=== PATIENT | male | born 1960 | race Caucasian/White ===

== ENCOUNTER → 2016-12-18 | Outpatient (CLI) | payer MEDICAID ==
[~2016-12-18] MED LIST: CYCL-83 PO; HYDR-1343 PO; HYDR-2164 PO; IOHEXOL 300 MG/ML 75ml INJECTION ONE; NORMAL SALINE 100 ML ONE; PREG75CA PO; SALINE FLUSH 10ml SYRINGE ONE
--- NOTE | 2016-12-18 14:45 | DI ---
Indication: ITS.REASON: R93.8 Abnormal findings on diagnostic imaging of other specified PROCEDURE: CT CHEST W/CONTRAST: Encounter: Initial Comparison: Chest x-ray dated December 17, 2016 Technique: Axial CT images were performed through the chest after the administration of intravenous contrast. Coronal and sagittal two-dimensional reformats. Automated Exposure Control and Iterative Reconstruction dose reducing techniques were utilized. Contrast: Omnipaque 300 74 mL Findings: Irregular spiculated left upper lobe mass adjacent to the aortic arch as seen on recent chest x-ray measuring 3.9 x 3.7 x 3.6 cm in size. There is adjacent groundglass opacity. Mild emphysematous changes in the lung apices. Mild dependent atelectasis present. No consolidative pneumonia. No pleural effusion or pneumothorax. The central airways are patent. There is an enlarged AP window node on the left measuring 1.2 cm in short axis on axial image #26. Mildly prominent prevascular node present on image #28. No right hilar or subcarinal adenopathy appreciated. No axillary adenopathy. Heart size is normal. No pericardial effusion. Left anterior descending coronary artery calcifications. The upper abdomen shows no acute findings. Bone windows show no lytic or blastic osseous lesions. Impression: 3.9 cm left upper lobe pulmonary mass strongly suspicious for a primary lung malignancy with left mediastinal adenopathy. This is associated with the pleura and immediately adjacent to the aortic arch. Biopsy is recommended. .
== END ==
LOC: IMA 13:57
DX: R93.8 Abnormal findings on diagnostic imaging of other specified body structures (principal); R91.8 Other nonspecific abnormal finding of lung field; R59.0 Localized enlarged lymph nodes
CPT/HCPCS: 71260; J7050; Q9967

== ENCOUNTER 2017-03-08 14:28 | Inpatient (IN) ==
[2017-03-08] MEDS: LEVOFLOXACIN PB 500 MG/100 ML BAG IV SCH (16:55)
[2017-03-08] MEDS: D5-1/2NS with KCL 20mEq 1,000 ML IV SCH ×3 (17:26→22:50)
--- NOTE | 2017-03-08 18:09 | Pharmacy Consult-Antibiotics ---
Pharmacy Consult-Vancomycin - Laboratory Information WBC 10.7 T/MM3 (4.5-11.0) 03/08/17 16:10 BUN 14.0 MG/DL (9-20) 03/08/17 16:10 Creatinine 0.8 MG/DL (0.8-1.5) 03/08/17 16:10 - Consult Information VANCOMYCIN CONSULT: Dx: Possible sepsis Current Renal Fx: SCr = 0.8mg/dl. Will give Vancomycin 2,000mg loading dose then 1,500mg IV q12hrs. Will continue to monitor and adjust regimen to maintain therapeutic levels. Thank you.
--- NOTE | 2017-03-08 18:11 | History and Physical ---
CHIEF COMPLAINT Chills and sweating. HISTORY OF PRESENT ILLNESS Patient is a 56-year-old male who came to the office, walk in, with chief complaint of 2-day history of progressively worsening episodes of chills, rigors and sweating. This has been going on two days and is progressively worsening. He also complains of pain in the left upper quadrant as well as left lower chest. The patient recently received a diagnosis of lung cancer. He was admitted to the hospital in [place] recently and had a left lobotomy. He was dismissed after being in the hospital for nine days, however the following day he had to go back because he developed some sweating, some cold sweats, some chills, and shortness of breath. He was worked up for sepsis and was subsequently diagnosed with UTI and sent home on antibiotics. He was there for three days. He continued to be treated on current antibiotics, Keflex, right now. PAST MEDICAL HISTORY 1. Recently diagnosed with lung cancer - left lung adenocarcinoma. He has not started chemo or radiation yet - just had surgery. 2. Low back pain. 3. Pre-diabetic. 4. Hypertension. 5. Smoking addiction. SOCIAL HISTORY Patient has smoked cigarettes for several years. REVIEW OF SYSTEMS Denies any shortness of breath. He just has chills and sweating as well as left upper quadrant pain. He is currently taking an antibiotic for UTI. Denies any hemoptysis. No chest pain per say. PAST SURGICAL HISTORY 1. Lung biopsy. 2. Chest tube insertion. FAMILY HISTORY Dad has diabetes and hypertension. Paternal grandfather had hypertension and diabetes. PHYSICAL EXAMINATION GENERAL: Patient looks uncomfortable, chilling, rigor, fatigued and weak looking in the examination room. HEENT: Unremarkable. NECK: Supple. LUNGS: Essentially clear though decreased breath sounds from the site of lobectomy. CARDIOVASCULAR: Regular rhythm. ABDOMEN: Soft. Patient is tender in the left upper quadrant. Bowel sounds normoactive. EXTREMITIES: No cyanosis, no clubbing. There is no significant edema. NEURO: Grossly intact. SKIN: No redness. ASSESSMENT 1. 56-year-old male with recent lung cancer now with two-day history of rigor, chills, sweating, fatigue and just not feeling well. Rule out sepsis. 2. Lung CA. Patient has adenocarcinoma stage 2. Patient is status post lobectomy of lung. 3. Chronic low back pain. 4. Boil on the buttock. 5. Chronic narcotic use. 6. Current UTI. PLAN 1. Admit patient for further evaluation. Obtain CBC, CMP, sed rate, UA, and chest x-ray. 2. Will start him on broad spectrum antibiotics including Meropenem IV, vancomycin IV, as well as Levaquin IV. 3. Patient will also be started on IV fluids and go from there. MTDD
[2017-03-08] MEDS: MEROPENEM 1 GM in NS 100 ML IV SCH (18:15)
[2017-03-08] MEDS: ACETAMINOPHEN 500 MG TABLET PO PRN (18:20)
[2017-03-08] MEDS: MORPHINE SULFATE 10 MG SYRINGE IV PRN (19:37)
[2017-03-08] MEDS: ONDANSETRON 4 MG/2 ML INJECTION IVP PRN (19:37)
[2017-03-08] MEDS: METOCLOPRAMIDE 10mg/2ml INJECTION IVP PRN (22:56)
[2017-03-09] MEDS: D5-1/2NS with KCL 20mEq 1,000 ML IV SCH ×4 (00:16→13:22)
[2017-03-09] MEDS: MEROPENEM 1 GM in NS 100 ML IV SCH ×3 (01:42→17:49)
[2017-03-09] MEDS: ONDANSETRON 4 MG/2 ML INJECTION IVP PRN ×2 (01:47→13:22)
[2017-03-09] MEDS: ACETAMINOPHEN 500 MG TABLET PO PRN ×2 (04:21→10:14)
[2017-03-09] MEDS: METOCLOPRAMIDE 10mg/2ml INJECTION IVP PRN (07:30)
[2017-03-09] MEDS: MORPHINE SULFATE 10 MG SYRINGE IV PRN ×2 (07:31→13:23)
--- NOTE | 2017-03-09 08:11 | XRay Report ---
Indication: LUQ PAIN XR chest 1V: Comparison: 01/04/2017 Technique: AP portable chest Findings: Patient shows normal heart size. Patient shows volume loss on the left side due to a partial pneumonectomy. Some blunting of the left costophrenic angle and elevation of the left hemidiaphragm is present. Right lung is slightly hyperaerated. No acute bony findings seen. Impression: 1. Since previous radiographs the patient shows partial pneumonectomy on the left side with removal of the mass density in the volume loss. 2. No additional acute findings. .
--- NOTE | 2017-03-09 10:00 | Consult Note ---
Oncology HPI - Data of Consult Patient: new to practice <Sherine Woods - 03/09/17 10:00> Consult date: 03/09/17 <Sherine Woods - 03/09/17 10:00> Requesting Physician: Cristofer Mendoza MD <Walt Cabrera - 03/09/17 17:57> Cristofer Mendoza MD <Sherine Woods - 03/09/17 10:00> Primary Care Provider: CHARLES Mendoza MD <Walt Cabrera - 03/09/17 17:57> CHARLES Mendoza MD <Sherine Woods - 03/09/17 10:00> Family Provider: Cristofer Mendoza MD <Walt Cabrera - 03/09/17 17:57> Cristofer Mendoza MD <Sherine Woods - 03/09/17 10:00> - Consult Narrative Reason for consult: lung cancer <Sherine Woods - 03/09/17 10:00> History of present illness: 56 yr. old male patient of Dr. Cabrera recently diagnosed w/ adenocarcinoma of lung, s/p left upper lobe lobectomy and lymph node excision by Dr. Ramírez in [place] on 02/16/17. Pathology showed margins all negatvie for malignancy and 24 lymph nodes examined; no lymphatic tumor invasion. Following lobectomy, had UTI and was readmitted to [facility] for a few days. Planning port placement and chemotherapy with pemetrexed/Cisplatin, was to start later in March. Seen by PCP in the office yesterday w/ fever, chills, sweating, and decreased appetite. Ad[place] to [facility] with possible [place]. At time of intake, reclining in hospital bed, daughter at bedside. Alert/ oriented. States "not any better-weak, not hungry or wanting to eat." Continues w/ chills, diaphoresis. No overt temperature spike. Intermittent nausea, no emesis. No abdominal pain. Normal BM yesterday. Voiding ok. History of Present Illness --Significant back problems resulting in disability. Unable to work 4 years. --12/17/16: Chest x-ray showed 3.8 cm mass in the left suprahilar region. --12/29/16: Biopsy left lung showed invasive carcinoma, grade 2, Adenocarcinoma --02/05/17: left parotid needle biopsy, low grade epithelial neoplasm. --02/16/17: KIM lobectomy and lymph node excision (24 LN examined) <Sherine Woods 03/09/17 14:35> Review of Systems - Constitutional Constitutional: Present: anorexia, chills, fatigue, fever(s), weakness, weight loss (10 lbs. in past 3 mos.) <Sherine Woods 03/09/17 14:28> - EENT Eyes: Absent: change in vision <Sherine Woods 03/09/17 14:28> Mouth/Throat: Absent: sore throat <Sherine Woods 03/09/17 14:28> - Cardiovascular Cardiovascular: Absent: chest pain, palpitations <Sherine Woods 03/09/17 14 :28> - Respiratory Respiratory: Present: dyspnea on exertion (previous to surgery, was having cough. "Not now.") <Sherine Woods 03/09/17 14:28> Additional comments: hoarseness after surgery <Walt Cabrera 03/09/17 17:57> - Gastrointestinal Gastrointestinal: Present: early satiety, nausea. Absent: abdominal pain < Sherine Woods 03/09/17 14:28> - Genitourinary Genitourinary: Absent: difficulty urinating, urinary frequency <Sherine Woods 03/09/17 14:28> - Musculoskeletal Musculoskeletal: Absent: arthralgias, joint swelling <Walt Cabrera 03/09/17 17:57> Present: back pain (chronic. Denies pain today) <Sherine Woods 03/09/17 14:28> - Integumentary/Breasts Integumentary: Absent: pruritus, rash <Walt Cabrera 03/09/17 17:57> Present: wounds (open, draining approx. 1.5 cm. incision anterior lower chest wall) <Sherine Woods 03/09/17 14:42> - Neurological Neurological: Absent: headache(s) <aWlt Cabrera 03/09/17 17:57> Present: weakness <Sherine Woods - 03/09/17 14:28> - Psychiatric Psychiatric: Absent: anxiety <Walt Cabrera 03/09/17 17:57> Present: depression (chronic) <Sherine Woods - 03/09/17 14:28 > - Hematologic/Lymphatic Hematologic/Lymphatic: Absent: anemia, lymphadenopathy <Walt Cabrera 17:57> [facility] Patient Stated Medical History Peripheral Neuropathy Yes: takes Lyrica Dental Problems Yes Hypertension Yes Chronic Obstructive Pulmonary Yes Disease (COPD) Pneumonia Yes Other Endocrine Yes: BORDERLINE Hx Renal Disease No Hx Urinary Tract Infection Yes: within past month Sepsis Yes: questionable Clinic Medical History (Last Reviewed 01/05/17 @ 13:02 by LICO Thomas) Chronic low back pain (Acute Medical) Borderline diabetes (Chronic Medical) Hypertension (Chronic Medical) <Walt Cabrera 03/09/17 17:57> Patient Stated Medical History Peripheral Neuropathy Yes: takes Lyrica Dental Problems Yes Hypertension Yes Chronic Obstructive Pulmonary Yes Disease (COPD) Pneumonia Yes Other Endocrine Yes: BORDERLINE Hx Renal Disease No Hx Urinary Tract Infection Yes: within past month Sepsis Yes: questionable Clinic Medical History (Last Reviewed 01/05/17 @ 13:02 by LICO Thomas) Chronic low back pain (Acute Medical) Borderline diabetes (Chronic Medical) Hypertension (Chronic Medical) <Sherine Woods - 03/09/17 14:28> Surgical History: Lung Biopsy, Chest Tube Insertion <Sherine Woods 10:00> Family History: Family History (Last Reviewed 01/05/17 @ 13:02 by LICO Thomas) Father Diabetes Hypertension Paternal Grandfather Hypertension Diabetes <Walt Cabrera 03/09/17 17:57> Family History (Last Reviewed 01/05/17 @ 13:02 by LICO Thomas) Father Diabetes Hypertension Paternal Grandfather Hypertension Diabetes Brother. History cutaneous melanoma at age 52. Living <Sherine Woods 03/09/17 14:42> - Social History Smoking status: Former smoker (Quit February 15, 2017) <Sherine Woods 03/09/17 14:28> Medications Home Medications Medication Instructions Recorded Confirmed Type Cyclobenzaprine Hcl (Flexeril) 10 mg PO DAILY #0 tab 10/19/13 03/08/17 History Albuterol Inhaler [Ventolin Hfa 90 2 puff IN PRN MDD 2 01/04/17 03/08/17 History mcg/actuation] Meloxicam 15 mg PO DAILY 01/04/17 03/08/17 History Trazodone [Desyrel] 100 mg PO HS 01/04/17 03/08/17 History tamsulosin 0.4 mg capsule 0.4 mg PO HS 30 Days #30 03/02/17 03/08/17 History Bisacodyl EC Tab [Dulcolax] 5 mg PO BIDWM 03/08/17 03/08/17 History Clindamycin [Cleocin] 300 mg PO TIDWM 03/08/17 03/08/17 History Pregabalin Cap [Lyrica] 75 mg PO TIDWM 03/08/17 03/08/17 History Pregabalin Cap [Lyrica] 150 mg PO HS 03/08/17 03/08/17 History buPROPion HCl [Bupropion Xl] 150 mg PO HS 03/08/17 03/08/17 History <Walt Cabrera D - 03/09/17 17:57> Allergies Allergy/AdvReac Type Severity Reaction Status Date / Time Sulfa (Sulfonamide Allergy Unknown Verified 01/05/17 11:04 Antibiotics) <Walt Cabrera - 03/09/17 17:57> Exam Vital signs: Temperature 96.3 F L 03/09/17 15:51 Pulse Rate 64 03/09/17 15:51 Respiratory Rate 18 03/09/17 15:51 Blood Pressure 170/79 H 03/09/17 15:51 Pulse Oximetry 99 03/09/17 15:51 Oxygen Delivery Method Room Air <Watl Cabrera - 03/09/17 17:57> Temperature 98.3 F 03/09/17 07:25 Pulse Rate 61 03/09/17 09:30 Respiratory Rate 18 03/09/17 07:25 Blood Pressure 156/83 H 03/09/17 09:30 Pulse Oximetry 98 03/09/17 07:25 Oxygen Delivery Method Room Air <Sherine Woods L - 03/09/17 10:00> - Constitutional mild distress, thin, cooperative <Sherine Woods - 03/09/17 14:28> - Routine HEENT Exam Head: Present: normocephalic <Sherine Woods - 03/09/17 14:28> Eye: Present: normal accommodation. Absent: conjunctival icterus <Sherine Woods - 03/09/17 14:28> Nose: dry mucous membranes <Sherine Woods - 03/09/17 14:28> - Routine Neck Exam Present: supple. Absent: lymphadenopathy, tenderness <Sherine Woods - 14:28> - Routine Respiratory Exam Present: decreased breath sounds (bilateral posterior, left > right). Absent: wheezes, crackles <Sherine Woods - 03/09/17 14:28> - Routine Cardiovascular Exam Present: RRR. Absent: no murmur <Sherine Woods - 03/09/17 14:28> - Routine Abdominal Exam Present: soft, normoactive bowel sounds. Absent: tenderness <Sherine Woods - 03/09/17 14:28> - Routine Extremities Exam Absent: edema, no edema, joint swelling <Sherine Woods - 03/09/17 14:28> - Routine Skin Exam Present: pallor, wounds (approx. 1.5 linear incision left anterior chest wall, covered w/ bandaid, small amount serosnauinous drainage. No surrounding erythema ) <Sherine Woods - 03/09/17 14:42> Comments: mild diaphoresis <Sherine Woods - 03/09/17 14:28> Oncology Results - Labs CBC & Chem 7: 03/09/17 04:03 03/09/17 04:03 <Walt Cabrera D - 03/09/17 17:57> Labs: Short CBC 03/09/17 Range/Units 04:03 WBC 13.4 H (4.5-11.0) T/MM3 Hgb 14.6 D (13.5-17.5) GM/DL Hct 43.1 D (41-53) % Plt Count 395 (130-400) T/MM3 BMP 03/09/17 04:03 Sodium 144 Potassium 4.0 Chloride 110 H Carbon Dioxide 22 BUN 11.0 Creatinine 0.7 L Glucose 167 H Calcium 9.5 D Urine 03/08/17 Range/Units 20:55 Urine Color Yellow (YELLOW) Urine Clarity Clear Urine pH 7.5 (5.0-8.0) Ur Specific [place] 1.015 (1.015-1.025) Urine Protein Negative (NEGATIVE) Urine Glucose (UA) 2+ A (NEGATIVE) <DeborahWalt D - 03/09/17 17:57> Short CBC 03/08/17 03/09/17 Range/Units 16:10 04:03 WBC 10.7 13.4 H (4.5-11.0) T/MM3 Hgb 16.6 14.6 D (13.5-17.5) GM/DL Hct 50.5 43.1 D (41-53) % Plt Count 434 H 395 (130-400) T/MM3 BMP 03/08/17 03/09/17 16:10 04:03 Sodium 148 H 144 Potassium 4.3 4.0 Chloride 112 H 110 H Carbon Dioxide 21 L 22 BUN 14.0 11.0 Creatinine 0.8 0.7 L Glucose 79 167 H Calcium 10.4 H 9.5 D Liver Function 03/08/17 Range/Units 16:10 Total Bilirubin 0.80 (0.20-1.30) MG/DL AST 23 (17-59) U/L ALT 29 (21-72) U/L Alkaline Phosphatase 89 (38-126) U/L Albumin 4.2 (3.5-5.0) G/DL Urine 03/08/17 Range/Units 20:55 Urine Color Yellow (YELLOW) Urine Clarity Clear Urine pH 7.5 (5.0-8.0) Ur Specific [place] 1.015 (1.015-1.025) Urine Protein Negative (NEGATIVE) Urine Glucose (UA) 2+ A (NEGATIVE) <Sherine Woods L - 03/09/17 10:00> Assessment and Plan Assessment and Plan: Patient examined, chart reviewed, documentation by Ivana Woods reviewed. I participated in the development of the plan of care of this patient. Stage IB adenocarcinoma of the left upper lobe status post resection now with postop fevers 2. Initially postop he was felt to have urinary tract infection. He had recurrence of the fevers on 03/08/17. It was associated with elevated plasma lactate and leukocytosis. He is currently feeling better on Levophed on Floxin, vancomycin and meropenem. Will check CRP. Will repeat CEA. We'll use SCDs for prevention of pulmonary embolism. Consider low molecular weight heparin. Thank you very much for allowing us the opportunity pursuing care of this patient. <Walt Cabrera - 03/09/17 17:57> 1. Stage IB left upper lobe adenocarcinoma. S/P lobectomy with multiple lymph nodes negative. Tumor extended past fissure requiring wedge resection of the lower lobe. Tumor was 3.4 cm nearest margin was 1 cm. Lymphovascular invasion was not identified. 24 regional lymph nodes were examined and no lymph node involvement was seen. PET suggests there may be hilar node. This lesion is central and adjacent to aortic arch and pleura. 01/22/17: MRI of the brain did not show metastatic disease. Ultrasound and CT scan show a intraparotid lymph node. This could be inflammatory from dental disease or metastatic. 02/08/17: Biopsy was obtained and shows a low-grade neoplasm. This can be addressed after his lung cancer is addressed. He will be scheduled for surgery. 03/02/17: He has completed surgery and is doing well postop. His tumor was 1B but poorly differentiated and extension across the fissure increases his risk of recurrence. Feel he would be a candidate for adjuvant chemotherapy with pemetrexed aid and cis-[place]. Will provide education and look at starting late March. 2. Possible sepsis. Ad[place] [facility] [place]; on broad spectrum IV antibiotics. Cultures pending. 3. Chronic back pain with disability. 4. COPD. 5. Situational Depression with of spouse. Currently on trazodone. 6. History tobacco use. Quit smoking 02/15/17. Plans to stay Quit. 7. Low-grade neoplasm of the parotid. Will look at further surgical evaluation after adjuvant chemotherapy. Plan Continue supportive care. Will follow. Dr. Cabrera to see later today. <Sherine Woods - 03/09/17 14:42> Sepsis Assessment - Evaluation Sepsis screening result: No Definite Risk <Sherine Woods - 03/09/17 10:00>
[2017-03-09] MEDS: LEVOFLOXACIN PB 500 MG/100 ML BAG IV SCH (15:56)
[2017-03-09] MEDS ORDERED: NS FLUSH BAG 500ml IV PRN (19:58)
[2017-03-09] MEDS: NS FLUSH BAG 500ml IV PRN (20:16)
--- NOTE | 2017-03-09 21:49 | Progress Note ---
DATE 03/09/2017 SUBJECTIVE Patient is lying in bed. His is at bedside. He thinks his chills are better but not totally gone. His chest x-ray showed no evidence of pneumonia at this time. The source for his chills is not well identifiable at this time. UA is unremarkable. PHYSICAL EXAM VITAL SIGNS: Blood pressure 170/79. Temperature 96.3 orally. Pulse rate 64. Respirations 18. Oxygen saturation 99% on room air. GENERAL: He looks comfortable. He is not as anxious today as he was yesterday. HEENT: Unremarkable. NECK: Supple. LUNGS: Decreased breath sounds in the left lower lobe at the area of lobectomy. ABDOMEN: Soft, nontender. EXTREMITIES: No edema. NEUROLOGIC: Grossly intact. SKIN: At the site of his lobectomy on the right middle back region I did take a culture. At the anterior left lower rib cage at the site of the incision for his thoracotomy I also obtained a bacterial culture from there as well. LABORATORY (this morning) Electrolytes normal. Sugar 167. HgA1c 5.5. Hemoglobin 14.6. WBC is up from 10, 000 to 13,400. ASSESSMENT 1. Sepsis of unknown etiology, unclear. 2. Chills, diaphoresis. 3. Acute adenocarcinoma of lung, stage II. Patient is status post left lower lobe lobectomy. 4. Chronic back pain. PLAN Followup lab in the morning. Continue triple IV antibiotics for now. Hopefully we can get a culture back and also wound culture from the site of recent surgery. [facility]ITALRachell
[2017-03-10] MEDS: ONDANSETRON 4 MG/2 ML INJECTION IVP PRN ×3 (00:54→21:58)
[2017-03-10] MEDS: MEROPENEM 1 GM in NS 100 ML IV SCH ×3 (00:58→17:07)
[2017-03-10] MEDS: D5-1/2NS with KCL 20mEq 1,000 ML IV SCH ×5 (01:37→20:30)
[2017-03-10] MEDS: MORPHINE SULFATE 10 MG SYRINGE IV PRN (04:42)
[2017-03-10] MEDS: METOCLOPRAMIDE 10mg/2ml INJECTION IVP PRN ×2 (04:42→17:07)
[2017-03-10] MEDS ORDERED: SALINE FLUSH 10ml SYRINGE IV PRN (06:24)
[2017-03-10] MEDS: SALINE FLUSH 10ml SYRINGE IV PRN ×2 (06:30→21:59)
--- NOTE | 2017-03-10 09:57 | XRay Report ---
Indication: Lung resection Fever PROCEDURE: XR chest 2V: Encounter: Subsequent Comparison: One view chest, 03/08/2017 Findings: Single frontal chest radiograph demonstrates no appreciable change. Left-sided volume loss associated with partial left pneumonectomy. No confluent infiltrate. Heart unenlarged. Slight retraction of the left hilum upward and ipsilateral mediastinal shift, indicative of volume loss. Impression: Negative for acute chest disease. See above. .
--- NOTE | 2017-03-10 10:57 | Pharmacy Consult-Antibiotics ---
Pharmacy Consult-Vancomycin - Laboratory Information WBC 13.4 T/MM3 (4.5-11.0) H 03/10/17 04:35 BUN 10.0 MG/DL (9-20) 03/10/17 04:35 Creatinine 0.6 MG/DL (0.8-1.5) L 03/10/17 04:35 Vancomycin Trough 8.04 UG/ML (15-20) L 03/10/17 07:28 - Consult Information Vancomycin trough low today. Will give vancomycin 2 grams right now then change therapy to vancomycin 1500mg IV q8h. Will draw a trough to validate dose on . Thank you.
--- NOTE | 2017-03-10 13:42 | Progress Note ---
Oncology Subjective Nauseated Vomiting. Chills. Feels bad. Dry cough. Do diarrhea Constipation. Exam Vital signs: Temperature 98.3 F 03/10/17 07:16 Pulse Rate 63 03/10/17 07:16 Respiratory Rate 18 03/10/17 07:16 Blood Pressure 160/97 H 03/10/17 07:16 Pulse Oximetry 98 03/10/17 07:16 Oxygen Delivery Method Room Air - Constitutional no acute distress, cachectic - Routine HEENT Exam Eye: Present: EOMI, PERRL. Absent: scleral injection ENT: Present: mucous membranes moist, oropharynx clear - Routine Neck Exam Present: supple. Absent: lymphadenopathy - Routine Chest/Breast/Axilla Exam Chest wall: Present: mass (Area of mass opened posterior chest) - Routine Respiratory Exam Present: CTA bilaterally. Absent: wheezes - Routine Cardiovascular Exam Present: RRR, no murmur - Routine Abdominal Exam Present: soft, non distended, non tender, distended - Routine Skin Exam Present: dry, warm - Routine Neurological Exam Present: alert, oriented X3, CN II-XII intact Oncology Results - Labs CBC & Chem 7: 03/10/17 04:35 03/10/17 04:35 Labs: Short CBC 03/10/17 Range/Units 04:35 WBC 13.4 H (4.5-11.0) T/MM3 Hgb 14.7 (13.5-17.5) GM/DL Hct 43.7 (41-53) % Plt Count 351 (130-400) T/MM3 BMP 03/10/17 04:35 Sodium 141 Potassium 3.4 L Chloride 104 Carbon Dioxide 27 BUN 10.0 Creatinine 0.6 L Glucose 134 H Calcium 9.9 Liver Function 03/10/17 Range/Units 04:35 Total Bilirubin 0.70 (0.20-1.30) MG/DL AST 16 L (17-59) U/L ALT 24 (21-72) U/L Alkaline Phosphatase 72 (38-126) U/L Albumin 4.0 (3.5-5.0) G/DL Laboratory Tests 03/09/17 03/10/17 04:03 04:35 C-Reactive Protein < 5.0 Carcinoembryonic Ag 3.46 H D CEA better at 3.46 Down from 19.9 - Imaging and Cardiology Chest x-ray Additional comments: Date of Exam: 03/10/17 Ordering Provider: Walt Cabrera MD Type of Exam(s): XR chest 2V Reason for Exam(s): Lung resection Fever Indication: Lung resection Fever PROCEDURE: XR chest 2V: Encounter: Subsequent Comparison: One view chest, 03/08/2017 Findings: Single frontal chest radiograph demonstrates no appreciable change. Left-sided volume loss associated with partial left pneumonectomy. No confluent infiltrate. Heart unenlarged. Slight retraction of the left hilum upward and ipsilateral mediastinal shift, indicative of volume loss. Impression: Negative for acute chest disease. See above. . Assessment and Plan Assessment and Plan: 1. Stage IB left upper lobe adenocarcinoma. S/P lobectomy with multiple lymph nodes negative. Tumor extended past fissure requiring wedge resection of the lower lobe. Tumor was 3.4 cm nearest margin was 1 cm. Lymphovascular invasion was not identified. 24 regional lymph nodes were examined and no lymph node involvement was seen. PET suggests there may be hilar node. This lesion is central and adjacent to aortic arch and pleura. 01/22/17: MRI of the brain did not show metastatic disease. Ultrasound and CT scan show a intraparotid lymph node. This could be inflammatory from dental disease or metastatic. 02/08/17: Biopsy was obtained and shows a low-grade neoplasm. This can be addressed after his lung cancer is addressed. He will be scheduled for surgery. 03/02/17: He has completed surgery and is doing well postop. His tumor was 1B but poorly differentiated and extension across the fissure increases his risk of recurrence. Feel he would be a candidate for adjuvant chemotherapy with pemetrexed aid and cis-[place]. 03/10/17: CXR negative. CEA decreased from 19.9 to 3.46. CRP low. Continues with fever and feels bad. Worry about opportunistic infection or drug fever. No new drugs. Chest tube wounds growing Gm + Will get CT. Nausea could be levoquin. 2. Possible sepsis. Admitted to [facility] 03/08/17; on broad spectrum IV antibiotics. Cultures blood negative. Wounds growing ID pending. Still feeling bad.WBC elevated and stable CRP not elevated. 3. Chronic back pain with disability. 4. COPD. 5. Situational Depression with of spouse. Currently on trazodone. 6. History tobacco use. Quit smoking 02/15/17. 7. Low-grade neoplasm of the parotid. Will look at further surgical evaluation after adjuvant chemotherapy. Plan Continue supportive care. CT chest. Continue antibiotics. - Time Spent With Patient Total time spent is greater than 50% in coordination of care (as documented) at patient's floor/unit and/or counseling patient: less than 15 minutes Sepsis Assessment - Evaluation Sepsis screening result: No Definite Risk
--- NOTE | 2017-03-10 15:26 | CT Scan Report ---
Indication: Fever Lung cancer Post op PROCEDURE: CT chest wo con: Encounter: Initial Comparison: Chest radiograph of earlier today Technique: Axial, coronal, and sagittal noncontrasted images utilizing radiation dose reduction technique. Findings: Partial pneumonectomy on the left and pleural fluid is identified. There is a subtle groundglass infiltrate with a reticular component as well of about 2 cm in the left apex. This is consistent with pneumonia in this setting. No nodule or mass. Small mediastinal lymph nodes, not enlarged by CT criteria. Images of the upper abdomen demonstrates no adrenal mass effect. Extensive coronary artery calcification. Bone review demonstrates degenerative changes of the spine. Impression: 1. Partial pneumonectomy on the left. 2. Minimal infiltrate in the left upper lobe. 3. Small left pleural effusion. .
[2017-03-10] MEDS: LEVOFLOXACIN PB 500 MG/100 ML BAG IV SCH (15:56)
--- NOTE | 2017-03-10 18:39 | General Surgery Consult Note ---
Consult date: 03/10/17 Attending Physician: Cristofer Mendoza MD Reason for consult: wound care (at old chest tube site) [facility] Patient Stated Medical History Peripheral Neuropathy Yes: takes Lyrica Dental Problems Yes Hypertension Yes Chronic Obstructive Pulmonary Yes Disease (COPD) Pneumonia Yes Other Endocrine Yes: BORDERLINE Hx Renal Disease No Hx Urinary Tract Infection Yes: within past month Sepsis left lung cancer 2017 Clinic Medical History (Last Reviewed 01/05/17 @ 13:02 by LICO Thomas) Chronic low back pain (Acute Medical) Borderline diabetes (Chronic Medical) Hypertension (Chronic Medical) Surgical History: Lung Biopsy, Chest Tube Insertion,. Left upper lobectomy 2016 Family History: Family History (Last Reviewed 01/05/17 @ 13:02 by LICO Thomas) Father Diabetes Hypertension lung cancer Paternal Grandfather Hypertension Diabetes MOTHER when patient was 2 year old from "sleeping sickness." - Social History Smoking status: Former smoker (Quit February 15, 2017) Medications Home Medications Medication Instructions Recorded Confirmed Type Cyclobenzaprine Hcl (Flexeril) 10 mg PO DAILY #0 tab 10/19/13 03/08/17 History Albuterol Inhaler [Ventolin Hfa 90 2 puff IN PRN MDD 2 01/04/17 03/08/17 History mcg/actuation] Meloxicam 15 mg PO DAILY 01/04/17 03/08/17 History Trazodone [Desyrel] 100 mg PO HS 01/04/17 03/08/17 History tamsulosin 0.4 mg capsule 0.4 mg PO HS 30 Days #30 03/02/17 03/08/17 History Bisacodyl EC Tab [Dulcolax] 5 mg PO BIDWM 03/08/17 03/08/17 History Clindamycin [Cleocin] 300 mg PO TIDWM 03/08/17 03/08/17 History Pregabalin Cap [Lyrica] 75 mg PO TIDWM 03/08/17 03/08/17 History Pregabalin Cap [Lyrica] 150 mg PO HS 03/08/17 03/08/17 History buPROPion HCl [Bupropion Xl] 150 mg PO HS 03/08/17 03/08/17 History Allergies Allergy/AdvReac Type Severity Reaction Status Date / Time Sulfa (Sulfonamide Allergy Unknown Verified 03/09/17 18:37 Antibiotics) Review of Systems 10-point ROS: negative except for HPI and the following: - General General: Present: chills (and rigors), night sweats, unexplained weight loss ( 10 lb in last 3 months) - Eyes/Ears/Nose/Throat Ear Nose Throat: Present: loose/chipped/cracked teeth - Respiratory Respiratory: Present: difficulty breathing, cough (recent KIM lobectomy) - Gastrointestinal Gastrointestinal: Present: nausea, other (poor appetite) - Musculoskeletal Musculoskeletal: Present: back pain - Neurological Neurological: Present: muscle weakness - Psychiatric Psychiatric: Present: depression - Vital Signs Last Vital Signs Temp 97.9 F 03/10/17 16:00 Pulse 55 L 03/10/17 16:00 Resp 18 03/10/17 16:00 BP 163/84 H 03/10/17 16:00 Pulse Ox 99 03/10/17 16:00 - Laboratory Result Diagrams: 03/10/17 04:35 03/10/17 04:35 - Microbiogy Microbiology 03/08/17 16:22 Peripheral/Iv Start Blood Culture - Preliminary No Growth After 2 Days 03/08/17 16:10 Peripheral/Iv Start Blood Culture - Preliminary No Growth After 2 Days 03/09/17 19:49 Back, Left Upper Gram Stain - Final 03/09/17 19:49 Back, Left Upper Superficial Wound Culture - Preliminary Early growth 03/09/17 19:49 Abdomen, Left Lower Gram Stain - Final 03/09/17 19:49 Abdomen, Left Lower Deep Wound Culture - Preliminary Early growth Wound/Stoma/Drain Assessment - Wound Management Left Upper Lateral Abdomen Wound Type: Surgical Incision Wound Present on Admission?: Yes Wound Bed Appearance: [place] Wound Drainage Description: Serosanguineous Wound Drainage Amount: Scant Wound Drainage Odor: No Odor Wound Dressing Status: Dry & Intact Primary Dressing: Silver Dressing Secondary Dressing: Mepilex Dressing Change Date: 03/09/17 Dressing Change Time: 18:30 Dressing Change Patient Tolerance: Tolerated Well Left Upper Posterior Back Wound Type: Lap Site Wound Present on Admission?: Yes Wound Drainage Amount: None Wound Drainage Odor: No Odor Wound Dressing Status: Dry & Intact Primary Dressing: Bandaid Dressing Change Date: 03/09/17 Dressing Change Time: 19:45 Dressing Change Patient Tolerance: Tolerated Well General Surgery Results - Results Labs: 03/10/17 04:35 03/10/17 04:35 Microbiology: Microbiology 03/08/17 16:22 Peripheral/Iv Start Blood Culture - Preliminary No Growth After 2 Days 03/08/17 16:10 Peripheral/Iv Start Blood Culture - Preliminary No Growth After 2 Days 03/09/17 19:49 Back, Left Upper Gram Stain - Final 03/09/17 19:49 Back, Left Upper Superficial Wound Culture - Preliminary Early growth 03/09/17 19:49 Abdomen, Left Lower Gram Stain - Final 03/09/17 19:49 Abdomen, Left Lower Deep Wound Culture - Preliminary Early growth Hospital Course Summary Disclaimer: The visit summary below is not to be considered part of the above Progress Note. Sepsis Assessment - Evaluation Sepsis screening result: No Definite Risk
[2017-03-11] MEDS: MEROPENEM 1 GM in NS 100 ML IV SCH ×3 (01:18→17:33)
[2017-03-11] MEDS: SALINE FLUSH 10ml SYRINGE IV PRN (01:32)
[2017-03-11] MEDS: METOCLOPRAMIDE 10mg/2ml INJECTION IVP PRN (01:33)
[2017-03-11] MEDS: NS FLUSH BAG 500ml IV PRN (01:33)
[2017-03-11] MEDS: ACETAMINOPHEN 500 MG TABLET PO PRN (04:28)
[2017-03-11] MEDS: D5-1/2NS with KCL 20mEq 1,000 ML IV SCH ×2 (05:35→17:32)
--- NOTE | 2017-03-11 07:59 | Progress Note ---
DATE 03/10/2017 SUBJECTIVE Patient is lying in bed. He still complained of chills. His CT chest was reviewed later on after I talked to him. He was seen by wound care earlier. PHYSICAL EXAM General: Patient looks comfortable overall. VITAL SIGNS: Pulse is between 55 to 62. Blood pressure 163/84 with respiration 18. O2 sat 99% on room air. NECK: Supple. CHEST: Lungs are clearing. CARDIOVASCULAR: Regular rate and rhythm. ABDOMEN: Soft, nontender. No masses palpable. EXTREMITIES: No edema. NEURO EXAM: Grossly intact. SKIN: As previously recorded. LABORATORY This morning white blood count was 13,400. Potassium was 3.4 earlier today. CEA is 3.46. IMAGING CT chest done that shows minimal infiltrate in left upper lobe probably consistent with pneumonia in this clinical setting. Chest x-ray done today negative for acute disease. ASSESSMENT 1. Sepsis of unknown etiology. 2. Adenocarcinoma of the lung, stage II. Patient is status post left lobectomy. 3. Left upper lobe pneumonia. PLAN Continue current antibiotics. Wound culture from yesterday shows early growth with a gram positive chain. Follow up electrolytes in the morning and tonight. [facility]
--- NOTE | 2017-03-11 08:52 | Consultation ---
DATE OF CONSULTATION 03/10/2017 FINDINGS Mr. Dunlap is a 56-year-old gentleman whom I was asked to see today for evaluation of a wound involving his left lateral chest. The patient states that in mid-January he underwent a left upper lobectomy secondary to lung cancer. He had several chest tubes placed during the time of his surgery. Patient states these chest tubes were present for several days following his surgery. The patient has noted some redness along one of his chest tube sites involving the left lateral chest wall. Recently he has been having a component of a night sweats and fever. The patient was admitted to hospital for further care. Consult was put forth to myself in regards to this chest tube site. PAST MEDICAL HISTORY Performed by my nurse practitioner, Monroe Hayes. PAST SURGICAL HISTORY Performed by my nurse practitioner, Monroe Hayes. MEDICATIONS Performed by my nurse practitioner, Monroe Hayes. ALLERGIES Performed by my nurse practitioner, Monroe Hayes. SOCIAL HISTORY Performed by my nurse practitioner, Monroe Hayes. FAMILY HISTORY Performed by my nurse practitioner, Monroe Hayes. REVIEW OF SYSTEMS Performed by my nurse practitioner, Monroe Hayes. PHYSICAL EXAMINATION Mr. Pena is a 56-year-old gentleman who does not appear to be in acute distress. VITALS: Temperature 97.9, pulse 55, respirations 18, blood pressure 163/84, SaO2 99% on room air. HEENT: Normocephalic. Pupils are equal, round and reactive to light and accommodation. HEART: Regular rate and rhythm. Normal S1 and S2 without gallops, murmurs or clicks. CHEST: Attention was focused to the left lateral chest wall. He does have a thoracotomy incision that has healed without difficulty. Just beneath his thoracotomy incision he did have a Mepilex foam dressing present. The foam dressing was lifted up so that one could see the underlying wound. He does have a chest tube site that does not appear to be grossly infected at this time. There is no surrounding periwound erythema. The chest tube site remains to be open. There is some minimal bioburden-like material within the subcutaneous tissues. I did not see any evidence for sheron necrosis of the skin edges. ABDOMEN: Palpation of the abdomen reveals it to be soft and nontender. I do not appreciate any evidence for hepatosplenomegaly or abnormal masses. EXTREMITIES: Without clubbing, cyanosis, or edema. NEURO: Cranial nerves II-XII grossly intact. Patient is without focal motor or sensory deficits. LABORATORY/RADIOGRAPH EVALUATION The patient had a CBC and his white count was 13.4. Hemoglobin is normal at 14.7. CMP obtained and found to be without marked abnormalities. The patient had a CEA level that was elevated at 3.46. Chest CT scan was obtained earlier today. Findings were that of a partial pneumonectomy on the left. Minimal infiltrate was noted within the left upper lobe. Small left pleural effusion was noted. ASSESSMENT 56-year-old gentleman status post lobectomy of left lung. Patient with a presentation of fever and chills. Patient with surgical wound/chest tube site involving left lateral chest wall which does not appear to be grossly infected at this time. PLAN In regard to his chest tube site I would recommend that we just initiate local wound care consisting of placing silver Aquacel within the wound followed by a foam dressing. At this time there is no need for any type of excisional surgical debridement/surgical intervention. I do not feel that this small chest tube/surgical wound involving left lateral chest wall is the underlying etiology for his fever and chills. Will continue to follow along in the patient 's care. [facility]
[2017-03-11 10:20] VITALS: BMI 20.9
--- NOTE | 2017-03-11 11:42 | Progress Note ---
Oncology Subjective Sitting in chair. States feeling better, no chills or sweats today. No pain. Occasional non-prod. cough. Denies SOA. Denies N/V, no diarrhea or constipation. Normal voiding. General: No fever, no night sweats Eyes: No redness, no pain, no diplopia ENT: No mouth sores, no trouble swallowing Cardiac: No chest pain no palpitations Pulmonary: + cough, no shortness of breath, no wheezing Abdomen: No pain, no nausea vomiting, no diarrhea or constipation : No urgency, frequency, dysuria, or hematuria Musculoskeletal: No arthritis, no myalgias Neurological: No headaches, no focal weakness Skin: No rash, no sores Psychiatric: No anxiety, no depression <Sherine Woods - 03/11/17 16:39> Exam Vital signs: Temperature 97.9 F 03/11/17 15:00 Pulse Rate 60 03/11/17 15:00 Respiratory Rate 14 03/11/17 15:00 Blood Pressure 172/95 H 03/11/17 15:00 Pulse Oximetry 99 03/11/17 15:00 Oxygen Delivery Method Room Air <Walt Cabrera D - 03/11/17 19:24> Temperature 97 F 03/11/17 07:00 Pulse Rate 59 L 03/11/17 07:00 Respiratory Rate 14 03/11/17 07:00 Blood Pressure 157/93 H 03/11/17 07:00 Pulse Oximetry 99 03/11/17 07:00 Oxygen Delivery Method Room Air <Sherine Woods - 03/11/17 16:39> - Constitutional no acute distress, well nourished, well developed <Sherine Woods - 03/11/17 16:39> - Routine HEENT Exam Head: Present: normocephalic <Sherine Woods - 03/11/17 16:39> Eye: Present: EOMI <Sherine Woods - 03/11/17 16:39> ENT: Present: mucous membranes moist <Sherine Woods - 03/11/17 16:39> - Routine Neck Exam Present: supple. Absent: lymphadenopathy <Sherine Woods - 03/11/17 16:39> - Routine Respiratory Exam Present: decreased breath sounds. Absent: wheezes, crackles <Sherine Woods - 03/11/17 16:39> - Routine Cardiovascular Exam Present: RRR. Absent: no murmur <Sherine Woods - 03/11/17 16:39> - Routine Abdominal Exam Present: soft, normoactive bowel sounds, non tender <Sherine Woods - 16:39> - Routine Extremities Exam Present: no edema <Sherine Woods - 03/11/17 16:39> - Routine Back/Spine/Pelvis Exam Back/Spine: Absent: vertebral tenderness <Sherine Woods - 03/11/17 16:39> - Routine Skin Exam Present: dry, warm, lesions <Sherine Woods - 03/11/17 16:39> Comments: drss to left ant. chest wall-dry/intact/ did not remove. Incision left posterior lateral thoracic area well healed, medial incision mildy erythematous , but dry/well approximated. <Sherine Woods - 03/11/17 16:39> - Routine Neurological Exam Present: alert, oriented X3, moving all extremities <Sherine Woods - 16:39> - Routine Psychiatric Exam Present: normal affect, normal thought process <Sherine Woods - 03/11/17 16: 39> Oncology Results - Labs CBC & Chem 7: 03/11/17 04:50 03/11/17 04:50 <Walt Cabrera - 03/11/17 19:24> Labs: Short CBC 03/11/17 Range/Units 04:50 WBC 13.5 H (4.5-11.0) T/MM3 Hgb 15.1 (13.5-17.5) GM/DL Hct 44.4 (41-53) % Plt Count 317 (130-400) T/MM3 BMP 03/10/17 03/11/17 19:37 04:50 Sodium 142 139 Potassium 3.3 L 3.3 L Chloride 105 101 Carbon Dioxide 25 28 BUN 11.0 11.0 Creatinine 0.6 L 0.7 L Glucose 92 108 Calcium 9.3 9.4 Liver Function 03/11/17 Range/Units 04:50 Total Bilirubin 0.80 (0.20-1.30) MG/DL AST 15 L (17-59) U/L ALT 30 (21-72) U/L Alkaline Phosphatase 68 (38-126) U/L Albumin 3.9 (3.5-5.0) G/DL <Walt Cabrera - 03/11/17 19:24> Short CBC 03/11/17 Range/Units 04:50 WBC 13.5 H (4.5-11.0) T/MM3 Hgb 15.1 (13.5-17.5) GM/DL Hct 44.4 (41-53) % Plt Count 317 (130-400) T/MM3 BMP 03/10/17 03/11/17 19:37 04:50 Sodium 142 139 Potassium 3.3 L 3.3 L Chloride 105 101 Carbon Dioxide 25 28 BUN 11.0 11.0 Creatinine 0.6 L 0.7 L Glucose 92 108 Calcium 9.3 9.4 Liver Function 03/11/17 Range/Units 04:50 Total Bilirubin 0.80 (0.20-1.30) MG/DL AST 15 L (17-59) U/L ALT 30 (21-72) U/L Alkaline Phosphatase 68 (38-126) U/L Albumin 3.9 (3.5-5.0) G/DL <Sherine Woods L - 03/11/17 11:42> Assessment and Plan Assessment and Plan: Patient examined Chart reviewed. I participated in the development of the plan of care of the patient CT Chest shows infiltrate and small amount of fluid. Now having hiccups possible related to lymph node dissection. WBC stable Laboratory Tests 03/09/17 03/10/17 03/11/17 04:03 04:35 04:50 WBC 13.4 H 13.4 H 13.5 H Hgb 14.7 15.1 Plt Count 351 317 Creatinine 03/11/17 04:50 WBC Hgb Plt Count Creatinine 0.[address] Mendoza. Will follow up in office. Need to have fever clear prior to port a cath. <Walt Cabrera - 03/11/17 19:24> 1. Stage IB left upper lobe adenocarcinoma. S/P lobectomy with multiple lymph nodes negative. Tumor extended past fissure requiring wedge resection of the lower lobe. Tumor was 3.4 cm nearest margin was 1 cm. Lymphovascular invasion was not identified. 24 regional lymph nodes were examined and no lymph node involvement was seen. PET suggests there may be hilar node. This lesion is central and adjacent to aortic arch and pleura. 01/22/17: MRI of the brain did not show metastatic disease. Ultrasound and CT scan show a intraparotid lymph node. This could be inflammatory from dental disease or metastatic. 02/08/17: Biopsy was obtained and shows a low-grade neoplasm. This can be addressed after his lung cancer is addressed. He will be scheduled for surgery. 03/02/17: He has completed surgery and is doing well postop. His tumor was 1B but poorly differentiated and extension across the fissure increases his risk of recurrence. Feel he would be a candidate for adjuvant chemotherapy with pemetrexed aid and cis-[place]. 03/10/17: CXR negative. CEA decreased from 19.9 to 3.46. CRP low. Continues with fever and feels bad. Worry about opportunistic infection or drug fever. No new drugs. Chest tube wounds growing Gm + Will get CT. Nausea could be levoquin. 03/11/17. CT shows likely pneumonia. Clinically and subjectively feeling improved. No nausea today. 2. Possible sepsis. Admitted to [facility] 03/08/17; on broad spectrum IV antibiotics. Cultures blood negative. Wounds growing ID pending. Still feeling bad.WBC elevated and stable CRP not elevated 03/11/17: Subjectively feeling improved. Wound Culture Gm + cocci, light growth. Blood cultures negative for growth after 3 days. 3. Chronic back pain with disability. 4. COPD. 5. Situational Depression with of spouse. Currently on trazodone. 03/11/17 Verbalizes-" I have 11 granchildren and one on the way... I have a lot to get better for." 6. History tobacco use. Quit smoking 02/15/17 03/11/17: states plans to stay Quit. Congratulated. 7. Low-grade neoplasm of the parotid. Will look at further surgical evaluation after adjuvant chemotherapy. Plan Continue supportive care. Patient thinks may go home tomorrow. Will follow as out-patient. <Sherine Woods - 03/11/17 16:39> - Time Spent With Patient Total time spent is greater than 50% in coordination of care (as documented) at patient's floor/unit and/or counseling patient: <Walt Cabrera - 03/11/17 19:24> Total time spent is greater than 50% in coordination of care (as documented) at patient's floor/unit and/or counseling patient: <Sherine Woods 03/11/17 11:42> less than 15 minutes <Sherine Woods 03/11/17 16:39> Sepsis Assessment - Evaluation Sepsis screening result: No Definite Risk <Sherine Woods 03/11/17 11:42>
[2017-03-11] MEDS ORDERED: HYDROCODONE/APAP 10 MG/325 MG TABLET PO PRN (14:17)
[2017-03-11] MEDS ORDERED: ALBUTEROL 2.5mg/3ml (0.083%) NEB AEROSOL PRN (14:30)
[2017-03-11] MEDS: LEVOFLOXACIN PB 500 MG/100 ML BAG IV SCH (16:13)
[2017-03-11] MEDS: Bisacodyl EC TAB 5 MG TABLET PO SCH (17:32)
[2017-03-11] MEDS: PREGABALIN 75 MG CAPSULE PO SCH (17:32)
[2017-03-11] MEDS: DOCUSATE SODIUM 100 MG CAPSULE PO SCH (21:41)
[2017-03-11] MEDS ORDERED: TAMSULOSIN 0.4 MG CAPSULE PO SCH (22:00)
[2017-03-11] MEDS ORDERED: TRAZODONE 100 MG TABLET PO SCH (22:00)
[2017-03-11] MEDS ORDERED: PREGABALIN 150 MG CAPSULE PO SCH (22:00)
[2017-03-11] MEDS ORDERED: BuPROPion XL 150mg (24HR) TABLET PO SCH (22:00)
[2017-03-12] MEDS: MEROPENEM 1 GM in NS 100 ML IV SCH ×2 (01:05→09:43)
[2017-03-12] MEDS ORDERED: CYCLOBENZAPRINE 10 MG TABLET PO SCH (09:00)
[2017-03-12] MEDS ORDERED: MELOXICAM 15 MG TABLET PO SCH (09:00)
[2017-03-12] MEDS: Bisacodyl EC TAB 5 MG TABLET PO SCH (09:42)
[2017-03-12] MEDS: D5-1/2NS with KCL 20mEq 1,000 ML IV SCH ×2 (09:42→10:53)
[2017-03-12] MEDS: DOCUSATE SODIUM 100 MG CAPSULE PO SCH (09:42)
[2017-03-12] MEDS: PREGABALIN 75 MG CAPSULE PO SCH ×2 (09:42→11:48)
[2017-03-12] MEDS: NS FLUSH BAG 500ml IV PRN (09:51)
[2017-03-12 10:22] VITALS: BP 146/76; PULSE 57; RESP 16; O2SAT 100
[2017-03-12 10:24] VITALS: TEMP 97.9
--- NOTE | 2017-03-12 10:46 | Progress Note ---
Oncology Subjective Alert/oriented. Feeling better. No fever/chills, or sweats. Continues w/ non- prod. cough. No chest pain or SOA. Eating better. Chronic back pain-Fentanyl resumed per Dr. Gillette. No BM since admit. Voiding normally. General: No fever, no night sweats Eyes: No redness, no pain, no diplopia ENT: No mouth sores, no trouble swallowing Cardiac: No chest pain no palpitations Pulmonary: + cough, no shortness of breath, no wheezing Abdomen: No pain, no nausea vomiting, no diarrhea or constipation. No BM since admit. : No urgency, frequency, dysuria, or hematuria Musculoskeletal: chronic back pain. Denies pain now. Neurological: No headaches, no focal weakness Skin: No rash, no sores Psychiatric: No anxiety, no depression Exam Vital signs: Temperature 97.9 F 03/12/17 10:23 Pulse Rate 57 L 03/12/17 08:00 Respiratory Rate 16 03/12/17 08:00 Blood Pressure 146/76 H 03/12/17 08:00 Pulse Oximetry 100 03/12/17 08:00 Oxygen Delivery Method Room Air - Constitutional no acute distress, well nourished, well developed - Routine HEENT Exam Head: Present: normocephalic Eye: Present: EOMI Nose: moist mucous membranes - Detailed ENT Exam Oral mucosa: Absent: lesions - Routine Neck Exam Present: supple. Absent: lymphadenopathy - Routine Respiratory Exam Present: decreased breath sounds. Absent: wheezes, crackles - Routine Cardiovascular Exam Present: RRR. Absent: no murmur - Routine Abdominal Exam Present: soft. Absent: tenderness - Routine Extremities Exam Absent: no edema, joint swelling - Routine Skin Exam Present: dry, warm Comments: dressing ant. left chest wall dry/intact. No s/sx inflammation-wound not examined. - Routine Neurological Exam Present: alert, oriented X3 - Routine Psychiatric Exam Present: normal affect, normal thought process Oncology Results - Labs CBC & Chem 7: 03/11/17 04:50 03/12/17 04:33 Labs: BMP 03/12/17 04:33 Creatinine 0.6 L Assessment and Plan Assessment and Plan: Patient examined Chart reviewed. I participated in the development of the plan of care of the patient CT Chest shows infiltrate and small amount of fluid. Now having hiccups possible related to lymph node dissection. WBC stable Laboratory Tests 03/09/17 03/10/17 03/11/17 04:03 04:35 04:50 WBC 13.4 H 13.4 H 13.5 H Hgb 14.7 15.1 Plt Count 351 317 Creatinine 03/11/17 04:50 WBC Hgb Plt Count Creatinine 0.[address] Mendoza. Will follow up in office. Need to have fever clear prior to port a cath. 1. Stage IB left upper lobe adenocarcinoma. S/P lobectomy with multiple lymph nodes negative. Tumor extended past fissure requiring wedge resection of the lower lobe. Tumor was 3.4 cm nearest margin was 1 cm. Lymphovascular invasion was not identified. 24 regional lymph nodes were examined and no lymph node involvement was seen. PET suggests there may be hilar node. This lesion is central and adjacent to aortic arch and pleura. 01/22/17: MRI of the brain did not show metastatic disease. Ultrasound and CT scan show a intraparotid lymph node. This could be inflammatory from dental disease or metastatic. 02/08/17: Biopsy was obtained and shows a low-grade neoplasm. This can be addressed after his lung cancer is addressed. He will be scheduled for surgery. 03/02/17: He has completed surgery and is doing well postop. His tumor was 1B but poorly differentiated and extension across the fissure increases his risk of recurrence. Feel he would be a candidate for adjuvant chemotherapy with pemetrexed aid and cis-pechanga. 03/10/17: CXR negative. CEA decreased from 19.9 to 3.46. CRP low. Continues with fever and feels bad. Worry about opportunistic infection or drug fever. No new drugs. Chest tube wounds growing Gm + Will get CT. Nausea could be levoquin. 03/11/17. CT shows likely pneumonia. Clinically and subjectively feeling improved. No nausea today. 03/12/17 Clinically and subjectively improving. 2. Possible sepsis. Admitted to [facility]; on broad spectrum IV antibiotics. Cultures blood negative. Wounds growing ID pending. Still feeling bad.WBC elevated and stable CRP not elevated. 03/11/17: Subjectively feeling improved. Wound Culture Gm + cocci, light growth. Blood cultures negative for growth after 3 days. 3. Chronic back pain with disability. 4. COPD. 5. Situational Depression with of spouse. Currently on trazodone. 03/11/17 Verbalizes-" I have 11 granchildren and one on the way... I have a lot to get better for." 6. History tobacco use. Quit smoking 02/15/17 03/11/17: states plans to stay Quit. Congratulated. 7. Low-grade neoplasm of the parotid. Will look at further surgical evaluation after adjuvant chemotherapy. Plan. Oncology okay with dismissal. RTC Sherine Woods [employer] 03/18/17 w/ CBC, CMP, LDH, Mg , and education on planned chemotherapy at later date. Patient informed. Has no questions. - Time Spent With Patient Total time spent is greater than 50% in coordination of care (as documented) at patient's floor/unit and/or counseling patient: 25 - 35 minutes Sepsis Assessment - Evaluation Sepsis screening result: No Definite Risk
--- NOTE | 2017-03-12 11:37 | Pharmacy Consult-Antibiotics ---
Pharmacy Consult-Vancomycin - Laboratory Information WBC 13.5 T/MM3 (4.5-11.0) H 03/11/17 04:50 BUN 11.0 MG/DL (9-20) 03/11/17 04:50 Creatinine 0.6 MG/DL (0.8-1.5) L 03/12/17 04:33 Vancomycin Trough 19.18 UG/ML (15-20) 03/12/17 04:33 VANCOMYCIN CONSULT: Vancomycin Trough = 19.13 mcg/ml. Today's Serum Creatinine = 0.6 mg/dl. Estimated creatinine clearance ~ 120 mL/ min I will continue the Vancomycin 1,500 mg IV q8hrs until the Vancomycin is discontinued or the renal function changes. The Pharmacy will continue to monitor and make adjustments accordingly. Thank you for the Vancomycin Consult. Samuel Vazquez, Pharmacist.
[2017-03-12] MEDS ORDERED: POLYETHYL GLYCOL 3350 17gm PACKET PO ONE (11:45)
--- NOTE | 2017-03-13 11:51 | Progress Note ---
DATE 03/12/2017 SUBJECTIVE The patient is lying in bed. He has not had any chills today. PHYSICAL EXAMINATION GENERAL: He looks comfortable and cheerful today. VITAL SIGNS: Vital signs are fairly acceptable. LUNGS: Lungs are clear. CARDIOVASCULAR: Regular rate and rhythm. ABDOMEN: Soft, nontender. No masses palpable. EXTREMITIES: No significant edema. SKIN: No new lesions. LABORATORY DATA Lab including white blood count 13,500. Potassium 3.3. ASSESSMENT 1. Sepsis of unknown etiology. Left upper lobe suggestive of pneumonia. 2. Adenocarcinoma of the lungs, stage II. PLAN Continue IV antibiotics. Follow up electrolytes in the morning. MTDD
--- NOTE | 2017-03-13 12:13 | Discharge Summary ---
FINAL DIAGNOSES 1. Moderate sepsis. 2. Fever. 3. Chills. 4. Adenocarcinoma of the lung, stage II. 5. Left upper lobe infiltrate suggestive of pneumonia. 6. Multiple skin wounds. REASON FOR ADMISSION The patient is a 56-year-old male who was recently diagnosed with lung cancer. Patient had a left lower lobe lobectomy recently. He presented with a two-day history of gradually worsening chills, rigors, and sweating. He has been on antibiotics for UTI. He is actually still taking that at this time. PHYSICAL EXAMINATION GENERAL APPEARANCE: The patient looks ill, chilling, rigors, fatigue, and weak looking. LUNGS: Essentially clear. Decreased breath sounds from the site of the lobectomy. LABORATORY DATA Sodium 148, potassium 4.3, calcium 10.4, plasma lactate 2.3. HOSPITAL COURSE The patient was admitted to the general medical floor under the care of Dr. Cristofer Mendoza. Patient received IV antibiotics including Levaquin, meropenem , and vancomycin. Patient also received IV fluids. Cultures were obtained from the site of thoracotomy. Wound culture was growing Staph epidermidis. It was resistant to a lot of antibiotics. Sensitive to doxycycline and vancomycin. Patient developed hypokalemia. This was treated, and it resolved prior to dismissal. Patient's chills resolved. He was eating well. He was asking to go home. Consultation was made to Dr. Cabrera, who did some testing including CT of the chest that showed some infiltrates in the left upper lobe probably consistent with pneumonia. Patient was dismissed to home on 2016. DISCHARGE MEDICATIONS 1. Doxycycline 100 mg p.o. twice daily for seven days. 2. Tylenol 500 mg one tablet every 4 to 6 hours p.r.n. 3. [place] 10/325 mg one tablet p.o. 3 times daily p.r.n. 4. Proventil nebulizer 2.5 aerosol as needed. 5. Dulcolax 5 mg tablet p.o. twice daily. 6. Wellbutrin 150 mg p.o. at bedtime. 7. Flexeril 10 mg one tablet daily. 8. Docusate sodium (Colace) 100 mg p.o. twice daily. 9. Mobic 15 mg one tablet daily. 10. Fentanyl patch 50 mEq change every three days. 11. MiraLAX 17 grams daily. 12. Lyrica 150 mg p.o. at bedtime. 13. Lyrica 75 mg one tablet p.o. 3 times daily with meals. 14. Trazodone 100 mg one tablet daily at bedtime. 15. Flomax 0.4 mg one tablet at bedtime. FOLLOWUP Follow up with Dr. Cristofer Mendoza in one week. Follow up with Dr. Cabrera as scheduled. MTDD
== END 2017-03-12 15:55 | disposition home or self-care (01) | DRG 871 ==
LOC: MED
PROVIDERS: ADMIT Family Medicine; ATTEND Family Medicine

== ENCOUNTER 2017-03-20 13:47 | Inpatient (IN) ==
--- NOTE | 2017-03-20 14:14 | Emergency Department Report ---
General Adult HPI - General Chief complaint: Medical Emergency Stated complaint: chills Time Seen by Provider: 03/20/17 13:49 - History of Present Illness HPI narrative: 56-year-old gentleman brought in by EMS with shortness of breath and sweats. He has a history of recently diagnosed lung cancer with metastatic disease to neck. He went in for surgery on his back and incidentally they found the lung cancer and a workup. He instead was given a lobectomy. He is currently on pain medication, states he is not out. He has a Duragesic patch and [place] 10 mg tablet and she uses 3 times daily. He woke up this morning feeling miserable, began throwing up as he was arriving at the ED. He has felt quite short of breath all morning. He also fell again a fever. He does have chronic back pain. He quit smoking one month ago. - Related Data Home Medications Medication Instructions Recorded Confirmed Albuterol Inhaler [Ventolin Hfa 90 2 puff IN BID PRN 01/04/17 03/20/17 mcg/actuation] Meloxicam 15 mg PO DAILY 01/04/17 03/20/17 Bisacodyl EC Tab [Dulcolax] 5 mg PO BIDWM 03/08/17 03/20/17 Pregabalin Cap [Lyrica] 75 mg PO TIDWM 03/08/17 03/20/17 Pregabalin Cap [Lyrica] 150 mg PO HS 03/08/17 03/20/17 Cyclobenzaprine [Flexeril] 10 mg PO DAILY 03/13/17 03/20/17 Docusate Sodium [Colace] 100 mg PO HS 03/20/17 03/20/17 FentaNYL PATCH [Duragesic Patch] 50 mcg TD Q72H 03/20/17 03/20/17 Hydrocodone/APAP 10/325 [[place] 1 tab PO TID PRN 03/20/17 03/20/17 10/325] Levofloxacin [Levaquin] 500 mg PO DAILY 03/20/17 03/20/17 Tamsulosin [Flomax] 0.4 mg PO HS 03/20/17 03/20/17 buPROPion HCl [Bupropion Xl] 150 mg PO DAILY 03/20/17 03/20/17 Allergies Allergy/AdvReac Type Severity Reaction Status Date / Time Sulfa (Sulfonamide Allergy Unknown Verified 03/20/17 14:28 Antibiotics) Review of Systems All systems: reviewed and negative except as stated PFSH Patient Stated Medical History Peripheral Neuropathy Yes: takes Lyrica Dental Problems Yes Hypertension Yes Chronic Obstructive Pulmonary Yes Disease (COPD) Pneumonia Yes Other Endocrine Yes: BORDERLINE Hx Renal Disease No Hx Urinary Tract Infection Yes: within past month Sepsis Yes: questionable Clinic Medical History (Last Reviewed 01/05/17 @ 13:02 by LICO Thomas) Chronic low back pain (Acute Medical) Borderline diabetes (Chronic Medical) Hypertension (Chronic Medical) Surgical History: Lung Biopsy, Chest Tube Insertion,. Left upper lobectomy 2016 Family History: Family History (Last Reviewed 01/05/17 @ 13:02 by LICO Thomas) Father Diabetes Hypertension Paternal Grandfather Hypertension Diabetes - Social History Smoking status: Former smoker Substance use type: does not use Alcohol intake frequency: does not drink Physical Exam - Limitations Limitations: no limitations - General General appearance: alert - Normal Exams: Head:: Normocephalic without trauma Cardiovascular:: Regular rate and rhythm, without murmur or gallop, Pulses 2+ all extremities, capillary refill, <2 seconds all extremities Abdomen:: Bowel sounds positive, soft, non-tender, non-distended, no hepatosplenomegaly, masses or bruits noted Neurological:: Patient is alert, and oriented, cranial nerves, motor/sensory/ cerebellar, exams w/o gross deficits, to observation Psychiatric:: Patient exhibits, appropriate attention, emotion and affect - Chest Chest inspection: Present: other (chest to incision is healing well. Left side.) - Respiratory Respiratory exam: Present: other (minor wheezes, no crackles heard. Patient is to Neck.) Course Vital Signs Temperature 98.4 F 03/20/17 13:47 Pulse Rate 94 03/20/17 13:47 Respiratory Rate 22 03/20/17 13:47 Blood Pressure 196/111 H 03/20/17 13:47 Pulse Oximetry 96 03/20/17 13:47 Temperature 98.4 F 03/20/17 13:47 Pulse Rate 94 03/20/17 13:47 Respiratory Rate 22 03/20/17 13:47 Blood Pressure 196/111 H 03/20/17 13:47 Pulse Oximetry 96 03/20/17 13:47 Medical Decision Making - [facility] Narrative Medical decision making narrative: Initial labs show white count of 12.2 with slight left shift, creatinine of 1.4. He has a history of left lower lobectomy within the last month and is still healing from that surgery. Tachypnea 35-40 breaths per minute initially on presentation, on room air. Oxygen saturation mid 90s on room air, ABG obtained and pH 7.71 and PCO2 of 16. Chest x-ray did not show significant infiltrate, however CT PE angios was obtained due to continued tachypnea. On CT angios multifocal infiltrates were noted bilateral in the lower lobes and diffusely in the right upper lobe. Patient was also noted to have mental status changes on preparation for discharge. He could not remember having seen his physician yesterday, did not know that he was on Levaquin, and thought that he come to the emergency department last night during the night. His son was with him and tried to help him with his memory, the patient could not do that even with assistance. I spoke with hospitalist on-call and reviewed the case. Due to increasing creatinine, continued elevated white count and tachypnea with no status changes , decision was made that the patient was very appropriate for hospital admission. He was given Rocephin 1 g IV prior to admission. Blood cultures have been drawn on initial eval with initial labs. Patient will be admitted to The care of the hospitalist. - Lab Data Result diagrams: 03/20/17 14:32 03/20/17 14:32 Lab Results 03/20/17 03/20/17 03/20/17 Range/Units 14:16 14:32 14:32 WBC 12.2 H (4.5-11.0) T/MM3 RBC 5.22 (4.50-5.90) M/MM3 Hgb 15.5 D (13.5-17.5) GM/DL Hct 46.1 D (41-53) % MCV 88.3 (80-100) UM3 MCH 29.7 (26-34) UUG MCHC 33.6 (31-37) GM/DL RDW Std Deviation 43.3 (36.9-50.2) FL Plt Count 356 (130-400) T/MM3 MPV 9.2 L (9.4-12.4) UM3 Immature Gran % (Auto) 0.2 (0.0-0.5) % Neut % (Auto) 76.4 H (33-66) % Lymph % (Auto) 16.0 L (23-45) % [place] % (Auto) 6.9 (0-9.0) % Eos % (Auto) 0.3 (0-4) % Baso % (Auto) 0.2 (0-2) % Neut # 9.3 H (1.8-7.7) T/MM3 Lymph # 2.0 (1-4.8) T/MM3 Lam[place] # 0.9 H (0-0.8) T/MM3 Eos # 0.0 (0-0.5) T/MM3 Baso # 0.0 (0-0.2) T/MM3 Abs Immat Gran (auto) 0.03 (0.00-0.03) T/MM3 ABG pH 7.710 H* (7.350-7.450) ABG pCO2 16 L* (34-45) MMHG ABG pO2 94 (80-100) MMHG ABG HCO3 20 L (22-26) MEQ/L ABG Total CO2 20.7 L (23-27) MEQ/L ABG O2 Saturation 99.0 H (95.0-98.0) % ABG Base Excess 2.7 H (-2.0-2.0) MMOL/L O2 Delivery Method Room air Turbidity < 20 (0-20) Sodium 142 (134-144) MEQ/L Potassium 4.1 D (3.6-5) MEQ/L Chloride 98 (98-107) MEQ/L Carbon Dioxide 23 (22-30) MEQ/L Anion Gap 21 H (5-15) MEQ/L BUN 23.0 H D (9-20) MG/DL Creatinine 1.4 D (0.8-1.5) MG/DL GFR Calculation 53 BUN/Creatinine Ratio 16 (6-26) RATIO Glucose 108 (75-110) MG/DL Calculated Osmolality 278 (261-280) MOSM/KG Calcium 10.8 H (8.4-10.2) MG/DL Total Bilirubin 0.90 (0.20-1.30) MG/DL Icterus Index < 2 (0-7) AST 17 (17-59) U/L ALT 20 L (21-72) U/L Alkaline Phosphatase 119 D (38-126) U/L Troponin I < 0.012 (0-0.12) ng/ml B-Natriuretic Peptide 95.9 (0-175) pg/mL Total Protein 8.0 (6.3-8.2) G/DL Albumin 4.4 (3.5-5.0) G/DL Globulin 3.6 (2.4-3.6) G/DL Albumin/Globulin Ratio 1.2 (1.1-2.2) RATIO Specimen Hemolysis < 15 (0-25) Ur Collection Type Urine Color (YELLOW) Urine Clarity Urine pH (5.0-8.0) Ur Specific [place] (1.015-1.025) Urine Protein (NEGATIVE) Urine Glucose (UA) (NEGATIVE) Urine Ketones (NEGATIVE) Urine Occult Blood (NEGATIVE) Urine Nitrate (NEGATIVE) Urine Bilirubin (NEGATIVE) Urine Urobilinogen (NORMAL) EU/DL Ur Leukocyte Esterase (NEGATIVE) Urinalysis Comment 03/20/17 Range/Units 16:01 WBC (4.5-11.0) T/MM3 RBC (4.50-5.90) M/MM3 Hgb (13.5-17.5) GM/DL Hct (41-53) % MCV (80-100) UM3 MCH (26-34) UUG MCHC (31-37) GM/DL RDW Std Deviation (36.9-50.2) FL Plt Count (130-400) T/MM3 MPV (9.4-12.4) UM3 Immature Gran % (Auto) (0.0-0.5) % Neut % (Auto) (33-66) % Lymph % (Auto) (23-45) % [place] % (Auto) (0-9.0) % Eos % (Auto) (0-4) % Baso % (Auto) (0-2) % Neut # (1.8-7.7) T/MM3 Lymph # (1-4.8) T/MM3 [place] # (0-0.8) T/MM3 Eos # (0-0.5) T/MM3 Baso # (0-0.2) T/MM3 Abs Immat Gran (auto) (0.00-0.03) T/MM3 ABG pH (7.350-7.450) ABG pCO2 (34-45) MMHG ABG pO2 (80-100) MMHG ABG HCO3 (22-26) MEQ/L ABG Total CO2 (23-27) MEQ/L ABG O2 Saturation (95.0-98.0) % ABG Base Excess (-2.0-2.0) MMOL/L O2 Delivery Method Turbidity (0-20) Sodium (134-144) MEQ/L Potassium (3.6-5) MEQ/L Chloride (98-107) MEQ/L Carbon Dioxide (22-30) MEQ/L Anion Gap (5-15) MEQ/L BUN (9-20) MG/DL Creatinine (0.8-1.5) MG/DL GFR Calculation BUN/Creatinine Ratio (6-26) RATIO Glucose (75-110) MG/DL Calculated Osmolality (261-280) MOSM/KG Calcium (8.4-10.2) MG/DL Total Bilirubin (0.20-1.30) MG/DL Icterus Index (0-7) AST (17-59) U/L ALT (21-72) U/L Alkaline Phosphatase (38-126) U/L Troponin I (0-0.12) ng/ml B-Natriuretic Peptide (0-175) pg/mL Total Protein (6.3-8.2) G/DL Albumin (3.5-5.0) G/DL Globulin (2.4-3.6) G/DL Albumin/Globulin Ratio (1.1-2.2) RATIO Specimen Hemolysis (0-25) Ur Collection Type Urine, clean catch Urine Color Yellow (YELLOW) Urine Clarity Clear Urine pH 7.0 (5.0-8.0) Ur Specific [place] 1.015 (1.015-1.025) Urine Protein Trace A (NEGATIVE) Urine Glucose (UA) Negative (NEGATIVE) Urine Ketones 1+ A (NEGATIVE) Urine Occult Blood Trace-intact (NEGATIVE) Urine Nitrate Negative (NEGATIVE) Urine Bilirubin 1+ A (NEGATIVE) Urine Urobilinogen 0.2 (NORMAL) EU/DL Ur Leukocyte Esterase Negative (NEGATIVE) Urinalysis Comment Microscopic not ind. Disposition Clinical Impression: Lung cancer, Pneumonia of both lower lobes, Mental status change, Tachypnea [place] [facility] [place]: Stable Prescriptions: No Action Albuterol Inhaler [Ventolin Hfa 90 mcg/actuation] 2 puff IN BID PRN PRN Reason: Prn Orders Meloxicam 15 mg PO DAILY Pregabalin Cap [Lyrica] 150 mg PO HS Cyclobenzaprine [Flexeril] 10 mg PO DAILY FentaNYL PATCH [Duragesic Patch] 50 mcg TD Q72H Docusate Sodium [Colace] 100 mg PO HS buPROPion HCl [Bupropion Xl] 150 mg PO DAILY Tamsulosin [Flomax] 0.4 mg PO HS Levofloxacin [Levaquin] 500 mg PO DAILY Pregabalin Cap [Lyrica] 75 mg PO TIDWM Bisacodyl EC Tab [Dulcolax] 5 mg PO BIDWM Hydrocodone/APAP 10/325 [[place] 10/325] 1 tab PO TID PRN PRN Reason: Pain Referrals: Cristofer Mendoza MD [Family Provider] - Time of Disposition: 17:36 - Seen By: physician
[2017-03-20] MEDS ORDERED: HYDROMORPHONE 2 MG/ML INJECTION IVP ONE (14:16)
[2017-03-20] MEDS ORDERED: KETOROLAC 30 MG/ML INJECTION IVP ONE (14:16)
[2017-03-20] MEDS: SALINE FLUSH 10ml SYRINGE IVF PRN ×2 (14:57→18:50)
[2017-03-20] MEDS ORDERED: NS 100 ML ONE (15:42)
[2017-03-20] MEDS ORDERED: IOHEXOL 350mg/ml 75ml INJECTION ONE (15:42)
[2017-03-20] MEDS ORDERED: SALINE FLUSH 10ml SYRINGE ONE (15:42)
[2017-03-20] MEDS ORDERED: CEFTRIAXONE (ER USE ONLY) 1 GM in NS 100 ML IV ONE (17:23)
[2017-03-20] MEDS ORDERED: ALBUTEROL/IPRATROPIUM 2.5mg-0.5mg/3ml NEB AEROSOL PRN (17:56)
[2017-03-20] MEDS: NS 1,000 ML IV SCH (18:16)
[2017-03-20] MEDS ORDERED: POLYETHYL GLYCOL 3350 17gm PACKET PO PRN (18:31)
--- NOTE | 2017-03-20 18:40 | History & Physical Report ---
History of Present Illness Date: 03/20/17 Chief complaint: Chills, weakness, difficulty breathing HPI: 56 y/o male presents to [facility] [place] ED via EMS secondary to chills, weakness, and difficulty breathing. Recently found to have lung cancer - Adenocarcinoma of lung. Underwent at left lobectomy in [place] on February 16 of this year. Really has not been feeling well since. Has had persistent chills and weakness. Was hospitalized at [facility] [place] March 08 through the for sepsis syndrome of unknown etiology. Treated with IV antibiotics. Was seen in clinic yesterday and given 1 gram of Rocephin IM and started on oral levofloxacin. Despite these treatments continues to have chills and sweats. Not running temperature that he is aware of. Breathing more short and labored. Denies cough or congestion. Minimal discomfort with breathing. No chest pressure, pain, or palpitations. Appetite decreased; not feeling hungry and when does eat he becomes nauseated. Reports a small amount of emesis today. Urine output decreased. More weak, but no falls or trauma. Seen in ED today. Breathing shallow and rapid. WBC with elevation at 12.2. Creatinine 1.4 (was 0.6 during prior hospitalization). BP elevated (not hypotensive in ED). CT PE protocol showed no evidence of PE; diffuse ground glass opacities noted. Dr Méndez (covering physician for Dr Mendoza) contacted. Patient placed in inpatient admission status for treatment of his sepsis syndrome (Leukocytosis, tachycardia, tachypnea) secondary to pneumonia. Greater than 2 midnights of care anticipated. Review of Systems Comprehensive ROS: completed and no additional positive findings except those as stated - Constitutional Constitutional: Present: anorexia, chills, fatigue. Absent: headache(s) - EENMT Eyes: Absent: change in vision, loss of vision Ears: Absent: ear pain, tinnitus Mouth/Throat: Absent: pain, sores, changes in swallowing - Cardiovascular Cardiovascular: Absent: chest pain, palpitations, syncope, edema Vascular: Absent: pedal edema - Respiratory Respiratory: Present: dyspnea. Absent: cough, hemoptysis, excessive phlegm production - Gastrointestinal Gastrointestinal: Present: nausea, vomiting. Absent: abdominal pain, change in bowel habits, diarrhea, dyspepsia, dysphagia, odynophagia - Genitourinary Genitourinary: Present: other (Decrease urinary output ). Absent: urinary frequency, urinary hesitancy, urinary urgency - Musculoskeletal Musculoskeletal: Present: back pain (Chronic ) - Integumentary/Breasts Integumentary: Present: wounds (Left chest wound from chest tube ) - Neurological Neurological: Present: weakness (Generalized). Absent: focal weakness, headache (s), loss of vision - Psychiatric Psychiatric: Present: depression (Due to his recent Dx Cancer and frequent hospitalizations. ) - Allergic/Immunologic Allergic/Immunologic: Absent: tongue swelling, itchy eyes, seasonal rhinorrhea [facility] Patient Stated Medical History Peripheral Neuropathy Yes: takes Lyrica Dental Problems Yes Hypertension Yes Chronic Obstructive Pulmonary Yes Disease (COPD) Pneumonia Yes Hx Urinary Tract Infection Yes: recent Sepsis Yes: questionable Clinic Medical History (Last Reviewed 01/05/17 @ 13:02 by LICO Thomas) Chronic low back pain (Acute Medical) Borderline diabetes (Chronic Medical) Hypertension (Chronic Medical) Surgical History: Lung Biopsy, Chest Tube Insertion,. Left upper lobectomy 2016 Family History: Family History (Last Reviewed 01/05/17 @ 13:02 by LICO Thomas) Father Diabetes Hypertension Paternal Grandfather Hypertension Diabetes - Social History Smoking status: Former smoker (Quit January 2017) Alcohol intake frequency: does not drink Household members: none Current residence: Apartment/Private Home ([facility] in [place]) Social history: - diet June 2016 Medications Home Medications Medication Instructions Recorded Confirmed Type Albuterol Inhaler [Ventolin Hfa 90 2 puff IN BID PRN 01/04/17 03/20/17 History mcg/actuation] Meloxicam 15 mg PO DAILY 01/04/17 03/20/17 History Bisacodyl EC Tab [Dulcolax] 5 mg PO BIDWM 03/08/17 03/20/17 History Pregabalin Cap [Lyrica] 75 mg PO TIDWM 03/08/17 03/20/17 History Pregabalin Cap [Lyrica] 150 mg PO HS 03/08/17 03/20/17 History Cyclobenzaprine [Flexeril] 10 mg PO DAILY 03/13/17 03/20/17 History Docusate Sodium [Colace] 100 mg PO HS 03/20/17 03/20/17 History FentaNYL PATCH [Duragesic Patch] 50 mcg TD Q72H 03/20/17 03/20/17 History Hydrocodone/APAP 10/325 [Ivins 1 tab PO TID PRN 03/20/17 03/20/17 History 10/325] Levofloxacin [Levaquin] 500 mg PO DAILY 03/20/17 03/20/17 History Tamsulosin [Flomax] 0.4 mg PO HS 03/20/17 03/20/17 History buPROPion HCl [Bupropion Xl] 150 mg PO DAILY 03/20/17 03/20/17 History Allergies Allergy/AdvReac Type Severity Reaction Status Date / Time Sulfa (Sulfonamide Allergy Unknown Verified 03/20/17 14:28 Antibiotics) Exam Vital Signs: Temperature 96.1 F L 03/20/17 17:53 Pulse Rate 74 03/20/17 18:29 Respiratory Rate 18 03/20/17 17:53 Blood Pressure 186/98 H 03/20/17 18:29 Pulse Oximetry 100 03/20/17 18:29 Oxygen Delivery Method Room Air Height/Weight/BMI: Height 1.8 m Weight 66.1 kg Body Mass Index 20.3 - Constitutional Present: mild distress, well nourished, well developed, thin, cooperative - Routine HEENT Exam Head: Present: normocephalic, atraumatic Eye: Present: EOMI, PERRL. Absent: conjunctival icterus ENT: Present: mucous membranes moist (No thrush ) - Routine Neck Exam Present: supple, trachea midline - Routine Respiratory Exam Present: decreased breath sounds, respiratory distress (Mild, respiratroy rate increased; shallow breathing. ), distant breath sounds, diminished air movement. Absent: wheezes, crackles - Routine Cardiovascular Exam Present: RRR, no murmur - Routine Abdominal Exam Present: soft, normoactive bowel sounds, non distended, non tender. Absent: rebound, guarding (Wound on left chest wall from prior chest tube covered; no drainage seen. ) - Routine Extremities Exam Present: no edema, pulses intact. Absent: cyanosis, clubbing - Routine Skin Exam Present: intact, warm. Absent: pallor, mottling, petechiae - Routine Neurological Exam Present: alert, oriented X3, CN II-XII intact, vision grossly intact, hearing grossly intact. Absent: motor deficit - Routine Psychiatric Exam Present: normal affect, normal thought process, cooperative, good insight, good judgment. Absent: agitated Results - Labs CBC & Chem 7: 03/20/17 14:32 03/20/17 14:32 Assessment and Plan (1) Sepsis Current visit: Yes Status: Acute DVT Prophylaxis: SCD's, Lovenox Resuscitation Status: Full Code Assessment and Plan: Assessment Sepsis secondary to pneumonia - manifestations: leukocytosis, tachycardia, tachypnea, acute kidney injury Pneumonia Acute kidney injury Leukocytosis Nausea Anorexia Adenocarcinoma of lung with recent lung resection COPD HTN Tobacco dependency - pt quit smoking 02/16 Chronic back pain Chronic narcotic use Reactive depression secondary to health problems Plan Inpatient admission to [facility] [place] under the care of Dr Méndez (covering physician for Dr Mendoza) Initiate Rocephin 1 gram IV daily and azithromycin 500mg IV daily for empiric antimicrobial coverage of pulmonary pathogens. Start IV of NS for hydration - creatinine increase to 1.4 (baseline creatinine 0.6) Neb treatments of DuoNeb QID with budesonide 0.5mg BID due to COPD. No current wheezing, will hold systemic steroids. Mucinex DM BID for mucolytic effect. Zofran as needed for nausea. Start citalopram 20mg daily to help patients reactive depression. Check lactate due to sepsis. Will check prealbumin to assess nutritional status. SCD and Lovenox for DVT prevention. Continue home medications. Monitor lab. Discussed code status with patient; he request full resuscitation. Order is written. Will transition care to Dr Mendoza upon his return. Case discussed at length with ED physician. Sepsis Assessment - Evaluation Sepsis screening result: No Definite Risk Hospital Course Summary Disclaimer: The visit summary below is not to be considered part of the above Progress Note. Hospital Course: Assessment Sepsis secondary to pneumonia - manifestations: leukocytosis, tachycardia, tachypnea, acute kidney injury Pneumonia Acute kidney injury Leukocytosis Nausea Anorexia Adenocarcinoma of lung with recent lung resection COPD HTN Tobacco dependency - pt quit smoking 02/16 Chronic back pain Chronic narcotic use Reactive depression secondary to health problems Plan Inpatient admission to [facility] [place] under the care of Dr Méndez (covering physician for Dr Mendoza) Initiate Rocephin 1 gram IV daily and azithromycin 500mg IV daily for empiric antimicrobial coverage of pulmonary pathogens. Start IV of NS for hydration - creatinine increase to 1.4 (baseline creatinine 0.6) Neb treatments of DuoNeb QID with budesonide 0.5mg BID due to COPD. No current wheezing, will hold systemic steroids. Mucinex DM BID for mucolytic effect. Zofran as needed for nausea. Start citalopram 20mg daily to help patients reactive depression. Check lactate due to sepsis. Will check prealbumin to assess nutritional status. SCD and Lovenox for DVT prevention. Continue home medications. Monitor lab. Discussed code status with patient; he request full resuscitation. Order is written. Will transition care to Dr Mendoza upon his return.
[2017-03-20] MEDS: AZITHROMYCIN IV 500 MG in NS 250ml 250 ML IV SCH (18:41)
[2017-03-20] MEDS: ENOXAPARIN 40 MG/0.4 ML INJECTION SQ SCH (18:41)
[2017-03-20] MEDS: GUAIFENESIN/D-METHORPHAN 600mg/30mg TABLET PO SCH ×2 (18:41→20:54)
[2017-03-20] MEDS: ONDANSETRON 4 MG/2 ML INJECTION IVP PRN (18:50)
[2017-03-20] MEDS: BUDESONIDE INH.SOLN 0.5mg/2ml NEB AEROSOL SCH (19:54)
[2017-03-20] MEDS: ALBUTEROL/IPRATROPIUM 2.5mg-0.5mg/3ml NEB AEROSOL SCH (19:54)
[2017-03-20] MEDS: DOCUSATE SODIUM 100 MG CAPSULE PO SCH (22:07)
[2017-03-20] MEDS: PREGABALIN 75 MG CAPSULE PO SCH (22:08)
[2017-03-20] MEDS: TAMSULOSIN 0.4 MG CAPSULE PO SCH (22:08)
[2017-03-21] MEDS: NS 1,000 ML IV SCH ×2 (06:13→17:02)
[2017-03-21] MEDS: BUDESONIDE INH.SOLN 0.5mg/2ml NEB AEROSOL SCH ×2 (08:20→19:48)
[2017-03-21] MEDS: ALBUTEROL/IPRATROPIUM 2.5mg-0.5mg/3ml NEB AEROSOL SCH ×4 (08:26→19:48)
[2017-03-21] MEDS: PREGABALIN 75 MG CAPSULE PO SCH ×4 (09:02→21:30)
[2017-03-21] MEDS: CITALOPRAM 20 MG TABLET PO SCH (09:02)
[2017-03-21] MEDS: MELOXICAM 15 MG TABLET PO SCH (09:02)
[2017-03-21] MEDS: CYCLOBENZAPRINE 10 MG TABLET PO SCH (09:02)
[2017-03-21] MEDS: Bisacodyl EC TAB 5 MG TABLET PO SCH ×2 (09:02→16:44)
[2017-03-21] MEDS: BuPROPion XL 150mg (24HR) TABLET PO SCH (09:02)
[2017-03-21] MEDS: GUAIFENESIN/D-METHORPHAN 600mg/30mg TABLET PO SCH ×2 (09:02→21:31)
[2017-03-21] MEDS: CEFTRIAXONE 1 G in NS 100 ML IV SCH (09:03)
[2017-03-21] MEDS: ENOXAPARIN 40 MG/0.4 ML INJECTION SQ SCH (09:03)
--- NOTE | 2017-03-21 09:18 | CT Scan Report ---
Indication: acute dyspnea PROCEDURE: CT angio pulm emboli: Encounter: Initial Comparison: CT chest dated March 10, 2017 Technique: Axial CT pulmonary angiographic phase images were performed through the chest after the administration of intravenous contrast. Coronal and Sagittal MIP reconstructed images were created and reviewed. Automated Exposure Control and Iterative Reconstruction dose reducing techniques were utilized. Contrast: Omnipaque 350 74 mL Findings: Pulmonary arteries: Exam is diagnostic to the subsegmental pulmonary arterial level. No filling defects identified to suggest a pulmonary embolus. Other findings: Emphysema. Postoperative changes in the left lung. Small left effusion. Mild groundglass opacity seen in the lower lung walters bilaterally which are new from the prior exam. No pneumothorax. The remaining central airways are patent. Tiny lingular nodule is stable. No axillary or mediastinal adenopathy. Heart size is stable. No pericardial effusion. The upper abdomen shows no acute findings. Impression: No pulmonary embolus. Infectious or inflammatory process in the lower lung walters. There is a preliminary report by virtual radi[employer]. .
--- NOTE | 2017-03-21 09:22 | XRay Report ---
INDICATION: dyspnea PROCEDURE: CHEST 2-VIEWS UPRIGHT (PA & LAT) Encounter: Initial COMPARISON: Chest CT from the same date FINDINGS: Postoperative changes in the left lung with small left effusion. Bibasilar groundglass type opacities better seen on the chest CT. No pneumothorax. Heart size and mediastinal contours are stable. Surgical clips in the left hilar area. Impression: Small left effusion with fine basilar infiltrates could be due to atypical or viral pneumonia. .
[2017-03-21] MEDS: AZITHROMYCIN IV 500 MG in NS 250ml 250 ML IV SCH (09:45)
--- NOTE | 2017-03-21 10:49 | Progress Note ---
Subjective: F/U: Sepsis syndrome, pneumonia Covering physician for Dr Mendoza Feeling better today-not having chills and sweats as at home. No temp elevation. Breathing stable-some SOA, but not having cough or congestion. No pain with breathing. Denies chest pressure or palpitations. No nausea or ab pain. Stools moving. Urinating well, but urine output not increased. Feels less tired and weak. Objective Vital signs: Temperature 96.5 F L 03/21/17 07:29 Pulse Rate 72 03/21/17 08:00 Respiratory Rate 14 03/21/17 08:20 Blood Pressure 154/85 H 03/21/17 07:29 Pulse Oximetry 95 03/21/17 08:20 Oxygen Delivery Method Room Air Height/Weight/BMI: Height 1.8 m Weight 67.5 kg Body Mass Index 20.3 - Constitutional Present: well nourished, well developed, thin, cooperative - Routine HEENT Exam Head: Present: normocephalic, atraumatic Eye: Present: EOMI, PERRL ENT: Present: mucous membranes moist (No thrush ) - Routine Respiratory Exam Present: decreased breath sounds, distant breath sounds, diminished air movement. Absent: rhonchi, wheezes (No wheezes with force expiration), crackles - Routine Cardiovascular Exam Present: RRR, no murmur - Routine Abdominal Exam Present: soft, non distended, non tender - Routine Extremities Exam Present: no edema, pulses intact. Absent: cyanosis, clubbing - Routine Musculoskeletal Exam Musculoskeletal: Present: no clubbing or cyanosis, no joint swelling - Routine Skin Exam Present: intact, warm, normal turgor - Routine Neurological Exam Present: alert, oriented X3, CN II-XII intact, vision grossly intact, hearing grossly intact. Absent: motor deficit - Routine Psychiatric Exam Present: normal affect, normal thought process, cooperative, good insight, good judgment Results - Labs CBC & Chem 7: 03/21/17 04:58 03/21/17 04:58 Labs: Laboratory Tests 03/20/17 18:44 Prealbumin 13.8 L Assessment and Plan (1) Sepsis Current visit: Yes Status: Acute DVT Prophylaxis: SCD's, Lovenox Resuscitation Status: Full Code Assessment and Plan: Assessment Sepsis secondary to pneumonia - manifestations: leukocytosis, tachycardia, tachypnea, acute kidney injury Pneumonia Acute kidney injury Leukocytosis Nausea Anorexia Adenocarcinoma of lung with recent lung resection COPD HTN Tobacco dependency - pt quit smoking 02/16 Chronic back pain Chronic narcotic use Mild protein calorie malnutrition - prealbumin 13.8 Reactive depression secondary to health problems Plan Continue with Rocephin and azithromycin for pulmonary coverage. Continue breathing treatments. Will continue with IVF - creatinine still 1.4 (0.6 earlier this month). Encourage ambulation - walk in halls TID. Nutritional supplement TID due to malnutrition and decrease oral drive. Continue citalopram to help mood. Recheck lab in am. Time spent with patient care 25 minutes. - Time spent with patient 25 - 35 minutes Sepsis Assessment - Evaluation Sepsis screening result: Sepsis Risk Hospital Course Summary Disclaimer: The visit summary below is not to be considered part of the above Progress Note. Hospital Course: 03/20/17 Admission Assessment Sepsis secondary to pneumonia - manifestations: leukocytosis, tachycardia, tachypnea, acute kidney injury Pneumonia Acute kidney injury Leukocytosis Nausea Anorexia Adenocarcinoma of lung with recent lung resection COPD HTN Tobacco dependency - pt quit smoking 02/16 Chronic back pain Chronic narcotic use Reactive depression secondary to health problems Plan [place]patient admission [place] [facility] the care of Dr Méndez (covering physician for Dr Mendoza) Initiate Rocephin 1 gram IV daily and azithromycin 500mg IV daily for empiric antimicrobial coverage of pulmonary pathogens. Start IV of NS for hydration - creatinine increase to 1.4 (baseline creatinine 0.6) Neb treatments of DuoNeb QID with budesonide 0.5mg BID due to COPD. No current wheezing, will hold systemic steroids. Mucinex DM BID for mucolytic effect. Zofran as needed for nausea. Start citalopram 20mg daily to help patients reactive depression. Check lactate due to sepsis. Will check prealbumin to assess nutritional status. SCD and Lovenox for DVT prevention. Continue home medications. Monitor lab. Discussed code status with patient; he request full resuscitation. Order is written. Will transition care to Dr Mendoza upon his return. 03/21/17 Continue with Rocephin and azithromycin for pulmonary coverage. Continue breathing treatments. Will continue with IVF - creatinine still 1.4 (0.6 earlier this month). Encourage ambulation - walk in halls TID. Nutritional supplement TID due to malnutrition and decrease oral drive. Continue citalopram to help mood. Recheck lab in am.
[2017-03-21] MEDS: TAMSULOSIN 0.4 MG CAPSULE PO SCH (21:31)
[2017-03-21] MEDS: DOCUSATE SODIUM 100 MG CAPSULE PO SCH (21:31)
[2017-03-22] MEDS: NS 1,000 ML IV SCH ×2 (03:07→14:13)
[2017-03-22] MEDS: BUDESONIDE INH.SOLN 0.5mg/2ml NEB AEROSOL SCH ×2 (07:56→19:33)
[2017-03-22] MEDS: ALBUTEROL/IPRATROPIUM 2.5mg-0.5mg/3ml NEB AEROSOL SCH ×4 (07:56→19:33)
[2017-03-22] MEDS: GUAIFENESIN/D-METHORPHAN 600mg/30mg TABLET PO SCH ×2 (08:50→21:55)
[2017-03-22] MEDS: BuPROPion XL 150mg (24HR) TABLET PO SCH (08:50)
[2017-03-22] MEDS: MELOXICAM 15 MG TABLET PO SCH (08:50)
[2017-03-22] MEDS: PREGABALIN 75 MG CAPSULE PO SCH ×4 (08:50→21:54)
[2017-03-22] MEDS: CITALOPRAM 20 MG TABLET PO SCH (08:50)
[2017-03-22] MEDS: ENOXAPARIN 40 MG/0.4 ML INJECTION SQ SCH (08:51)
[2017-03-22] MEDS: CYCLOBENZAPRINE 10 MG TABLET PO SCH (08:51)
[2017-03-22] MEDS: Bisacodyl EC TAB 5 MG TABLET PO SCH ×2 (08:51→17:34)
[2017-03-22] MEDS: CEFTRIAXONE 1 G in NS 100 ML IV SCH (08:51)
--- NOTE | 2017-03-22 09:57 | Progress Note ---
Subjective: F/U: Sepsis syndrome, pneumonia Covering physician for Dr Mendoza Doing better today. Nausea improved, eating more. Less feelings of chills; no fever or sweats. Breathing stable-no cough, congestion, or pain with breathing. Denies chest pressure or palpitations. Ambulating more, strength improving. Objective Vital signs: Temperature 96.1 F L 03/22/17 07:22 Pulse Rate 78 03/22/17 07:22 Respiratory Rate 16 03/22/17 07:57 Blood Pressure 160/92 H 03/22/17 07:22 Pulse Oximetry 99 03/22/17 07:57 Oxygen Delivery Method Room Air Rhythm: Normal Sinus Rhythm Height/Weight/BMI: Height 1.8 m Weight 69.3 kg Body Mass Index 20.3 - Constitutional Present: well nourished, well developed, thin, cooperative - Routine HEENT Exam Head: Present: normocephalic, atraumatic Eye: Present: EOMI, PERRL. Absent: conjunctival icterus ENT: Present: mucous membranes moist (No thrush ) - Routine Respiratory Exam Present: decreased breath sounds. Absent: respiratory distress, rhonchi, wheezes, crackles, diminished air movement - Routine Cardiovascular Exam Present: RRR, no murmur - Routine Abdominal Exam Present: soft, normoactive bowel sounds, non distended, non tender. Absent: rebound, guarding - Routine Extremities Exam Present: no edema, pulses intact. Absent: cyanosis - Routine Musculoskeletal Exam Musculoskeletal: Present: normal strength, no joint swelling - Routine Skin Exam Present: warm, normal turgor, wounds (Wound to left chest wall healing, no erythema ). Absent: cyanosis, mottling - Routine Neurological Exam Present: alert, oriented X3, CN II-XII intact, vision grossly intact, hearing grossly intact. Absent: motor deficit - Routine Psychiatric Exam Present: normal affect, normal thought process, cooperative, good insight, good judgment. Absent: anxious, agitated Results - Labs CBC & Chem 7: 03/22/17 04:40 03/22/17 04:40 Assessment and Plan (1) Sepsis Current visit: Yes Status: Acute DVT Prophylaxis: SCD's, Lovenox Resuscitation Status: Full Code Assessment and Plan: Assessment Sepsis secondary to pneumonia - manifestations: leukocytosis, tachycardia, tachypnea, acute kidney injury; improving Pneumonia Acute kidney injury Leukocytosis Nausea Anorexia Adenocarcinoma of lung with recent lung resection COPD HTN Tobacco dependency - pt quit smoking 02/16 Chronic back pain Chronic narcotic use Mild protein calorie malnutrition - prealbumin 13.8 Reactive depression secondary to health problems Plan Covering for Dr Mendoza Clinically improving. Chills resolved. WBC decreased to 9.5. No temp elevation. Creatine decreased to 1.1. Continue with Rocephin and azithromycin for pulmonary coverage (Day #3) . Continue breathing treatments. Will continue with IVF - creatinine decreasing to 1.1 (0.6 earlier this month) . Encourage ambulation - walk in halls TID. Continue citalopram to help mood. Recheck lab in am. Will recheck CXR. Case discussed with CM. Time spent with patient care 25 minutes. Sepsis Assessment - Evaluation Sepsis screening result: No Definite Risk Hospital Course Summary Disclaimer: The visit summary below is not to be considered part of the above Progress Note. Hospital Course: 03/20/17 Admission Assessment Sepsis secondary to pneumonia - manifestations: leukocytosis, tachycardia, tachypnea, acute kidney injury Pneumonia Acute kidney injury Leukocytosis Nausea Anorexia Adenocarcinoma of lung with recent lung resection COPD HTN Tobacco dependency - pt quit smoking 02/16 Chronic back pain Chronic narcotic use Reactive depression secondary to health problems Plan Inpatient admission to [facility] [place] under the care of Dr Méndez (covering physician for Dr Mendoza) Initiate Rocephin 1 gram IV daily and azithromycin 500mg IV daily for empiric antimicrobial coverage of pulmonary pathogens. Start IV of NS for hydration - creatinine increase to 1.4 (baseline creatinine 0.6) Neb treatments of DuoNeb QID with budesonide 0.5mg BID due to COPD. No current wheezing, will hold systemic steroids. Mucinex DM BID for mucolytic effect. Zofran as needed for nausea. Start citalopram 20mg daily to help patients reactive depression. Check lactate due to sepsis. Will check prealbumin to assess nutritional status. SCD and Lovenox for DVT prevention. Continue home medications. Monitor lab. Discussed code status with patient; he request full resuscitation. Order is written. Will transition care to Dr Mendoza upon his return. 03/21/17 Continue with Rocephin and azithromycin for pulmonary coverage. Continue breathing treatments. Will continue with IVF - creatinine still 1.4 (0.6 earlier this month). Encourage ambulation - walk in halls TID. Nutritional supplement TID due to malnutrition and decrease oral drive. Continue citalopram to help mood. Recheck lab in am. 03/22/17 Clinically improving. Chills resolved. WBC decreased to 9.5. No temp elevation. Creatine decreased to 1.1. Continue with Rocephin and azithromycin for pulmonary coverage (Day #3) . Continue breathing treatments. Will continue with IVF - creatinine decreasing to 1.1 (0.6 earlier this month) . Encourage ambulation - walk in halls TID. Continue citalopram to help mood. Recheck lab in am. Will recheck CXR.
[2017-03-22] MEDS: AZITHROMYCIN IV 500 MG in NS 250ml 250 ML IV SCH (10:01)
[2017-03-22] MEDS: HYDROCODONE/APAP 10 MG/325 MG TABLET PO PRN ×2 (10:05→19:19)
[2017-03-22 17:40] VITALS: BMI 21.3
[2017-03-22] MEDS: DOCUSATE SODIUM 100 MG CAPSULE PO SCH (21:53)
[2017-03-22] MEDS: TAMSULOSIN 0.4 MG CAPSULE PO SCH (21:55)
[2017-03-23] MEDS: NS 1,000 ML IV SCH ×3 (00:55→23:23)
[2017-03-23] MEDS: HYDROCODONE/APAP 10 MG/325 MG TABLET PO PRN (05:10)
[2017-03-23] MEDS: ALBUTEROL/IPRATROPIUM 2.5mg-0.5mg/3ml NEB AEROSOL SCH ×4 (08:51→19:05)
[2017-03-23] MEDS: BUDESONIDE INH.SOLN 0.5mg/2ml NEB AEROSOL SCH (08:51)
[2017-03-23] MEDS: ONDANSETRON 4 MG/2 ML INJECTION IVP PRN ×3 (08:52→21:19)
--- NOTE | 2017-03-23 08:57 | XRay Report ---
INDICATION: F/U PROCEDURE: CHEST 2-VIEWS UPRIGHT (PA & LAT) Encounter: Initial COMPARISON: March 20, 2017 FINDINGS: Postoperative changes in the left lung with elevated left hemidiaphragm. Groundglass type opacities in the lower lung walters are better seen on prior CT study. Small left effusion is stable. No pneumothorax. Heart size and mediastinal contours are stable. Impression: No visible change in appearance of the lungs. .
[2017-03-23] MEDS: CITALOPRAM 20 MG TABLET PO SCH (09:05)
[2017-03-23] MEDS: Bisacodyl EC TAB 5 MG TABLET PO SCH ×2 (09:05→18:03)
[2017-03-23] MEDS: GUAIFENESIN/D-METHORPHAN 600mg/30mg TABLET PO SCH ×2 (09:05→23:22)
[2017-03-23] MEDS: MELOXICAM 15 MG TABLET PO SCH (09:05)
[2017-03-23] MEDS: CYCLOBENZAPRINE 10 MG TABLET PO SCH (09:05)
[2017-03-23] MEDS: ENOXAPARIN 40 MG/0.4 ML INJECTION SQ SCH (09:06)
[2017-03-23] MEDS: BuPROPion XL 150mg (24HR) TABLET PO SCH (09:06)
[2017-03-23] MEDS: AZITHROMYCIN IV 500 MG in NS 250ml 250 ML IV SCH (09:06)
[2017-03-23] MEDS: PREGABALIN 75 MG CAPSULE PO SCH ×4 (09:17→23:22)
[2017-03-23] MEDS: CEFTRIAXONE 1 G in NS 100 ML IV SCH (11:00)
--- NOTE | 2017-03-23 12:53 | Progress Note ---
<Blank Matute - Last Filed: 03/23/17 14:10> Subjective: Patient seen today while resting in his bed. He reports this morning after breakfast he started feeling "sick" again. States he had nausea and vomiting after eating breakfast and he has developed chills but no body aches. Yesterday , he reports he was feeling better and was ambulating in the halls. No new or worsening respiratory complaints. Objective Vital signs: Temperature 95.6 F L 03/23/17 07:47 Pulse Rate 64 03/23/17 07:47 Respiratory Rate 16 03/23/17 07:47 Blood Pressure 174/94 H 03/23/17 07:47 Pulse Oximetry 97 03/23/17 07:47 Height/Weight/BMI: Height 1.8 m Weight 71.5 kg Body Mass Index 21.3 - Constitutional Present: no acute distress, diaphoretic - Routine HEENT Exam Head: Present: normocephalic, atraumatic ENT: Absent: dentition normal (poor dentition) - Routine Respiratory Exam Present: CTA bilaterally. Absent: accessory muscle use, respiratory distress, wheezes - Routine Cardiovascular Exam Present: RRR, S1, S2. Absent: murmur - Routine Abdominal Exam Present: soft. Absent: tenderness - Routine Skin Exam Present: warm. Absent: rash Comments: diaphoretic - Routine Neurological Exam Present: alert, oriented X3 - Routine Psychiatric Exam Present: normal affect Comments: appears tired Results - Labs CBC & Chem 7: 03/23/17 04:34 03/23/17 04:34 Assessment and Plan (1) Sepsis Current visit: Yes Status: Acute Assessment and Plan: Assessment nausea/vomiting Sepsis secondary to pneumonia - manifestations: leukocytosis, tachycardia, tachypnea, acute kidney injury; improving Pneumonia Acute kidney injury Leukocytosis Nausea Anorexia Adenocarcinoma of lung with recent lung resection COPD HTN Tobacco dependency - pt quit smoking 02/16 Chronic back pain Chronic narcotic use Mild protein calorie malnutrition - prealbumin 13.8 Reactive depression secondary to health problems Plan Covering for Dr Mendoza Patient with recurrence of chills and n/v, clinically worsening. Check blood cultures, lactate, procalcitonin and liver panel. UA performed 03/20 was negative. Continue with Rocephin and azithromycin for pulmonary coverage (Day #4) . Continue breathing treatments. [place] respiratory panel. Will discuss further treatment plan with attending. Sepsis Assessment - Evaluation Sepsis screening result: No Definite Risk Hospital Course Summary Disclaimer: The visit summary below is not to be considered part of the above Progress Note. Hospital Course: 03/20/17 Admission Assessment Sepsis secondary to pneumonia - manifestations: leukocytosis, tachycardia, tachypnea, acute kidney injury Pneumonia Acute kidney injury Leukocytosis Nausea Anorexia Adenocarcinoma of lung with recent lung resection COPD HTN Tobacco dependency - pt quit smoking 02/16 Chronic back pain Chronic narcotic use Reactive depression secondary to health problems Plan Inpatient admission to [facility] [place] under the care of Dr Méndez (covering physician for Dr Mendoza) Initiate Rocephin 1 gram IV daily and azithromycin 500mg IV daily for empiric antimicrobial coverage of pulmonary pathogens. Start IV of NS for hydration - creatinine increase to 1.4 (baseline creatinine 0.6) Neb treatments of DuoNeb QID with budesonide 0.5mg BID due to COPD. No current wheezing, will hold systemic steroids. Mucinex DM BID for mucolytic effect. Zofran as needed for nausea. Start citalopram 20mg daily to help patients reactive depression. Check lactate due to sepsis. Will check prealbumin to assess nutritional status. SCD and Lovenox for DVT prevention. Continue home medications. Monitor lab. Discussed code status with patient; he request full resuscitation. Order is written. Will transition care to Dr Mendoza upon his return. 03/21/17 Continue with Rocephin and azithromycin for pulmonary coverage. Continue breathing treatments. Will continue with IVF - creatinine still 1.4 (0.6 earlier this month). Encourage ambulation - walk in halls TID. Nutritional supplement TID due to malnutrition and decrease oral drive. Continue citalopram to help mood. Recheck lab in am. 03/22/17 Clinically improving. Chills resolved. WBC decreased to 9.5. No temp elevation. Creatine decreased to 1.1. Continue with Rocephin and azithromycin for pulmonary coverage (Day #3) . Continue breathing treatments. Will continue with IVF - creatinine decreasing to 1.1 (0.6 earlier this month) . Encourage ambulation - walk in halls TID. Continue citalopram to help mood. Recheck lab in am. Will recheck CXR. <Jesenia Durbin - Last Filed: 03/23/17 20:33> Objective Vital signs: Temperature 97.0 F 03/23/17 16:38 Pulse Rate 75 03/23/17 16:38 Respiratory Rate 18 03/23/17 16:38 Blood Pressure 193/96 H 03/23/17 16:38 Pulse Oximetry 98 03/23/17 16:38 Oxygen Delivery Method Room Air Height/Weight/BMI: Height 1.8 m Weight 71.5 kg Body Mass Index 21.3 Results - Labs CBC & Chem 7: 03/23/17 04:34 03/23/17 04:34 Microbiology Results: Microbiology 03/23/17 15:38 Peripheral/Iv Start Blood Culture - Preliminary Culture Initiated - Results Pending 03/23/17 15:47 Peripheral/Iv Start Blood Culture - Preliminary Culture Initiated - Results Pending Assessment and Plan (1) Sepsis Current visit: Yes Status: Acute Assessment and Plan: I have independently evaluated and examined this patient. I reviewed the chart, the patient's history, and the SURGICAL LEAD/PA's documented findings as above. We discussed and formulated the assessment and plan as above with additions as below: Patient chilling and diaphoretic. Poor oral intake with nausea. No recorded fevers although temperature slightly low this morning. He denied dysuria, sore throat, diarrhea, cough/sputum production. Patient is slightly flushed with diaphoresis, skin is warm to palpation. Blood pressure late this afternoon 193/96. Respirations are nonlabored and lungs are clear with good airflow. No splinter hemorrhages in the conjunctiva or nailbeds. Abdomen benign; moving extremities well. Thoracotomy site well healed, no erythema or soft tissue swelling around chest tube site-small dressing immediately over site. Rhinovirus positive on respiratory viral panel although symptoms seem exaggerated for a cold. Lactic acid and procalcitonin unremarkable, liver enzymes normal. Chest x-ray reviewed by myself demonstrates volume loss/postoperative changes in the left lower lobe but I don't appreciate a focal infiltrate. Patient provides history of UTI requiring hospitalization shortly after thoracotomy followed by BARRYE chest tube site infection. Both previously treated. Blood cultures obtained, continue current antibiotics. Monitor for bacteremia. Episodic marked elevation in blood pressures noted-amlodipine initiated, does not appear to have been on antihypertensive prior to hospitalization. Drop in hemoglobin with development of mild anemia following hydration noted. Old records reviewed, chest x-ray reviewed by myself, laboratory data reviewed, discussed with nursing/case management. Hospital Course Summary Disclaimer: The visit summary below is not to be considered part of the above Progress Note.
[2017-03-23] MEDS: SALINE FLUSH 10ml SYRINGE IVF PRN (21:19)
[2017-03-23] MEDS: AMLODIPINE 5 MG TABLET PO SCH (21:55)
[2017-03-23] MEDS: TAMSULOSIN 0.4 MG CAPSULE PO SCH (23:22)
[2017-03-24] MEDS: HYDROCODONE/APAP 10 MG/325 MG TABLET PO PRN ×3 (03:00→21:35)
[2017-03-24] MEDS: BUDESONIDE INH.SOLN 0.5mg/2ml NEB AEROSOL SCH ×3 (07:44→19:15)
[2017-03-24] MEDS: ALBUTEROL/IPRATROPIUM 2.5mg-0.5mg/3ml NEB AEROSOL SCH ×4 (07:47→19:15)
[2017-03-24] MEDS: CEFTRIAXONE 1 G in NS 100 ML IV SCH (08:26)
[2017-03-24] MEDS: GUAIFENESIN/D-METHORPHAN 600mg/30mg TABLET PO SCH ×2 (08:27→21:35)
[2017-03-24] MEDS: PREGABALIN 75 MG CAPSULE PO SCH ×4 (08:27→21:35)
[2017-03-24] MEDS: ENOXAPARIN 40 MG/0.4 ML INJECTION SQ SCH (08:27)
[2017-03-24] MEDS: CYCLOBENZAPRINE 10 MG TABLET PO SCH (08:28)
[2017-03-24] MEDS: Bisacodyl EC TAB 5 MG TABLET PO SCH ×2 (08:28→17:50)
[2017-03-24] MEDS: CITALOPRAM 20 MG TABLET PO SCH (08:28)
[2017-03-24] MEDS: MELOXICAM 15 MG TABLET PO SCH (08:28)
[2017-03-24] MEDS: BuPROPion XL 150mg (24HR) TABLET PO SCH (08:28)
[2017-03-24] MEDS: AMLODIPINE 5 MG TABLET PO SCH (08:28)
[2017-03-24] MEDS: NS 1,000 ML IV SCH ×3 (08:28→23:10)
[2017-03-24] MEDS: SENNA + DOCUSATE TABLET PO SCH (08:29)
[2017-03-24] MEDS: AZITHROMYCIN IV 500 MG in NS 250ml 250 ML IV SCH (09:24)
--- NOTE | 2017-03-24 11:39 | Progress Note ---
<Blank Matute - Last Filed: 03/24/17 11:36> Subjective: Patient seen sitting in bed this morning. He reports he feels "100% better." States he sweated profusely overnight - needing to change the sheets 3 times. This morning, however, he is no longer diaphoretic and feels he has more energy and an appetite. He has no complaints of shortness of breath. Occasional cough which he attributes to his "vocal cords getting scraped from my previous surgery." No pain, nausea or vomiting. Objective Vital signs: Temperature 97.7 F 03/24/17 07:40 Pulse Rate 78 03/24/17 07:40 Respiratory Rate 16 03/24/17 07:40 Blood Pressure 139/78 03/24/17 07:40 Pulse Oximetry 95 03/24/17 07:47 Height/Weight/BMI: Height 1.8 m Weight 69.1 kg Body Mass Index 21.3 - Constitutional Present: no acute distress, thin - Routine HEENT Exam Head: Present: normocephalic, atraumatic ENT: Present: mucous membranes moist - Routine Respiratory Exam Present: CTA bilaterally. Absent: dyspnea, respiratory distress - Routine Cardiovascular Exam Present: RRR, S1, S2. Absent: murmur - Routine Abdominal Exam Present: soft, non distended - Routine Extremities Exam Present: no edema, normal capillary refill - Routine Skin Exam Present: dry, warm - Routine Neurological Exam Present: alert, oriented X3 - Routine Psychiatric Exam Present: normal affect, normal thought process Results - Labs CBC & Chem 7: 03/24/17 05:40 03/24/17 05:40 Microbiology Results: Microbiology 03/23/17 15:38 Peripheral/Iv Start Blood Culture - Preliminary Culture Initiated - Results Pending 03/23/17 15:47 Peripheral/Iv Start Blood Culture - Preliminary Culture Initiated - Results Pending Assessment and Plan (1) Sepsis Current visit: Yes Status: Acute Assessment and Plan: Impression Positive rhinovirus Sepsis secondary to pneumonia - manifestations: leukocytosis, tachycardia, tachypnea, acute kidney injury Pneumonia Acute kidney injury Leukocytosis Adenocarcinoma of lung with recent lung resection COPD HTN-amlodipine initiated 03/23/17 Tobacco dependency - pt quit smoking 02/16 Chronic back pain Chronic narcotic use Reactive depression secondary to health problem Plan Discussed test results with patient. Will continue antibiotics as initiated on admission for sepsis/pneumonia. Discussed the rhinovirus treatment is supportive , will continue breathing treatments. Given his profuse diaphoresis overnight, will continue IV fluids for now. Amlodipine initiated last night, will continue to monitor blood pressures. Sepsis Assessment - Evaluation Sepsis screening result: No Definite Risk Hospital Course Summary Disclaimer: The visit summary below is not to be considered part of the above Progress Note. Hospital Course: 03/20/17 Admission Assessment Sepsis secondary to pneumonia - manifestations: leukocytosis, tachycardia, tachypnea, acute kidney injury Pneumonia Acute kidney injury Leukocytosis Nausea Anorexia Adenocarcinoma of lung with recent lung resection COPD HTN Tobacco dependency - pt quit smoking 02/16 Chronic back pain Chronic narcotic use Reactive depression secondary to health problems Plan [place] [facility] [place] the care of Dr Méndez (covering physician for Dr Mendoza) Initiate Rocephin 1 gram IV daily and azithromycin 500mg IV daily for empiric antimicrobial coverage of pulmonary pathogens. Start IV of NS for hydration - creatinine increase to 1.4 (baseline creatinine 0.6) Neb treatments of DuoNeb QID with budesonide 0.5mg BID due to COPD. No current wheezing, will hold systemic steroids. Mucinex DM BID for mucolytic effect. Zofran as needed for nausea. Start citalopram 20mg daily to help patients reactive depression. Check lactate due to sepsis. Will check prealbumin to assess nutritional status. SCD and Lovenox for DVT prevention. Continue home medications. Monitor lab. Discussed code status with patient; he request full resuscitation. Order is written. Will transition care to Dr Mendoza upon his return. 03/21/17 Continue with Rocephin and azithromycin for pulmonary coverage. Continue breathing treatments. Will continue with IVF - creatinine still 1.4 (0.6 earlier this month). Encourage ambulation - walk in halls TID. Nutritional supplement TID due to malnutrition and decrease oral drive. Continue citalopram to help mood. Recheck lab in am. 03/22/17 Clinically improving. Chills resolved. WBC decreased to 9.5. No temp elevation. Creatine decreased to 1.1. Continue with Rocephin and azithromycin for pulmonary coverage (Day #3) . Continue breathing treatments. Will continue with IVF - creatinine decreasing to 1.1 (0.6 earlier this month) . Encourage ambulation - walk in halls TID. Continue citalopram to help mood. Recheck lab in am. Will recheck CXR. 03/23/17 Patient with recurrence of chills and n/v, clinically worsening. Check blood cultures, lactate, procalcitonin and liver panel. UA performed 03/20 was negative. Continue with Rocephin and azithromycin for pulmonary coverage (Day #4) . Continue breathing treatments. Rhinovirus positive on respiratory viral panel although symptoms seem exaggerated for a cold. Lactic acid and procalcitonin unremarkable, liver enzymes normal. Chest x-ray reviewed by myself demonstrates volume loss/postoperative changes in the left lower lobe but I don't appreciate a focal infiltrate. Patient provides history of UTI requiring hospitalization shortly after thoracotomy followed by BARRYE chest tube site infection. Both previously treated. Episodic marked elevation in blood pressures noted-amlodipine initiated, does not appear to have been on antihypertensive prior to hospitalization. Drop in hemoglobin with development of mild anemia following hydration noted. 03/24/17 Discussed test results with patient. Will continue antibiotics as initiated on admission for sepsis/pneumonia. Discussed the rhinovirus treatment is supportive , will continue breathing treatments. Given his profuse diaphoresis overnight, will continue IV fluids for now. <Jesenia Durbin - Last Filed: 03/24/17 21:02> Objective Vital signs: Temperature 96.4 F L 03/24/17 15:44 Pulse Rate 78 03/24/17 15:44 Respiratory Rate 18 03/24/17 19:15 Blood Pressure 145/71 H 03/24/17 15:44 Pulse Oximetry 96 03/24/17 15:44 Oxygen Delivery Method Room Air Height/Weight/BMI: Height 1.8 m Weight 69.1 kg Body Mass Index 21.3 Results - Labs CBC & Chem 7: 03/24/17 05:40 03/24/17 05:40 Microbiology Results: Microbiology 03/23/17 15:38 Peripheral/Iv Start Blood Culture - Preliminary No Growth After 1 Day 03/23/17 15:47 Peripheral/Iv Start Blood Culture - Preliminary No Growth After 1 Day Assessment and Plan (1) Sepsis Current visit: Yes Status: Acute Assessment and Plan: I have independently evaluated and examined this patient. I reviewed the chart, the patient's history, and the [employer]ER/PA's documented findings as above. We discussed and formulated the assessment and plan as above with additions as below: Mr. Dunlap was seen and relating in the halls today and later in his room. He reports feeling completely different/improved today. His appetite is improved and is eating and taking liquids well. He denies lightheadedness or dyspnea. NAD, alert, ambulating independently Respirations nonlabored, good airflow, breath sounds clear Chest tube site clean and dry although wound is slightly open-single suture present Laboratory data reviewed-unremarkable, blood cultures negative after [address] Lomeli to see to assess chest tube site prior to removing suture. Day 4 antibiotics-has had 4 doses of azithromycin 500 mg-we'll discontinue, give one additional day ceftriaxone after which it will be discontinued as well. Chemotherapy anticipated in the future. Has taken oral liquids well today-discontinue IV fluids later tonight after current liter infused. Hospital Course Summary Disclaimer: The visit summary below is not to be considered part of the above Progress Note.
[2017-03-24] MEDS: ACETAMINOPHEN 325 MG TABLET PO PRN (13:13)
[2017-03-24] MEDS: TAMSULOSIN 0.4 MG CAPSULE PO SCH (21:35)
[2017-03-25] MEDS: ACETAMINOPHEN 325 MG TABLET PO PRN (04:02)
--- NOTE | 2017-03-25 06:56 | Progress Note ---
DATE 03/24/2017 FINDINGS Mr. Pena is a 56-year-old gentleman who is known to my surgical practice. I recently saw the patient in the [facility] Center and performed a "delayed primary closure" of a prior chest tube wound that was nonhealing in nature. The patient was recently admitted to the hospital and I was asked to see the patient for further evaluation. Official consult is not needed. Upon evaluation of the site along the left lateral chest wall, the incision at this time has essentially healed. Previously placed suture was removed. Following removal of the suture the edges of the incision did separate slightly. No residual necrotic tissue present. Recommend that we continue to intermittently place a Mepilex dressing overlying this area on an every 4-5 day basis, depending upon drainage. The patient should return to the Wound Center in the future if this small remaining wound fails to heal on its own behalf over the next couple of weeks. PEÑA
[2017-03-25] MEDS: BUDESONIDE INH.SOLN 0.5mg/2ml NEB AEROSOL SCH (06:59)
[2017-03-25] MEDS: ALBUTEROL/IPRATROPIUM 2.5mg-0.5mg/3ml NEB AEROSOL SCH ×3 (06:59→14:36)
[2017-03-25 08:16] VITALS: BP 175/95; PULSE 79; TEMP 97.1; O2SAT 98
[2017-03-25] MEDS: SENNA + DOCUSATE TABLET PO SCH (08:17)
[2017-03-25] MEDS: PREGABALIN 75 MG CAPSULE PO SCH ×2 (08:17→11:44)
[2017-03-25] MEDS: BuPROPion XL 150mg (24HR) TABLET PO SCH (08:17)
[2017-03-25] MEDS: Bisacodyl EC TAB 5 MG TABLET PO SCH (08:17)
[2017-03-25] MEDS: CYCLOBENZAPRINE 10 MG TABLET PO SCH (08:17)
[2017-03-25] MEDS: AMLODIPINE 5 MG TABLET PO SCH (08:18)
[2017-03-25] MEDS: MELOXICAM 15 MG TABLET PO SCH (08:18)
[2017-03-25] MEDS: GUAIFENESIN/D-METHORPHAN 600mg/30mg TABLET PO SCH (08:18)
[2017-03-25] MEDS: CITALOPRAM 20 MG TABLET PO SCH (08:19)
[2017-03-25] MEDS: CEFTRIAXONE 1 G in NS 100 ML IV SCH (08:19)
[2017-03-25] MEDS: ENOXAPARIN 40 MG/0.4 ML INJECTION SQ SCH (08:19)
[2017-03-25] MEDS: HYDROCODONE/APAP 10 MG/325 MG TABLET PO PRN (09:13)
[2017-03-25 14:42] VITALS: RESP 14
--- NOTE | 2017-03-25 14:53 | Discharge Instructions ---
Discharge Plan - Med Rec/Dispo Referrals/Follow Up: Cristofer Mendoza MD [Family Provider] - 1 Week Fabrizio Instructions: Sepsis (GEN), Pneumonia (GEN) Prescriptions: New Amlodipine [Norvasc] 5 mg PO DAILY #30 tablet Citalopram [Celexa] 20 mg PO DAILY #30 tablet Lisinopril [Prinivil] 10 mg PO DAILY #30 tab Guaifenesin/Dm [Mucinex Dm] 1 tab PO BID PRN tab.er.12h PRN Reason: Cough /Congestion Continue Albuterol Inhaler [Ventolin Hfa 90 mcg/actuation] 2 puff IN BID PRN PRN Reason: Prn Orders Meloxicam 15 mg PO DAILY Pregabalin Cap [Lyrica] 150 mg PO HS Cyclobenzaprine [Flexeril] 10 mg PO DAILY FentaNYL PATCH [Duragesic Patch] 50 mcg TD Q72H Docusate Sodium [Colace] 100 mg PO HS buPROPion HCl [Bupropion Xl] 150 mg PO DAILY Tamsulosin [Flomax] 0.4 mg PO HS Pregabalin Cap [Lyrica] 75 mg PO TIDWM Bisacodyl EC Tab [Dulcolax] 5 mg PO BIDWM Hydrocodone/APAP 10/325 [[place] 10/325] 1 tab PO TID PRN PRN Reason: Pain Discontinued Levofloxacin [Levaquin] 500 mg PO DAILY Discharge Instructions/Outpatient Orders: Final Provider Discharge Instructions Location: Determined By Patient - Disposition 01 Discharged Home, Self-Care
[2017-03-25] MEDS ORDERED: LISINOPRIL 10 MG TABLET PO SCH (15:00)
--- NOTE | 2017-03-25 20:41 | Discharge Summary ---
Discharge Information Date of admission: 03/20/17 17:17 Anticipated date of discharge: 03/25/17 Attending Physician: Cristofer Mendoza MD Primary care physician: CHARLES Mendoza MD Consults: Dhaval Lomeli - Discharge Diagnosis Discharge Diagnosis: Sepsis due to to pneumonia Rhinovirus infection - Laboratory Labs: On admission (03/20/17) white count was 12.2 with 76% neutrophils, 16% lymphocytes, hemoglobin 15.5, and platelet count 356,000. Blood gas on admission 7.71/16/94/20 on room air. Admission BUN 23, creatinine 1.4, calcium 10.8, liver enzymes unremarkable. Prealbumin 13.8, lactic acid 1.5 03/25/17 04:21 03/25/17 04:21 - Microbiology Microbiology 03/23/17 15:38 Peripheral/Iv Start Blood Culture - Preliminary No Growth After 2 Days 03/23/17 15:47 Peripheral/Iv Start Blood Culture - Preliminary No Growth After 2 Days Respiratory viral panel on 03/23/17 positive for rhinovirus History of Present Illness HPI: 56 y/o male presents to [facility] via EMS secondary to chills, weakness, and difficulty breathing. Recently found to have lung cancer - Adenocarcinoma of lung. Underwent at left lobectomy in [place] on February 16 of this year. Really has not been feeling well since. Has had persistent chills and weakness. Was hospitalized at [facility] March 08 through the for sepsis syndrome of unknown etiology. Treated with IV antibiotics. Was seen in clinic yesterday and given 1 gram of Rocephin IM and started on oral levofloxacin. Despite these treatments continues to have chills and sweats. Not running temperature that he is aware of. Breathing more short and labored. Denies cough or congestion. Minimal discomfort with breathing. No chest pressure, pain, or palpitations. Appetite decreased; not feeling hungry and when does eat he becomes nauseated. Reports a small amount of emesis today. Urine output decreased. More weak, but no falls or trauma. Seen in ED today. Breathing shallow and rapid. WBC with elevation at 12.2. Creatinine 1.4 (was 0.6 during prior hospitalization). BP elevated (not hypotensive in ED). CT PE protocol showed no evidence of PE; diffuse ground glass opacities noted. Dr Méndez (covering physician for Dr Mendoza) contacted. Patient placed in inpatient admission status for treatment of his sepsis syndrome (Leukocytosis, tachycardia, tachypnea) secondary to pneumonia. Greater than 2 midnights of care anticipated. Hospital Course This is a general summary of the patient's hospital course. For more details refer to the complete medical record. Hospital course: Assessment Sepsis secondary to pneumonia - manifestations: leukocytosis, tachycardia, tachypnea, acute kidney injury Pneumonia Rhinovirus URI Acute kidney injury, probable dehydration Hypokalemia Leukocytosis Anorexia Adenocarcinoma of lung with recent lung resection COPD HTN Tobacco dependency - pt quit smoking 02/16 Chronic back pain Chronic narcotic use Reactive depression secondary to health problems Hospital course Mr. Dunlap was admitted to [facility] under the care of Dr Méndez (covering physician for Dr Mendoza). Sepsis was initially suspected and he was treated with Rocephin 1 gram IV daily and azithromycin 500mg IV daily for empiric antimicrobial coverage of pulmonary pathogens. Azithromycin was discontinued after 4-5 days and Rocephin after 7 days. The patient initially improved but on 03/23 had recurrent symptoms of chilling and generalized myalgias with nausea, probable to admission. Blood cultures were obtained and sepsis workup repeated without identification of anything radiographically. Rhinovirus however was identified on respiratory viral panel. The following day the patient was improved and ambulating independently. Rocephin course was subsequently concluded on 03/25 as previously planned and patient was felt stable for discharge at that time. Breathing treatments with DuoNeb and budesonide for used during the acute hospital course but the patient did not feel these were needed at discharge and felt he could adequately manage respiratory symptoms with his standard MDI inhaler at home. Mucinex DM was continued as needed for cough and congestion. On admission creatinine was up from baseline and the patient was felt to be clinically dehydrated. He was treated with fluids which resulted in improved renal function and was associated with drop in hemoglobin suggesting hemoconcentration on presentation. Citalopram 20mg daily was initiated on admission help patients reactive depression. This was continued at discharge. Blood pressures were moderately elevated throughout the hospitalization prompting initiation of amlodipine 5 mg daily midcourse with later addition of lisinopril 10 mg daily on the date of discharge. Patient reported past history of hypertension but indicated he's been off medications for several years. Prior to discharge blood pressure was approximately 150/80. Dr. Lomeli reevaluated the patient's chest tube site on 03/24 and removed a single suture that was present. He recommended continued observation at the site and use of Mepilex dressings changed every 4-5 days until fully healed. The patient was felt stable for discharge on 03/25. At this time he reports no persistent chilling or nausea. He did not feel that breathing treatments were offering any benefit at this time. Examination demonstrated patient to be alert and in no distress. Respirations were nonlabored and airflow good with clear breath sounds. Potassium was slightly depressed on the date of the discharge and he was given 40 mEq of potassium chloride orally prior to discharge. Discharge medications were reviewed with Mr. Dunlap in detail and prescriptions for amlodipine, lisinopril, and citalopram provided. He is to follow-up with his primary care physician early next week to reassess his blood pressure, electrolytes, and respiratory status. He is tentatively scheduled for Port-A-Cath placement per Dr. Ramírez late next week prior to initiation of chemotherapy. Time spent with patient: discharge greater than 30 minutes Discharge Plan - Med Rec/Dispo Referrals/Follow Up: Cristofer Mendoza MD [Family Provider] - 1 Week Fabrizio Instructions: Sepsis (GEN), Pneumonia (GEN) Prescriptions: New Amlodipine [Norvasc] 5 mg PO DAILY #30 tablet Citalopram [Celexa] 20 mg PO DAILY #30 tablet Lisinopril [Prinivil] 10 mg PO DAILY #30 tab Guaifenesin/Dm [Mucinex Dm] 1 tab PO BID PRN tab.er.12h PRN Reason: Cough /Congestion Continue Albuterol Inhaler [Ventolin Hfa 90 mcg/actuation] 2 puff IN BID PRN PRN Reason: Prn Orders Meloxicam 15 mg PO DAILY Pregabalin Cap [Lyrica] 150 mg PO HS Cyclobenzaprine [Flexeril] 10 mg PO DAILY FentaNYL PATCH [Duragesic Patch] 50 mcg TD Q72H Docusate Sodium [Colace] 100 mg PO HS buPROPion HCl [Bupropion Xl] 150 mg PO DAILY Tamsulosin [Flomax] 0.4 mg PO HS Pregabalin Cap [Lyrica] 75 mg PO TIDWM Bisacodyl EC Tab [Dulcolax] 5 mg PO BIDWM Hydrocodone/APAP 10/325 [[place] 10/325] 1 tab PO TID PRN PRN Reason: Pain Discontinued Levofloxacin [Levaquin] 500 mg PO DAILY Discharge Instructions/Outpatient Orders: Final Provider Discharge Instructions Location: Determined By Patient - Disposition 01 Discharged Home, Self-Care
--- NOTE | 2017-03-26 17:12 | Right on Track Program ---
Right on Track Program Date of Discharge: 03/25/17 Home Medications: Home Medications Medication Instructions Recorded Confirmed Albuterol Inhaler [Ventolin Hfa 90 2 puff IN BID PRN 01/04/17 03/26/17 mcg/actuation] Meloxicam 15 mg PO DAILY 01/04/17 03/26/17 Bisacodyl EC Tab [Dulcolax] 5 mg PO BIDWM 03/08/17 03/26/17 Pregabalin Cap [Lyrica] 75 mg PO TIDWM 03/08/17 03/26/17 Pregabalin Cap [Lyrica] 150 mg PO HS 03/08/17 03/26/17 Cyclobenzaprine [Flexeril] 10 mg PO DAILY 03/13/17 03/26/17 Docusate Sodium [Colace] 100 mg PO HS 03/20/17 03/26/17 FentaNYL PATCH [Duragesic Patch] 50 mcg TD Q72H 03/20/17 03/26/17 Hydrocodone/APAP 10/325 [[place] 1 tab PO TID PRN 03/20/17 03/26/17 10/325] Tamsulosin [Flomax] 0.4 mg PO HS 03/20/17 03/26/17 Previous Rx's Medication Instructions Recorded Amlodipine [Norvasc] 5 mg PO DAILY #30 tablet 03/25/17 Citalopram [Celexa] 20 mg PO DAILY #30 tablet 03/25/17 Guaifenesin/Dm [Mucinex Dm] 1 tab PO BID PRN tab.er.12h 03/25/17 Lisinopril [Prinivil] 10 mg PO DAILY #30 tab 03/25/17 - Right on Track Program Phone Call 03/26/17 Date: 03/26/17 Right on Track Program: 24 Hour Follow-Up Discharge Summary Received: Yes Care Plan Received: Yes Follow Up: Follow Up Appointment Scheduled (Not yet) Education: Diagnosis Education Reviewed Referral: Primary Care Physician Comments: I called Jose Miguel the day after discharge. He stated that he felt well yesterday when he was dismissed, but as soon as he got home he started feeling hot and cold. Today, he's been having nausea and vomiting and has only been able to keep down a few sips of water. He hasn't actually taken his temperature but continues to have sweats alternated with chills. He did indeed fill his new Rx but he hasn't been able to take them because of his nausea. He has Zofran ODT, but only 2 are left. He's tried one today without any relief of symptoms. I told him to try a second one, and slowly try to sip some water. I called out Rx for Zofran ODT to [facility], and then called his PCP's office (Dr. Mendoza) to see if they could urgently see him either this afternoon or tomorrow morning. However, I told Jose Miguel that if he continues to have nausea and vomiting or develops a fever he will need to be re-evaluated in the ED, especially given his recent SARA (mild), pneumonia, and immunocompromised status. Recommendations For Follow-up: 1. Rx Franciejose maria called to his pharmacy in [place] 2. I called his PCP's clinic to see if they can arrange an urgent visit. Dr. Mendoza returned my call that evening, and stated that Jose Miguel had gone to the ED. 3. If his symptoms are uncontrollable, he will need to go back to the ED to be re-evaluated 4. I will call him tomorrow to check on him. 03/27/17 - Pt presented to [facility] and was re-admitted.
--- NOTE | 2017-03-31 17:02 | Right on Track Program ---
Right on Track Program Date of Discharge: 03/25/17 Home Medications: Home Medications Medication Instructions Recorded Confirmed Albuterol Inhaler [Ventolin Hfa 90 2 puff IN BID PRN 01/04/17 03/26/17 mcg/actuation] Meloxicam 15 mg PO DAILY 01/04/17 03/26/17 Bisacodyl EC Tab [Dulcolax] 5 mg PO BIDWM 03/08/17 03/26/17 Pregabalin Cap [Lyrica] 75 mg PO TIDWM 03/08/17 03/26/17 Pregabalin Cap [Lyrica] 150 mg PO HS 03/08/17 03/26/17 Cyclobenzaprine [Flexeril] 10 mg PO DAILY 03/13/17 03/26/17 Docusate Sodium [Colace] 100 mg PO HS 03/20/17 03/26/17 FentaNYL PATCH [Duragesic Patch] 50 mcg TD Q72H 03/20/17 03/26/17 Hydrocodone/APAP 10/325 [[place] 1 tab PO TID PRN 03/20/17 03/26/17 10/325] Tamsulosin [Flomax] 0.4 mg PO HS 03/20/17 03/26/17 Previous Rx's Medication Instructions Recorded Amlodipine [Norvasc] 5 mg PO DAILY #30 tablet 03/25/17 Citalopram [Celexa] 20 mg PO DAILY #30 tablet 03/25/17 Guaifenesin/Dm [Mucinex Dm] 1 tab PO BID PRN tab.er.12h 03/25/17 Lisinopril [Prinivil] 10 mg PO DAILY #30 tab 03/25/17 Doxazosin [Cardura] 2 mg PO HS #30 tab 03/28/17 LORazepam [Ativan] 1 mg PO TID PRN #30 tab 03/28/17 Labetalol [Normodyne] 100 mg PO BID #60 tab 03/28/17 [place] 10 mg-acetaminophen 325 mg 1 tab PO TID #90 tab 03/30/17 tablet metoprolol tartrate 50 mg tablet 50 mg PO BID #60 tab 03/30/17 - Right on Track Program [id number] 03/31/17 Date: 03/31/17 Right on Track Program: 7-14 Day [id number] Discharge Summary Received: Yes Care Plan Received: Yes Follow Up: Pending Tests Reviewed, Follow Up Appointment Scheduled (Port placement scheduled for 04/02/17; Dr. Mendoza on 04/13/17) Education: Diagnosis Education Reviewed Referral: Primary Care Physician Comments: I visited Lexx in his apartment in [place] on 03/31/17. He feels much better than he did a few days ago, after being readmitted for n/v and anxiety. He has not had any further night sweats or nausea, and his appetite is improving. His anxiety seems to be under better control. He denies any shortness of breath/ problems breathing. He has not had the urge to smoke. Resources: Despite having financial difficulty, he is able to afford a good place to live. 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 He attends [employer] and has had good support from them. His daughter has also been a big help. He lives [place] to very nice outdoor trail and enjoys going outside. He is independent in all ADLs and IADLs. Barriers: Lexx uses food stamps, but feels like he's able to get the food he needs. He can't stand for too long in the kitchen to make a meal, but knows his limitations and adjusts accordingly. He did not graduate high school (but later got his GED), which affects his health literacy. He lives alone. Sometimes when his anxiety comes on strong it's difficult to re-focus. Medications: He keeps his medications inside a tupperware and then organizes them into a pill box himself. We reviewed his medications and indications, and he knew the frequency and indications on most of his medications. He has not been taking Mobic, ibuprofen, or ASA because of upcoming sx. He uses the [facility]. The Rx for Zofran I called out on 03/26 was inadvertently filled for tabs, not ODT, so after our visit I called in a new Rx for Zofran ODT. Advanced directives: He understands the importance of a living will and DPOA ( he lost his in June, and she had these documents). He wants to ask his daughter to be his DPOA. He wants to have a living will but isn't sure where to start and how to include his children and step-children in his decisions. Depression screen: He's on citalopram and bupropion (more for smoking cessation) . He hasn't felt more depressed/hopeless lately, but continues to have issues with anxiety. Typically he goes for a walk and prays when his anxiety becomes too overwhelming. He's tried deep breathing techniques, but he's found that if he sits in one place he cannot think about anything else besides his anxiety. He has a pamphlet for [facility] but hasn't contacted them. He rates his quality of life as excellent. He's noticed some minor memory issues since being sick - ie can't think of a word or forgets the name of a person. We discussed lifestyle management ie sleep, nutrition, sun exposure, mind activation - he plans on starting to read more. Nutrition screen: He's lost 5 lbs over the last month. He met with a dietitian while in the hospital. He feels like his appetite is improving. Exam: General: A&O x3, very pleasant, calm, cooperative, and conversational. Neuro: Ambulates with steady gait; no obvious CN deficits. CV: RRR Lungs: CTAB. Incisions are healing well; no drainage, erythema, or swelling. Abd: soft, nttp. Ext: No edema. Recommendations For Follow-up: 1. May need more education on management strategies for anxiety - consider f/u with PV. 2. I will mail information on advanced directives to him; I also offered to facilitate a discussion with his family about his wishes, if he desires. 3. He inquired about using triple antibiotic ointment to his chest tube incision. I told him it doesn't seem necessary, but if he chooses to use it to limit use to 3 days. 4. F/U with Dr. Mendoza as planned on 04/13/17. Port placement planned on .
== END 2017-03-25 16:00 | disposition home or self-care (01) | DRG 871 ==
LOC: ED 13:47 → MED 17:17
PROVIDERS: ADMIT Hospitalist; ATTEND Family Medicine

== ENCOUNTER 2017-03-26 20:46 | Observation (INO) ==
--- OUTSIDE RECORDS SUMMARY | 2017-03-26 21:16 | External Medical Summary | Continuity of Care Document ---
:1960 Author Organization [facility] Allergies Active Description Code Type Severity Reaction Onset Reported/ Identified Relationship Clinical to Patient Status Yes Sulfa Sulfa Drug Mild RASH/ 12/25/2016 (Sulfonamide (Sulf Aller ITCHING Antibiotics) onami gy /HIVES de Antib iotic s) Yes Sulfa Sulfa Drug Mild RASH/ITCH 02/10/2017 (Sulfonamide (Sulf Aller ING/HIVES Antibiotics) onami gy de Antib iotic s) Medications Problems Date Dx Attending Type Code Diagnosis Diagnosed By Coded 03/11/2015 Royce REDMAN, Julienne 272.2 MIXED HYPERLIPIDEMIA Jordin K 08/05/2015 Royce REDMAN, Julienne I10 ESSENTIAL (PRIMARY) Jordin K HYPERTENSION 12/29/2016 Syd REDMAN, A R91.8 OTHER NONSPECIFIC Jaclyn H ABNORMAL FINDING OF DAVID 12/29/2016 Syd REDMAN, A R91.8 OTHER NONSPECIFIC Jaclyn H ABNORMAL FINDING OF DAVID 12/29/2016 Syd REDMAN, A R91.8 OTHER NONSPECIFIC Jaclyn H ABNORMAL FINDING OF DAVID 02/16/2017 Darrell REDMAN, F B96.20 UNSP ESCHERICHIA Timothy E COLI THE CAUSE OF DISEASES CLA 02/16/2017 Darrell REDMAN, F C34.12 MALIGNANT NEOPLASM Timothy E OF UPPER LOBE, LEFT BRONCHUS OR 02/16/2017 Darrell REDMAN, A C34.90 MALIGNANT NEOPLASM Timothy E OF UNSP PART OF UNSP BRONCHUS OR LUNG 02/16/2017 Darrell REDMAN, F F17.200 NICOTINE DEPENDENCE, Timothy E UNSPECIFIED, UNCOMPLICATED 02/16/2017 Darrell REDMAN, F I10 ESSENTIAL (PRIMARY) Timothy E HYPERTENSION 02/16/2017 Darrell REDMAN, F J95.811 POSTPROCEDURAL Timothy E PNEUMOTHORAX 02/16/2017 Darrell REDMAN, F M06.9 RHEUMATOID Timothy E ARTHRITIS, UNSPECIFIED 02/16/2017 Darrell REDMAN, F N39.0 URINARY TRACT Timothy E INFECTION, SITE NOT SPECIFIED 02/16/2017 Darrell REDMAN, F Y83.6 REMOV ORG (TOTAL) Timothy E CAUSE ABN REACT/COMPL, W/O MISAD 02/25/2017 Darrell REDMAN, F B96.20 UNSP ESCHERICHIA Timothy E COLI THE CAUSE OF DISEASES CLA 02/25/2017 Darrell REDMAN, F F32.9 MAJOR DEPRESSIVE Timothy E DISORDER, SINGLE EPISODE, UNSPECI 02/25/2017 Darrell REDMAN, F F41.9 ANXIETY DISORDER, Timothy E UNSPECIFIED 02/25/2017 Darrell REDMAN, F G89.29 OTHER CHRONIC PAIN Timothy E 02/25/2017 Darrell REDMAN, F J44.9 CHRONIC OBSTRUCTIVE Timothy E PULMONARY DISEASE, UNSPECIFIED 02/25/2017 Darrell REDMAN, F J95.811 POSTPROCEDURAL Timothy E PNEUMOTHORAX 02/25/2017 Darrell REDMAN, F L02.31 CUTANEOUS ABSCESS OF Timothy E BUTTOCK 02/25/2017 Darrell REDMAN, A R06.00 DYSPNEA, UNSPECIFIED Timothy E 02/25/2017 Darrell REDMAN, F R33.9 RETENTION OF URINE, Timothy E UNSPECIFIED 02/25/2017 Darrell REDMAN, A R53.1 WEAKNESS Timothy E 02/25/2017 Darrell REDMAN, F R65.10 SIRS OF Timothy E NON-INFECTIOUS ORIGIN W/O ACUTE ORGAN DYSF 02/25/2017 Darrell REDMAN, F Z85.118 PERSONAL HISTORY OF Timothy E MALIGNANT NEOPLASM OF BRONCHUS 02/25/2017 Darrell REDMAN, F Z87.891 PERSONAL HISTORY OF Timothy E NICOTINE DEPENDENCE 02/25/2017 Darrell REDMAN, F Z88.2 ALLERGY STATUS TO Timothy E SULFONAMIDES STATUS Procedures Code Description Performed By Performed On EXCISION Timothy Ramírez MD 02/16/2017 [id number] OF RIGHT UPPER LUNG LOBE, OPEN APPROACH EXCISION Timothy Ramírez MD 02/16/2017 [id number] OF LEFT LOWER LUNG LOBE, OPEN APPROACH Timothy Ramírez MD E 02/16/2017 [id number] INSPECTION OF TRACHEOBRONCHIAL TREE, ENDO Timothy Ramírez MD 02/16/2017 [id number] RESECTION OF LEFT UPPER LUNG LOBE, OPEN APPROACH Encounters ACCT Visit Discharge Status Pt. Type Provider Facility Loc./Unit Complaint No. Date/Time [id number] 08/05/2015 08/05/2015 DIS Outpatient Dereje Crane MDLAB [id number] 08:07:00 08:07:00 [facility] [id number] 05/07/2015 05/07/2015 CLS Outpatient Dereje Crane MDLAB [id number] 09:51:00 23:59:59 [facility] [id number] 03/11/2015 03/11/2015 DIS Outpatient Dereje Crane MDLAB [id number] 06:54:00 06:54:00 [facility] [id number] 02/16/2017 02/24/2017 DIS Inpatient Darrell Sprague3TN [id number] 04:55:00 15:07:00 MD [facility] [id number] 02/10/2017 02/10/2017 DIS Outpatient Darrell SpraguePOA [id number] 10:50:00 10:50:00 , [facility] [id number] 12/29/2016 12/30/2016 DIS Outpatient Syd Sprague10TS [id number] 06:31:00 18:13:00 , [facility] [id number] 02/25/2017 ACT Inpatient Darrell Sprague3TS [id number] 14:21:00 MD [facility]
--- NOTE | 2017-03-26 22:29 | Emergency Department Report ---
Fever HPI - General Chief Complaint: Medical Emergency <Rd Saldana [facility] 03/27/17 01:11> Stated Complaint: Chills <Rd Saldana [facility] 03/27/17 01:11> Time Seen by Provider: 03/26/17 21:12 <Rd Saldana [facility] 03/27/17 01:11> Source: patient, family <[facility] 03/27/17 00:21> Mode of arrival: ambulatory <[facility] 03/27/17 00:21> Limitations: no limitations <November,[facility] 03/27/17 00:21> - History of Present Illness HPI Narrative: 56[facility]. Pt is ~1mo s /p lobar resection with lymph node dissection for incidentally found lung CA. Pt has had a long and difficult course following resection including several hospitalizations, CT site infx, and persistent tachycardia, tachypnea, and chills/rigors. Pt was just released from this facility 24hrs prior after being afebrile x24 hours. Was treated with atbx for presumptive PNA; is not taking atbx now. Has not been able to eat/drink all day; has not taken any of his prescribed meds all day. <November,Isael 03/27/17 00:21> MD complaint: weakness <[facility] 03/27/17 00:21> Onset (ago): hour(s) <[facility] 03/27/17 00:21> Context: recent procedure <[facility] 03/27/17 00:21> Associated symptoms: chills, rigors, headache, rhinorrhea, nasal congestion, cough, shortness of breath, nausea <November,[facility] 03/27/17 00:21> Relieving factors: nothing <eb 03/27/17 00:21> Exacerbating factors: exertion <[facility] 03/27/17 00:21> Treatments prior to arrival fever: acetaminophen, ibuprofen <November,[facility] 00:21> - Related Data Home Medications Medication Instructions Recorded Confirmed Albuterol Inhaler [Ventolin Hfa 90 2 puff IN BID PRN 01/04/17 03/26/17 mcg/actuation] Meloxicam 15 mg PO DAILY 01/04/17 03/26/17 Bisacodyl EC Tab [Dulcolax] 5 mg PO BIDWM 03/08/17 03/26/17 Pregabalin Cap [Lyrica] 75 mg PO TIDWM 03/08/17 03/26/17 Pregabalin Cap [Lyrica] 150 mg PO HS 03/08/17 03/26/17 Cyclobenzaprine [Flexeril] 10 mg PO DAILY 03/13/17 03/26/17 Docusate Sodium [Colace] 100 mg PO HS 03/20/17 03/26/17 FentaNYL PATCH [Duragesic Patch] 50 mcg TD Q72H 03/20/17 03/26/17 Hydrocodone/APAP 10/325 [Hundred 1 tab PO TID PRN 03/20/17 03/26/17 10/325] Tamsulosin [Flomax] 0.4 mg PO HS 03/20/17 03/26/17 Previous Rx's Medication Instructions Recorded Amlodipine [Norvasc] 5 mg PO DAILY #30 tablet 03/25/17 Citalopram [Celexa] 20 mg PO DAILY #30 tablet 03/25/17 Guaifenesin/Dm [Mucinex Dm] 1 tab PO BID PRN tab.er.12h 03/25/17 Lisinopril [Prinivil] 10 mg PO DAILY #30 tab 03/25/17 <Rd Saldana H - 03/27/17 01:11> Allergies Allergy/AdvReac Type Severity Reaction Status Date / Time Sulfa (Sulfonamide Allergy Unknown Verified 03/26/17 21:35 Antibiotics) <Rd Saldana - 03/27/17 01:11> Review of Systems All systems: reviewed and negative except as stated <NovemberIsael - 03/27/17 00 :21> Constitutional: Reports: as per HPI, chills, weakness <NovemberIsael - 03/27/17 00:21> ENT: Reports: as per HPI <NovemberIsael - 03/27/17 00:21> Cardiovascular: Reports: as per HPI <NovemberIsael - 03/27/17 00:21> Respiratory: Reports: as per HPI <May,Isael 03/27/17 00:21> [facility] Patient Stated Medical History Peripheral Neuropathy Yes: takes Lyrica Dental Problems Yes Hypertension Yes Chronic Obstructive Pulmonary Yes Disease (COPD) Pneumonia Yes Sleep Apnea "I might" Diabetes Mellitus Type 2 Yes: borderline Other Endocrine Yes: BORDERLINE Hx Renal Disease No Hx Urinary Tract Infection Yes: recent Osteoarthritis Yes: back Sepsis Yes: questionable Depression Yes Clinic Medical History (Last Reviewed 01/05/17 @ 13:02 by LICO Thomas) Chronic low back pain (Acute Medical) Borderline diabetes (Chronic Medical) Hypertension (Chronic Medical) <Rd Saldana 03/27/17 01:11> Surgical History: Lung Biopsy, Chest Tube Insertion,. Left upper lobectomy 2017 <November,Isael 03/26/17 22:29> Family History: Family History (Last Reviewed 01/05/17 @ 13:02 by LICO Thomas) Father Diabetes Hypertension Paternal Grandfather Hypertension Diabetes <Rd Saldana 03/27/17 01:11> - Social History Smoking status: Former smoker <eb 03/26/17 22:29> Physical Exam - Limitations Limitations: no limitations <eb 03/27/17 00:21> - General General appearance: alert, in distress (resp) <eb 03/27/17 00:21> - Normal Exams: Head:: Normocephalic without trauma <eb 03/27/17 00:21> Eyes:: Pupils are PERRLA w/ EOMI, No scleral icterus, irritation, or foreign bodies noted <November,Isael 03/27/17 00:21> ENMT:: No facial trauma, nasal exudates, pharyngeal erythema, or exudates are noted <November,Isael 03/27/17 00:21> Neck:: Full range of motion, without adenopathy <eb 03/27/17 00:21> Abdomen:: Bowel sounds positive, soft, non-tender, non-distended, no hepatosplenomegaly, masses or bruits noted <November,Isael 03/27/17 00:21> Lymphatic:: No lymphadenopathy <eb 03/27/17 00:21> Musculoskeletal:: No tenderness, or deformity noted <November,Isael 03/27/17 00 :21> Integumentary:: No rashes, hives, or bruising noted <November,Isael 03/27/17 00 :21> Neurological:: Patient is alert, and oriented <November,Isael 03/27/17 00:21> Psychiatric:: Patient exhibits, appropriate attention <eb 03/27/17 00:21> - Chest Chest inspection: Present: normal inspection, symmetric chest wall rise. Absent : tenderness, rash <November,Isael 03/27/17 00:21> - Respiratory Respiratory exam: Present: respiratory distress, accessory muscle use, prolonged expiratory phase. Absent: normal lung sounds bilaterally, wheezes, stridor, crackles <November,Isael 03/27/17 00:21> - Cardiovascular Cardiovascular exam: Present: normal rhythm, tachycardia, normal heart sounds, + S1, +S2. Absent: systolic murmur, diastolic murmur, +S3, +S4 <November,Isael 03/27/17 00:21> Course Course Narrative: Care of pt tx'ed to Dr. Saldana at 0045. <eb 03/27/17 00:47> - Consultations Consultation #1: Himanshu Telemed: Will accept pt for admission. Will await results of Ct-PA to determine whether pt is inpt or obs. <November,Isael 03/27/17 00:47> Time: 00:30 <November,Isael 03/27/17 00:47> Vital Signs Temperature 97.7 F 03/26/17 20:54 Pulse Rate 102 H 03/26/17 20:54 Respiratory Rate 40 H 03/26/17 20:54 Blood Pressure 167/99 H 03/26/17 20:54 Pulse Oximetry 99 03/26/17 20:54 Temperature 98.3 F 03/27/17 00:11 Pulse Rate 90 03/27/17 00:45 Respiratory Rate 23 03/27/17 00:45 Blood Pressure 185/85 H 03/27/17 00:45 Pulse Oximetry 99 03/27/17 00:45 <Rd Saldana - 03/27/17 01:11> Fever - MDM Narrative Medical decision making narrative: Case discussed with Dr. Rodriguez CT results IMPRESSION: 1. No acute findings in the arterial system of the abdomen and pelvis. 2. Atherosclerotic disease. 3. Ovoid mass right adrenal gland. 4. Moderately severe spinal stenosis at L4-L5 We'll admit observation for now <LesRd - 03/27/17 01:11> - Differential Diagnosis Likely: cellulitis, fever of unknown origin, community acquired pneumonia, pyelonephritis, viral infection, sepsis, influenza [facility]> - Medical Records Attestation: I reviewed the patient's medical records. <November,[facility] 00:21> - Lab Data Attestation: I reviewed the patient's lab results. <November,[facility] 03/27/17 00: 21> Result diagrams: 03/26/17 22:17 03/26/17 22:17 <SaldanaRd - 03/27/17 01:11> Lab Results 03/26/17 03/26/17 03/26/17 Range/Units 22:17 22:17 22:17 WBC 13.3 H (4.5-11.0) T/MM3 RBC 5.23 (4.50-5.90) M/MM3 Hgb 15.5 D (13.5-17.5) GM/DL Hct 45.6 D (41-53) % MCV 87.2 (80-100) UM3 MCH 29.6 (26-34) UUG MCHC 34.0 (31-37) GM/DL RDW Std Deviation 42.7 (36.9-50.2) FL Plt Count 519 H D (130-400) T/MM3 MPV 8.7 L (9.4-12.4) UM3 Immature Gran % (Auto) 0.2 (0.0-0.5) % Neut % (Auto) 77.1 H (33-66) % Lymph % (Auto) 16.3 L (23-45) % Gates % (Auto) 5.9 (0-9.0) % Eos % (Auto) 0.4 (0-4) % Baso % (Auto) 0.1 (0-2) % Neut # 10.3 H (1.8-7.7) T/MM3 Lymph # 2.2 (1-4.8) T/MM3 Gates # 0.8 (0-0.8) T/MM3 Eos # 0.1 (0-0.5) T/MM3 Baso # 0.0 (0-0.2) T/MM3 Abs Immat Gran (auto) 0.02 (0.00-0.03) T/MM3 ABG pH (7.350-7.450) ABG pCO2 (34-45) MMHG ABG pO2 (80-100) MMHG ABG HCO3 (22-26) MEQ/L ABG Total CO2 (23-27) MEQ/L ABG O2 Saturation (95.0-98.0) % ABG Base Excess (-2.0-2.0) MMOL/L O2 Delivery Method Turbidity (0-20) Sodium (134-144) MEQ/L Potassium (3.6-5) MEQ/L Chloride (98-107) MEQ/L Carbon Dioxide (22-30) MEQ/L Anion Gap (5-15) MEQ/L BUN (9-20) MG/DL Creatinine (0.8-1.5) MG/DL GFR Calculation BUN/Creatinine Ratio (6-26) RATIO Glucose (75-110) MG/DL Calculated Osmolality (261-280) MOSM/KG Calcium (8.4-10.2) MG/DL Total Bilirubin (0.20-1.30) MG/DL Icterus Index (0-7) AST (17-59) U/L ALT (21-72) U/L Alkaline Phosphatase (38-126) U/L Total Protein (6.3-8.2) G/DL Albumin (3.5-5.0) G/DL Globulin (2.4-3.6) G/DL Albumin/Globulin Ratio (1.1-2.2) RATIO Plasma Lactate 1.5 (0.6-2.2) MMOL/L Procalcitonin < 0.05 NG/ML Specimen Hemolysis (0-25) Ur Collection Type Urine Color (YELLOW) Urine Clarity Urine pH (5.0-8.0) Ur Specific [place] (1.015-1.025) Urine Protein (NEGATIVE) Urine Glucose (UA) (NEGATIVE) Urine Ketones (NEGATIVE) Urine Occult Blood (NEGATIVE) Urine Nitrate (NEGATIVE) Urine Bilirubin (NEGATIVE) Urine Urobilinogen (NORMAL) EU/DL Ur Leukocyte Esterase (NEGATIVE) Urinalysis Comment 03/26/17 03/27/17 03/27/17 Range/Units 22:17 00:20 00:32 WBC (4.5-11.0) T/MM3 RBC (4.50-5.90) M/MM3 Hgb (13.5-17.5) GM/DL Hct (41-53) % MCV (80-100) UM3 MCH (26-34) UUG MCHC (31-37) GM/DL RDW Std Deviation (36.9-50.2) FL Plt Count (130-400) T/MM3 MPV (9.4-12.4) UM3 Immature Gran % (Auto) (0.0-0.5) % Neut % (Auto) (33-66) % Lymph % (Auto) (23-45) % Gates % (Auto) (0-9.0) % Eos % (Auto) (0-4) % Baso % (Auto) (0-2) % Neut # (1.8-7.7) T/MM3 Lymph # (1-4.8) T/MM3 Gates # (0-0.8) T/MM3 Eos # (0-0.5) T/MM3 Baso # (0-0.2) T/MM3 Abs Immat Gran (auto) (0.00-0.03) T/MM3 ABG pH 7.570 H (7.350-7.450) ABG pCO2 24 L (34-45) MMHG ABG pO2 93 (80-100) MMHG ABG HCO3 22 (22-26) MEQ/L ABG Total CO2 22.7 L (23-27) MEQ/L ABG O2 Saturation 98.0 (95.0-98.0) % ABG Base Excess 1.3 (-2.0-2.0) MMOL/L O2 Delivery Method Room air Turbidity < 20 (0-20) Sodium 139 (134-144) MEQ/L Potassium 3.8 (3.6-5) MEQ/L Chloride 99 D (98-107) MEQ/L Carbon Dioxide 22 (22-30) MEQ/L Anion Gap 18 H (5-15) MEQ/L BUN 17.0 (9-20) MG/DL Creatinine 0.9 (0.8-1.5) MG/DL GFR Calculation 88 BUN/Creatinine Ratio 19 (6-26) RATIO Glucose 103 (75-110) MG/DL Calculated Osmolality 270 (261-280) MOSM/KG Calcium 10.7 H D (8.4-10.2) MG/DL Total Bilirubin 0.70 (0.20-1.30) MG/DL Icterus Index < 2 (0-7) AST 19 (17-59) U/L ALT 27 (21-72) U/L Alkaline Phosphatase 102 (38-126) U/L Total Protein 7.7 (6.3-8.2) G/DL Albumin 4.5 (3.5-5.0) G/DL Globulin 3.2 (2.4-3.6) G/DL Albumin/Globulin Ratio 1.4 (1.1-2.2) RATIO Plasma Lactate (0.6-2.2) MMOL/L Procalcitonin NG/ML Specimen Hemolysis < 15 (0-25) Ur Collection Type Urine, clean catch Urine Color Yellow (YELLOW) Urine Clarity Clear Urine pH 7.0 (5.0-8.0) Ur Specific [place] 1.010 L (1.015-1.025) Urine Protein Negative (NEGATIVE) Urine Glucose (UA) Negative (NEGATIVE) Urine Ketones 3+ A (NEGATIVE) Urine Occult Blood Trace-intact (NEGATIVE) Urine Nitrate Negative (NEGATIVE) Urine Bilirubin Negative (NEGATIVE) Urine Urobilinogen 0.2 (NORMAL) EU/DL Ur Leukocyte Esterase Negative (NEGATIVE) Urinalysis Comment Microscopic not ind. <Rd Saldana H - 03/27/17 01:11> Lab Results 03/26/17 03/26/17 03/26/17 Range/Units 22:17 22:17 22:17 WBC 13.3 H (4.5-11.0) T/MM3 RBC 5.23 (4.50-5.90) M/MM3 Hgb 15.5 D (13.5-17.5) GM/DL Hct 45.6 D (41-53) % MCV 87.2 (80-100) UM3 MCH 29.6 (26-34) UUG MCHC 34.0 (31-37) GM/DL RDW Std Deviation 42.7 (36.9-50.2) FL Plt Count 519 H D (130-400) T/MM3 MPV 8.7 L (9.4-12.4) UM3 Immature Gran % (Auto) 0.2 (0.0-0.5) % Neut % (Auto) 77.1 H (33-66) % Lymph % (Auto) 16.3 L (23-45) % Gates % (Auto) 5.9 (0-9.0) % Eos % (Auto) 0.4 (0-4) % Baso % (Auto) 0.1 (0-2) % Neut # 10.3 H (1.8-7.7) T/MM3 Lymph # 2.2 (1-4.8) T/MM3 Gates # 0.8 (0-0.8) T/MM3 Eos # 0.1 (0-0.5) T/MM3 Baso # 0.0 (0-0.2) T/MM3 Abs Immat Gran (auto) 0.02 (0.00-0.03) T/MM3 ABG pH (7.350-7.450) ABG pCO2 (34-45) MMHG ABG pO2 (80-100) MMHG ABG HCO3 (22-26) MEQ/L ABG Total CO2 (23-27) MEQ/L ABG O2 Saturation (95.0-98.0) % ABG Base Excess (-2.0-2.0) MMOL/L O2 Delivery Method Turbidity (0-20) Sodium (134-144) MEQ/L Potassium (3.6-5) MEQ/L Chloride (98-107) MEQ/L Carbon Dioxide (22-30) MEQ/L Anion Gap (5-15) MEQ/L BUN (9-20) MG/DL Creatinine (0.8-1.5) MG/DL GFR Calculation BUN/Creatinine Ratio (6-26) RATIO Glucose (75-110) MG/DL Calculated Osmolality (261-280) MOSM/KG Calcium (8.4-10.2) MG/DL Total Bilirubin (0.20-1.30) MG/DL Icterus Index (0-7) AST (17-59) U/L ALT (21-72) U/L Alkaline Phosphatase (38-126) U/L Total Protein (6.3-8.2) G/DL Albumin (3.5-5.0) G/DL Globulin (2.4-3.6) G/DL Albumin/Globulin Ratio (1.1-2.2) RATIO Plasma Lactate 1.5 (0.6-2.2) MMOL/L Procalcitonin < 0.05 NG/ML Specimen Hemolysis (0-25) Ur Collection Type Urine Color (YELLOW) Urine Clarity Urine pH (5.0-8.0) Ur Specific [place] (1.015-1.025) Urine Protein (NEGATIVE) Urine Glucose (UA) (NEGATIVE) Urine Ketones (NEGATIVE) Urine Occult Blood (NEGATIVE) Urine Nitrate (NEGATIVE) Urine Bilirubin (NEGATIVE) Urine Urobilinogen (NORMAL) EU/DL Ur Leukocyte Esterase (NEGATIVE) Urinalysis Comment 03/26/17 03/27/17 03/27/17 Range/Units 22:17 00:20 00:32 WBC (4.5-11.0) T/MM3 RBC (4.50-5.90) M/MM3 Hgb (13.5-17.5) GM/DL Hct (41-53) % MCV (80-100) UM3 MCH (26-34) UUG MCHC (31-37) GM/DL RDW Std Deviation (36.9-50.2) FL Plt Count (130-400) T/MM3 MPV (9.4-12.4) UM3 Immature Gran % (Auto) (0.0-0.5) % Neut % (Auto) (33-66) % Lymph % (Auto) (23-45) % Gates % (Auto) (0-9.0) % Eos % (Auto) (0-4) % Baso % (Auto) (0-2) % Neut # (1.8-7.7) T/MM3 Lymph # (1-4.8) T/MM3 Gates # (0-0.8) T/MM3 Eos # (0-0.5) T/MM3 Baso # (0-0.2) T/MM3 Abs Immat Gran (auto) (0.00-0.03) T/MM3 ABG pH 7.570 H (7.350-7.450) ABG pCO2 24 L (34-45) MMHG ABG pO2 93 (80-100) MMHG ABG HCO3 22 (22-26) MEQ/L ABG Total CO2 22.7 L (23-27) MEQ/L ABG O2 Saturation 98.0 (95.0-98.0) % ABG Base Excess 1.3 (-2.0-2.0) MMOL/L O2 Delivery Method Room air Turbidity < 20 (0-20) Sodium 139 (134-144) MEQ/L Potassium 3.8 (3.6-5) MEQ/L Chloride 99 D (98-107) MEQ/L Carbon Dioxide 22 (22-30) MEQ/L Anion Gap 18 H (5-15) MEQ/L BUN 17.0 (9-20) MG/DL Creatinine 0.9 (0.8-1.5) MG/DL GFR Calculation 88 BUN/Creatinine Ratio 19 (6-26) RATIO Glucose 103 (75-110) MG/DL Calculated Osmolality 270 (261-280) MOSM/KG Calcium 10.7 H D (8.4-10.2) MG/DL Total Bilirubin 0.70 (0.20-1.30) MG/DL Icterus Index < 2 (0-7) AST 19 (17-59) U/L ALT 27 (21-72) U/L Alkaline Phosphatase 102 (38-126) U/L Total Protein 7.7 (6.3-8.2) G/DL Albumin 4.5 (3.5-5.0) G/DL Globulin 3.2 (2.4-3.6) G/DL Albumin/Globulin Ratio 1.4 (1.1-2.2) RATIO Plasma Lactate (0.6-2.2) MMOL/L Procalcitonin NG/ML Specimen Hemolysis < 15 (0-25) Ur Collection Type Urine, clean catch Urine Color Yellow (YELLOW) Urine Clarity Clear Urine pH 7.0 (5.0-8.0) Ur Specific [place] 1.010 L (1.015-1.025) Urine Protein Negative (NEGATIVE) Urine Glucose (UA) Negative (NEGATIVE) Urine Ketones 3+ A (NEGATIVE) Urine Occult Blood Trace-intact (NEGATIVE) Urine Nitrate Negative (NEGATIVE) Urine Bilirubin Negative (NEGATIVE) Urine Urobilinogen 0.2 (NORMAL) EU/DL Ur Leukocyte Esterase Negative (NEGATIVE) Urinalysis Comment Microscopic not ind. <May,Isael 03/27/17 00:21> - Radiology Data Attestation: I reviewed the patient's radiology results. <November,Isael 22:29> CXR: Stable chest; no acute pathology. <eb 03/26/17 22:29> Disposition Clinical Impression: Acute respiratory alkalosis <Saldana,Rd 03/27/17 01:11> Disposition: [address] [facility] <LesRd 03/27/17 01:11> Condition: Improved <Saldana,[facility] 03/27/17 01:11> Instructions: <LesRd 03/27/17 01:11> Prescriptions: No Action Albuterol Inhaler [Ventolin Hfa 90 mcg/actuation] 2 puff IN BID PRN PRN Reason: Prn Orders Meloxicam 15 mg PO DAILY Pregabalin Cap [Lyrica] 150 mg PO HS Cyclobenzaprine [Flexeril] 10 mg PO DAILY FentaNYL PATCH [Duragesic Patch] 50 mcg TD Q72H Docusate Sodium [Colace] 100 mg PO HS Tamsulosin [Flomax] 0.4 mg PO HS Amlodipine [Norvasc] 5 mg PO DAILY #30 tablet Citalopram [Celexa] 20 mg PO DAILY #30 tablet Lisinopril [Prinivil] 10 mg PO DAILY #30 tab Pregabalin Cap [Lyrica] 75 mg PO TIDWM Bisacodyl EC Tab [Dulcolax] 5 mg PO BIDWM Hydrocodone/APAP 10/325 [Hundred 10/325] 1 tab PO TID PRN PRN Reason: Pain Guaifenesin/Dm [Mucinex Dm] 1 tab PO BID PRN tab.er.12h PRN Reason: Cough /Congestion <LesRd 03/27/17 01:11> Referrals: CHARLES AWN [Primary Care Provider] - Cristofer Mendoza MD [Family Provider] - <LesRd 03/27/17 01:11> Forms: <LesRd 03/27/17 01:11> Time of Disposition: 00:47 <NovemberIsael 03/27/17 00:47> - Seen By: physician <Isael Masterson - 03/27/17 00:47>
[2017-03-26] MEDS: SALINE FLUSH 10ml SYRINGE IVF PRN (22:34)
[2017-03-26] MEDS: LR 1,000 ML IV SCH (22:34)
[2017-03-26] MEDS ORDERED: ONDANSETRON 4 MG/2 ML INJECTION IV ONE (22:48)
[2017-03-26] MEDS ORDERED: LISINOPRIL 10 MG TABLET PO ONE (23:14)
[2017-03-26] MEDS ORDERED: AMLODIPINE 5 MG TABLET PO ONE (23:14)
[2017-03-26] MEDS ORDERED: IOHEXOL 350mg/ml 50ml INJECTION ONE (23:34)
[2017-03-26] MEDS ORDERED: NS 100 ML ONE (23:34)
[2017-03-26] MEDS ORDERED: IOHEXOL 350mg/ml 75ml INJECTION ONE (23:34)
[2017-03-26] MEDS ORDERED: SALINE FLUSH 10ml SYRINGE ONE (23:35)
[2017-03-27] MEDS: LR 1,000 ML IV SCH ×3 (00:02→15:42)
[2017-03-27] MEDS ORDERED: HYDROCODONE/APAP 10 MG/325 MG TABLET PO PRN (01:44)
[2017-03-27] MEDS ORDERED: ONDANSETRON 4 MG/2 ML INJECTION IVP PRN (01:44)
[2017-03-27] MEDS ORDERED: ALBUTEROL 2.5mg/3ml (0.083%) NEB AEROSOL PRN (01:44)
[2017-03-27] MEDS ORDERED: LORazepam 1 MG TABLET PO PRN (02:13)
[2017-03-27] MEDS ORDERED: HYDRALAZINE 20 MG/ML INJECTION IVP PRN (02:14)
--- NOTE | 2017-03-27 02:21 | History & Physical Report ---
<Jorge Rodriguez - Last Filed: 03/27/17 02:15> History of Present Illness Date: 03/27/17 Chief complaint: short of breath HPI: This is a 56 y/o male who was recently diagnosed with adenocarcinoma of his left lung. He underwent a left lower lobe lobectomy and since his surgery has had persistent episodes of dyspnea, chills, rigors. The patient has been seen back @ [facility] in [place] and was felt to be not related to surgical complications The patient was admitted to [facility] x 2 since surgery. Most recently discharged yesterday after an admission for what was felt to be pneumonia. The patient since being home continues to be short of breath and just doesn't feel right. There have been no fever but the patient reports rigors and sweats. He continue to have no energy. IN the ED the patient has uncompensated respiratory alkalosis. The patient had a repeat CT PE study which was normal. Ativan did in fact improve his respiratory rate. The patient is hypertensive and continues to be at this time. Because of ongoing weakness and persistent resp symptoms the patient will be observed admitted onto a tele unit for further assessment Review of Systems Review of systems: as noted in the HPI. otherwise negative except for described above. [address] [facility] Medical History (Last Reviewed 01/05/17 @ 13:02 by LICO Thomas) Chronic low back pain (Acute Medical) Borderline diabetes (Chronic Medical) Hypertension (Chronic Medical) Surgical History: Lung Biopsy, Chest Tube Insertion,. Left upper lobectomy 2016 Family History: Family History (Last Reviewed 01/05/17 @ 13:02 by LICO Thomas) Father Diabetes Hypertension Paternal Grandfather Hypertension Diabetes - Social History Smoking status: Former smoker Medications Home Medications Medication Instructions Recorded Confirmed Type Albuterol Inhaler [Ventolin Hfa 90 2 puff IN BID PRN 01/04/17 03/26/17 History mcg/actuation] Meloxicam 15 mg PO DAILY 01/04/17 03/26/17 History Bisacodyl EC Tab [Dulcolax] 5 mg PO BIDWM 03/08/17 03/26/17 History Pregabalin Cap [Lyrica] 75 mg PO TIDWM 03/08/17 03/26/17 History Pregabalin Cap [Lyrica] 150 mg PO HS 03/08/17 03/26/17 History Cyclobenzaprine [Flexeril] 10 mg PO DAILY 03/13/17 03/26/17 History Docusate Sodium [Colace] 100 mg PO HS 03/20/17 03/26/17 History FentaNYL PATCH [Duragesic Patch] 50 mcg TD Q72H 03/20/17 03/26/17 History Hydrocodone/APAP 10/325 [[place] 1 tab PO TID PRN 03/20/17 03/26/17 History 10/325] Tamsulosin [Flomax] 0.4 mg PO HS 03/20/17 03/26/17 History Allergies Allergy/AdvReac Type Severity Reaction Status Date / Time Sulfa (Sulfonamide Allergy Unknown Verified 03/26/17 21:35 Antibiotics) Exam Vital Signs: Temperature 98.3 F 03/27/17 00:11 Pulse Rate 82 03/27/17 01:30 Respiratory Rate 18 03/27/17 01:30 Blood Pressure 175/62 H 03/27/17 01:30 Pulse Oximetry 94 03/27/17 01:30 Oxygen Delivery Method Room Air Telemetry Rhythm: Sinus Rhythm Comments: well developed appropriate nourished male in mild distress, flat affect - Constitutional Present: mild distress, thin, cooperative - Routine HEENT Exam Head: Present: normocephalic, atraumatic Eye: Present: EOMI, conjunctivae pink. Absent: conjunctival icterus, scleral injection ENT: Present: mucous membranes dry - Routine Neck Exam Present: supple, full ROM. Absent: JVD - Routine Respiratory Exam Present: CTA bilaterally, distant breath sounds. Absent: rales, rhonchi, wheezes - Routine Cardiovascular Exam Present: RRR, S3 Comments: diminished breath sounds but no rhonchi and only occasional wheeze - Routine Abdominal Exam Present: soft, normoactive bowel sounds, non distended, non tender - Routine Extremities Exam Present: no edema, non tender, full ROM - Routine Back/Spine/Pelvis Exam Back/Spine: Present: full ROM - Routine Skin Exam Present: intact - Routine Neurological Exam Present: oriented X3, CN II-XII intact. Absent: motor deficit - Routine Psychiatric Exam Present: normal thought process, cooperative, depressed, anxious. Absent: normal affect, good insight, agitated Results - Labs CBC & Chem 7: 03/26/17 22:17 03/26/17 22:17 Labs: reviewed and essentially non changed and unconcerning appreicated ABG with resp alkalosis - ECG Data Tracing #1 rbbb incomplete. non ischemiac - Imaging and Cardiology CT scan - chest Additional comments: no acute process. see report Assessment and Plan (1) Acute respiratory alkalosis Current visit: Yes Status: Acute 03/27/17 02:25 this patient presents with dyspnea, hyperventilation. ABG supports primarily resp alkalosis. tachypnea improved with ativan. At this time it is the opinion of this author that this patentis significantly anxious. will continue with antidepressant initiated and add ativan prn. see discussion below. no PE , no obvious pulm ds other than known copd. The only other consideration would be an echo to assess diastolic function. (2) Adenocarcinoma, lung Current visit: Yes Status: Acute 03/27/17 02:27 recent diagnosis. next step is to continue to recover from surgery and get port placed. followed by oncology. ? nanny REDMAN. no chemo started yet. (3) Anxiety and depression Current visit: Yes Status: Acute 03/27/17 02:28 This is a very nice patient. This patient has stressors. recent cancer diagnosis. ex recently in July. At this time it is the opinion of this author that the large part of this patient's symptoms are depression/ anxiety. I have added ativan prn. continue recent antidepressant. It would greatly benefit this patient to start psychiatric counseling if he will allow. Additionally PT and OT need to work with patient to help him engage in his environment (4) Hypertension Current visit: Yes Status: Acute 03/27/17 02:31 recent started VINICIUS and ca elle. still too high, for tonight hydralaizne with parameters IV. Need tight control to improve symptoms. Note would not strongly favor b elle in this setting. 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 (6) COPD (chronic obstructive pulmonary disease) Current visit: Yes Status: Acute 03/27/17 02:33 duoneb, albuterol prn. no indications for steroids currently DVT Prophylaxis: SCD's GI Prophylaxis: Protonix Resuscitation Status: Full Code Sepsis Assessment - Evaluation Sepsis screening result: No Definite Risk Hospital Course Summary Disclaimer: The visit summary below is not to be considered part of the above Progress Note. <DevJoao de anda Rachell - Last Filed: 03/27/17 14:08> History of Present Illness Date: 03/27/17 [facility] Patient Stated Medical History Peripheral Neuropathy Yes: takes Lyrica Dental Problems Yes Hypertension Yes Chronic Obstructive Pulmonary Yes Disease (COPD) Pneumonia Yes Sleep Apnea "I might" Other Respiratory Yes: Emphysema Diabetes Mellitus Type 2 Yes: borderline Hx Urinary Tract Infection Yes: recent Osteoarthritis Yes: back Sepsis Yes: questionable Depression Yes Clinic Medical History (Last Reviewed 01/05/17 @ 13:02 by LICO Thomas) Chronic low back pain (Acute Medical) Borderline diabetes (Chronic Medical) Hypertension (Chronic Medical) Family History: Family History (Last Reviewed 01/05/17 @ 13:02 by LICO Thomas) Father Diabetes Hypertension Paternal Grandfather Hypertension Diabetes Exam Vital Signs: Temperature 98.9 F 03/27/17 08:00 Pulse Rate 100 03/27/17 08:00 Respiratory Rate 18 03/27/17 08:00 Blood Pressure 146/83 H 03/27/17 08:00 Pulse Oximetry 99 03/27/17 11:44 Oxygen Delivery Method Room Air Height/Weight/BMI: Height 1.8 m Weight 65.4 kg Body Mass Index 20.1 Results - Labs CBC & Chem 7: 03/27/17 04:54 03/27/17 04:54 Assessment and Plan (1) Acute respiratory alkalosis Current visit: Yes Status: Acute (2) Adenocarcinoma, lung Current visit: Yes Status: Acute (3) Anxiety and depression Current visit: Yes Status: Acute (4) Hypertension Current visit: Yes Status: Acute (5) Tobacco abuse Current visit: Yes Status: Acute (6) COPD (chronic obstructive pulmonary disease) Current visit: Yes Status: Acute DVT Prophylaxis: SQ Heparin Assessment and Plan: Have independently interviewed and examined pt. Chart reviewed. Reviewed above note and concur. CC: Chills/sweats HPI: 56 y/o WM with recent Dx adenoca of lung (resection in January 2017) presents to ED with chills/sweats. Has been hospitalized 2 time in March secondary to sepsis syndrome secondary to suspected pneumonia. Was discharged home on 03/25 after being treated for sepsis/pneumonia. The day after discharge, started having severe chills and sweats. Reports not running temp elevation. Was unable to keep his BP medications down as had nausea and vomiting after taking them. Breathing stable-not having increased SOA, cough or congestion. No pain with breathing. No sinus pressure or pain. Urinating well-no decreased urine or pain with urination. Denies loose stools-bowel moving normally. Appetite varies. See in ED. WBC with elevation, HR elevated. Lactate and procalcitonin normal. Creatinine at baseline. Placed on OBS for further evaluation. PMHx: Adenocarcinoma of lung, COPD, HTN, Peripheral neuropathy, Chronic back pain SHx: Left lobectomy 02/15 Allergies: Sulfa Meds: see mar Shx: Quits smoking 02/15 with dx of lung CA-not smoked since. Lives independent. -lost 06/2016 FHx: Father had DM and HTN ROS: as above. Remainder of 10 point ROS negative. EXAM GEN: WD thin WM Awake and alert HEENT: NC/AT PERRLA EOMI MMdry - slight white coating to tongue Neck: supple, midline Lungs: decreased breath sounds bilaterally. No wheezes/distress. CV: regular AB: soft nt/nd +BS EXT: thin and without edema MS: normal ROM of u/l ext. No joint swelling/ Skin: warm and dry. Wound to left chest from chest tube healing-no surrounding erythema or drainage Neuro: CN II-XII intact. No focal deficits PSY: awake alert appropriate Assessment Chills/Sweats - not seeing evidence of infection/sepsis. Possible constitutional symptoms due to CA. ? Pheo Leukocytosis Acute respiratory alkalosis Adenocarcinoma, lung Anxiety and depression Hypertension Tobacco abuse - patient reports not smoking since January 2017 COPD (chronic obstructive pulmonary disease) Reactive depression secondary to medical illness Plan OBS admission. IVF for hydration. Will check 24 hour urine due to concern for pheo. Labetalol 100mg BID and Cardura 2mg at night for BP treatment-continue Norvasc and Lisinopril. SCD and SQ Heparin for DVT prevention. Encourage patient to remain nonsmoker. Continue medications recently started for his depression. Monitor blood counts. Monitor for temp elevation. Hospital Course Summary Disclaimer: The visit summary below is not to be considered part of the above Progress Note. Hospital Course: 03/27/17 Initiation of OBS Assessment Chills/Sweats - not seeing evidence of infection/sepsis. Possible constitutional symptoms due to CA. ? Pheo Leukocytosis Acute respiratory alkalosis Adenocarcinoma, lung Anxiety and depression Hypertension Tobacco abuse - patient reports not smoking since January 2017 COPD (chronic obstructive pulmonary disease) Reactive depression secondary to medical illness Plan OBS admission. IVF for hydration. Will check 24 hour urine due to concern for pheo. Labetalol 100mg BID and Cardura 2mg at night for BP treatment-continue Norvasc and Lisinopril. SCD and SQ Heparin for DVT prevention. Encourage patient to remain nonsmoker. Continue medications recently started for his depression. Lorazepam as needed to help with anxiety. Monitor blood counts. Monitor for temp elevation.
[2017-03-27] MEDS: SALINE FLUSH 10ml SYRINGE IVF PRN (02:31)
[2017-03-27 02:34] VITALS: BMI 20.1
[2017-03-27] MEDS: NS 1,000 ML IV SCH ×3 (02:40→22:50)
[2017-03-27] MEDS: ALBUTEROL/IPRATROPIUM 2.5mg-0.5mg/3ml NEB ORAL INH SCH ×5 (03:11→20:01)
[2017-03-27] MEDS: CITALOPRAM 20 MG TABLET PO SCH (08:28)
[2017-03-27] MEDS: PREGABALIN 75 MG CAPSULE PO SCH ×3 (08:28→18:19)
[2017-03-27] MEDS: CYCLOBENZAPRINE 10 MG TABLET PO SCH (08:28)
[2017-03-27] MEDS: LISINOPRIL 10 MG TABLET PO SCH (08:28)
[2017-03-27] MEDS: AMLODIPINE 5 MG TABLET PO SCH (08:29)
[2017-03-27] MEDS: HYDROCODONE/APAP 5mg/325mg TABLET PO PRN ×3 (08:30→20:38)
[2017-03-27] MEDS ORDERED: MELOXICAM 15 MG TABLET PO SCH (09:00)
[2017-03-27] MEDS ORDERED: HEPARIN 5,000unit/ml 1ml INJECTION IV SCH (09:00)
[2017-03-27] MEDS ORDERED: LABETALOL 100 MG TABLET PO ONE (11:26)
[2017-03-27] MEDS ORDERED: DOXAZOSIN 1 MG TABLET PO SCH ×2 (11:30→21:00)
[2017-03-27] MEDS: HEPARIN 5,000unit/ml 1ml INJECTION SUB-Q SCH ×3 (11:59→20:43)
[2017-03-27] MEDS: NYSTATIN 500,000 units/5 ml ORAL LIQUID PO SCH ×3 (14:54→20:39)
--- NOTE | 2017-03-27 16:35 | CT Scan Report ---
Indication: Tachypnea, tachycardia, HTN PROCEDURE: CT angio pulm emb/aorta chest: Encounter: Initial Comparison: CT angiogram of the chest dated March 20, 2017 Technique: Axial CT angiography was performed through the chest in both the pulmonary angiographic and systemic arterial phases. The systemic phase exam also incorporates noncontrast imaging through the chest, abdomen and pelvis. Axial CT angiography through the abdomen and pelvis was also performed in the systemic arterial phase. Coronal and sagittal MIP reconstructed images were created and reviewed. Three-dimensional surface shaded volume rendered imaging of the aorta and arterial vasculature also created by the technologist on a dedicated workstation under the direction of the interpreting radiologist and reviewed. Automated Exposure Control and Iterative Reconstruction dose reducing techniques were utilized. Contrast: Omnipaque 300 120mL Findings: CTA chest for PE: Pulmonary arteries: Exam is diagnostic to the segmental pulmonary arterial level only. No filling defects identified to confirm a pulmonary embolus. Subsegmental pulmonary arteries cannot be well evaluated. Other findings: Postoperative changes in the left lung. Emphysema. Small left pleural effusion. Scattered groundglass opacities in the posterior aspect of the left lung field. Right lung shows groundglass opacity in the lower lobe which is similar to the prior study. Right upper lobe groundglass opacities are new. No right-sided effusion. No pneumothorax. The central airways are patent. No axillary or mediastinal adenopathy. Heart size is normal. Small pericardial effusion. CT angiogram of the chest with and without for aorta: Noncontrast images show no evidence of an intramural hematoma. There is ectasia of the ascending aorta at 3.9 cm transverse diameter. Postcontrast images confirm that there is no aortic dissection. Aortic arch and great vessel origins are grossly normal. Please see the above report for additional findings in the chest. CT angiogram of the abdomen and pelvis with and without contrast: There is no evidence of abdominal aortic aneurysm or dissection. No arterial occlusion seen. Scattered atherosclerotic arterial plaque. The liver, spleen, pancreas, adrenal glands and kidneys show no acute findings. Stable right adrenal nodule. Small and large bowel loops are grossly unremarkable. 3-D imaging 3-D images show no evidence of aortic contour abnormality or aneurysm. Impression: CT angiogram of the chest for PE: No pulmonary embolus. New right upper lobe airspace opacity could be infectious or inflammatory. CT angiogram of the chest for aorta: No evidence of acute aortic syndrome. CT angiogram of the abdomen and pelvis for aorta: No evidence of acute aortic syndrome or acute disease process seen. There is a preliminary report by [employer] radiologic. .
[2017-03-27] MEDS: LABETALOL 100 MG TABLET PO SCH (20:36)
[2017-03-27] MEDS ORDERED: TAMSULOSIN 0.4 MG CAPSULE PO SCH (21:00)
[2017-03-27] MEDS ORDERED: DOCUSATE SODIUM 100 MG CAPSULE PO SCH (21:00)
[2017-03-27] MEDS ORDERED: PREGABALIN 150 MG CAPSULE PO SCH (21:00)
[2017-03-28] MEDS: HYDROCODONE/APAP 5mg/325mg TABLET PO PRN ×3 (02:59→16:28)
[2017-03-28] MEDS: HYDROMORPHONE 2 MG/ML INJECTION IVP PRN ×3 (04:18→14:28)
[2017-03-28] MEDS: ALBUTEROL/IPRATROPIUM 2.5mg-0.5mg/3ml NEB ORAL INH SCH ×3 (07:31→15:13)
[2017-03-28] MEDS: PREGABALIN 75 MG CAPSULE PO SCH ×3 (08:08→16:30)
--- NOTE | 2017-03-28 08:39 | XRay Report ---
INDICATION: H/o Lung CA and PNA PROCEDURE: CHEST 2-VIEWS UPRIGHT (PA & LAT) Encounter: Initial COMPARISON: CT angiogram of the chest from the same time and chest x-ray dated March 23, 2017 FINDINGS: Chronic scarring and postoperative changes in the left lung with pleural thickening. No radiographically apparent new infiltrates. No pneumothorax or definite pleural effusion. Heart size and mediastinal contours are stable Impression: Stable appearance of the chest. .
[2017-03-28] MEDS: NS 1,000 ML IV SCH ×2 (09:06→18:55)
[2017-03-28] MEDS: CITALOPRAM 20 MG TABLET PO SCH (09:07)
[2017-03-28] MEDS: NYSTATIN 500,000 units/5 ml ORAL LIQUID PO SCH ×3 (09:07→16:28)
[2017-03-28] MEDS: CYCLOBENZAPRINE 10 MG TABLET PO SCH (09:07)
[2017-03-28] MEDS: LISINOPRIL 10 MG TABLET PO SCH (09:07)
[2017-03-28] MEDS: AMLODIPINE 5 MG TABLET PO SCH (09:08)
[2017-03-28] MEDS: LABETALOL 100 MG TABLET PO SCH (09:08)
[2017-03-28] MEDS: HEPARIN 5,000unit/ml 1ml INJECTION SUB-Q SCH (09:09)
[2017-03-28 11:23] VITALS: RESP 16
[2017-03-28] MEDS ORDERED: HEPARIN SUB-Q 5,000 UNITS/0.5 ML INJECTION SQ SCH (15:00)
[2017-03-28 16:12] VITALS: BP 120/67; PULSE 84; TEMP 96.4; O2SAT 97
--- NOTE | 2017-03-28 16:54 | Progress Note ---
Subjective: F/U: Chills/Sweats, respiratory alkalosis Doing much better today. No further episodes of chills/sweats. Not running temp. Nausea resolved-eating and drinking well. Breathing stable. Ambulating well-not feeling dizzy or unsteady when up. Urinating well. Objective Vital signs: Temperature 96.4 F L 03/28/17 16:11 Pulse Rate 84 03/28/17 16:11 Respiratory Rate 16 03/28/17 16:11 Blood Pressure 120/67 03/28/17 16:11 Pulse Oximetry 97 03/28/17 16:11 Oxygen Delivery Method Room Air Height/Weight/BMI: Height 1.8 m Weight 68 kg Body Mass Index 20.1 - Constitutional Present: no acute distress, well nourished, well developed, thin, cooperative - Routine HEENT Exam Head: Present: normocephalic, atraumatic Eye: Present: EOMI, PERRL ENT: Present: mucous membranes moist - Routine Respiratory Exam Present: decreased breath sounds, distant breath sounds. Absent: respiratory distress, rhonchi, crackles - Routine Cardiovascular Exam Present: RRR, no murmur - Routine Abdominal Exam Present: soft, normoactive bowel sounds, non distended - Routine Extremities Exam Present: no edema, pulses intact. Absent: cyanosis, clubbing - Routine Musculoskeletal Exam Musculoskeletal: Present: no clubbing or cyanosis, normal strength - Routine Skin Exam Present: intact, dry, warm - Routine Neurological Exam Present: alert, oriented X3, CN II-XII intact, vision grossly intact, hearing grossly intact. Absent: motor deficit - Routine Psychiatric Exam Present: normal affect, normal thought process, cooperative. Absent: anxious, agitated Results - Labs CBC & Chem 7: 03/27/17 04:54 03/27/17 04:54 Assessment and Plan (1) Acute respiratory alkalosis Current visit: Yes Status: Acute (2) Adenocarcinoma, lung Current visit: Yes Status: Acute (3) Anxiety and depression Current visit: Yes Status: Acute (4) Hypertension Current visit: Yes Status: Acute (5) Tobacco abuse Current visit: Yes Status: Acute (6) COPD (chronic obstructive pulmonary disease) Current visit: Yes Status: Acute DVT Prophylaxis: SCD's, SQ Heparin Resuscitation Status: Full Code Assessment and Plan: Assessment Chills/Sweats - not seeing evidence of infection/sepsis. Possible constitutional symptoms due to CA. ? Pheo Leukocytosis Acute respiratory alkalosis Adenocarcinoma, lung Anxiety and depression Hypertension Tobacco abuse - patient reports not smoking since January 2017 COPD (chronic obstructive pulmonary disease) Reactive depression secondary to medical illness Plan No further episode of chills/sweats - not seeing infection as etiology of these symptoms. Potentially constitutional symptoms of his lung cancer. Pheochromocytoma a possibility as BP with elevation. 24 hour urine collected for Pheo evaluation. Serum lab sent out. Pt started on Labetalol 100mg BID and Cardura 2mg at night to help BP (and cover for effects of Pheo) Blood pressure showing improvement. Pt tolerating these medications without orthostasis or respiratory problems. With improvement of symptoms and urine collection completed, we can discharge to home. Will have patient follow up with Dr Mendoza for evaluation later this week - will need to check on pending lab regarding Pheo. Patient working on getting a ride set up to take him home. See orders for details. OBS admission. IVF for hydration. Will check 24 hour urine due to concern for pheo. Labetalol 100mg BID and Cardura 2mg at night for BP treatment-continue Norvasc and Lisinopril. SCD and SQ Heparin for DVT prevention. Encourage patient to remain nonsmoker. Continue medications recently started for his depression. Monitor blood counts. Monitor for temp elevation. - Time spent with patient discharge greater than 30 minutes Sepsis Assessment - Evaluation Sepsis screening result: No Definite Risk Hospital Course Summary Disclaimer: The visit summary below is not to be considered part of the above Progress Note. Hospital Course: 03/27/17 Initiation of OBS Assessment Chills/Sweats - not seeing evidence of infection/sepsis. Possible constitutional symptoms due to CA. ? Pheo Leukocytosis Acute respiratory alkalosis Adenocarcinoma, lung Anxiety and depression Hypertension Tobacco abuse - patient reports not smoking since January 2017 COPD (chronic obstructive pulmonary disease) Reactive depression secondary to medical illness Plan OBS admission. IVF for hydration. Will check 24 hour urine due to concern for pheo. Labetalol 100mg BID and Cardura 2mg at night for BP treatment-continue Norvasc and Lisinopril. SCD and SQ Heparin for DVT prevention. Encourage patient to remain nonsmoker. Continue medications recently started for his depression. Lorazepam as needed to help with anxiety. Monitor blood counts. Monitor for temp elevation. 03/28/17 No further episode of chills/sweats - not seeing infection as etiology of these symptoms. Potentially constitutional symptoms of his lung cancer. Pheochromocytoma a possibility as BP with elevation. 24 hour urine collected for Pheo evaluation. Serum lab sent out. Pt started on Labetalol 100mg BID and Cardura 2mg at night to help BP (and cover for effects of Pheo) Blood pressure showing improvement. Pt tolerating these medications without orthostasis or respiratory problems. With improvement of symptoms and urine collection completed, we can discharge to home. Will have patient follow up with Dr Mendoza for evaluation later this week - will need to check on pending lab regarding Pheo. Patient working on getting a ride set up to take him home. See orders for details.
--- NOTE | 2017-03-28 17:09 | Discharge Summary ---
Discharge Information Date of admission: 03/27/17 01:21 Anticipated date of discharge: 03/28/17 Attending Physician: Dr Méndez Primary care physician: Dr Cristofer Mendoza MD - Discharge Diagnosis Discharge Diagnosis: Chills/Sweats - not seeing evidence of infection/sepsis. Possible constitutional symptoms due to CA. ? Pheo Associated conditions and complications Leukocytosis Acute respiratory alkalosis Adenocarcinoma, lung Anxiety and depression Hypertension Tobacco abuse - patient reports not smoking since January 2017 COPD (chronic obstructive pulmonary disease) Reactive depression secondary to medical illness - Laboratory Labs: Admit Lab 03/26/17 22:17 WBC 13.3 H Hgb 15.5 D Hct 45.6 D Plt Count 519 H D Admit Lab 03/26/17 22:17 Sodium 139 Potassium 3.8 Chloride 99 D Carbon Dioxide 22 Anion Gap 18 H BUN 17.0 Creatinine 0.9 GFR Calculation 88 Glucose 103 03/27/17 04:54 03/27/17 04:54 Pending Laboratory Tests 03/27/17 04:54 Plasma Free Metaneph Pending Plasma Free Normeta Pending Pending Laboratory Tests 03/27/17 16:11 U Collection Duration Pending Urine Total Volume Pending Urine Epinephrine Pending Urine Norepinephrine Pending Urine Metanephrine Pending U Normetanephrine Pending U Total Metanephrines Pending Urine Dopamine Pending - Radiology Radiology: Date of Exam: 03/26/17 PROCEDURE: CHEST 2-VIEWS UPRIGHT (PA & LAT) FINDINGS: Chronic scarring and postoperative changes in the left lung with pleural thickening. No radiographically apparent new infiltrates. No pneumothorax or definite pleural effusion. Heart size and mediastinal contours are stable Impression: Stable appearance of the chest. History of Present Illness HPI: This is a 56 y/o male who was recently diagnosed with adenocarcinoma of his left lung. He underwent a left lower lobe lobectomy and since his surgery has had persistent episodes of dyspnea, chills, rigors. The patient has been seen back @ [facility] in [place] and was felt to be not related to surgical complications The patient was admitted to [facility] x 2 since surgery. Most recently discharged yesterday after an admission for what was felt to be pneumonia. The patient since being home continues to be short of breath and just doesn't feel right. There have been no fever but the patient reports rigors and sweats. He continue to have no energy. IN the ED the patient has uncompensated respiratory alkalosis. The patient had a repeat CT PE study which was normal. Ativan did in fact improve his respiratory rate. The patient is hypertensive and continues to be at this time. Because of ongoing weakness and persistent resp symptoms the patient will be observed admitted onto a tele unit for further assessment For complete details of the H&P refer to that document. Objective Vital signs: Temperature 96.4 F L 03/28/17 16:11 Pulse Rate 84 03/28/17 16:11 Respiratory Rate 16 03/28/17 16:11 Blood Pressure 120/67 03/28/17 16:11 Pulse Oximetry 97 03/28/17 16:11 Oxygen Delivery Method Room Air Height/Weight/BMI: Height 1.8 m Weight 68 kg Body Mass Index 20.1 Hospital Course This is a general summary of the patient's hospital course. For more details refer to the complete medical record. Hospital course: 03/27/17 Initiation of OBS Assessment Chills/Sweats - not seeing evidence of infection/sepsis. Possible constitutional symptoms due to CA. ? Pheo Leukocytosis Acute respiratory alkalosis Adenocarcinoma, lung Anxiety and depression Hypertension Tobacco abuse - patient reports not smoking since January 2017 COPD (chronic obstructive pulmonary disease) Reactive depression secondary to medical illness Plan OBS admission. IVF for hydration. Will check 24 hour urine due to concern for pheo. Labetalol 100mg BID and Cardura 2mg at night for BP treatment-continue Norvasc and Lisinopril. SCD and SQ Heparin for DVT prevention. Encourage patient to remain nonsmoker. Continue medications recently started for his depression. Lorazepam as needed to help with anxiety. Monitor blood counts. Monitor for temp elevation. 03/28/17 No further episode of chills/sweats - not seeing infection as etiology of these symptoms. Potentially constitutional symptoms of his lung cancer. Pheochromocytoma a possibility as BP with elevation. 24 hour urine collected for Pheo evaluation. Serum lab sent out. Pt started on Labetalol 100mg BID and Cardura 2mg at night to help BP (and cover for effects of Pheo) Blood pressure showing improvement. Pt tolerating these medications without orthostasis or respiratory problems. With improvement of symptoms and urine collection completed, we can discharge to home. Will have patient follow up with Dr Mendoza for evaluation later this week - will need to check on pending lab regarding Pheo. Patient working on getting a ride set up to take him home. See orders for details. Time spent with patient: discharge greater than 30 minutes DVT Prophylaxis: SCD's, SQ Heparin Discharge Plan - Med Rec/Dispo Referrals/Follow Up: Cristofer Mendoza MD [Family Provider] - (Hospital follow up Wednesday ) Prescriptions: New Labetalol [Normodyne] 100 mg PO BID #60 tab LORazepam [Ativan] 1 mg PO TID PRN #30 tab PRN Reason: Anxiety Doxazosin [Cardura] 2 mg PO HS #30 tab Continue Albuterol Inhaler [Ventolin Hfa 90 mcg/actuation] 2 puff IN BID PRN PRN Reason: Prn Orders Meloxicam 15 mg PO DAILY Pregabalin Cap [Lyrica] 150 mg PO HS Cyclobenzaprine [Flexeril] 10 mg PO DAILY FentaNYL PATCH [Duragesic Patch] 50 mcg TD Q72H Docusate Sodium [Colace] 100 mg PO HS Tamsulosin [Flomax] 0.4 mg PO HS Amlodipine [Norvasc] 5 mg PO DAILY #30 tablet Citalopram [Celexa] 20 mg PO DAILY #30 tablet Lisinopril [Prinivil] 10 mg PO DAILY #30 tab Pregabalin Cap [Lyrica] 75 mg PO TIDWM Bisacodyl EC Tab [Dulcolax] 5 mg PO BIDWM Hydrocodone/APAP 10/325 [[place] 10/325] 1 tab PO TID PRN PRN Reason: Pain Guaifenesin/Dm [Mucinex Dm] 1 tab PO BID PRN tab.er.12h PRN Reason: Cough /Congestion Discharge Instructions/Outpatient Orders: Final Provider Discharge Instructions Location: Determined By Patient - Disposition 01 Discharged Home, Self-Care - Attestation Attestation Narrative: 03/28/17 17:22 I have independently interviewed and examined patient prior to discharge. See my progress note for details. Medically stable for discharge to home.
== END 2017-03-28 18:08 | disposition home or self-care (01) ==
LOC: ED 20:46 → MED 20:46
PROVIDERS: ADMIT Emergency Medicine; ATTEND Internal Medicine

== ENCOUNTER 2017-04-19 15:02 | Inpatient (IN) ==
[2017-04-19 15:16] VITALS: BMI 19.6
[2017-04-19] MEDS ORDERED: POTASSIUM CHLORIDE PREMIX 10 MEQ/100 ML BAG IV SCH (15:39)
[2017-04-19] MEDS ORDERED: NS FLUSH BAG 500ml IV PRN (16:51)
[2017-04-19] MEDS ORDERED: SALINE FLUSH 10ml SYRINGE IV PRN (18:31)
[2017-04-19] MEDS: D5-1/2NS with KCL 20mEq 1,000 ML IV SCH (20:09)
[2017-04-19] MEDS: LIDOCAINE 1% 2ml INJ 10 MG, POTASSIUM CHLORIDE INJ 10 MEQ in NS 100 ML IV SCH ×2 (21:46→23:18)
[2017-04-19] MEDS: SALINE FLUSH 10ml SYRINGE IV PRN (21:50)
[2017-04-20] MEDS: D5-1/2NS with KCL 20mEq 1,000 ML IV SCH ×4 (05:21→22:59)
--- NOTE | 2017-04-20 07:34 | History and Physical ---
CHIEF COMPLAINT Acute onset of nausea and vomiting. HPI The patient is a 56-year-old male who presented to [facility] today because of acute onset of nausea and vomiting pretty much all night long. He said he had two small buckets of vomitus last night. He also was coughing with some blood-tinged sputum production. The patient actually went to see his oncologist this afternoon when I received a phone call from the office about patient's acute onset of nausea and vomiting as well as hypokalemia--potassium 2.8 at the oncologist's office. This is a gentleman with a known history of lung adenocarcinoma with recent lobectomy and recurrent pneumonia and sepsis requiring multiple hospitalizations. His last admission here was on 03/26/2017, dismissed on 04/01/2017, by the hospitalist team. He also complained of being very weak. Denies any abdominal pain. No hematemesis. No melena. No hematochezia. No abdominal pain. He just feels weak. He also developed chills. His chills have resolved for about two weeks right now other than nocturnal sweating that is persistent. PAST MEDICAL HISTORY 1. Leukocytosis. 2. Adenocarcinoma of the lung, status post left lobectomy. 3. Anxiety disorder. 4. Chronic pain from multiple sources--back as well as neck. 5. Depression. 6. COPD. 7. Tobacco abuse. Patient has not smoked since January 2017 at the time of diagnosis of lung cancer. ALLERGIES Sulfa. CURRENT MEDICATIONS 1. Zyprexa 2.5 mg one tablet daily. 2. Decadron 8 mg one tablet p.r.n. (by oncology group) 3. Flexeril 10 mg one tablet daily. 4. Citalopram 20 mg one tablet daily. 5. Cardura 2 mg one tablet p.o. q.h.s. 6. Colace 20 mg one tablet daily. 7. [place] 10/325 mg one tablet t.i.d. p.r.n. 8. Folic acid 1 mg p.o. daily. 9. Fentanyl patch 50 mcg - change every 72 hours. 10. Metoprolol 50 mg p.o. b.i.d. 11. Meloxicam 15 mg one tablet daily. 12. Lorazepam 1 mg p.o. t.i.d. 13. Zofran 4 mg p.o. q. 6 hours p.r.n. 14. Lyrica 75 mg p.o. 5 times daily. REVIEW OF SYSTEMS As already mentioned in the HPI. PHYSICAL EXAMINATION GENERAL: Patient looked ill to me and also appeared mildly dyspneic. HEENT: Unremarkable. NECK: Supple. LUNGS: Right lung upper and lower lobe are clear. Left lung: Decreased breath in left lower lung probably due to his lobectomy. In the left upper chest has some crackles and decreased breath sounds as well. CARDIOVASCULAR EXAM: Regular rate and rhythm. No murmur. ABDOMEN: Soft. No tenderness. Bowel sounds normoactive. No masses palpable. EXTREMITIES: No cyanosis, clubbing or edema. NEURO EXAM: Grossly intact. He is alert, awake, oriented x 3. No focal neurologic deficit. LAB DONE TODAY The only information I have from the outside lab was potassium of 2.8. ASSESSMENT 1. Intractable nausea and vomiting. 2. Acute dehydration due to #1 above. 3. Hypokalemia due to #1 above. 4. Mild hemoptysis. 5. Active adenocarcinoma of the lung. Patient status post lobectomy. Patient has already started on chemotherapy with Dr. Cabrera. 6. Chronic back pain. 7. Depression and anxiety. PLAN Patient is admitted to general medical floor on outpatient observation basis under the care of Dr. Cristofer Mendoza. Patient will receive IV fluids, potassium replacement--three bags of 10 mEq potassium in 100cc normal saline pr bag. Potassium was just redrawn about 20 minutes ago. Will await result. Follow potassium level around midnight as well--11 o'clock tonight or midnight and then in the morning. Patient made NPO for the remainder of the night. Chest x-ray is indicated because of the possibility of aspiration pneumonia as patient was mildly dyspneic. He also thought maybe he swallowed some food into this lung yesterday with the excessive nausea and vomiting. In addition, the mild hemoptysis is also a concern at this time. D-Dimer is pending. Will hold off on home medication tonight and basically use IV fluid, IV antiemetic and possibly antibiotics if indicated based on chest x-ray. MTDD
[2017-04-20] MEDS: LIDOCAINE 1% 2ml INJ 10 MG, POTASSIUM CHLORIDE INJ 10 MEQ in NS 100 ML IV SCH ×5 (08:27→18:13)
[2017-04-20] MEDS ORDERED: ONDANSETRON 4 MG/2 ML INJECTION IVP PRN (08:47)
--- NOTE | 2017-04-20 09:06 | XRay Report ---
INDICATION: nausea, hemoptysis PROCEDURE: CHEST 2-VIEWS UPRIGHT (PA & LAT) Encounter: Initial COMPARISON: April 12, 2017 FINDINGS: Chronic scarring in the left lower lobe. No consolidative pneumonia, pleural effusion or pneumothorax. Heart size and mediastinal contours are stable. Surgical clips in the left hilar area. Impression: Stable chest without acute cardiopulmonary disease. .
--- NOTE | 2017-04-20 10:57 | Progress Note ---
DATE 04/20/2017 CONSTANCE Gillespie was actually lying in bed this morning when I saw him. He didn't have too many episodes, just one or two episodes of nausea last night. He denies any shortness of breath. He would like to try some clear liquid or JELL-O for diet this morning. PHYSICAL EXAMINATION GENERAL: He looks ill still. NECK: Supple. LUNGS: Coarseness throughout, especially in the left lung. CARDIOVASCULAR: Regular rate and rhythm. ABDOMEN: Soft. Nontender. EXTREMITIES: No edema. NEURO EXAM: Grossly intact. LAB Labs this morning: Potassium 3.0. Creatinine 1.1. D-dimer from yesterday 853. ASSESSMENT 1. Intractable nausea and vomiting--much improved. 2. Acute dehydration--improving. 3. Hypokalemia due to #1 above. 4. Mild hemoptysis. 5. Active adenocarcinoma of the lung. Patient is status post lobectomy. 6. Chronic low back pain. 7. Depression and anxiety. PLAN 1. Check UA this morning. 2. Continue IV fluids. 3. Add Protonix. 4. Will start patient on clear liquid diet and advance as tolerated. MTDD
[2017-04-20] MEDS: PANTOPRAZOLE 40 MG INJECTION IVP SCH (12:42)
[2017-04-21] MEDS: D5-1/2NS with KCL 20mEq 1,000 ML IV SCH ×3 (06:03→22:15)
[2017-04-21] MEDS: PANTOPRAZOLE 40 MG INJECTION IVP SCH (08:18)
[2017-04-21] MEDS: SALINE FLUSH 10ml SYRINGE IV PRN (08:18)
[2017-04-21] MEDS ORDERED: OLANZapine 2.5 MG TABLET PO PRN (11:54)
[2017-04-21] MEDS ORDERED: DEXAMETHASONE 4 MG TABLET PO PRN (11:54)
[2017-04-21] MEDS ORDERED: ALBUTEROL 2.5mg/3ml (0.083%) NEB AEROSOL PRN (11:54)
[2017-04-21] MEDS ORDERED: ONDANSETRON ODT 4 MG TABLET PO PRN (11:54)
[2017-04-21] MEDS ORDERED: PREGABALIN 75 MG CAPSULE PO SCH (12:00)
[2017-04-21] MEDS ORDERED: IOHEXOL 350mg/ml 75ml INJECTION ONE (12:27)
[2017-04-21] MEDS ORDERED: SALINE FLUSH 10ml SYRINGE ONE (12:27)
[2017-04-21] MEDS ORDERED: NS 100 ML ONE (12:27)
[2017-04-21] MEDS: POTASSIUM CHLORIDE 20 MEQ/15 ML ORAL LIQUID PO SCH ×2 (12:49→16:09)
--- NOTE | 2017-04-21 13:34 | CT Scan Report ---
Indication: elevated D dimer, hemoptysis, chills PROCEDURE: CT angio pulm emboli: Encounter: Initial Comparison: CT angiogram of the chest dated March 26, 2017 Technique: Axial CT pulmonary angiographic phase images were performed through the chest after the administration of intravenous contrast. Coronal and Sagittal MIP reconstructed images were created and reviewed. Automated Exposure Control and Iterative Reconstruction dose reducing techniques were utilized. Contrast: Omnipaque 350 53 mL Findings: Pulmonary arteries: Exam is diagnostic to the subsegmental pulmonary arterial level. No filling defects identified to suggest a pulmonary embolus. Other findings: Postoperative changes in the left lung with volume loss. Small left pleural effusion, similar to the prior study. Scattered groundglass opacities in the left upper lung field, similar to the prior exam. Prior right upper lobe airspace opacities have mostly cleared. Areas of scarring in the left lower lung field are also stable. Right lung shows emphysema without acute consolidative pneumonia. No right-sided pleural effusion. No pneumothorax. The central airways are patent. No axillary or mediastinal adenopathy. Heart and great vessels are stable. No pericardial effusion. Impression: No pulmonary embolus or acute intrathoracic disease process seen. Residual left lung infiltrates that could represent a resolving infectious or inflammatory process. .
[2017-04-21] MEDS: LORazepam 1 MG TABLET PO SCH ×2 (15:05→21:56)
--- NOTE | 2017-04-21 16:22 | Progress Note ---
DATE 04/21/2017 SUBJECTIVE Patient stated that he had multiples episodes of diarrhea last night, none today. Still has some nausea but no vomiting. He ate his breakfast but patient states that the food was not tasteful. C/O chills without fever. Urine negative for urinary tract infection. Chest x-ray negative for pneumonia. Source of his chills is not really well identifiable at this time. PHYSICAL EXAMINATION GENERAL: He looks ill. VITAL SIGNS: Blood pressure 157/83 with a pulse of 87. Temperature 97.9. Respirations 14-18. O2 sat 99% on room air. NECK: Supple. LUNGS: Rales and crackles in the left lower lung. Right lung is clear. CARDIOVASCULAR: Regular rate and rhythm. No murmur. ABDOMEN: Soft. Nontender. Positive bowel sounds. EXTREMITIES: No edema. NEURO EXAM: Grossly intact. LAB Labs this morning: Potassium 3.0. Sodium 135. Patient had received a bag of 10 mEq potassium IV infusion. ASSESSMENT 1. Nausea and vomiting--much improved. 2. Acute dehydration. Patient is on IV fluids and his oral intake is improving. 3. Hypokalemia. Patient received a total of 60 mEq in IV infusion and also patient on potassium added to the IV fluid. 4. Mild hemoptysis x1 that has not recurred yet. 5. Adenocarcinoma of the lung. Patient is status post left lobectomy. 6. Chronic low back pain. 7. Depression and anxiety. 8. Persistent chills. PLAN 1. Add CBC to add as well as sed rate and CRP and blood culture x2. 2. Consult to Dr. Cabrera with regards to chills and patient being well known to him, with history of adenocarcinoma of the lung. Patient is on chemotherapy treatment. 3. Will order for a CT chest to rule out PE because patient had one episode of hemoptysis and also chills and elevated D-dimer as well. MTDD
[2017-04-21] MEDS: LIDOCAINE 1% INJ 10 MG, POTASSIUM CHLORIDE INJ 10 MEQ in NS 100 ML ID SCH ×2 (16:30→17:36)
[2017-04-21] MEDS: PREGABALIN 75 MG CAPSULE PO SCH (17:15)
[2017-04-21] MEDS: DOXAZOSIN 2 MG TABLET PO SCH (21:56)
[2017-04-21] MEDS: PREGABALIN 150 MG CAPSULE PO SCH (21:57)
[2017-04-22] MEDS: D5-1/2NS with KCL 20mEq 1,000 ML IV SCH ×3 (05:07→23:28)
[2017-04-22] MEDS: HYDROCODONE/APAP 10 MG/325 MG TABLET PO PRN ×2 (05:07→23:27)
[2017-04-22] MEDS: SALINE FLUSH 10ml SYRINGE IV PRN ×2 (05:08→09:08)
--- NOTE | 2017-04-22 07:24 | Consult Note ---
Oncology HPI - Data of Consult Patient: known to practice within the last 3 years Consult date: 04/22/17 Requesting Physician: Cristofer Mendoza MD Primary Care Provider: CHARLES Mendoza MD Family Provider: Cristofer Mendoza MD - Consult Narrative Reason for consult: Lung cancer Electrolyte imbalance History of present illness: History of Present Illness --Significant back problems resulting in disability. Unable to work 4 years. --12/17/16: Chest x-ray showed 3.8 cm mass in the left suprahilar region. --12/29/16: Biopsy left lung showed invasive carcinoma, grade 2, Adenocarcinoma --02/05/17: left parotid needle biopsy, low grade epithelial neoplasm. --02/16/17: Left upper lobe lobectomy with additional excision of left lower lobe margin. Specimen showed a 3.4 cm invasive adenocarcinoma, moderately differentiated there was no pleural or lymphatic invasion identified. Closest bronchial resection was 1 cm away. 9 lymph nodes were benign. Additional resection of left lower lobe showed benign tissue. --Postoperative hospitalization for fever at [facility], 2 hospitalizations at [facility]. --04/02/17: Port placement --04/12/17: Initiation of adjuvant therapy with pemetrexed and cisplatin. --04/19/17: Jair visit with elevated BUN, dehydration, nausea and vomiting resulting in hospitalization Interval history: Patient tolerated his chemotherapy very well. He did very well during the week. On Wednesday/04/16/17, he developed nausea and vomiting. It was excessive and that he filled up to trash cans. With that he was unable to continue to take his narcotics that he had for pain. He continued to have nausea and vomiting through the weekend. He came into the office on Wednesday and was found to have a potassium of 2.8, BUN of 42 and a creatinine of 1.2. GFR was 63. Hemoglobin had increased from 12.8-14.2-15.5 over the last week. He was admitted for hypokalemia and fluids along with control of nausea and vomiting. Since being hospitalized he has had improvement in his nausea. He is developed diarrhea. He had a CTA done yesterday that showed improvement in his pulmonary infiltrates that were present in March. He also had no evidence of pulmonary embolism. Review of Systems All systems: reviewed and no additional remarkable complaints except as stated - Constitutional Constitutional: Present: fatigue, malaise, weakness, weight loss - EENT Eyes: Present: pain (present on Wednesday now resolved). Absent: blurry vision, change in vision Mouth/Throat: Present: sores (present on lower lip.), hoarseness - Cardiovascular Cardiovascular: Absent: chest pain, palpitations, edema - Respiratory Respiratory: Present: cough, hemoptysis (present on Wednesday with a small amount of blood tinged sputum prior to vomiting) - Gastrointestinal Gastrointestinal: Present: as per HPI, diarrhea, nausea, vomiting - Genitourinary Genitourinary: Present: nocturia (2), urinary frequency, urinary hesitancy - Musculoskeletal Musculoskeletal: Present: back pain (chronic in nature), muscle weakness - Integumentary/Breasts Integumentary: Present: other (easy bruising with ecchymotic lesions on the arms ). Absent: rash - Neurological Neurological: Absent: confusion, convulsions, headache(s), numbness - Psychiatric Psychiatric: Absent: anxiety, depression - Hematologic/Lymphatic Hematologic/Lymphatic: Present: easy bleeding, easy bruising - Allergic/Immunologic Allergic/Immunologic: Absent: tongue swelling, throat swelling PFSH Patient Stated Medical History Peripheral Neuropathy Yes: takes Lyrica Dental Problems Yes Hypertension Yes Chronic Obstructive Pulmonary Yes Disease (COPD) Pneumonia Yes Sleep Apnea "I might" Other Respiratory Yes: Emphysema Diabetes Mellitus Type 2 Yes: borderline Other Endocrine Yes: BORDERLINE Hx Renal Disease No Hx Urinary Tract Infection Yes: recent Anemia Yes Osteoarthritis Yes: back Sepsis Yes: questionable Depression Yes Clinic Medical History (Last Reviewed 01/05/17 @ 13:02 by LICO Thomas) Chronic low back pain (Acute Medical) Borderline diabetes (Chronic Medical) Hypertension (Chronic Medical) Medical History Updates: Chronic obstructive pulmonary disease. Arthritis. Herniated disc in back Surgical History: Lung Biopsy, Chest Tube Insertion,. Left upper lobectomy 02/16. 04/02/17 Port-A-Cath insertion Family History: Family History (Last Reviewed 01/05/17 @ 13:02 by LICO Thomas) Father Diabetes Hypertension Paternal Grandfather Hypertension Diabetes Father [Father: (Cause of : Hardening of the lungs, Age at : 65 years); ] Mother [Mother: (Cause of : Heart Murmer, Age at : 22 years) ; ], Number of siblings [Number: 2; Brothers ages 58 and 57; ], Brother # 1 [Brother # 1: Alive with illness(es): (Cancer (Melanoma, Cutaneous, Age at diagnosis: 53 years)); ], Number of children [Number: 1; Son age 32; ]; - Social History Smoking status: Former smoker Quit date: 02/05/17 Alcohol intake frequency: former alcohol drinker Housing: house Current occupation: Disabled Current residence: Apartment/Private Home Social history: Medications Home Medications Medication Instructions Recorded Confirmed Type Albuterol HFA Inhaler [Ventolin 2 puff IN BID PRN 01/04/17 04/19/17 History Hfa 90 mcg/actuation] Meloxicam 15 mg PO DAILY 01/04/17 04/19/17 History Pregabalin Cap [Lyrica] 75 mg PO 5XD 03/08/17 04/19/17 History Cyclobenzaprine [Flexeril] 10 mg PO DAILY 03/13/17 04/19/17 History Docusate Sodium [Colace] 200 mg PO DAILY 03/20/17 04/19/17 History FentaNYL PATCH [Duragesic Patch] 50 mcg TD Q72H 03/20/17 04/19/17 History Hydrocodone/APAP 10/325 [Lockney 1 tab PO TID PRN 03/20/17 04/19/17 History 10/325] Dexamethasone [Decadron] 8 mg PO DAILY PRN 04/16/17 04/19/17 History Folic Acid [Folate] 1 mg PO DAILY 04/16/17 04/19/17 History LORazepam [Lorazepam] 1 mg PO TID 04/16/17 04/19/17 History Metoprolol Tartrate [Lopressor] 50 mg PO BID 04/16/17 04/19/17 History OLANZapine [Zyprexa] 2.5 mg PO DAILY PRN 04/16/17 04/19/17 History Ondansetron Odt [Zofran Po] 4 mg PO Q6H PRN 04/16/17 04/19/17 History Allergies Allergy/AdvReac Type Severity Reaction Status Date / Time Sulfa (Sulfonamide Allergy Unknown Verified 04/16/17 13:22 Antibiotics) Exam Vital signs: Temperature 97.1 F 04/22/17 00:00 Pulse Rate 64 04/22/17 00:00 Respiratory Rate 16 04/22/17 00:00 Blood Pressure 126/72 04/22/17 00:00 Pulse Oximetry 99 04/22/17 00:00 Narrative: Patient alert in no acute distress reclining in room 148 hospital bed - Constitutional no acute distress, thin - Routine HEENT Exam Head: Present: normocephalic. Absent: facial swelling Eye: Present: EOMI, PERRL ENT: Present: mucous membranes moist Nose: moist mucous membranes Throat: other (mild bumps on lower inner nuchal mucosa) - Routine Neck Exam Present: supple, full ROM - Routine Chest/Breast/Axilla Exam Chest wall: Absent: tenderness - Routine Respiratory Exam Present: CTA bilaterally, prolonged expiratory phase. Absent: accessory muscle use, dyspnea - Routine Cardiovascular Exam Present: RRR, no murmur - Routine Abdominal Exam Present: soft, normoactive bowel sounds, non distended, non tender. Absent: rebound - Routine Extremities Exam Present: no edema. Absent: cyanosis - Routine Skin Exam Present: ecchymosis (small lesions on forearm). Absent: cyanosis, erythema - Routine Neurological Exam Present: alert, oriented X3, CN II-XII intact - Routine Psychiatric Exam Present: normal affect, normal thought process Oncology Results - Labs CBC & Chem 7: 04/22/17 05:01 04/22/17 05:01 Labs: Short CBC 04/21/17 04/22/17 Range/Units 08:10 05:01 WBC 6.9 5.3 (4.5-11.0) T/MM3 Hgb 12.3 L D 9.9 L D (13.5-17.5) GM/DL Hct 35.4 L D 30.2 L D (41-53) % Plt Count 170 D 129 L (130-400) T/MM3 BMP 04/21/17 04/21/17 04/22/17 08:10 15:43 05:01 Sodium 135 134 Potassium 3.0 L 3.7 D 4.1 Chloride 101 D 104 Carbon Dioxide 25 24 BUN 18.0 D 16.0 Creatinine 0.9 D 1.0 Glucose 98 83 Calcium 8.8 8.5 Liver Function 04/22/17 Range/Units 05:01 Total Bilirubin 0.30 (0.20-1.30) MG/DL AST 9 L D (17-59) U/L ALT 27 (21-72) U/L Alkaline Phosphatase 52 D (38-126) U/L Albumin 2.6 L (3.5-5.0) G/DL Laboratory Tests 04/22/17 04/22/17 05:01 05:01 WBC 5.3 Hgb 9.9 L D Plt Count 129 L Neut % (Auto) 45.6 Potassium 4.1 Magnesium 1.6 D Albumin 2.6 L - Impressions 02/05/17: Left parotid gland lesion, needle biopsy: Low grade epithelial neoplasm, 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 Morphologic and immunohistochemical profile suggest a low grade epithelial tumor that is primary to the parotid gland with features in the biopsy suggesting a Warthin tumor. Recommend correlation with pathologic findings in the excisional biopsy when performed. 12/29/16: Biopsy left lung, 2 core needle samples of left lung mass Invasive bronchogenic adenocarcinoma, grade 2. PD-L1: 1% with low expression KRAS-Negative ALK- No evidence of ALK gene rearrangement detected by FISH. ROS1: No evidence of a ROS1 gene rearrangement was detected by FISH analysis. - Imaging and Cardiology CT scan - chest Status: image reviewed by me Additional comments: Also reviewed with Dr. Pascual Date of Exam: 04/21/17 Ordering Provider: Cristofer Mendoza MD Type of Exam(s): CT angio pulm emboli Reason for Exam(s): elevated D dimer, hemoptysis, chills ADDENDUM Addendum: There is some mucus or debris in the left distal mainstem bronchus that could represent inspissated secretions or a minor aspiration event. No findings to suggest a bronchial arterial fistula or vascular extravasation from the patient's pulmonary artery ligation site. . Addendum Dictated By: Umair Pascual MD 04/21/17 1540 Addendum Signed By: Umair Pascual MD 04/21/17 1543 Addendum Transcribed By: Kimberly ClassifEye 04/21/17 0607 Indication: elevated D dimer, hemoptysis, chills PROCEDURE: CT angio pulm emboli: Encounter: Initial Comparison: CT angiogram of the chest dated March 26, 2017 Technique: Axial CT pulmonary angiographic phase images were performed through the chest after the administration of intravenous contrast. Coronal and Sagittal MIP reconstructed images were created and reviewed. Automated Exposure Control and Iterative Reconstruction dose reducing techniques were utilized. Contrast: Omnipaque 350 53 mL Findings: Pulmonary arteries: Exam is diagnostic to the subsegmental pulmonary arterial level. No filling defects identified to suggest a pulmonary embolus. Other findings: Postoperative changes in the left lung with volume loss. Small left pleural effusion, similar to the prior study. Scattered groundglass opacities in the left upper lung field, similar to the prior exam. Prior right upper lobe airspace opacities have mostly cleared. Areas of scarring in the left lower lung field are also stable. Right lung shows emphysema without acute consolidative pneumonia. No right-sided pleural effusion. No pneumothorax. The central airways are patent. No axillary or mediastinal adenopathy. Heart and great vessels are stable. No pericardial effusion. Impression: No pulmonary embolus or acute intrathoracic disease process seen. Residual left lung infiltrates that could represent a resolving infectious or inflammatory process. . 03/10/17: CT of the chest w/o contrast Partial pneumonectomy on the left and pleural fluid is identified. There is a subtle groundglass infiltrate with a reticular component as well of about 2 cm in the left apex. This is consistent with pneumonia in this setting. No nodule or mass. Small mediastinal lymph nodes, not enlarged by CT criteria. Images of the upper abdomen demonstrates no adrenal mass effect. Extensive coronary artery calcification. Bone review demonstrates degenerative changes of the spine. Impression-- 1. Partial pneumonectomy on the left. 2. Minimal infiltrate in the left upper lobe. 3. Small left pleural effusion. 01/20/17: MRI of the brain The ventricles are of normal size, shape, and contour for the patient's age. There are small nonspecific punctate areas of T2-weighted and T2 FLAIR weighted signal abnormality in the deep frontoparietal white matter that most likely represent small vessel ischemic disease. This is of a degree that is considered to be normal for the patient's age. The brain stem, cerebellum, and cerebral hemispheres otherwise have a normal morphologic appearance as well as MR signal intensity on all pulse sequences. Following intravenous administration of contrast, no areas of abnormal enhancement are evident. There are no areas of restricted diffusion to suggest an acute infarct. There is no evidence of an intracranial mass lesion, intracranial hemorrhage, or hydrocephalus. Large left mastoid effusion. IMPRESSION: No evidence of intracranial metastatic disease. 01/20/17: CT of the soft tissue of the neck Left upper lobe lung mass better evaluated on prior dedicated CT exams of the chest. Scattered moderate centrilobular and paraseptal emphysema in the lung apices. Prominent prevascular and paratracheal nodes. The thyroid gland is grossly normal. No mucosal based mass lesions appreciated. Left mastoid effusion. The great vessels are within normal limits. In the area of concern in the left parotid region there is an oval enhancing mass corresponding to the area of uptake on PET scan and abnormality seen at ultrasound. This measures 1.2 cm in craniocaudal dimension on coronal image #34. The other lymph node inferomedial to the left parotid gland seen by ultrasound does not show any abnormal postcontrast enhancement. There is a small area of enhancement in the right parotid gland seen on coronal image #34 measuring 0.6 cm in diameter consistent with a small intraparotid node. No pathologically enlarged lymph nodes in the neck bone windows show multilevel degenerative change in the cervical spine without lytic or blastic lesion. IMPRESSION: Abnormality enhancing nodule in the inferior aspect of the left parotid probably representing an intraparotid lymph node. This could be reactive or neoplastic/metastatic. 01/20/17: Ultrasound of the neck soft tissue In the area of abnormal metabolic uptake in the inferior left parotid gland there is a round hypoechoic lesion with internal vascularity and suggestion of a possible fatty hilum that could represent an intraparotid lymph node. This measures 1.2 x 0.6 x 0.5 cm in size and shows some cortical thickening. Just inferior to this is an additional somewhat abnormal appearing possible lymph node with cortical thickening measuring 1.8 x 0.6 cm in size. This does show some slightly increased metabolic uptake on the recent PET scan as well. IMPRESSION: Cortical thickening within an intraparotid and left upper neck lymph node. Given the slightly abnormal increased metabolic uptake on recent PET scan these could represent metastatic lymph nodes or reactive lymph nodes from a separate infectious or inflammatory process. 01/18/17: PFTs with DLCO Essentially normal studies 01/13/17: PET full body scan initial Comparison: CT chest dated December 18, 2016 Findings: No areas of abnormal uptake seen within the brain parenchyma. There is a focal metabolically active region in the inferior aspect of the left parotid gland at location -660 with an SUV max of 3.5. No other areas of abnormal uptake seen within the neck. Physiologic regions of uptake. The known left upper lobe mass shows intense FDG uptake with an SUV max of 8.9. There is a small left pleural effusion present. Expected myocardial uptake. No additional active pulmonary nodules or masses. Mild paraseptal emphysema with subpleural scarring. Mildly active left hilar and AP window nodes present with an SUV max of 2.7, slightly above mediastinal background. No focally metabolic liver masses. Expected genitourinary and bowel uptake. No areas of abnormal skeletal lower extremity uptake seen. Impression: 1. Left upper lobe lung mass consistent with a primary lung malignancy with possible associated left hilar adenopathy. No distant metastatic disease identified. 2. Small metabolically active nodule in the inferior aspect of the left parotid lobe. Recommend further evaluation with contrast-enhanced neck CT or targeted ultrasound. This is presumably a separate unrelated process but could represent a benign or malignant primary salivary gland tumor. 12/18/16: CT chest w/ contrast Irregular speculated left upper lobe mass adjacent to the aortic arch as seen on recent chest x-ray measuring 3.9 x 3.7 x 3.6 cm in size. There is adjacent groundglass opacity. Mild emphysematous changes in the lung apices. Mild dependent atelectasis present. No consolidative pneumonia. No pleural effusion or pneumothorax. The central airways are patent. There is an enlarged AP window node on the left measuring 1.2 cm in short axis on axial image #26. Mildly prominent prevascular node present on image #28. No right hilar or subcarinal adenopathy appreciated. No axillary adenopathy. Heart size is normal. No pericardial effusion. Left anterior descending coronary artery calcifications. The upper abdomen shows no acute findings. Bone windows show no lytic or blastic osseous lesions. Impression-- 3.9 cm left upper lobe pulmonary mass strongly suspicious for a primary lung malignancy with left mediastinal adenopathy. This is associated with the pleura and immediately adjacent to the aortic arch. Biopsy is recommended. Assessment and Plan Assessment and Plan: Impression 1. Stage IB left upper lobe adenocarcinoma. S/P lobectomy with multiple lymph nodes negative. Tumor extended past fissure requiring wedge resection of the lower lobe. Tumor was 3.4 cm nearest margin was 1 cm. Lymphovascular invasion was not identified. 24 regional lymph nodes were examined and no lymph node involvement was seen. PET suggests there may be hilar node. This lesion is central and adjacent to aortic arch and pleura. Pathologic exam of the lymph nodes did not show involvement but the tumor was adherent to the left lower lobe. Based on the PET scan suggesting mediastinal involvement, and adherence to the fissure, and pleural effusion I feel that he would benefit from adjuvant chemotherapy and this was started with methotrexate and carboplatinum on . He developed nausea and vomiting on 04/16/17 and was hospitalized with dehydration on 04/19/17. Part of the nausea and vomiting and symptoms could also be related to narcotic dependence and withdrawal as he was not able to orally maintain his narcotic use. He also had hypokalemia that is improved with his potassium today being 4.1. He is currently improved from admission and feels that he has had benefit from the Protonix, IV fluids and potassium replacement. Magnesium was check this morning was at lower limits of normal at 1.6. 2. Low-grade neoplasm of the parotid this has been put on hold until after completion of his adjuvant chemotherapy 3. Hypokalemia presenting with potassium of 2.8 currently 4.1 on 04/22/17 4. Chronic back pain with disability requiring narcotic use for control of pain and proptosis patient activity of daily living. With nausea and vomiting he was not able to maintain his opioid requirement and probably had withdrawal that contributed to the nausea and vomiting 5. Dehydration 6. Anemia hemoglobin 9.9 on 04/22/17 dropped from 12.3 on 04/21/17 and 15.5 on . Part of the drop has been rehydration but I am concerned about GI blood loss and we'll check stools for blood. . Recommendations: 1. Maintain potassium replacement consider magnesium replacement 2. Follow hemoglobin and check stools for blood patient currently on Protonix. 3. Continue supportive care with Zofran and possibly Compazine. We'll use longer dosing of olanzapine with next cycle of chemotherapy 4.
[2017-04-22] MEDS: DOCUSATE SODIUM 100 MG CAPSULE PO SCH (09:06)
[2017-04-22] MEDS: PREGABALIN 75 MG CAPSULE PO SCH ×3 (09:06→17:17)
[2017-04-22] MEDS: LORazepam 1 MG TABLET PO SCH ×3 (09:07→21:11)
[2017-04-22] MEDS: PANTOPRAZOLE 40 MG INJECTION IVP SCH (09:07)
[2017-04-22] MEDS: FOLIC ACID 1 MG TABLET PO SCH (09:07)
[2017-04-22] MEDS: CYCLOBENZAPRINE 10 MG TABLET PO SCH (09:07)
[2017-04-22] MEDS: CITALOPRAM 20 MG TABLET PO SCH (09:07)
[2017-04-22] MEDS: MELOXICAM 15 MG TABLET PO SCH (09:08)
[2017-04-22] MEDS ORDERED: VANCOMYCIN - PHARMACY CONSULT MC ONE (14:34)
[2017-04-22] MEDS: MAGNESIUM OXIDE 400 MG TABLET PO SCH ×2 (15:45→21:11)
--- NOTE | 2017-04-22 16:03 | Pharmacy Consult-Antibiotics ---
Pharmacy Consult-Vancomycin - Laboratory Information WBC 5.3 T/MM3 (4.5-11.0) 04/22/17 05:01 BUN 16.0 MG/DL (9-20) 04/22/17 05:01 Creatinine 1.0 MG/DL (0.8-1.5) 04/22/17 05:01 VANCOMYCIN CONSULT: Dx: Possible Aspiration Pneumonia, History of Sepsis, Fever of unknown origin. Current Renal Function: S Cr = 1.0 mg/dl. Estimated Cr Cl ~ 74 mL min Will give Vancomycin 2,000 mg iv bolus then Vancomycin 1,250 mg IV q12hrs. I have ordered a vancomycin trough before the 04/24 0400 dose. The pharmacy will continue to monitor and adjust regimen to maintain therapeutic levels. Thank you for the Vancomycin Protocol, Samuel Vazquez, Pharmacist.
[2017-04-22] MEDS: DOXAZOSIN 2 MG TABLET PO SCH (21:11)
[2017-04-22] MEDS: PREGABALIN 150 MG CAPSULE PO SCH (21:11)
--- NOTE | 2017-04-23 08:41 | Progress Note ---
DATE 04/22/2017 CONSTANCE Gillespie actually is sitting in the bed in Room 148 on the medical floor. He seems more cheerful and happy looking today and energetic today than any of the days that he has been here. He is no longer having any chills. He feels good. He is eating pretty much any food, holding his food down. PHYSICAL EXAMINATION VITAL SIGNS: Blood pressure 135/78 with a pulse of 64. Respirations 14. Temperature 97.1. O2 sat 99% on room air. GENERAL: He looks comfortable and more cheerful and more energetic this afternoon. HEENT: Unremarkable. NECK: Supple. LUNGS: Decreased breath sounds and crackling at left lower lobe region. Right side lung walters are clear to auscultation. CARDIOVASCULAR: Regular rate and rhythm. No murmur. ABDOMEN: Soft. No masses palpable. EXTREMITIES: No cyanosis, no clubbing, no edema. NEURO EXAM: Grossly intact. LAB Potassium 4.1. Hemoglobin down to 9.9 from 12.3 yesterday. Liver function tests were normal. Creatinine 1.0. Please note a blood culture was obtained yesterday from two different sites; one is growing Staph species, the other one shows no growth after one day. ASSESSMENT 1. Chills without fever. Etiology remains unclear. 2. Nausea and vomiting--much improved and actually resolved at this time. 3. Hypokalemia. Patient received a total of eight bags of 10 mEq potassium in normal saline. In addition, he also received some oral potassium replacement. Potassium has finally normalized at this time. 4. Mild hemoptysis. CT for PE was negative. 5. Adenocarcinoma of the lung, Stage I B of left upper lobe. This patient is status post lobectomy with multiple lymph nodes reportedly negative. 6. Chronic low back pain. Patient is on Disability, and on chronic narcotic pain management as such. 7. Dehydration, treated and resolved. 8. Anemia. Please note patient's hemoglobin dropped from 12.3 yesterday to 9.9 this morning. This could probably be hemodilution effect. Cannot entirely rule out GI bleed. 9. One positive blood culture with Staph species, probably contaminant. PLAN 1. Will start patient on vanco using hospital pharmacy protocol. 2. Dr. Cabrera has been consulted as well as Dr. Fuentes. 3. Will cut down IV fluid to 125 mL/hr for now. 4. I told patient to go ahead and make sure that he walks with nursing services manager multiple times. If all goes well, will dismiss him to home tomorrow. Will just wait for replies from homemaking rehabilitation consultant Dr. Fuentes. PEÑA
[2017-04-23] MEDS: CITALOPRAM 20 MG TABLET PO SCH (09:32)
[2017-04-23] MEDS: PANTOPRAZOLE 40 MG INJECTION IVP SCH (09:32)
[2017-04-23] MEDS: SALINE FLUSH 10ml SYRINGE IV PRN ×2 (09:32→11:31)
[2017-04-23] MEDS: HYDROCODONE/APAP 10 MG/325 MG TABLET PO PRN (09:32)
[2017-04-23] MEDS: LORazepam 1 MG TABLET PO SCH ×2 (09:33→15:42)
[2017-04-23] MEDS: MAGNESIUM OXIDE 400 MG TABLET PO SCH (09:33)
[2017-04-23] MEDS: PREGABALIN 75 MG CAPSULE PO SCH ×3 (09:33→17:58)
[2017-04-23] MEDS: CYCLOBENZAPRINE 10 MG TABLET PO SCH (09:33)
[2017-04-23] MEDS: MELOXICAM 15 MG TABLET PO SCH (09:33)
[2017-04-23] MEDS: DOCUSATE SODIUM 100 MG CAPSULE PO SCH (09:33)
[2017-04-23] MEDS: FOLIC ACID 1 MG TABLET PO SCH (09:34)
[2017-04-23] MEDS: D5-1/2NS with KCL 20mEq 1,000 ML IV SCH (10:11)
--- NOTE | 2017-04-23 12:13 | Progress Note ---
Oncology Subjective General: No fever, no night sweats Eyes: No redness, no pain, no diplopia ENT: No mouth sores, no trouble swallowing Cardiac: No chest pain no palpitations Pulmonary: No cough, no shortness of breath, no wheezing Abdomen: No pain, no nausea vomiting, no diarrhea or constipation : No urgency, frequency, dysuria, or hematuria Musculoskeletal: No arthritis, no myalgias Neurological: No headaches, no focal weakness Skin: No rash, no sores Psychiatric: No anxiety, no depression Daughter at bedside. Alert, states feeling"25% better" denies pain currently. No further nausea. One loose stool this AM <Sherine Woods L - 04/23/17 14:04> Exam Vital signs: Temperature 96.5 F L 04/23/17 07:00 Pulse Rate 65 04/23/17 07:00 Respiratory Rate 20 04/23/17 07:00 Blood Pressure 145/79 H 04/23/17 07:00 Pulse Oximetry 100 04/23/17 07:00 <Walt Cabrera D - 04/23/17 15:00> Temperature 96.5 F L 04/23/17 07:00 Pulse Rate 65 04/23/17 07:00 Respiratory Rate 20 04/23/17 07:00 Blood Pressure 145/79 H 04/23/17 07:00 Pulse Oximetry 100 04/23/17 07:00 <Sherine Woods L - 04/23/17 14:04> - Constitutional no acute distress, well nourished, well developed <Sherine Woods L 04/23/17 14:04> - Routine HEENT Exam Head: Present: normocephalic <Sherine Woods 04/23/17 14:04> Eye: Present: EOMI <Sherine Woods - 04/23/17 14:04> ENT: Present: mucous membranes moist <Sherine Woods 04/23/17 14:04> Nose: moist mucous membranes <Sherine Woods 04/23/17 14:04> - Routine Neck Exam Present: supple. Absent: lymphadenopathy <Sherine Woods 04/23/17 14:04> - Routine Respiratory Exam Present: decreased breath sounds. Absent: respiratory distress <Sherine Woods 04/23/17 14:04> - Routine Cardiovascular Exam Present: RRR. Absent: gallop <Sherine Woods - 04/23/17 14:04> - Routine Abdominal Exam Present: soft, non tender. Absent: organomegaly <Sherine Woods - 04/23/17 14 :04> - Routine Extremities Exam Absent: no edema <Sherine Woods - 04/23/17 14:04> - Routine Back/Spine/Pelvis Exam Back/Spine: Absent: vertebral tenderness <Sherine Woods - 04/23/17 14:04> - Routine Skin Exam Present: intact, warm. Absent: rash <Sherine Woods - 04/23/17 14:04> - Routine Neurological Exam Present: alert, oriented X3 <Sherine Woods - 04/23/17 14:04> - Routine Psychiatric Exam Present: normal affect, normal thought process <Sherine Woods - 04/23/17 14: 04> Oncology Results - Labs CBC & Chem 7: 04/23/17 04:06 04/23/17 04:06 <Walt Cabrera - 04/23/17 15:00> Labs: Short CBC 04/23/17 Range/Units 04:06 WBC 4.6 (4.5-11.0) T/MM3 Hgb 9.8 L (13.5-17.5) GM/DL Hct 29.5 L (41-53) % Plt Count 121 L (130-400) T/MM3 [facility] 04/23/17 04:06 Sodium 137 Potassium 4.0 Chloride 106 Carbon Dioxide 24 BUN 18.0 Creatinine 1.0 Glucose 79 Calcium 8.6 <Walt Cabrera - 04/23/17 15:00> Short CBC 04/23/17 Range/Units 04:06 WBC 4.6 (4.5-11.0) T/MM3 Hgb 9.8 L (13.5-17.5) GM/DL Hct 29.5 L (41-53) % Plt Count 121 L (130-400) T/MM3 [facility] 04/23/17 04:06 Sodium 137 Potassium 4.0 Chloride 106 Carbon Dioxide 24 BUN 18.0 Creatinine 1.0 Glucose 79 Calcium 8.6 <PeggySherine gloria Ananth - 04/23/17 12:13> Assessment and Plan Assessment and Plan: Patient examined Chart reviewed. I participated in the development of the plan of care of this patient with Ivana Woods. Blood culture positive for 1/2 gm pos cocci probable contaminate. Will follow up next week and reassess prior to chemotherapy on 05/03 and may consider carboplatin for cisplatin. <Walt Cabrera Rachell - 04/23/17 15:00> Impression 1. Stage IB left upper lobe adenocarcinoma. S/P lobectomy with multiple lymph nodes negative. Tumor extended past fissure requiring wedge resection of the lower lobe. Tumor was 3.4 cm nearest margin was 1 cm. Lymphovascular invasion was not identified. 24 regional lymph nodes were examined and no lymph node involvement was seen. PET suggests there may be hilar node. This lesion is central and adjacent to aortic arch and pleura. Pathologic exam of the lymph nodes did not show involvement but the tumor was adherent to the left lower lobe. Based on the PET scan suggesting mediastinal involvement, and adherence to the fissure, and pleural effusion I feel that he would benefit from adjuvant chemotherapy and this was started with methotrexate and carboplatinum on . He developed nausea and vomiting on 04/16/17 and was hospitalized with dehydration on 04/19/17. Part of the nausea and vomiting and symptoms could also be related to narcotic dependence and withdrawal as he was not able to orally maintain his narcotic use. He also had hypokalemia that is improved with his potassium today being 4.1. He is currently improved from admission and feels that he has had benefit from the Protonix, IV fluids and potassium replacement. Magnesium was check this morning was at lower limits of normal at 1.6. 2. Low-grade neoplasm of the parotid this has been put on hold until after completion of his adjuvant chemotherapy 3. Hypokalemia presenting with potassium of 2.8 currently 4.0 on 04/23/17, 4. 4. Chronic back pain with disability requiring narcotic use for control of pain and proptosis patient activity of daily living. With nausea and vomiting he was not able to maintain his opioid requirement and probably had withdrawal that contributed to the nausea and vomiting. Pain well controlled today, 04/23/17 and no N/V 5. Dehydration-resolved. 6. Anemia hemoglobin 9.9 on 04/22/17. 9.8 on 04/23/17. Recommendations: 1. Clinically stable. Oncology OK with dismissal to home. Will follow as outpatient next week. <Sherine Woods - 04/23/17 14:11> - Time Spent With Patient Total time spent is greater than 50% in coordination of care (as documented) at patient's floor/unit and/or counseling patient: <Walt Cabrera - 04/23/17 15:00> Total time spent is greater than 50% in coordination of care (as documented) at patient's floor/unit and/or counseling patient: <Sherine Woods - 04/23/17 12:13> less than 15 minutes <Sherine Woods - 04/23/17 14:04>
[2017-04-23 15:50] VITALS: BP 155/79; PULSE 61; RESP 16; TEMP 97; O2SAT 96
--- NOTE | 2017-04-23 18:26 | Discharge Instructions ---
Discharge Plan - Med Rec/Dispo Referrals/Follow Up: Cristofer Mendoza MD [Family Provider] - 1 Week Fabrizio Instructions: Weakness (GEN) Additional Instructions: APPOITMENT WITH AMANDA ON 04/29 [phone] AT 1:30. Prescriptions: New Magnesium Oxide [Magox] 400 mg PO BID #60 tablet Vancomycin/0.9 % Sod Chloride [Vancomycin-0.9% NaCl 2 G/500] 2 gm IV DAILY # 3 plast..bag Continue Albuterol HFA Inhaler [Ventolin Hfa 90 mcg/actuation] 2 puff IN BID PRN PRN Reason: Prn Orders Meloxicam 15 mg PO DAILY Cyclobenzaprine [Flexeril] 10 mg PO DAILY FentaNYL PATCH [Duragesic Patch] 50 mcg TD Q72H Docusate Sodium [Colace] 200 mg PO DAILY Citalopram [Celexa] 20 mg PO DAILY #30 tablet OLANZapine [Zyprexa] 2.5 mg PO DAILY PRN PRN Reason: Prn Orders Metoprolol Tartrate [Lopressor] 50 mg PO BID LORazepam [Lorazepam] 1 mg PO TID Folic Acid [Folate] 1 mg PO DAILY Pregabalin Cap [Lyrica] 75 mg PO 5XD Hydrocodone/APAP 10/325 [Bureau 10/325] 1 tab PO TID PRN PRN Reason: Pain Doxazosin [Cardura] 2 mg PO HS #30 tab Dexamethasone [Decadron] 8 mg PO DAILY PRN PRN Reason: Prn Orders Ondansetron Odt [Zofran Po] 4 mg PO Q6H PRN PRN Reason: Nausea Discharge Instructions/Outpatient Orders: Final Provider Discharge Instructions Location: Determined By Patient - Disposition 01 Discharged Home, Self-Care
--- NOTE | 2017-04-26 11:16 | Discharge Summary ---
FINAL DIAGNOSES 1. Nausea and vomiting - treated and resolved. 2. Hypokalemia - treated and resolved. 3. Mild hemoptysis. CT negative for PE. 4. Chills without fever. Etiology remains unclear. 5. One out of two blood cultures positive for coagulase-negative Staphylococcus most likely a contaminant. 6. Adenocarcinoma of the lung, stage IB, of the left upper lobe. 7. Chronic back pain. 8. Dehydration. 9. Anemia. 10. Thrombocytopenia. 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 Dr. Cabrera 2. Telephone consultation to Dr. Libra Fuentes REASON FOR ADMISSION The patient is a 56-year-old male with known history of lung cancer, status post left lobectomy, who presented to Dr. Cabrera's office on the day of admission, 04/20/2017, with acute onset of nausea and vomiting pretty much all night long. He had two small buckets of vomitus the prior night. He also had some blood-tinged sputum production. His potassium was 2.8. I was asked to see the patient for possible admission for hydration and potassium replacement. The patient was recently diagnosed with lung cancer about two months ago and underwent a lobectomy in [place] and he has been back to [facility] for hospitalization on multiple occasions for chills, dehydration and pneumonia. He presented this time with, also, weakness and some chills. PHYSICAL EXAMINATION Patient looked ill and mildly dyspneic. Decreased breath sounds in left lower lung otherwise. No new findings other than left upper chest with crackles and decreased breath sounds as well. The rest of the physical examination was unremarkable. LAB Potassium 2.8. Creatinine normal. IMAGING Chest x-ray was without acute cardiopulmonary disease. HOSPITAL COURSE The patient was admitted to the general medical floor on outpatient basis initially. He received IV potassium replacement as well as IV fluids. Potassium replacement was a little bit challenging. Patient received a total of 8 bags of 10 mEq potassium IV in normal saline as well as oral supplementation, also potassium in IV fluid throughout the hospitalization. Hypokalemia subsequently resolved with potassium 4.2 to 4.5 over the last 48 hours prior to dismissal. He had some difficulty with eating the first two or three days and that turned around in the last 48 hours. He was eating pretty much all of his meals. He was ambulating well. He was strong enough to dismiss to home. One of the blood cultures obtained was positive for coagulase- negative Staph. We discussed this finding with Dr. Bree Fuentes on the phone. She recommended that we continue vancomycin until we know the species identification. The patient did have a two-point drop in hemoglobin. We believe this was probably due to hemodilution. His hemoglobin on the day of dismissal is 9.8 down from 9.9 yesterday and 12.3 two days ago. The patient is medically stable enough from my perspective to be dismissed to home. He has been dismissed to home on 04/23/2017. The patient will return to [facility] on an outpatient basis for infusion of vancomycin once a day, dose 2 g a day. I have discussed this with the Pharmacy and they are willing to give patient one daily dose until we actually get the culture specificity back. I believe this is probably a contaminant. However, in light of the patient's history of lung cancer and his ongoing chemotherapeutic treatment, I think we're better off to cover him with vancomycin until culture is totally known. FOLLOWUP Patient will follow up in the office in one week. I believe he already has an appointment set up for him with Dr. Cabrera for next Wednesday. DISMISSAL MEDICATIONS 1. Albuterol via nebulization and also albuterol inhaler 2 puffs b.i.d. p.r.n. 2. Meloxicam 15 mg one tablet daily. 3. Flexeril 10 mg one tablet daily. 4. Fentanyl. patch 50 mcg - change every 72 hours. 5. Colace 200 mg one tablet daily. 6. Celexa 20 mg one tablet daily. 7. Zyprexa 2.5 mg tablet daily. 8. Metoprolol 50 mg one tablet p.o. b.i.d. 9. Lorazepam 1 mg p.o. t.i.d. 10. Folic acid 1 mg one tablet daily. 11. Lyrica 75 mg one tablet five times daily. 12. Jordan 10/325 mg one tablet p.o. t.i.d. p.r.n. 13. Cardura 2 mg one tablet at bedtime. 14. Decadron 8 mg p.o. daily p.r.n. 15. Zofran 4 mg p.o. q.6h. p.r.n. 16. Vancomycin 2 g IV daily at the Infusion Center here at the hospital at least for 3 days. Hopefully, we can get the culture species identification and sensitivity back at that time. 17. Patient is also sent home on magnesium 400 mg p.o. b.i.d. 18. Potassium 20 mEq one tablet p.o. daily. MTDD
== END 2017-04-23 19:05 | disposition home or self-care (01) | DRG 392 ==
LOC: MED → OBSVTOIN 15:02
PROVIDERS: ADMIT Family Medicine; ATTEND Family Medicine

== ENCOUNTER 2017-04-26 17:56 | Observation (INO) ==
[2017-04-26] MEDS ORDERED: ONDANSETRON 4 MG/2 ML INJECTION IVP PRN (18:20)
[2017-04-26] MEDS: D5-1/2NS with KCL 20mEq 1,000 ML IV SCH (18:28)
--- NOTE | 2017-04-26 18:43 | Pharmacy Consult-Antibiotics ---
Pharmacy Consult-Vancomycin - Consult Information VANCOMYCIN CONSULT: Dx: Sepsis Current Renal Fx: SCr = n/a Will give Vancomycin 1,500mg loading then 1 gram ivpb q12h. Will continue to monitor and adjust regimen to maintain therapeutic levels. Thank you.
[2017-04-26] MEDS: CEFEPIME 1 GM in NS 100 ML IV SCH (18:59)
[2017-04-27] MEDS: D5-1/2NS with KCL 20mEq 1,000 ML IV SCH ×2 (05:13→11:47)
[2017-04-27] MEDS: CEFEPIME 1 GM in NS 100 ML IV SCH ×2 (06:05→18:48)
--- NOTE | 2017-04-27 08:25 | History and Physical ---
HISTORY OF PRESENT ILLNESS The patient is a 56-year-old male who presented to the office this evening with chief complaint of acute-onset fever, chills, nausea and vomiting and sweating that began this morning. He was recently dismissed from [facility] on 04/23/2017 after being hospitalized for about 4 days or so for multiple reasons including nausea and vomiting, hypokalemia, mild hemoptysis, chills without fever and bacteremia, as well as dehydration. One of his blood cultures was positive for coagulase-negative Staph. Sensitivity came back this morning. The patient had been on vancomycin while at the hospital before he left. He was actually going back there every morning to the Outpatient Infusion Unit for vancomycin infusion. This morning he was ready to go get his vancomycin infusion at [facility] when he developed the above symptoms. He has not eaten all day. He just cannot hold his food down and has decreased appetite. At the office setting, the patient had chills and looked ill. Vital Signs: Temperature 96.6. PAST MEDICAL HISTORY 1. Adenocarcinoma of the lung, status post left lobectomy. 2. Left pleural effusion, persistent, post lobectomy. 3. Fever, chills and pneumonia. 4. Dehydration. 5. Hypokalemia. 6. Clinical depression. 7. Chronic back pain. 8. Anxiety disorder. 9. Chronic pain from multiple sources - back as well as neck. 10. Depression. 11. COPD. 12. Tobacco abuse. ALLERGIES SULFA. CURRENT MEDICATIONS 1. Albuterol via nebulization. 2. Meloxicam 15 mg one tablet daily. 3. Flexeril 10 mg one tablet daily. 4. Fentanyl. patch 50 mcg - change every 72 hours. 5. Colace 200 mg one tablet daily. 6. Celexa 20 mg one tablet daily. 7. Zyprexa 2.5 mg one tablet daily. 8. Metoprolol 50 mg one tablet p.o. b.i.d. 9. Lorazepam 1 mg p.o. t.i.d. 10. Folic acid 1 mg one tablet daily. 11. Lyrica 75 mg one tablet twice daily. 12. Davenport 10/325 mg one tablet p.o. t.i.d. p.r.n. 13. Cardura 2 mg one tablet at bedtime. 14. Decadron 8 mg p.o. daily p.r.n. 15. Zofran 4 mg q.6h. p.r.n. 16. Potassium 10 mEq one tablet daily. IMAGING A chest x-ray was done at the office and actually the left lower lobe pleural effusion is better. I don't see any evidence of acute cardiopulmonary disease today on the chest x-ray. ASSESSMENT 1. Recurrent fever/chills. 2. Bacteremia from coagulase-negative Staph. 3. Adenocarcinoma of the lung, status post left lobectomy. 4. Nausea and vomiting. 5. Chronic back pain. 6. Anxiety disorder. 7. Depression. 8. Overactive bladder. PLAN Admit patient to [facility]. Start patient on IV fluids. Obtain blood culture. Start patient on vancomycin and then also add cefepime. Vancomycin is to be managed by Pharmacy protocol. Follow lab including CBC, CMP, UA, CRP, blood culture. Patient will be started on IV fluids as well as antiemetic. MTDD
--- NOTE | 2017-04-27 12:10 | Consult Note ---
Oncology HPI - Data of Consult Patient: new to practice Consult date: 04/27/17 Requesting Physician: Cristofer Mendoza MD Primary Care Provider: CHARLES Mendoza MD Family Provider: Cristofer Mendoza MD - Consult Narrative Reason for consult: lung cancer History of present illness: Well known patient of Dr. Cabrera'bonny with NSCLC had recent hospitalization at [facility], admitted 04/21/17, dismissed 04/23/17 with dehydration/ nausea vomiting. Had hypokalemia, persistent nausea /vomiting and had been unable to take his narcotics. Narcotic withdrawal possibly contributed to his symptoms. During that hospitalization, had a positive blood culture from port site with coag negative staph. He was dismissed to home clinically improved, was eating and drinking. Continued with IV vancomycin as outpatient. Nausea/ vomiting and chills recurred beginning Wednesday evening and symptoms persisted/ worsened on 04/26/17. He was seen outpatient by Dr. Gillette 04/26/17 and admitted to [facility] for continued supportive care with IV antibiotics, IV fluids, and blood cultures were repeated. See below for history of present illness related to cancer diagnosis. --Significant back problems resulting in disability. Unable to work 4 years. --12/17/16: Chest x-ray showed 3.8 cm mass in the left suprahilar region. --12/29/16: Biopsy left lung showed invasive carcinoma, grade 2, Adenocarcinoma --02/05/17: left parotid needle biopsy, low grade epithelial neoplasm. --02/16/17: Left upper lobe lobectomy with additional excision of left lower lobe margin. Specimen showed a 3.4 cm invasive adenocarcinoma, moderately differentiated there was no pleural or lymphatic invasion identified. Closest bronchial resection was 1 cm away. 9 lymph nodes were benign. Additional resection of left lower lobe showed benign tissue. --Postoperative hospitalization for fever at [facility], 2 hospitalizations at [facility]. --04/02/17: Port placement --04/12/17: Initiation of adjuvant therapy with pemetrexed and cisplatin. --04/19/17: Jair visit with elevated BUN, dehydration, nausea and vomiting resulting in hospitalization Review of Systems - Constitutional Constitutional: Present: chills, fatigue, weakness - EENT Mouth/Throat: Absent: sore throat - Cardiovascular Cardiovascular: Absent: chest pain - Respiratory Respiratory: Present: cough (chronic, nonproductive) - Gastrointestinal Gastrointestinal: Present: nausea, vomiting (emesis Wednesday evening and Wednesday. No nausea/vomiting today). Absent: abdominal pain, diarrhea - Genitourinary Genitourinary: Absent: dysuria, urinary frequency - Musculoskeletal Musculoskeletal: Present: back pain (chronic). Absent: arthralgias - Integumentary/Breasts Integumentary: Absent: rash - Neurological Neurological: Absent: dizziness PFSH Patient Stated Medical History Peripheral Neuropathy Yes: takes Lyrica Dental Problems Yes Hypertension Yes Chronic Obstructive Pulmonary Yes Disease (COPD) Pneumonia Yes Sleep Apnea "I might" Other Respiratory Yes: Emphysema Diabetes Mellitus Type 2 Yes: borderline Other Endocrine Yes: BORDERLINE Hx Renal Disease No Hx Urinary Tract Infection Yes: recent Anemia Yes Osteoarthritis Yes: back Sepsis Yes: questionable Depression Yes Clinic Medical History (Last Reviewed 01/05/17 @ 13:02 by LICO Thomas) Chronic low back pain (Acute Medical) Borderline diabetes (Chronic Medical) Hypertension (Chronic Medical) Medical History Updates: Chronic obstructive pulmonary disease. Arthritis. Herniated disc in back Surgical History: Lung Biopsy, Chest Tube Insertion,. Left upper lobectomy 02/16. 04/02/17 Port-A-Cath insertion Family History: Family History (Last Reviewed 01/05/17 @ 13:02 by LICO hTomas) Father Diabetes Hypertension Paternal Grandfather Hypertension Diabetes - Social History Smoking status: Former smoker Alcohol intake: former Current occupational status: disabled Does patient use chewing tobacco?: No Current residence: Apartment/Private Home Medications Home Medications Medication Instructions Recorded Confirmed Type Albuterol HFA Inhaler [Ventolin 2 puff IN BID PRN 01/04/17 04/26/17 History Hfa 90 mcg/actuation] Meloxicam 15 mg PO DAILY 01/04/17 04/26/17 History Docusate Sodium [Colace] 200 mg PO DAILY 03/20/17 04/26/17 History Dexamethasone [Decadron] 8 mg PO DAILY PRN 04/16/17 04/26/17 History Folic Acid [Folate] 1 mg PO DAILY 04/16/17 04/26/17 History LORazepam [Lorazepam] 1 mg PO TID PRN 04/16/17 04/26/17 History Metoprolol Tartrate [Lopressor] 50 mg PO BID 04/16/17 04/26/17 History OLANZapine [Zyprexa] 2.5 mg PO DAILY PRN 04/16/17 04/26/17 History Ondansetron Odt [Zofran Po] 4 mg PO Q6H PRN 04/16/17 04/26/17 History Allergies Allergy/AdvReac Type Severity Reaction Status Date / Time Sulfa (Sulfonamide Allergy Unknown Verified 04/26/17 18:25 Antibiotics) Exam Vital signs: Temperature 98.4 F 04/27/17 07:20 Pulse Rate 65 04/27/17 07:20 Respiratory Rate 20 04/27/17 07:20 Blood Pressure 128/81 04/27/17 07:20 Pulse Oximetry 99 04/27/17 07:20 - Constitutional no acute distress, well nourished, well developed - Routine HEENT Exam Head: Present: normocephalic Eye: Present: EOMI, conjunctivae pink ENT: Present: mucous membranes moist Nose: moist mucous membranes - Routine Neck Exam Present: supple. Absent: lymphadenopathy, tenderness - Routine Respiratory Exam Present: decreased breath sounds. Absent: wheezes, crackles - Routine Cardiovascular Exam Present: RRR. Absent: no murmur - Routine Abdominal Exam Present: soft, normoactive bowel sounds. Absent: organomegaly - Routine Extremities Exam Present: full ROM. Absent: no edema - Routine Back/Spine/Pelvis Exam Back/Spine: Present: vertebral tenderness (lumbar) - Routine Skin Exam Present: intact, dry. Absent: rash - Routine Neurological Exam Present: alert, oriented X3, moving all extremities - Routine Psychiatric Exam Present: normal affect, good insight Oncology Results - Labs CBC & Chem 7: 04/29/17 04:14 04/29/17 04:14 Labs: Short CBC 04/26/17 Range/Units 18:36 WBC 6.8 (4.5-11.0) T/MM3 Hgb 12.4 L (13.5-17.5) GM/DL Hct 36.1 L (41-53) % Plt Count 279 D (130-400) T/MM3 BMP 04/26/17 18:36 Sodium 137 Potassium 3.9 Chloride 97 L Carbon Dioxide 27 BUN 13.0 Creatinine 0.9 Glucose 104 Calcium 10.2 Liver Function 04/26/17 Range/Units 18:36 Total Bilirubin 0.50 (0.20-1.30) MG/DL AST 18 (17-59) U/L ALT 21 (21-72) U/L Alkaline Phosphatase 88 (38-126) U/L Albumin 3.9 (3.5-5.0) G/DL Assessment and Plan Assessment and Plan: 1. Stage 1B NSCLC, s/p wedge resection, s/p Alimpta/Cisplatin, given 04/12/17. Tolerated well. 2. Recurrent chills, nausea and vomiting- bacteremia at previous in-patient stay of coag-neg. staph. IV antibiotic Vancomycin continued-Cefipime added. 3. Left parotid low grade neoplasm 4. COPD 5. History of tobacco addiction. Continue IV antibiotics and supportive care. Will follow. Dr. Post will see patient this afternoon.
[2017-04-27 16:56] VITALS: BMI 19.8
[2017-04-27] MEDS ORDERED: OLANZapine 2.5 MG TABLET PO PRN (19:14)
[2017-04-27] MEDS ORDERED: ALBUTEROL 2.5mg/3ml (0.083%) NEB IH PRN (19:14)
[2017-04-27] MEDS ORDERED: DEXAMETHASONE 4 MG TABLET PO PRN (19:14)
[2017-04-27] MEDS ORDERED: ONDANSETRON ODT 4 MG TABLET PO PRN (19:14)
[2017-04-27] MEDS ORDERED: LORazepam 1 MG TABLET PO PRN (19:14)
[2017-04-27] MEDS: BuPROPion XL 150mg (24HR) TABLET PO SCH (19:25)
[2017-04-27] MEDS: DOXAZOSIN 2 MG TABLET PO SCH (20:29)
[2017-04-27] MEDS: PREGABALIN 75 MG CAPSULE PO PRN ×2 (20:30→20:33)
[2017-04-27] MEDS: CYCLOBENZAPRINE 10 MG TABLET PO SCH (20:30)
[2017-04-27] MEDS: PREGABALIN 150 MG CAPSULE PO SCH ×2 (20:34→23:20)
[2017-04-27] MEDS: HYDROCODONE/APAP 10 MG/325 MG TABLET PO PRN (20:38)
[2017-04-28] MEDS: HYDROCODONE/APAP 10 MG/325 MG TABLET PO PRN ×3 (02:50→17:17)
[2017-04-28] MEDS: CEFEPIME 1 GM in NS 100 ML IV SCH ×2 (06:44→18:39)
[2017-04-28] MEDS ORDERED: SALINE FLUSH 10ml SYRINGE IV PRN (06:46)
[2017-04-28] MEDS: NS FLUSH BAG 500ml IV PRN (06:54)
--- NOTE | 2017-04-28 07:59 | Progress Note ---
DATE 04/27/2017 SUBJECTIVE Patient is actually lying in bed. He just had supper. He has done well with eating today. He ate 100% of his supper and about 75% of breakfast. He complained of chills over the last several minutes. He has been walking around without any difficulty, but is just having chills again. He was seen today by the Oncology team. Denies any fever. No hemoptysis. PHYSICAL EXAMINATION GENERAL: He looks comfortable today. VITAL SIGNS: Blood pressure 161/77 with a pulse of 59, temperature 97.8, respiration 18, O2 sat 97% on room air. This was based on 1453 hour vital signs. NECK: Supple. LUNGS: Essentially clear. CARDIOVASCULAR: Regular rate and rhythm. ABDOMEN: Soft. EXTREMITIES: No edema. ASSESSMENT 1. Recurrent fever and chills. 2. Bacteremia due to coagulase-negative Staph from just one blood culture site. 3. Adenocarcinoma of the lung, status post left upper lobectomy. Patient on chemotherapy. 4. Nausea and vomiting. 5. Chronic back pain. 6. Anxiety disorder. 7. Depression. 8. Overactive bladder. PLAN 1. Continue current IV antibiotics. 2. Consultation is made to Dr. Bree Fuentes who I think will see patient tomorrow. We'll see what advise she has to give us in terms of managing this patient's recurrent fever and chills. 3. Continue current care. PEÑA
[2017-04-28] MEDS: FOLIC ACID 1 MG TABLET PO SCH (08:43)
[2017-04-28] MEDS: MELOXICAM 15 MG TABLET PO SCH (08:43)
[2017-04-28] MEDS: BuPROPion XL 150mg (24HR) TABLET PO SCH (08:43)
[2017-04-28] MEDS: CITALOPRAM 20 MG TABLET PO SCH (08:43)
[2017-04-28] MEDS: CYCLOBENZAPRINE 10 MG TABLET PO SCH (08:44)
[2017-04-28] MEDS: DOCUSATE SODIUM 100 MG CAPSULE PO SCH (08:44)
--- NOTE | 2017-04-28 08:57 | Infectious Disease Consult ---
Infectious Disease Consult Date of Consultation: 04/28/17 Requesting Physician: Cristofer Mendoza Reason for Consultation: antibiotic recs History of Present Illness: Mr. Pena is a 56 y/o man with a h/o recently diagnosed lung cancer. He underwent L lobectomy by Dr. Ramírez on 02/16/17. He reports that he was readmitted to [facility] about 1-2 days later with fever, chills, sweats. He reports that he was diagnosed with a UTI, but he denied any urinary symptoms. He felt better, but then was readmitted here in [place] around 03/10 with Fever, chills and vomiting. He reports that he was diagnosed with a staph infection in his surgical sites. On review of cultures, he had 2 wound cultures that grew S. epidermidis. I don't think any pleural fluid was sampled. He also had a CT of the chest that showed some pulmonary infiltrates. He was discharge home on Doxycycline. He was readmitted in mid-March with fevers and chills and was found to have Rhinovirus. He reports he was discharged, then readmitted in late March with another UTI. He reports that he gets recurrent nausea and vomiting with these other symptoms, and they seem to resolve with antibiotics. He was hospitalized here last week with similar symptoms, and one blood culture drawn through his Port grew S. epi. He was discharged home on Vancomycin which he was receiving through the Infusion center. He started feeling ill again on Wednesday with low-grade fever and cold sweats, N/V. He was readmitted. He has been started on Cefepime and the Vanco has been continued. He also started his chemo on 04/12 and seemed to tolerate that without problems. He has noted a rash on his arms in the past 2-3 weeks. When I review his prior visits, his temp has been in the normal range and his WBC has been normal. I've been consulted to help with antibiotics and to evaluate for infectious process. Medications Home Medications Medication Instructions Recorded Confirmed Type Albuterol HFA Inhaler [Ventolin 2 puff IN BID PRN 01/04/17 04/26/17 History Hfa 90 mcg/actuation] Meloxicam 15 mg PO DAILY 01/04/17 04/26/17 History Docusate Sodium [Colace] 200 mg PO DAILY 03/20/17 04/26/17 History Dexamethasone [Decadron] 8 mg PO DAILY PRN 04/16/17 04/26/17 History Folic Acid [Folate] 1 mg PO DAILY 04/16/17 04/26/17 History LORazepam [Lorazepam] 1 mg PO TID PRN 04/16/17 04/26/17 History Metoprolol Tartrate [Lopressor] 50 mg PO BID 04/16/17 04/26/17 History OLANZapine [Zyprexa] 2.5 mg PO DAILY PRN 04/16/17 04/26/17 History Ondansetron Odt [Zofran Po] 4 mg PO Q6H PRN 04/16/17 04/26/17 History Pregabalin Cap [Lyrica] 75 mg PO [id number] 04/26/17 04/26/17 History Pregabalin Cap [Lyrica] 150 mg PO HS 04/26/17 04/26/17 History Allergies Allergy/AdvReac Type Severity Reaction Status Date / Time Sulfa (Sulfonamide Allergy Unknown Verified 04/26/17 18:25 Antibiotics) PFSH Patient Stated Medical History Peripheral Neuropathy Yes: takes Lyrica Dental Problems Yes Hypertension Yes Chronic Obstructive Pulmonary Yes Disease (COPD) Pneumonia Yes Sleep Apnea "I might" Other Respiratory Yes: Emphysema Diabetes Mellitus Type 2 Yes: borderline Other Endocrine Yes: BORDERLINE Hx Renal Disease No Hx Urinary Tract Infection Yes: recent Anemia Yes Osteoarthritis Yes: back Sepsis Yes: questionable Depression Yes Clinic Medical History (Last Reviewed 01/05/17 @ 13:02 by LICO Thomas) Chronic low back pain (Acute Medical) Borderline diabetes (Chronic Medical) Hypertension (Chronic Medical) Medical History Updates: Chronic obstructive pulmonary disease. Arthritis. Herniated disc in back. Adenocarcinoma of the lung Surgical History: Lung Biopsy, Chest Tube Insertion,. Left upper lobectomy 02/16. 04/02/17 Port-A-Cath insertion Family History: Family History (Last Reviewed 01/05/17 @ 13:02 by LICO Thomas) Father Diabetes Hypertension Paternal Grandfather Hypertension Diabetes - Social History Smoking status: Former smoker (he states he quit smoking but he smells of smoke) Alcohol intake: former (quit several years ago) Does patient use chewing tobacco?: No Current residence: Apartment/Private Home Review of Systems - Constitutional Constitutional: Present: chills, fever(s) (low-grade), night sweats. Absent: headache(s) - EENMT Mouth/Throat: Present: hoarseness (secondary to lung surgery), other (reports tooth pain). Absent: sore throat, painful swallowing - Cardiovascular Cardiovascular: Absent: chest pain - Respiratory Respiratory: Absent: cough, dyspnea - Gastrointestinal Gastrointestinal: Present: nausea, vomiting. Absent: abdominal pain, diarrhea - Genitourinary Genitourinary: Present: nocturia. Absent: dysuria, flank pain, urinary frequency - Musculoskeletal Musculoskeletal: Absent: arthralgias, joint swelling - Integumentary/Breasts Integumentary: Present: rash (on arms, occasionally pruritic) - Neurological Neurological: Absent: headache(s) - Psychiatric Psychiatric: Present: depression Exam Vital Signs: Temperature 98.5 F 04/28/17 07:47 Pulse Rate 55 L 04/28/17 07:47 Respiratory Rate 16 04/28/17 07:47 Blood Pressure 132/76 04/28/17 07:47 Pulse Oximetry 98 04/28/17 07:47 Height/Weight/BMI: Height 1.8 m Weight 65.1 kg Body Mass Index 19.8 - Constitutional Present: no acute distress, well nourished, well developed - Routine HEENT Exam Head: Present: normocephalic, atraumatic Eye: Present: EOMI, PERRL ENT: Present: mucous membranes moist Comments: dentition poor - Routine Neck Exam Present: supple. Absent: lymphadenopathy - Routine Respiratory Exam Present: decreased breath sounds (L lung field). Absent: accessory muscle use, respiratory distress, wheezes - Routine Cardiovascular Exam Present: RRR. Absent: murmur - Routine Abdominal Exam Present: soft, normoactive bowel sounds, non distended. Absent: tenderness - Routine Extremities Exam Absent: cyanosis, clubbing, edema - Routine Skin Exam Present: intact, wounds (from thoracotomy appear healed), rash (on arms, looks like petechiae) Comments: Port accessed R anterior chest without any surrounding redness or edema - Routine Neurological Exam Present: alert, oriented X3, CN II-XII intact - Routine Psychiatric Exam Present: normal affect Results - Labs CBC & Chem 7: 04/26/17 18:36 04/26/17 18:36 Microbiology Results: Microbiology 04/26/17 18:39 Port/Picc Blood Culture - Preliminary No Growth After 1 Day 04/26/17 18:36 Peripheral/Iv Start Blood Culture - Preliminary No Growth After 1 Day Impression: Recurrent fever, chills, sweats, nausea and vomiting. Adenocarcinoma of the lung stage IB, status post left lobectomy 02/16/17 Left pleural effusion, persistent, post lobectomy. H/o "staph infection" there , per patient. Left parotid low grade epithelial neoplasm. Dehydration. Chronic back pain. Anxiety disorder. COPD. Tobacco abuse. Recommendation: I will check a serum West Nile virus antibody. I will also check a UA with reflex to micro. I'll check fungal serologies, however, he seems to improve with antibiotic therapy, which points towards a bacterial infection. My suspicion is that this is a pulmonary source. Recommend CT chest, A/P. I will also image his teeth to evaluate for dental source. Tumor fever is also in the differential, however, it is difficult to explain his recurrent nausea and vomiting. He had a negative TB interferon in March. I suspect that the positive blood culture from his Port last week was a collection contaminant. Will continue to follow his cultures. Continue Vancomycin and cefepime for now.
[2017-04-28] MEDS: PREGABALIN 75 MG CAPSULE PO PRN (09:39)
[2017-04-28] MEDS ORDERED: SALINE FLUSH 10ml SYRINGE ONE (10:52)
[2017-04-28] MEDS ORDERED: NS 100 ML ONE (10:52)
[2017-04-28] MEDS ORDERED: IOHEXOL 300mg/ml 100ml INJECTION ONE (10:52)
--- NOTE | 2017-04-28 11:03 | Pharmacy Consult-Antibiotics ---
Pharmacy Consult-Vancomycin - Laboratory Information WBC 6.8 T/MM3 (4.5-11.0) 04/26/17 18:36 BUN 13.0 MG/DL (9-20) 04/26/17 18:36 Creatinine 0.9 MG/DL (0.8-1.5) 04/26/17 18:36 Vancomycin Trough 9.76 UG/ML (15-20) L 04/28/17 07:37 - Consult Information Vancomycin trough low so will increase vancomycin dose to 1500mg IV q12h to start at 1600 today. Trough ordered for 04/30/17. Thank you.
--- NOTE | 2017-04-28 12:15 | CT Scan Report ---
Indication: fever PROCEDURE: CT chest abd/pelvis w con: Encounter: Subsequent Comparison: CT angiogram of the chest dated April 21, 2017 Technique: Axial CT images were performed through the chest, abdomen and pelvis after the administration of intravenous contrast. Coronal and sagittal two-dimensional reformats. Automated Exposure Control and Iterative Reconstruction dose reducing techniques were utilized. Contrast: Omnipaque 300 89 mL Findings: Chest: The lungs are stable in appearance. No acute consolidative pneumonia. Stable areas of groundglass opacity in the left lower lobe. Emphysema again noted with areas of pleural thickening and scarring on the left. Stable small left effusion. No pneumothorax. Prior mucus or debris in the left mainstem bronchus is no longer seen. Minimal right lower lobe dependent atelectasis. Postoperative changes in the left hilum. No axillary adenopathy. Stable small superior mediastinal nodes. Great vessels are grossly normal and unchanged. Heart size is stable. No pericardial effusion. Abdomen/pelvis: The liver is normal. Gallbladder is unremarkable. Stomach is distended with fluid and debris. Spleen shows granulomatous disease and is of normal size. The pancreas and adrenal glands are normal. Kidneys are normal. No abdominal or pelvic lymphadenopathy. Scattered arterial atherosclerotic plaque. The bladder slight wall thickening without adjacent inflammation. No free fluid. No evidence of a bowel obstruction. Bone windows are negative for acute findings. Impression: No acute disease process seen in the chest, abdomen or pelvis. Distended stomach could be due to recent meal or possibly delayed gastric motility/gastroparesis. Recommend clinical correlation. .
--- NOTE | 2017-04-28 12:19 | CT Scan Report ---
Indication: fever PROCEDURE: CT maxillofacial w con: Encounter: Initial Comparison: None Technique: Axial postcontrast CT imaging through the midface was performed with coronal and sagittal two-dimensional reformats. Contrast: Omnipaque 300 100mL Automated Exposure Control and Iterative Reconstruction dose reducing techniques were utilized. Findings: No acute maxillofacial fracture identified. Trace mucosal thickening in the right maxillary sinus. The paranasal sinuses are otherwise clear. The mastoid air cells are also clear. Prior dental extractions and restorations. There is no evidence of significant periodontal disease or periapical abscess. No obvious dental caries appreciated. No findings to suggest a subperiosteal abscess. No inflammation in the perimandibular soft tissues. No fluid collections. The globes are intact. Lenses are located. No intraconal hematoma or inflammation. The salivary glands appear normal and symmetric. No adenopathy seen in the neck. Impression: No dental abscess identified. .
[2017-04-28] MEDS: PREGABALIN 150 MG CAPSULE PO SCH (20:22)
[2017-04-28] MEDS: DOXAZOSIN 2 MG TABLET PO SCH (20:22)
[2017-04-28] MEDS: ACETAMINOPHEN 325 MG TABLET PO PRN (22:41)
[2017-04-29 00:10] VITALS: RESP 16
[2017-04-29] MEDS: HYDROCODONE/APAP 10 MG/325 MG TABLET PO PRN ×2 (00:11→10:24)
[2017-04-29] MEDS: D5-1/2NS with KCL 20mEq 1,000 ML IV SCH ×2 (01:33→01:34)
[2017-04-29] MEDS: ACETAMINOPHEN 325 MG TABLET PO PRN (04:47)
[2017-04-29] MEDS: NS FLUSH BAG 500ml IV PRN (04:47)
[2017-04-29 07:32] VITALS: BP 158/83; PULSE 64; TEMP 96; O2SAT 98
[2017-04-29] MEDS: CEFEPIME 1 GM in NS 100 ML IV SCH (07:33)
--- NOTE | 2017-04-29 08:03 | Progress Note ---
DATE 04/28/2017 CONSTANCE Gillespie was lying in bed in Room 140 on the medical floor this evening when I saw him. He felt like he was doing better. He developed chills again this afternoon. He was seen by Dr. Bree Fuentes, the ID physician, earlier today as well. PHYSICAL EXAMINATION VITAL SIGNS: BP 171/81. Pulse 63. Respiration 18. Temperature 97.0. O2 sat 100% on room air. GENERAL: He looks comfortable overall. NECK: Supple. LUNGS: Clear. CARDIOVASCULAR: Regular rate and rhythm. No murmur. ABDOMEN: Soft. Nontender. Positive bowel sounds. EXTREMITIES: No cyanosis, clubbing or edema. NEURO EXAM: Grossly intact. LAB Blood culture x 2 is negative over [address] Fuentes ordered for some labs. ASSESSMENT 1. Recurrent subjective fever and chills. A repeat blood culture has been negative for 24 hours. 2. Bacteremia from just one blood culture site, most likely a contaminant as we stated before. 3. Adenocarcinoma of the lung, status post left upper lobectomy. The patient is status post chemotherapy. His chemotherapy is held because of acute illness at this time. 4. Nausea and vomiting, resolved. 5 Chronic back pain, manageable with medication. 6. Anxiety disorder. 7. Depression. PLAN Dr. Bree Fuentes was consulted. She ordered a CT chest, abdomen and pelvis which were already done today and they were considered negative. CT maxillofacial to look for a dental source of his fever and chills was negative. She did order for a West Nile virus antibody as well as fungal serology. Her recommendation was to continue vancomycin and cefepime. I told the patient that we will go ahead and keep him in the hospital until tomorrow to at least make sure that the repeat blood culture is negative at 48 hours. At that would time we would stop the antibiotics. The patient then will be sent home on current home medication as well as Tylenol on schedule 500 mg b.i.d. for a week or two weeks and see if we can get rid of the chills. His chills have not been infectious in etiology but could be part of his malignancy. His fever and chills have always been subjective. He has not had any fever during most of the hospitalization that has been documented anyway. I discussed case with Dr. Bree Fuentes and we were both in agreement as to plan. MOH[facility] VALLEY HEALTH SYSTEMRachell
[2017-04-29] MEDS: BuPROPion XL 150mg (24HR) TABLET PO SCH (08:11)
[2017-04-29] MEDS: CITALOPRAM 20 MG TABLET PO SCH (08:11)
[2017-04-29] MEDS: FOLIC ACID 1 MG TABLET PO SCH (08:12)
[2017-04-29] MEDS: MELOXICAM 15 MG TABLET PO SCH (08:12)
[2017-04-29] MEDS: DOCUSATE SODIUM 100 MG CAPSULE PO SCH (08:12)
[2017-04-29] MEDS: CYCLOBENZAPRINE 10 MG TABLET PO SCH (08:12)
[2017-04-29] MEDS: PREGABALIN 75 MG CAPSULE PO PRN (08:24)
--- NOTE | 2017-04-29 08:45 | Progress Note ---
Oncology Subjective Ambulating in halls. Denies fever, chills. Feeling improved. Has not had nausea/ vomiting for several days. Normal voiding and stooling. General: No fever, no night sweats Eyes: No redness, no pain, no diplopia ENT: No mouth sores, no trouble swallowing Cardiac: No chest pain no palpitations Pulmonary: No cough, no shortness of breath, no wheezing Abdomen: No pain, no nausea vomiting, no diarrhea or constipation : No urgency, frequency, dysuria, or hematuria Musculoskeletal: Chronic back pain Neurological: No headaches, no focal weakness Skin: No rash, no sores Psychiatric: Chronic anxiety/depression <Sherine Woods L - 04/29/17 13:17> Exam Vital signs: Temperature 96.0 F L 04/29/17 07:31 Pulse Rate 64 04/29/17 07:31 Respiratory Rate 16 04/29/17 07:31 Blood Pressure 158/83 H 04/29/17 07:31 Pulse Oximetry 98 04/29/17 07:31 <Walt Cabrera D - 04/29/17 16:14> Temperature 96.0 F L 04/29/17 07:31 Pulse Rate 64 04/29/17 07:31 Respiratory Rate 16 04/29/17 07:31 Blood Pressure 158/83 H 04/29/17 07:31 Pulse Oximetry 98 04/29/17 07:31 <Sherine Woods L - 04/29/17 13:17> - Constitutional no acute distress, well nourished <Sherine Woods L 04/29/17 13:17> - Routine HEENT Exam Head: Present: normocephalic <Sherine Woods 04/29/17 13:17> Eye: Present: EOMI <Sherine Woods 04/29/17 13:17> Nose: moist mucous membranes <Sherine Woods 04/29/17 13:17> - Routine Neck Exam Present: supple. Absent: tenderness <Shernie Wodos 04/29/17 13:17> - Routine Respiratory Exam Present: decreased breath sounds (bilateral bases). Absent: wheezes, crackles <Sherine Woods 04/29/17 13:17> - Routine Cardiovascular Exam Present: RRR. Absent: no murmur <Sherine Woods L - 04/29/17 13:17> - Routine Abdominal Exam Present: soft, normoactive bowel sounds. Absent: organomegaly <Sherine Woods - 04/29/17 13:17> - Routine Extremities Exam Present: no edema, full ROM <Sherine Woods - 04/29/17 13:17> - Routine Back/Spine/Pelvis Exam Back/Spine: Present: vertebral tenderness <Sherine Woods - 04/29/17 13:17> - Routine Skin Exam Present: intact, warm <Sherine Woods - 04/29/17 13:17> - Routine Neurological Exam Present: alert, oriented X3, moving all extremities <Sherine Woods - 13:17> - Routine Psychiatric Exam Present: normal affect, normal thought process <Sherine Woods - 04/29/17 13: 17> Oncology Results - Labs CBC & Chem 7: 04/29/17 04:14 04/29/17 04:14 <Walt Cabrera D - 04/29/17 16:14> Labs: Short CBC 04/29/17 Range/Units 04:14 WBC 4.9 (4.5-11.0) T/MM3 Hgb 9.7 L D (13.5-17.5) GM/DL Hct 29.8 L D (41-53) % Plt Count 344 (130-400) T/MM3 [facility] 04/29/17 04:14 Sodium 139 Potassium 4.4 Chloride 106 D Carbon Dioxide 28 BUN 15.0 Creatinine 1.0 Glucose 77 Calcium 9.0 D <Walt Cabrera D - 04/29/17 16:14> Short CBC 04/29/17 Range/Units 04:14 WBC 4.9 (4.5-11.0) T/MM3 Hgb 9.7 L D (13.5-17.5) GM/DL Hct 29.8 L D (41-53) % Plt Count 344 (130-400) T/MM3 [facility] 04/29/17 04:14 Sodium 139 Potassium 4.4 Chloride 106 D Carbon Dioxide 28 BUN 15.0 Creatinine 1.0 Glucose 77 Calcium 9.0 D Urine 04/28/17 Range/Units 11:33 Urine Color Yellow (YELLOW) Urine Clarity Clear Urine pH 6.0 (5.0-8.0) Ur Specific [place] <=1.005 L (1.015-1.025) Urine Protein Negative (NEGATIVE) Urine Glucose (UA) Negative (NEGATIVE) <Sherine Woods - 04/29/17 08:44> Assessment and Plan Assessment and Plan: Case discussed with Dr. Mendoza, CT images reviewed from 04/[address], PET scan, March 10 CT WBC not elevated. No source of infection identified. He has been on vancomycin with essentially no results and blood culture appears to be a contaminant. He is developed progressive anemia. CT scan does show retained gastric contents and he is at risk of probably having some aspiration process. He really doesn't relate to episodes of cough or symptoms of aspiration. Agree with plan of Ivana Woods. I participated in the development of the plan of care of this patient. Will see patient on Wednesday but will probably hold cycle 2 of chemotherapy one week. <Walt Cabrera - 04/29/17 16:14> 1. Stage IB non-small cell lung cancer, status post wedge resection, completed cycle 1 adjuvant chemotherapy of Alimta and cisplatin on 04/12/17, and tolerated well. 2. Recurrent chills/nausea/vomiting. Symptoms have resolved. Blood cultures from Port-A-Cath and peripheral site drawn on day of admit, 04/26/17 negative after 24 hours. Seen by infectious disease 04/28/17. West Nile checked, results pending. Urinalysis negative for infection. No dental caries noted on maxillofacial CT. 3. Anemia 4. Left parotid low-grade epithelial neoplasm. 5. COPD 6. History tobacco addiction. Patient insists is not smoking, " been tough though-been stressed being in hospital." Plan 1. Continue supportive care/antibiotics per infectious disease. 2. Continue to follow counts- will do anemia work-up, labs ordered for tomorrow AM. <Sherine Woods - 04/29/17 14:24> - Time Spent With Patient Total time spent is greater than 50% in coordination of care (as documented) at patient's floor/unit and/or counseling patient: <Walt Cabrera - 04/29/17 16:14> Total time spent is greater than 50% in coordination of care (as documented) at patient's floor/unit and/or counseling patient: <Sherine Woods - 04/29/17 08:44> 25 - 35 minutes <Walt Cabrera - 04/29/17 16:14> less than 15 minutes <Sherine Woods - 04/29/17 13:17>
[2017-04-29] MEDS ORDERED: ACETAMINOPHEN 500 MG TABLET PO SCH (09:00)
[2017-04-29] MEDS ORDERED: Bisacodyl EC TAB 5 MG TABLET PO SCH (09:00)
[2017-04-29] MEDS ORDERED: PREGABALIN 75 MG CAPSULE PO SCH (12:00)
--- NOTE | 2017-04-29 16:00 | Discharge Instructions ---
Discharge Plan - Med Rec/Dispo Referrals/Follow Up: Cristofer Nugent MD [Family Provider] - 1 Week Fabrizio Instructions: Fever in Adults (GEN), Acute Nausea and Vomiting (GEN) Additional Instructions: TO GET IV FLUIDS CALL DR NUGENT'S OFFICE. IF IT IS AFTER HOURS OR THE WEEKEND , CALL [facility] AT [phone] AND THEY WILL GET YOU IN TOUCH WITH DR. NUGENT OR THE ON-CALL DOCTOR TO ADVISE YOU IF YOU SHOULD COME TO ER OR INFUSION CENTER. Prescriptions: New Lyrica (pregabalin) 75 mg capsule 75 mg PO .COMPLEX PRN #150 cap PRN Reason: nerve pain Continue Albuterol HFA Inhaler [Ventolin Hfa 90 mcg/actuation] 2 puff IN BID PRN PRN Reason: Prn Orders Meloxicam 15 mg PO DAILY Docusate Sodium [Colace] 200 mg PO DAILY Citalopram [Celexa] 20 mg PO DAILY #30 tablet OLANZapine [Zyprexa] 2.5 mg PO DAILY PRN PRN Reason: Prn Orders Metoprolol Tartrate [Lopressor] 50 mg PO BID LORazepam [Lorazepam] 1 mg PO TID PRN PRN Reason: Anxiety Folic Acid [Folate] 1 mg PO DAILY Doxazosin [Cardura] 2 mg PO HS #30 tab Dexamethasone [Decadron] 8 mg PO DAILY PRN PRN Reason: Prn Orders Ondansetron Odt [Zofran Po] 4 mg PO Q6H PRN PRN Reason: Nausea Potassium Chloride [K-Dur] 1 tab PO DAILY #15 tab cyclobenzaprine 10 mg tablet 10 mg PO DAILY #30 tab Wellbutrin XL (bupropion HCl XL) 150 mg 24 hr tablet 150 mg PO QAM #30 tab fentanyl 50 mcg/hr transdermal patch 50 mcg TD Q72H #10 patch [place] 10 mg-acetaminophen 325 mg tablet 1 tab PO TID PRN #90 tab PRN Reason: Pain Discontinued Vancomycin/0.9 % Sod Chloride [Vancomycin-0.9% NaCl 2 G/500] 2 gm IV DAILY # 3 plast..bag Discharge Instructions/Outpatient Orders: Final Provider Discharge Instructions Location: Determined By Patient - Disposition 01 Discharged Home, Self-Care
--- NOTE | 2017-04-29 16:05 | Discharge Instructions ---
Discharge Plan - Med Rec/Dispo Referrals/Follow Up: Cristofer Nugent MD [Family Provider] - 1 Week [place]rizio Instructions: Fever in Adults (GEN), Acute Nausea and Vomiting (GEN) Additional Instructions: TO GET IV FLUIDS CALL DR NUGENT'S OFFICE. IF IT IS AFTER HOURS OR THE WEEKEND , CALL [facility] AT [phone] AND THEY WILL GET YOU IN TOUCH WITH DR. NUGENT OR THE ON-CALL DOCTOR TO ADVISE YOU IF YOU SHOULD COME TO ER OR INFUSION CENTER. Prescriptions: New Lyrica (pregabalin) 75 mg capsule 75 mg PO .COMPLEX PRN #150 cap PRN Reason: nerve pain Continue Albuterol HFA Inhaler [Ventolin Hfa 90 mcg/actuation] 2 puff IN BID PRN PRN Reason: Prn Orders Meloxicam 15 mg PO DAILY Docusate Sodium [Colace] 200 mg PO DAILY Citalopram [Celexa] 20 mg PO DAILY #30 tablet OLANZapine [Zyprexa] 2.5 mg PO DAILY PRN PRN Reason: Prn Orders Metoprolol Tartrate [Lopressor] 50 mg PO BID LORazepam [Lorazepam] 1 mg PO TID PRN PRN Reason: Anxiety Folic Acid [Folate] 1 mg PO DAILY Doxazosin [Cardura] 2 mg PO HS #30 tab Dexamethasone [Decadron] 8 mg PO DAILY PRN PRN Reason: Prn Orders Ondansetron Odt [Zofran Po] 4 mg PO Q6H PRN PRN Reason: Nausea Potassium Chloride [K-Dur] 1 tab PO DAILY #15 tab cyclobenzaprine 10 mg tablet 10 mg PO DAILY #30 tab Wellbutrin XL (bupropion HCl XL) 150 mg 24 hr tablet 150 mg PO QAM #30 tab fentanyl 50 mcg/hr transdermal patch 50 mcg TD Q72H #10 patch [place] 10 mg-acetaminophen 325 mg tablet 1 tab PO TID PRN #90 tab PRN Reason: Pain Discontinued Vancomycin/0.9 % Sod Chloride [Vancomycin-0.9% NaCl 2 G/500] 2 gm IV DAILY # 3 plast..bag Discharge Instructions/Outpatient Orders: Final Provider Discharge Instructions Location: Determined By Patient - Disposition 01 Discharged Home, Self-Care
== END 2017-04-29 16:30 | disposition home or self-care (01) ==
LOC: MED
PROVIDERS: ADMIT Family Medicine; ATTEND Family Medicine

== ENCOUNTER 2017-05-16 16:09 | Inpatient (IN) ==
[2017-05-16] MEDS ORDERED: ALBUTEROL/IPRATROPIUM 2.5mg-0.5mg/3ml NEB AEROSOL ONE (16:24)
[2017-05-16] MEDS ORDERED: NS 1,000 ML IV ONE (16:24)
[2017-05-16] MEDS ORDERED: ONDANSETRON 4 MG/2 ML INJECTION IVP ONE (16:25)
[2017-05-16] MEDS: SALINE FLUSH 10ml SYRINGE IVF PRN (16:56)
--- NOTE | 2017-05-16 17:02 | Emergency Department Report ---
General Adult HPI - General Chief complaint: Shortness of Breath/Dyspnea Stated complaint: soa Time Seen by Provider: 05/16/17 16:16 Source: patient, EMS Mode of arrival: EMS - History of Present Illness HPI narrative: 56 YO WM who presents to ER for shortness of breath. Patient has a history of COPD and lung cancer. He had left lower lobectomy in January 2017. He also started chemo, but only received one treatment. Patient has not continued with chemo because he "got really sick." Today he complains of difficulty breathing, which is a little worse than usual, this has been going on for about three days. Patient also states that he has been vomiting and having diarrhea for the last three days. He has not taken Zofran because "I can't keep it down." He has chills but no known fever. - Related Data Home Medications Medication Instructions Recorded Confirmed Albuterol HFA Inhaler [Ventolin 2 puff IN BID PRN 01/04/17 05/16/17 Hfa 90 mcg/actuation] Meloxicam 15 mg PO DAILY 01/04/17 05/16/17 Docusate Sodium [Colace] 200 mg PO DAILY 03/20/17 05/16/17 Folic Acid [Folate] 1 mg PO DAILY 04/16/17 05/16/17 Metoprolol Tartrate [Lopressor] 50 mg PO BID 04/16/17 05/16/17 Ondansetron Odt [Zofran Po] 4 mg PO Q6H PRN 04/16/17 05/16/17 Amlodipine [Norvasc] 5 mg PO BID 05/16/17 05/16/17 Lisinopril [Prinivil] 10 mg PO DAILY 05/16/17 05/16/17 Pregabalin Cap [Lyrica] 75 mg PO AM 05/16/17 05/16/17 Pregabalin Cap [Lyrica] 150 mg PO HS 05/16/17 05/16/17 Tamsulosin [Flomax] 0.4 mg PO HS 05/16/17 05/16/17 Previous Rx's Medication Instructions Recorded Doxazosin [Cardura] 2 mg PO HS #30 tab 03/28/17 [place] 10 mg-acetaminophen 325 mg 1 tab PO TID PRN #90 tab 04/26/17 tablet Wellbutrin XL (bupropion HCl XL) 150 mg PO QAM #30 tab 04/26/17 150 mg 24 hr tablet cyclobenzaprine 10 mg tablet 10 mg PO DAILY #30 tab 04/26/17 fentanyl 50 mcg/hr transdermal 50 mcg TD Q72H #10 patch 04/26/17 patch Ativan (lorazepam) 1 mg tablet 1 mg PO TID PRN #30 tab 05/06/17 Celexa (citalopram) 20 mg tablet 20 mg PO DAILY #30 tab 05/06/17 bisacodyl 5 mg tablet 10 mg PO DAILY #60 tab 05/12/17 Allergies Allergy/AdvReac Type Severity Reaction Status Date / Time Sulfa (Sulfonamide Allergy Unknown Verified 05/16/17 16:12 Antibiotics) [facility] Patient Stated Medical History Peripheral Neuropathy Yes: takes Lyrica Dental Problems Yes Hypertension Yes Chronic Obstructive Pulmonary Yes Disease (COPD) Pneumonia Yes Sleep Apnea "I might" Other Respiratory Yes: Emphysema Diabetes Mellitus Type 2 Yes: borderline Other Endocrine Yes: BORDERLINE Hx Renal Disease No Hx Urinary Tract Infection Yes: recent Anemia Yes Osteoarthritis Yes: back Sepsis Yes: questionable Depression Yes Clinic Medical History (Last Reviewed 01/05/17 @ 13:02 by LICO Thomas) Chronic low back pain (Acute Medical) Borderline diabetes (Chronic Medical) Hypertension (Chronic Medical) Medical History Updates: Chronic obstructive pulmonary disease. Arthritis. Herniated disc in back Surgical History: Lung Biopsy, Chest Tube Insertion,. Left upper lobectomy 02/16. 04/02/17 Port-A-Cath insertion Family History: Family History (Last Reviewed 01/05/17 @ 13:02 by LICO Thomas) Father Diabetes Hypertension Paternal Grandfather Hypertension Diabetes - Social History Smoking status: Former smoker Course Vital Signs Temperature 97.5 F 05/16/17 16:13 Pulse Rate 98 05/16/17 16:13 Respiratory Rate 28 H 05/16/17 16:13 Blood Pressure 148/94 H 05/16/17 16:13 Pulse Oximetry 100 05/16/17 16:13 Temperature 98.4 F 05/16/17 18:17 Pulse Rate 87 05/16/17 18:17 Respiratory Rate 18 05/16/17 18:17 Blood Pressure 174/82 H 05/16/17 18:17 Pulse Oximetry 100 05/16/17 18:17 Medical Decision Making - Lab Data Result diagrams: 05/16/17 16:46 05/16/17 16:46 Lab Results 05/16/17 05/16/17 05/16/17 Range/Units 16:46 16:46 16:46 WBC 20.3 H (4.5-11.0) T/MM3 RBC 4.47 L (4.50-5.90) M/MM3 Hgb 13.7 (13.5-17.5) GM/DL Hct 39.9 L (41-53) % MCV 89.3 (80-100) UM3 MCH 30.6 (26-34) UUG MCHC 34.3 (31-37) GM/DL RDW Std Deviation 53.8 H (36.9-50.2) FL Plt Count 365 (130-400) T/MM3 MPV 9.2 L (9.4-12.4) UM3 Immature Gran % (Auto) Not performed Neut % (Auto) Not performed Lymph % (Auto) Not performed Mathews % (Auto) Not performed Eos % (Auto) Not performed Baso % (Auto) Not performed Neut # (Auto) Not performed Lymph # (Auto) Not performed Mathews # (Auto) Not performed Eos # (Auto) Not performed Baso # (Auto) Not performed Abs Immat Gran (auto) Not performed Neutrophils % (Manual) 76.0 H (33-66) % Lymphocytes % (Manual) 15.0 L (23-45) % Reactive Lymphs % 1.0 H (0-0) % Monocytes % (Manual) 7.0 (0-9.0) % Basophils % (Manual) 1.0 (0-2) % Neutrophils # (Manual) 15.4 H (1.8-7.7) T/MM3 Lymphocytes # (Manual) 3.0 (1-4.8) T/MM3 Abs React Lymphs (Man) 0.2 H (0-0) T/MM3 Monocytes # (Manual) 1.4 H (0-0.8) T/MM3 Basophils # (Manual) 0.2 (0-0.2) T/MM3 Poikilocytosis 1+ Anisocytosis 1+ RBC Morph Comment Abnormal Turbidity < 20 (0-20) Sodium 137 (134-144) MEQ/L Potassium 3.3 L (3.6-5) MEQ/L Chloride 97 L (98-107) MEQ/L Carbon Dioxide 24 (22-30) MEQ/L Anion Gap 16 H (5-15) MEQ/L BUN 25.0 H (9-20) MG/DL Creatinine 1.1 (0.8-1.5) MG/DL GFR Calculation 69 BUN/Creatinine Ratio 23 (6-26) RATIO Glucose 99 (75-110) MG/DL Calculated Osmolality 268 (261-280) MOSM/KG Calcium 10.7 H (8.4-10.2) MG/DL Total Bilirubin 0.70 (0.20-1.30) MG/DL Conjugated Bilirubin 0.00 (0.00-0.30) MG/DL Unconjugated Bilirubin 0.40 (0.00-1.1) MG/DL Icterus Index < 2 (0-7) AST 18 (17-59) U/L ALT 27 (21-72) U/L Alkaline Phosphatase 94 (38-126) U/L Total Protein 7.9 (6.3-8.2) G/DL Albumin 4.5 (3.5-5.0) G/DL Globulin 3.4 (2.4-3.6) G/DL Albumin/Globulin Ratio 1.3 (1.1-2.2) RATIO Lipase 93 (23-300) U/L Plasma Lactate 2.0 (0.6-2.2) MMOL/L Procalcitonin 0.10 NG/ML Specimen Hemolysis < 15 (0-25) Ur Collection Type Urine Color (YELLOW) Urine Clarity Urine pH (5.0-8.0) Ur Specific [place] (1.015-1.025) Urine Protein (NEGATIVE) Urine Glucose (UA) (NEGATIVE) Urine Ketones (NEGATIVE) Urine Occult Blood (NEGATIVE) Urine Nitrate (NEGATIVE) Urine Bilirubin (NEGATIVE) Urine Urobilinogen (NORMAL) EU/DL Ur Leukocyte Esterase (NEGATIVE) Urine RBC (0-3) /HPF Urine WBC (0-5) /HPF Ur Squamous Epith Cells Urine Bacteria (NEGATIVE) Hyaline Casts /LPF Granular Casts Ur Culture Indicated? 05/16/17 Range/Units 18:02 WBC (4.5-11.0) T/MM3 RBC (4.50-5.90) M/MM3 Hgb (13.5-17.5) GM/DL Hct (41-53) % MCV (80-100) UM3 MCH (26-34) UUG MCHC (31-37) GM/DL RDW Std Deviation (36.9-50.2) FL Plt Count (130-400) T/MM3 MPV (9.4-12.4) UM3 Immature Gran % (Auto) Neut % (Auto) Lymph % (Auto) Mathews % (Auto) Eos % (Auto) Baso % (Auto) Neut # (Auto) Lymph # (Auto) Mathews # (Auto) Eos # (Auto) Baso # (Auto) Abs Immat Gran (auto) Neutrophils % (Manual) (33-66) % Lymphocytes % (Manual) (23-45) % Reactive Lymphs % (0-0) % Monocytes % (Manual) (0-9.0) % Basophils % (Manual) (0-2) % Neutrophils # (Manual) (1.8-7.7) T/MM3 Lymphocytes # (Manual) (1-4.8) T/MM3 Abs React Lymphs (Man) (0-0) T/MM3 Monocytes # (Manual) (0-0.8) T/MM3 Basophils # (Manual) (0-0.2) T/MM3 Poikilocytosis Anisocytosis RBC Morph Comment Turbidity (0-20) Sodium (134-144) MEQ/L Potassium (3.6-5) MEQ/L Chloride (98-107) MEQ/L Carbon Dioxide (22-30) MEQ/L Anion Gap (5-15) MEQ/L BUN (9-20) MG/DL Creatinine (0.8-1.5) MG/DL GFR Calculation BUN/Creatinine Ratio (6-26) RATIO Glucose (75-110) MG/DL Calculated Osmolality (261-280) MOSM/KG Calcium (8.4-10.2) MG/DL Total Bilirubin (0.20-1.30) MG/DL Conjugated Bilirubin (0.00-0.30) MG/DL Unconjugated Bilirubin (0.00-1.1) MG/DL Icterus Index (0-7) AST (17-59) U/L ALT (21-72) U/L Alkaline Phosphatase (38-126) U/L Total Protein (6.3-8.2) G/DL Albumin (3.5-5.0) G/DL Globulin (2.4-3.6) G/DL Albumin/Globulin Ratio (1.1-2.2) RATIO Lipase (23-300) U/L Plasma Lactate (0.6-2.2) MMOL/L Procalcitonin NG/ML Specimen Hemolysis (0-25) Ur Collection Type Urine, clean catch Urine Color Yellow (YELLOW) Urine Clarity Clear Urine pH 6.5 (5.0-8.0) Ur Specific [place] 1.020 (1.015-1.025) Urine Protein 2+ A (NEGATIVE) Urine Glucose (UA) Negative (NEGATIVE) Urine Ketones 1+ A (NEGATIVE) Urine Occult Blood 1+ A (NEGATIVE) Urine Nitrate Negative (NEGATIVE) Urine Bilirubin Negative (NEGATIVE) Urine Urobilinogen 0.2 (NORMAL) EU/DL Ur Leukocyte Esterase Negative (NEGATIVE) Urine RBC 1-3 (0-3) /HPF Urine WBC 0-1 (0-5) /HPF Ur Squamous Epith Cells 0-5 Urine Bacteria Trace H (NEGATIVE) Hyaline Casts 0-1 /LPF Granular Casts 0-1 Ur Culture Indicated? Cult not indicated Disposition Clinical Impression: Dehydration Lung cancer Qualifiers: Laterality: left Lung location: unspecified part of lung Qualified Code(s): C34.92 - Malignant neoplasm of unspecified part of left bronchus or lung Disposition: To [facility] [place] [facility] [place] Condition: Stable Prescriptions: No Action Albuterol HFA Inhaler [Ventolin Hfa 90 mcg/actuation] 2 puff IN BID PRN PRN Reason: Prn Orders Meloxicam 15 mg PO DAILY Docusate Sodium [Colace] 200 mg PO DAILY Metoprolol Tartrate [Lopressor] 50 mg PO BID Folic Acid [Folate] 1 mg PO DAILY Tamsulosin [Flomax] 0.4 mg PO HS Lisinopril [Prinivil] 10 mg PO DAILY Pregabalin Cap [Lyrica] 150 mg PO HS Pregabalin Cap [Lyrica] 75 mg PO AM Doxazosin [Cardura] 2 mg PO HS #30 tab Ondansetron Odt [Zofran Po] 4 mg PO Q6H PRN PRN Reason: Nausea Amlodipine [Norvasc] 5 mg PO BID cyclobenzaprine 10 mg tablet 10 mg PO DAILY #30 tab Wellbutrin XL (bupropion HCl XL) 150 mg 24 hr tablet 150 mg PO QAM #30 tab fentanyl 50 mcg/hr transdermal patch 50 mcg TD Q72H #10 patch [place] 10 mg-acetaminophen 325 mg tablet 1 tab PO TID PRN #90 tab PRN Reason: Pain bisacodyl 5 mg tablet 10 mg PO DAILY #60 tab Ativan (lorazepam) 1 mg tablet 1 mg PO TID PRN #30 tab PRN Reason: Anxiety Celexa (citalopram) 20 mg tablet 20 mg PO DAILY #30 tab Referrals: Cristofer Mendoza MD [Family Provider] - Time of Disposition: 18:10 - Seen By: physician
[2017-05-16] MEDS ORDERED: CEFTRIAXONE (ER USE ONLY) 1 GM in NS 100 ML IV ONE (17:03)
[2017-05-16 19:11] VITALS: BMI 19.4
[2017-05-16] MEDS: NS with KCL 20 mEq 1,000 ML IV SCH (20:35)
[2017-05-16] MEDS ORDERED: HYDROMORPHONE 2 MG/ML INJECTION IVP PRN (20:41)
[2017-05-16] MEDS ORDERED: METOCLOPRAMIDE 10mg/2ml INJECTION IVP PRN (20:41)
[2017-05-16] MEDS ORDERED: ONDANSETRON 4 MG/2 ML INJECTION IVP PRN (20:41)
[2017-05-16] MEDS ORDERED: VANCOMYCIN - PHARMACY CONSULT MC ONE (21:00)
--- NOTE | 2017-05-16 21:04 | History & Physical Report ---
History of Present Illness Date: 05/16/17 Chief complaint: nausea and vomiting HPI: Mr. Dunlap is 56-year-old male well known to the hospitalist service from prior hospitalizations. He underwent left upper lobectomy in January 2017 for adenocarcinoma. He was later started on adjuvant therapy with cisplatin and permetrexed which was poorly tolerated and subsequently discontinued by the patient. He presents today with reports of 3 days persistent nausea and vomiting and inability to maintain oral intake or take use Zofran to control nausea because he would vomit every time he tried to take oral medication. He had one episode of diarrhea this afternoon. Urine has been dark but there is been no dysuria. He's been lightheaded but has not had falls. He's had no fever and has felt cold continually. He describes generalized weakness with palpitations. Patient has a chronic cough but has had increased sputum production with brown blackish secretions which are unusual for him. He denied sinus symptoms or postnasal drainage but has developed a sore throat with repetitive vomiting. Evaluation in the ER suggested dehydration and white count was elevated raising question of sepsis. It is noted that during prior hospitalization he had a positive culture for staph epi drawn from his Port-A- Cath with subsequent negative PAC culture. He is admitted for symptomatic management at this time. Review of Systems All systems PM: 10-point ROS was reviewed, no additional remarkable complaints except (25 pound weight loss over the past couple of months, poor appetite, red spots noted on his arms earlier today without itching. Remainder of review of systems negative or as per history of present illness.) [facility] Patient Stated Medical History Clinic Medical History (Last Reviewed 01/05/17 @ 13:02 by LICO Thomas) Chronic low back pain (Acute Medical) Borderline diabetes (Chronic Medical) Hypertension (Chronic Medical) Medical History Updates: Chronic obstructive pulmonary disease. Arthritis. Herniated disc in back. Adenocarcinoma of the lung. Depression Surgical History: Lung Biopsy, Chest Tube Insertion,. Left upper lobectomy 02/16. 04/02/17 Port-A-Cath insertion. Right eyelid surgery Family History: Family History (Last Reviewed 01/05/17 @ 13:02 by LICO Thomas) Father Diabetes Hypertension Paternal Grandfather Hypertension Diabetes - Social History Smoking status: Former smoker (discontinue tobacco January 2017) Substance use type: does not use Alcohol intake frequency: does not drink Social history: PCP-Dr. Mendoza DPOA-daughter Esthela CODE STATUS-full Medications Home Medications Medication Instructions Recorded Confirmed Type Albuterol HFA Inhaler [Ventolin 2 puff IN BID PRN 01/04/17 05/16/17 History Hfa 90 mcg/actuation] Meloxicam 15 mg PO DAILY 01/04/17 05/16/17 History Docusate Sodium [Colace] 200 mg PO DAILY 03/20/17 05/16/17 History Folic Acid [Folate] 1 mg PO DAILY 04/16/17 05/16/17 History Metoprolol Tartrate [Lopressor] 50 mg PO BID 04/16/17 05/16/17 History Ondansetron Odt [Zofran Po] 4 mg PO Q6H PRN 04/16/17 05/16/17 History Amlodipine [Norvasc] 5 mg PO BID 05/16/17 05/16/17 History Lisinopril [Prinivil] 10 mg PO DAILY 05/16/17 05/16/17 History Pregabalin Cap [Lyrica] 75 mg PO AM 05/16/17 05/16/17 History Pregabalin Cap [Lyrica] 150 mg PO HS 05/16/17 05/16/17 History Tamsulosin [Flomax] 0.4 mg PO HS 05/16/17 05/16/17 History Allergies Allergy/AdvReac Type Severity Reaction Status Date / Time Sulfa (Sulfonamide Allergy Unknown Verified 05/16/17 16:12 Antibiotics) Exam Vital Signs: Temperature 96.1 F L 05/16/17 19:03 Pulse Rate 88 05/16/17 19:03 Respiratory Rate 18 05/16/17 19:03 Blood Pressure 177/99 H 05/16/17 19:03 Pulse Oximetry 88 L 05/16/17 19:03 EXAM: General-cachectic male, fatigued, alert HEENT-PERRL, EOMI without nystagmus, conjugate gaze, conjunctiva clear, sclera anicteric, facial structures symmetric, tongue with white plaque, neck supple and without adenopathy Lungs-respirations nonlabored, decreased breath sounds throughout, no wheezing, rhonchi at the bases bilaterally Cardiac-regular rhythm, S1-S2 Abd-soft, nontender, without palpable mass, diminished bowel sounds Ext-without edema Skin-multiple 2-4 mm erythematous macules on the forearms and upper arms, nonpalpable, lesions not seen on the legs or back-did not appear to be petechiae Neuro-cranial nerves 3-12 grossly intact, sensation intact 4 extremities to light touch, MAEW, no tremor present Psych-flat Height/Weight/BMI: Height 1.8 m Weight 63.2 kg Body Mass Index 19.4 Results - Labs CBC & Chem 7: 05/16/17 16:46 05/16/17 16:46 Labs: Differential: S76, L15, M7, Baso-1 Calcium 10.7, liver enzymes normal, lipase 93 Initial lactic acid 2.0, procalcitonin 0.1 UA unremarkable - Imaging and Cardiology Chest x-ray Status: image reviewed by me (chronic changes evident at the left base/on the lateral-unchanged from prior films by my review, PAC) Assessment and Plan (1) Nausea & vomiting Current visit: Yes Status: Acute (2) Dehydration Current visit: Yes Status: Acute (3) Adenocarcinoma, lung Current visit: No Status: Chronic DVT Prophylaxis: SCD's Resuscitation Status: Full Code Assessment and Plan: Impression: Nausea/vomiting, refractory Dehydration Hypokalemia SIRS [place] of the lung, resected 02/15 Plan: 1 L normal saline given in the emergency room, continue fluids with supplemental potassium. Anticipate there will be need for additional potassium boluses and second IV access will be placed if possible. Hemoglobin is 13.7 on admission from 11.7 earlier this month consistent with significant hemoconcentration. Patient has multiple criteria for sepsis although unclear that there is an infectious etiology. Chest x-ray is unchanged from the past and urine is negative. He had a positive blood culture for staph epi on 04/21/17 drawn from the Port-A-Cath; simultaneous peripheral culture at that time was negative. Repeat culture from the PAC on 04/26 was negative; these blood cultures followed a wound infection with coag-negative staph although the sensitivity pattern of the wound infection staph differed from that in the blood. Patient was seen by Dr. Fuentes during hospitalization when the negative blood culture was obtained. Imaging done 04/[address] chest, abdomen, pelvis looking for infectious source in addition to maxillofacial CT. No pulmonary or intra-abdominal source of infection nor dental abscess was found with imaging and antibiotics were discontinued. At this time I have no clear indication of new infectious process but will cover for possible staph bacteremia with vancomycin pending culture results. He received 1 g of Rocephin in the emergency room for pneumonia based on chest x-ray however the changes are all chronic by review of multiple films. The patient's had multiple admissions for nausea and vomiting thought to be due to his malignancy. KUB will be obtained but I think it's unlikely we're dealing with an ileus or obstructive pathology. I'll talk Dr. Cabrera tomorrow to determine if there is any need for further oncology input as patient is not currently receiving chemotherapy. Monitor electrolytes/Cr/Hbg. Sepsis Assessment - Evaluation SIRS Criteria: temperature < or equal to 96.8, pulse > or equal to 90 beats/ minute, WBC > or equal to 12,000, RR > or equal to 20 Severe Sepsis: lactate > or equal to 2.0 mg/dl Hospital Course Summary Disclaimer: The visit summary below is not to be considered part of the above Progress Note.
[2017-05-16] MEDS: HYDROCODONE/APAP 10 MG/325 MG TABLET PO PRN (21:56)
[2017-05-16] MEDS: PREGABALIN 75 MG CAPSULE PO SCH (21:56)
[2017-05-16] MEDS: NYSTATIN 500,000 units/5 ml ORAL LIQUID PO SCH (21:56)
[2017-05-16] MEDS: AMLODIPINE 5 MG TABLET PO SCH (21:57)
[2017-05-17] MEDS: NS with KCL 20 mEq 1,000 ML IV SCH ×5 (02:44→22:51)
[2017-05-17] MEDS: AMLODIPINE 5 MG TABLET PO SCH ×2 (09:52→21:12)
[2017-05-17] MEDS: NYSTATIN 500,000 units/5 ml ORAL LIQUID PO SCH ×4 (09:52→21:11)
[2017-05-17] MEDS: BuPROPion XL 150mg (24HR) TABLET PO SCH (09:52)
[2017-05-17] MEDS: PREGABALIN 75 MG CAPSULE PO SCH ×2 (09:53→21:11)
--- NOTE | 2017-05-17 09:59 | XRay Report ---
Indication: dyspnea, vomiting XR chest 2V: Comparison: 05/05/2017 Technique: PA and lateral chest Findings: Patient continues to show stable heart size with unremarkable central vascularity and mediastinum. Chronic appearing changes persist particularly in the left lung base where there still mild elevation of the left diaphragm. Patient still shows right-sided port in place. No new pulmonary findings are identified. Postoperative changes persist in the left medial upper chest. Mild degenerative changes persist in the upper thoracic region with narrowing of the disc spaces. Impression: Stable chest with continued mild elevation of the left diaphragm. No acute new findings are seen. .
--- NOTE | 2017-05-17 10:59 | XRay Report ---
Indication: nausea/vomiting XR KUB w upright: Comparison: None Technique: Supine and erect films of the abdomen Findings: Patient showed some scattered air-fluid levels probably representing generalized stasis possibly due to gastroenteritis. No focal point of obstruction or free air is noted. Impression: Nonspecific gas pattern with a few random air fluid levels suggesting generalized stasis. This could be seen with gastroenteritis. No free air, marked distention or focal point of obstruction noted. .
--- NOTE | 2017-05-17 11:20 | Pharmacy Consult-Antibiotics ---
Pharmacy Consult-Vancomycin - Laboratory Information WBC 16.1 T/MM3 (4.5-11.0) H 05/17/17 03:55 BUN 20.0 MG/DL (9-20) 05/17/17 03:55 Creatinine 1.0 MG/DL (0.8-1.5) 05/17/17 03:55 Procalcitonin 0.10 NG/ML 05/16/17 16:46 - Consult Information Dx: Possible Staph bacteremia. Current Renal Fx: SCr = 1.0mg/dl. Will give Vancomycin 1,500mg IV q12hrs. Will continue to monitor and adjust regimen to maintain therapeutic levels. Thank you.
--- NOTE | 2017-05-17 13:01 | Progress Note ---
<Danii Nickerson - Last Filed: 05/17/17 14:09> Subjective: Jose Miguel is feeling about the same as yesterday. He's still nauseated but hasn't had any emesis. He denies weakness, dizziness, or lightheadedness. He denies SOA ; no unusual pain other than his chronic back pain which he rates at 5/10. He is emotional - he misses his who 06/09/16. He also is quite worried about his brothers, since their S.O.'s are also going through major health issues. His anxiety is under decent control. Objective Vital signs: Temperature 97.5 F 05/17/17 08:14 Pulse Rate 62 05/17/17 08:14 Respiratory Rate 20 05/17/17 08:14 Blood Pressure 166/84 H 05/17/17 08:14 Pulse Oximetry 100 05/17/17 08:14 Height/Weight/BMI: Height 1.8 m Weight 66.3 kg Body Mass Index 19.4 - Constitutional Present: no acute distress, thin - Routine HEENT Exam Eye: Absent: conjunctival icterus ENT: Absent: dentition normal (missing teeth) - Routine Respiratory Exam Present: decreased breath sounds, diminished air movement Comments: well healed scars to left mid-upper back, towards axillary line - Routine Cardiovascular Exam Present: RRR, S1, S2 - Routine Abdominal Exam Present: soft, normoactive bowel sounds, non distended, non tender - Routine Extremities Exam Present: no edema - Routine Musculoskeletal Exam Musculoskeletal: Present: moving extremities well - Routine Skin Exam Present: intact, dry, warm - Routine Neurological Exam Present: alert, oriented X3 - Routine Psychiatric Exam Present: normal thought process, cooperative. Absent: normal affect (tearful) Results - Labs CBC & Chem 7: 05/17/17 03:55 05/17/17 03:55 Assessment and Plan (1) Adenocarcinoma, lung Current visit: No Status: Chronic (2) Dehydration Current visit: Yes Status: Acute (3) Nausea & vomiting Current visit: Yes Status: Acute Resuscitation Status: Full Code Assessment and Plan: Impression: Nausea/vomiting, refractory Dehydration Hypokalemia, POA SIRS Hypercalcemia, POA - resolved after IVF Adeno CA of the lung, resected 02/15 Anxiety & depression Chronic back pain; chronic use of narcotics HTN COPD Plan: Still nauseated but no emesis. KUB reviewed, shows few air-fluid levels but no obstruction/free air. D/W Dr. Durbin - will advance diet as tolerated. Decrease rate of IVF to 100 mL/hr. Continue Vanco to empirically cover bacteremia. WBC down to 16. Hgb decreased following IVF as expected. K stable today, low-normal at 3.7. BUN decreased from 25 to 20. Ca dropped from 10.7 on admission to 9.1 after IVF. Status changed to inpatient. Hospital Course Summary Disclaimer: The visit summary below is not to be considered part of the above Progress Note. Hospital Course: 05/16/17 1 L normal saline given in the emergency room, continue fluids with supplemental potassium. Anticipate there will be need for additional potassium boluses and second IV access will be placed if possible. Hemoglobin is 13.7 on admission from 11.7 earlier this month consistent with significant hemoconcentration. Patient has multiple criteria for sepsis although unclear that there is an infectious etiology. Chest x-ray is unchanged from the past and urine is negative. He had a positive blood culture for staph epi on 04/21/17 drawn from the Port-A-Cath; simultaneous peripheral culture at that time was negative. Repeat culture from the PAC on 04/26 was negative; these blood cultures followed a wound infection with coag-negative staph although the sensitivity pattern of the wound infection staph differed from that in the blood. Patient was seen by Dr. Fuentes during hospitalization when the negative blood culture was obtained. Imaging done 04/[address] chest, abdomen, pelvis looking for infectious source in addition to maxillofacial CT. No pulmonary or intra-abdominal source of infection nor dental abscess was found with imaging and antibiotics were discontinued. At this time I have no clear indication of new infectious process but will cover for possible staph bacteremia with vancomycin pending culture results. He received 1 g of Rocephin in the emergency room for pneumonia based on chest x-ray however the changes are all chronic by review of multiple films. The patient's had multiple admissions for nausea and vomiting thought to be due to his malignancy. KUB will be obtained but I think it's unlikely we're dealing with an ileus or obstructive pathology. I'll talk Dr. Cabrera tomorrow to determine if there is any need for further oncology input 10/16/17 Still nauseated but no emesis. KUB reviewed, shows few air-fluid levels but no obstruction/free air. D/W Dr. Durbin - will advance diet as tolerated. Decrease rate of IVF to 100 mL/hr. Continue Vanco to empirically cover bacteremia. WBC down to 16. Hgb decreased following IVF as expected. K stable today, low-normal at 3.7. BUN decreased from 25 to 20. Ca dropped from 10.7 on admission to 9.1 after IVF. Status changed to inpatient. <Jesenia Durbin - Last Filed: 05/17/17 15:55> Objective Vital signs: Temperature 98.4 F 05/17/17 15:08 Pulse Rate 56 L 05/17/17 15:08 Respiratory Rate 20 05/17/17 15:08 Blood Pressure 121/70 05/17/17 15:08 Pulse Oximetry 97 05/17/17 15:08 Results - Labs CBC & Chem 7: 05/17/17 03:55 05/17/17 03:55 Assessment and Plan (1) Adenocarcinoma, lung Current visit: No Status: Chronic (2) Dehydration Current visit: Yes Status: Acute (3) Nausea & vomiting Current visit: Yes Status: Acute Assessment and Plan: I have independently evaluated and examined this patient. I reviewed the chart, the patient's history, and the [employer]PERATOR/PA's documented findings as above. We discussed and formulated the assessment and plan as above with additions as below: Mr. Dunlap continues to have nausea but is not as bad as it was on presentation is had no further emesis. He reports no additional diarrhea. He's tolerating small-volume clear liquids and some crackers today and hopes to advance his diet to include some bland foods later which he thinks may settle his stomach. He denies lightheadedness or dyspnea today. Spots on his arms have almost completely faded. NAD, alert, cachectic, I/O 4200/600 Respirations nonlabored, breath sounds clear Regular rhythm without tachycardia Abdomen is soft with mild distention but no tenderness Digits clubbed, minimal residual small patchy erythema on forearms. Blood cultures pending GI symptoms stabilizing. KUB reviewed by myself and nonspecific changes. Blood pressure elevated, resume lisinopril and Flomax. Resume Celexa; given poor appetite/weight loss may benefit from switching to mirtazapine. Depressive symptoms poorly controlled on current regimen. Has required high-volume fluid replacement, ongoing GI symptoms-converted to inpatient. Continue vancomycin for possible line/PAC sepsis pending cultures. Discussed with Dr. Cabrera-adjuvant chemotherapy on hold pending clarification of whether there is underlying infection. In addition to above diagnoses please add: #1 thrush #2 recent CN staph bacteremia Hospital Course Summary Disclaimer: The visit summary below is not to be considered part of the above Progress Note.
[2017-05-17] MEDS: HYDROCODONE/APAP 10 MG/325 MG TABLET PO PRN ×2 (13:08→21:18)
[2017-05-17] MEDS ORDERED: ONDANSETRON ODT 4 MG TABLET PO PRN (15:43)
[2017-05-17] MEDS ORDERED: LORazepam 1 MG TABLET PO PRN (15:43)
[2017-05-18] MEDS: SALINE FLUSH 10ml SYRINGE IVF PRN ×2 (04:41→21:23)
[2017-05-18] MEDS: PREGABALIN 75 MG CAPSULE PO SCH ×2 (08:35→21:18)
[2017-05-18] MEDS: NYSTATIN 500,000 units/5 ml ORAL LIQUID PO SCH ×4 (08:35→21:18)
[2017-05-18] MEDS: LISINOPRIL 10 MG TABLET PO SCH (08:35)
[2017-05-18] MEDS: AMLODIPINE 5 MG TABLET PO SCH ×2 (08:36→21:18)
[2017-05-18] MEDS: BuPROPion XL 150mg (24HR) TABLET PO SCH (08:43)
[2017-05-18] MEDS ORDERED: CITALOPRAM 20 MG TABLET PO SCH (09:00)
[2017-05-18] MEDS: HYDROCODONE/APAP 10 MG/325 MG TABLET PO PRN ×2 (13:43→18:38)
--- NOTE | 2017-05-18 14:11 | Pharmacy Consult-Antibiotics ---
Pharmacy Consult-Vancomycin - Laboratory Information WBC 10.2 T/MM3 (4.5-11.0) 05/18/17 04:14 BUN 15.0 MG/DL (9-20) 05/18/17 04:14 Creatinine 0.9 MG/DL (0.8-1.5) 05/18/17 04:14 Procalcitonin 0.10 NG/ML 05/16/17 16:46 Vancomycin Trough 21.40 UG/ML (15-20) H* 05/18/17 10:14 VANCOMYCIN CONSULT: MM is 56 yo male that was admitted 3 days of persistent nausea and vomiting and inability to maintain oral intake or able to take oral ondansetron because he would vomit everytime he took oral medications. The vancomycin was started because of possible Staphylococcus bacteremia. S Cr = 0.9 mg/dL Estimated Cr Cl ~ 95 mL/hr Vancomycin Trough = 21.4 mcg/ml. WBC's = 10.2 T/mm3 (WNL) 24-h T max = 96.6 degrees F I changed the Vancomycin to 1,250 mg IV q12hrs (0100/1300) because the trough was a little high @ 21.40 mcg/mL. The new estimated trough should be around 16.7 mcg within the goal range of 15-20 mcg/mL. The pharmacy will continue to monitor the renal function and the vancomycin troughs and will make the appropriate adjustments accordingly. Thank you for the Vancomycin Protocol, Samuel Vazquez, Pharmacist.
[2017-05-18] MEDS ORDERED: NS FLUSH BAG 500ml IV PRN (14:12)
[2017-05-18] MEDS: NS with KCL 20 mEq 1,000 ML IV SCH (16:32)
--- NOTE | 2017-05-18 19:47 | Progress Note ---
- Date 05/18/17 Subjective: Jose Miguel reports that he tolerated a hamburger last night that his nausea is much better. He had sweats again last night but didn't have any fever. He denied dyspnea or lightheadedness. He's been ambulating without difficulty. He reports Celexa hasn't been working for his anxiety or depression and is open to change to an alternate medication. Objective Vital signs: Temperature 97.2 F 05/18/17 15:00 Pulse Rate 61 05/18/17 15:00 Respiratory Rate 20 05/18/17 15:00 Blood Pressure 122/71 05/18/17 15:00 Pulse Oximetry 94 05/18/17 15:00 Oral intake exceeded 2.8 L yesterday I/O 7482/2250 NAD, alert Respirations nonlabored, good airflow, breath sounds clear Cardiac rhythm regular, S1 and S2 Abdomen soft, nontender, bowel sounds present Without lower extremity edema Mild flushing with vancomycin infusion Height/Weight/BMI: Weight 67.8 kg Results - Labs CBC & Chem 7: 05/18/17 04:14 05/18/17 04:14 Labs: Differential normal Microbiology Results: Blood cultures 2 negative at 48 hours Assessment and Plan (1) Dehydration Current visit: Yes Status: Acute (2) Nausea & vomiting Current visit: Yes Status: Acute (3) Adenocarcinoma, lung Current visit: No Status: Chronic DVT Prophylaxis: SCD's Resuscitation Status: Full Code Assessment and Plan: Impression: Nausea/vomiting, refractory, improved Dehydration Hypokalemia, POA, resolved Thrush SIRS Recent CN staph positive blood culture-probable contaminant Hypercalcemia, POA - resolved after IVF Adeno CA of the lung, resected 02/15 Anxiety & depression Chronic back pain; chronic use of narcotics HTN COPD Plan: Doing well, tolerating regular diet. IV fluids discontinued this morning and patient has continued to maintain good intake of food/fluids through the day. Blood cultures returned late afternoon and both are negative-one drawn through PAC. Vancomycin discontinued. Advised patient I felt he could discharge at this time however he doesn't have a ride available until morning. Reassess electrolytes in the morning in conjunction with CBC. Previously identified leukocytosis is resolved-unclear if stress reaction to repetitive vomiting or represents an occult process not yet identified. Patient reports intermittent nocturnal diaphoresis-recent workup by ID did not identify underlying infectious process. Check testosterone level with a.m. labs. Electrolytes stable. Discussed with nursing. Hospital Course Summary Disclaimer: The visit summary below is not to be considered part of the above Progress Note. Hospital Course: 05/16/17 1 L normal saline given in the emergency room, continue fluids with supplemental potassium. Anticipate there will be need for additional potassium boluses and second IV access will be placed if possible. Hemoglobin is 13.7 on admission from 11.7 earlier this month consistent with significant hemoconcentration. Patient has multiple criteria for sepsis although unclear that there is an infectious etiology. Chest x-ray is unchanged from the past and urine is negative. He had a positive blood culture for staph epi on 04/21/17 drawn from the Port-A-Cath; simultaneous peripheral culture at that time was negative. Repeat culture from the PAC on 04/26 was negative; these blood cultures followed a wound infection with coag-negative staph although the sensitivity pattern of the wound infection staph differed from that in the blood. Patient was seen by Dr. Fuentes during hospitalization when the negative blood culture was obtained. Imaging done 04/[address] chest, abdomen, pelvis looking for infectious source in addition to maxillofacial CT. No pulmonary or intra-abdominal source of infection nor dental abscess was found with imaging and antibiotics were discontinued. At this time I have no clear indication of new infectious process but will cover for possible staph bacteremia with vancomycin pending culture results. He received 1 g of Rocephin in the emergency room for pneumonia based on chest x-ray however the changes are all chronic by review of multiple films. The patient's had multiple admissions for nausea and vomiting thought to be due to his malignancy. KUB will be obtained but I think it's unlikely we're dealing with an ileus or obstructive pathology. I'll talk Dr. Cabrera tomorrow to determine if there is any need for further oncology input 05/17/17 Still nauseated but no emesis. KUB reviewed, shows few air-fluid levels but no obstruction/free air. D/W Dr. Durbin - will advance diet as tolerated. Decrease rate of IVF to 100 mL/hr. Continue Vanco to empirically cover bacteremia. WBC down to 16. Hgb decreased following IVF as expected. K stable today, low-normal at 3.7. BUN decreased from 25 to 20. Ca dropped from 10.7 on admission to 9.1 after IVF. Status changed to inpatient. 05/18/17 19:52 Doing well, tolerating regular diet. IV fluids discontinued this morning and patient has continued to maintain good intake of food/fluids through the day. Blood cultures returned late afternoon and both are negative-one drawn through PAC. Vancomycin discontinued. Advised patient I felt he could discharge at this time however he doesn't have a ride available until morning. Reassess electrolytes in the morning in conjunction with CBC. Previously identified leukocytosis is resolved-unclear if stress reaction to repetitive vomiting or represents an occult process not yet identified. Patient reports intermittent nocturnal diaphoresis-recent workup by ID did not identify underlying infectious process. Check testosterone level with a.m. labs.
[2017-05-18] MEDS ORDERED: MIRTAZAPINE 15 MG TABLET PO SCH (21:00)
[2017-05-18 23:42] VITALS: RESP 18
[2017-05-19 07:39] VITALS: BP 143/77; PULSE 60; TEMP 96.2; O2SAT 100
[2017-05-19] MEDS: BuPROPion XL 150mg (24HR) TABLET PO SCH (08:01)
[2017-05-19] MEDS: HYDROCODONE/APAP 10 MG/325 MG TABLET PO PRN (08:01)
[2017-05-19] MEDS: AMLODIPINE 5 MG TABLET PO SCH (08:01)
[2017-05-19] MEDS: LISINOPRIL 10 MG TABLET PO SCH (08:02)
[2017-05-19] MEDS: PREGABALIN 75 MG CAPSULE PO SCH (08:02)
[2017-05-19] MEDS: NYSTATIN 500,000 units/5 ml ORAL LIQUID PO SCH (08:03)
[2017-05-19] MEDS ORDERED: CITALOPRAM 10 MG TABLET PO SCH (09:00)
--- NOTE | 2017-05-19 10:50 | Discharge Instructions ---
Discharge Plan - Med Rec/Dispo Referrals/Follow Up: Cristofer Mendoza MD [Family Provider] - 1 Week Walt Cabrera MD [Physician] - (Call to reschedule appointment) Fabrizio Instructions: Acute Nausea and Vomiting (GEN) Prescriptions: New Mirtazapine [Remeron] 15 mg PO HS #30 tab Nystatin Oral Liq. [Mycostatin] 5 ml PO QID #200 udc Continue Albuterol HFA Inhaler [Ventolin Hfa 90 mcg/actuation] 2 puff IN BID PRN PRN Reason: Prn Orders Meloxicam 15 mg PO DAILY Docusate Sodium [Colace] 200 mg PO DAILY Metoprolol Tartrate [Lopressor] 50 mg PO BID Folic Acid [Folate] 1 mg PO DAILY Tamsulosin [Flomax] 0.4 mg PO HS Lisinopril [Prinivil] 10 mg PO DAILY Pregabalin Cap [Lyrica] 150 mg PO HS Pregabalin Cap [Lyrica] 75 mg PO AM Ondansetron Odt [Zofran Po] 4 mg PO Q6H PRN PRN Reason: Nausea Amlodipine [Norvasc] 5 mg PO BID cyclobenzaprine 10 mg tablet 10 mg PO DAILY #30 tab Wellbutrin XL (bupropion HCl XL) 150 mg 24 hr tablet 150 mg PO QAM #30 tab fentanyl 50 mcg/hr transdermal patch 50 mcg TD Q72H #10 patch [place] 10 mg-acetaminophen 325 mg tablet 1 tab PO TID PRN #90 tab PRN Reason: Pain bisacodyl 5 mg tablet 10 mg PO DAILY #60 tab Cardura (doxazosin) 2 mg tablet 2 mg PO HS #30 tab Ativan (lorazepam) 1 mg tablet 1 mg PO TID PRN #30 tab PRN Reason: Anxiety Changed Citalopram [Celexa] 10 mg PO DAILY #30 tab Discharge Instructions/Outpatient Orders: Provider Discharge Instructions Location: Determined By Patient - Disposition 01 Discharged Home, Self-Care
--- NOTE | 2017-05-19 23:57 | Discharge Summary ---
Discharge Information Date of admission: 05/17/17 13:28 Anticipated date of discharge: 05/19/17 Attending Physician: Jesenia Durbin MD Primary care physician: Cristofer Mendoza MD - Discharge Diagnosis (1) Dehydration Status: Acute (2) Nausea & vomiting Status: Acute (3) Adenocarcinoma, lung Status: Chronic - Laboratory Labs: 05/19/17 04:30 05/19/17 04:30 - Microbiology Blood cultures 2 negative after 72 hours - Radiology Radiology: Chest x-ray on admission demonstrated mild elevation of the left diaphragm but no acute changes. Right-sided VAC in place and postoperative changes in the left medial upper chest. KUB on 05/17/17 demonstrated some scattered air-fluid levels consistent with gastroenteritis but no evidence of obstruction or free air was present. History of Present Illness HPI: Mr. Dunlap is 56-year-old male well known to the hospitalist service from prior hospitalizations. He underwent left upper lobectomy in January 2017 for adenocarcinoma. He was later started on adjuvant therapy with cisplatin and permetrexed which was poorly tolerated and subsequently discontinued by the patient. He presents today with reports of 3 days persistent nausea and vomiting and inability to maintain oral intake or take use Zofran to control nausea because he would vomit every time he tried to take oral medication. He had one episode of diarrhea this afternoon. Urine has been dark but there is been no dysuria. He's been lightheaded but has not had falls. He's had no fever and has felt cold continually. He describes generalized weakness with palpitations. Patient has a chronic cough but has had increased sputum production with brown blackish secretions which are unusual for him. He denied sinus symptoms or postnasal drainage but has developed a sore throat with repetitive vomiting. Evaluation in the ER suggested dehydration and white count was elevated raising question of sepsis. It is noted that during prior hospitalization he had a positive culture for staph epi drawn from his Port-A- Cath with subsequent negative PAC culture. He is admitted for symptomatic management at this time. Hospital Course This is a general summary of the patient's hospital course. For more details refer to the complete medical record. Hospital course: Impression: Nausea/vomiting, refractory, improved Dehydration Hypokalemia, POA, resolved Thrush, oral SIRS Recent CN staph positive blood culture-probable contaminant Hypercalcemia, POA - resolved after IVF Adeno CA of the lung, resected 7/17 Anxiety & depression Chronic back pain; chronic use of narcotics HTN COPD Hospital course : 05/16/17 1 L normal saline given in the emergency room, continue fluids with supplemental potassium. Anticipate there will be need for additional potassium boluses and second IV access will be placed if possible. Hemoglobin is 13.7 on admission from 11.7 earlier this month consistent with significant hemoconcentration. Patient has multiple criteria for sepsis although unclear that there is an infectious etiology. Chest x-ray is unchanged from the past and urine is negative. He had a positive blood culture for staph epi on 04/21/17 drawn from the Port-A-Cath; simultaneous peripheral culture at that time was negative. Repeat culture from the PAC on 04/26 was negative; these blood cultures followed a wound infection with coag-negative staph although the sensitivity pattern of the wound infection staph differed from that in the blood. Patient was seen by Dr. Fuentes during hospitalization when the negative blood culture was obtained. Imaging done 04/[address] chest, abdomen, pelvis looking for infectious source in addition to maxillofacial CT. No pulmonary or intra-abdominal source of infection nor dental abscess was found with imaging and antibiotics were discontinued. At this time I have no clear indication of new infectious process but will cover for possible staph bacteremia with vancomycin pending culture results. He received 1 g of Rocephin in the emergency room for pneumonia based on chest x-ray however the changes are all chronic by review of multiple films. The patient's had multiple admissions for nausea and vomiting thought to be due to his malignancy. KUB will be obtained but I think it's unlikely we're dealing with an ileus or obstructive pathology. I'll talk Dr. Cabrera tomorrow to determine if there is any need for further oncology input 05/17/17 Still nauseated but no emesis. KUB reviewed, shows few air-fluid levels but no obstruction/free air. D/W Dr. Durbin - will advance diet as tolerated. Decrease rate of IVF to 100 mL/hr. Continue Vanco to empirically cover bacteremia. WBC down to 16. Hgb decreased following IVF as expected. K stable today, low-normal at 3.7. BUN decreased from 25 to 20. Ca dropped from 10.7 on admission to 9.1 after IVF. Status changed to inpatient. 05/18/17 Doing well, tolerating regular diet. IV fluids discontinued this morning and patient has continued to maintain good intake of food/fluids through the day. Blood cultures returned late afternoon and both are negative-one drawn through PAC. Vancomycin discontinued. Advised patient I felt he could discharge at this time however he doesn't have a ride available until morning. Reassess electrolytes in the morning in conjunction with CBC. Previously identified leukocytosis is resolved-unclear if stress reaction to repetitive vomiting or represents an occult process not yet identified. Patient reports intermittent nocturnal diaphoresis-recent workup by ID did not identify underlying infectious process. Check testosterone level with a.m. labs. 05/19/17-discharge No problems described overnight other than sweats requiring change in the bedding. He denies flushing or fever and nursing reported no fevers. Temperature this morning 96.2. Patient reports his appetite is improving he's had no further nausea or vomiting. Examination reveals him to be alert with nonlabored respirations and clear breath sounds. Abdomen is benign. Stable for discharge at this time with plans to follow-up with his primary care physician within one week. Testosterone level is pending. I additionally recommended that he discuss whether 24 hour urine studies need to be repeated regarding previously elevated normetanephrine level. Patient will reschedule follow-up with Dr. Cabrera. Transition from citalopram to mirtazapine reviewed with the patient and prescription for the latter provided. Remains on nystatin for oral candidiasis. Time spent with patient: greater than 35 minutes Discharge Plan - Med Rec/Dispo Referrals/Follow Up: Walt Cabrera MD [Physician] - (Call to reschedule appointment SEE DR CABRERA WednesdayMay AT 10:30 AM) Cristofer Mendoza MD [Family Provider] - 1 Week (SEE DR MENDOZA ON WednesdayMay 11:00 A.M ) [place] Instructions: Acute Nausea and Vomiting (GEN) Prescriptions: New Mirtazapine [Remeron] 15 mg PO HS #30 tab Nystatin Oral Liq. [Mycostatin] 5 ml PO QID #200 udc Continue Albuterol HFA Inhaler [Ventolin Hfa 90 mcg/actuation] 2 puff IN BID PRN PRN Reason: Prn Orders Meloxicam 15 mg PO DAILY Docusate Sodium [Colace] 200 mg PO DAILY Metoprolol Tartrate [Lopressor] 50 mg PO BID Folic Acid [Folate] 1 mg PO DAILY Tamsulosin [Flomax] 0.4 mg PO HS Lisinopril [Prinivil] 10 mg PO DAILY Pregabalin Cap [Lyrica] 150 mg PO HS Pregabalin Cap [Lyrica] 75 mg PO AM Ondansetron Odt [Zofran Po] 4 mg PO Q6H PRN PRN Reason: Nausea Amlodipine [Norvasc] 5 mg PO BID cyclobenzaprine 10 mg tablet 10 mg PO DAILY #30 tab Wellbutrin XL (bupropion HCl XL) 150 mg 24 hr tablet 150 mg PO QAM #30 tab fentanyl 50 mcg/hr transdermal patch 50 mcg TD Q72H #10 patch [place] 10 mg-acetaminophen 325 mg tablet 1 tab PO TID PRN #90 tab PRN Reason: Pain bisacodyl 5 mg tablet 10 mg PO DAILY #60 tab Cardura (doxazosin) 2 mg tablet 2 mg PO HS #30 tab Ativan (lorazepam) 1 mg tablet 1 mg PO TID PRN #30 tab PRN Reason: Anxiety Changed Citalopram [Celexa] 10 mg PO DAILY #30 tab Discharge Instructions/Outpatient Orders: Provider Discharge Instructions Location: Determined By Patient - Disposition 01 Discharged Home, Self-Care
== END 2017-05-19 11:40 | disposition home or self-care (01) | DRG 641 ==
LOC: ED 16:09 → MED 16:09
PROVIDERS: ADMIT Internal Medicine; ATTEND Internal Medicine

== ENCOUNTER 2017-07-07 16:08 | Inpatient (IN) ==
[2017-07-07] MEDS ORDERED: METOCLOPRAMIDE 10mg/2ml INJECTION IVP PRN (17:04)
[2017-07-07] MEDS ORDERED: KETOROLAC 15 MG/ML INJECTION IVP PRN (17:17)
[2017-07-07] MEDS: D5-1/2NS with KCL 20mEq 1,000 ML IV SCH ×3 (17:50→22:30)
[2017-07-07] MEDS: MEROPENEM 1 GM in NS 100 ML IV SCH ×2 (18:41→23:48)
[2017-07-07] MEDS ORDERED: ALBUTEROL 2.5mg/3ml (0.083%) NEB AEROSOL PRN (21:12)
[2017-07-07] MEDS ORDERED: LORazepam 1 MG TABLET PO PRN (21:18)
[2017-07-07] MEDS ORDERED: ONDANSETRON ODT 4 MG TABLET PO PRN (21:18)
[2017-07-07] MEDS: DOXAZOSIN 2 MG TABLET PO SCH (22:16)
[2017-07-07] MEDS: MIRTAZAPINE 15 MG TABLET PO SCH (22:17)
[2017-07-07] MEDS: PREGABALIN 150 MG CAPSULE PO SCH (22:17)
[2017-07-07] MEDS: AMLODIPINE 5 MG TABLET PO SCH (22:17)
[2017-07-07] MEDS: HYDROCODONE/APAP 10 MG/325 MG TABLET PO PRN (22:17)
[2017-07-07] MEDS ORDERED: Bisacodyl EC TAB 5 MG TABLET PO PRN (22:19)
[2017-07-07] MEDS ORDERED: DOCUSATE SODIUM 100 MG CAPSULE PO PRN (22:22)
[2017-07-07] MEDS: LEVOFLOXACIN PB 500 MG/100 ML BAG IV SCH (22:34)
[2017-07-08] MEDS: MEROPENEM 1 GM in NS 100 ML IV SCH ×3 (05:31→18:10)
[2017-07-08] MEDS: HYDROCODONE/APAP 10 MG/325 MG TABLET PO PRN ×3 (06:38→21:25)
[2017-07-08] MEDS: D5-1/2NS with KCL 20mEq 1,000 ML IV SCH ×2 (06:39→22:05)
[2017-07-08] MEDS: CYCLOBENZAPRINE 10 MG TABLET PO SCH (08:54)
[2017-07-08] MEDS: FOLIC ACID 1 MG TABLET PO SCH (08:54)
[2017-07-08] MEDS: PREGABALIN 75 MG CAPSULE PO SCH (08:54)
[2017-07-08] MEDS: DOCUSATE SODIUM 100 MG CAPSULE PO SCH ×2 (08:54→21:25)
[2017-07-08] MEDS: AMLODIPINE 5 MG TABLET PO SCH ×2 (08:55→21:25)
[2017-07-08] MEDS: Bisacodyl EC TAB 5 MG TABLET PO SCH ×2 (08:55→21:25)
[2017-07-08] MEDS: PANTOPRAZOLE 40 MG INJECTION IVP SCH (08:55)
[2017-07-08] MEDS ORDERED: Bisacodyl EC TAB 5 MG TABLET PO SCH (09:00)
[2017-07-08] MEDS: ALBUTEROL/IPRATROPIUM 2.5mg-0.5mg/3ml NEB AEROSOL SCH ×2 (15:41→19:14)
--- NOTE | 2017-07-08 16:41 | History and Physical ---
CHIEF COMPLAINT Fever and chills. HPI Patient is a 56-year-old male who presented to the office to see one of the mid- levels, Lacy Khan APRN on 07/07/2017 with acute onset of fever and chills. The patient's white blood count was over 25,000. I was asked to see the patient for possible admission. The patient presented that he was not feeling well and was having some nausea, vomiting and diarrhea as well over the last one to two days. Chronic medical problems include chronic back pain, insomnia, anxiety, depression. REVIEW OF SYSTEMS Denies chest pain, orthopnea, PND, leg-swelling, hematochezia, melena. Denies TIA or seizure symptoms. PHYSICAL EXAM VITAL SIGNS: Temperature 99.8 at this office. Pulse 80. Blood pressure 130/88. Oxygen saturation 97%. GENERAL: The patient looks ill. He presents with some chills. NECK: Supple. CHEST: Lungs are essentially clear to auscultation bilaterally. CARDIOVASCULAR: Regular rate and rhythm. No murmur. ABDOMEN: Soft, nontender. No mass is palpable. EXTREMITIES: No cyanosis, clubbing or edema. NEUROLOGIC: Grossly intact. GENITOURINARY: No flank tenderness. At [facility] upon admission the patient's pulse was 91, temperature 98.5, blood pressure 129/81, respirations 18, oxygen saturation 92% on room air. LABORATORY White blood count over 25,000. ASSESSMENT 1. Sepsis. 2. Fever and chills. 3. Recent history of lung cancer. PLAN Admit patient to [facility] for IV antibiotics, IV fluids and additional workup including blood culture. This patient meets inpatient criteria in the sense that he will require more than two nights because of history of lung cancer with now sepsis. We need to rule out bacteremia at least before the patient can be dismissed to home - it will take at least a couple of days for that to be retrieved. Consultation to Dr. Cabrera may be in order. The patient also will receive IV fluids. PEÑA
--- NOTE | 2017-07-08 17:22 | Progress Note ---
DATE 07/08/2017 SUBJECTIVE The patient is lying in bed in room #156 on the medical floor. He thinks he is "a little better." He just feels tired and is ill-appearing. He denies any fever today. Denies any shortness of breath. PHYSICAL EXAM VITAL SIGNS: Temperature 97.5. Pulse 82. Respirations 18. Blood pressure 124/ 79. Oxygen saturation 94% on room air. GENERAL: The patient looks ill. NECK: Supple. CHEST: Lungs have diffuse wheezing throughout. CARDIOVASCULAR: Regular rate and rhythm. No murmur. ABDOMEN: Soft, nontender. No mass is palpable. EXTREMITIES: No cyanosis, clubbing or edema. NEUROLOGIC: Grossly intact. LABORATORY (today) White blood count is down to 12,700. Hemoglobin is 11.4. Platelet count 314, 000. Electrolytes were normal. Potassium 3.7. Creatinine 1.0. Glucose 94. Laboratory drawn yesterday includes CRP 127.9. 1+ bacteria. ASSESSMENT 1. Sepsis, etiology remains unclear at this time. 2. Fever and chills. 3. Recent history of lung cancer. The patient is temporarily off chemotherapy treatment at this time. 4. Anxiety disorder. 5. Depression. 6. Mild dehydration. 7. Acute gastroenteritis manifested with nausea, vomiting and diarrhea. This is actually improving. 8. COPD - appears to be quiescent. PLAN Continue current IV antibiotics as well as IV fluids. Await culture result. Consult to Dr. Cabrera - patient is well known to him. Will add DuoNeb one unit dose q.i.d. for now. Continue home medications as well. MTDD
[2017-07-08 18:25] VITALS: BMI 21.7
[2017-07-08] MEDS: DOXAZOSIN 2 MG TABLET PO SCH (21:25)
[2017-07-08] MEDS: PREGABALIN 150 MG CAPSULE PO SCH (21:25)
[2017-07-08] MEDS: MIRTAZAPINE 15 MG TABLET PO SCH (21:25)
[2017-07-08] MEDS: LEVOFLOXACIN PB 500 MG/100 ML BAG IV SCH (21:55)
[2017-07-09] MEDS: D5-1/2NS with KCL 20mEq 1,000 ML IV SCH ×2 (01:46→06:53)
[2017-07-09] MEDS: MEROPENEM 1 GM in NS 100 ML IV SCH ×4 (01:46→17:38)
[2017-07-09] MEDS: HYDROCODONE/APAP 10 MG/325 MG TABLET PO PRN ×2 (04:44→13:26)
[2017-07-09] MEDS: ALBUTEROL/IPRATROPIUM 2.5mg-0.5mg/3ml NEB AEROSOL SCH ×4 (07:20→19:35)
[2017-07-09] MEDS: AMLODIPINE 5 MG TABLET PO SCH (08:44)
[2017-07-09] MEDS: CYCLOBENZAPRINE 10 MG TABLET PO SCH (08:44)
[2017-07-09] MEDS: FOLIC ACID 1 MG TABLET PO SCH (08:45)
[2017-07-09] MEDS: DOCUSATE SODIUM 100 MG CAPSULE PO SCH (08:45)
[2017-07-09] MEDS: PANTOPRAZOLE 40 MG INJECTION IVP SCH (08:45)
[2017-07-09] MEDS: Bisacodyl EC TAB 5 MG TABLET PO SCH (08:46)
[2017-07-09] MEDS: PREGABALIN 75 MG CAPSULE PO SCH (08:46)
--- NOTE | 2017-07-09 11:29 | Consult Note ---
<Sherine Woods - Last Filed: 07/09/17 12:56> Oncology HPI - Data of Consult Patient: known to practice within the last 3 years Consult date: 07/09/17 Requesting Physician: Cristofer Mendoza MD Primary Care Provider: Cristofer Mendoza MD Family Provider: Cristofer Mendoza MD - Consult Narrative Reason for consult: Non small cell lung cancer History of present illness: Well known patient to Dr Cabrera and myself with NSCLC diagnoses November 2016, s/p lobectomy and one cycle of pemetrexed/cisplatin. His chemotherapy had been held secondary to recurrent hospitalizations with fever/ infections. Was recently seen by Dr. Patricio, ENT on 05/31/17 and diagnosed with left vocal cord paralysis; patient had outpatient procedure with Dr. Patricio; states "It's 100% better. I can swallow better. I don't feel like I am choking. I am not as hoarse." Admitted to [facility] yesterday with acute onset fever/chills, possible sepsis. At time of intake, alone in room. States feeling much better. States no fever or chills-"just felt like I was sick..ached all over, nauseated." Denies aching or nausea today. Occasional non-prod. cough, chronic/unchanged. Eating and drinking well today. Normal voiding. Last BM 2 days ago-normal/soft. No new aches/pains. His last cigarette was 5 days ago-plans to stay quit-" I am going to keep trying." History of present illness --Significant back problems resulting in disability. Unable to work 4 years. --12/17/16: Chest x-ray showed 3.8 cm mass in the left suprahilar region. --12/29/16: Biopsy left lung showed invasive carcinoma, grade 2, Adenocarcinoma --02/05/17: left parotid needle biopsy, low grade epithelial neoplasm. --02/16/17: Left upper lobe lobectomy with additional excision of left lower lobe margin. Specimen showed a 3.4 cm invasive adenocarcinoma, moderately differentiated there was no pleural or lymphatic invasion identified. Closest bronchial resection was 1 cm away. 9 lymph nodes were benign. Additional resection of left lower lobe showed benign tissue. --Postoperative hospitalization for fever at [facility], 2 hospitalizations at [facility]. --04/02/17: Port placement --04/12/17: Initiation of adjuvant therapy with pemetrexed and cisplatin. --04/19/17: [facility] visit with elevated BUN, dehydration, nausea and vomiting resulting in hospitalization. Hypokalemia. Renal insufficiency. CTA negative for pulmonary embolism. Dismissed on 04/23/17.Bacteremia from coagulase- negative Staph. --04/26/17: Readmission to [facility] with fever, chills and nausea/ vomiting. --05/16/17: Readmitted with N/V and leukocytosis. --06/01/17: Consultation with Dr. Patricio for vocal cord paralysis Review of Systems - Constitutional Constitutional: Present: as per HPI, fatigue, malaise - EENT Eyes: Absent: change in vision Mouth/Throat: Present: caries, change in voice (unchanged. chronic hoarseness. ) - Cardiovascular Cardiovascular: Absent: chest pain, palpitations - Respiratory Respiratory: Present: as per HPI, cough (occasional, non-productive) - Gastrointestinal Gastrointestinal: Present: as per HPI, nausea. Absent: abdominal pain, constipation, diarrhea - Genitourinary Genitourinary: Absent: dysuria, hematuria - Musculoskeletal Musculoskeletal: Present: back pain (chronic-unchanged. ) - Integumentary/Breasts Integumentary: Present: rash (chastity. forearms. subjectively improving). Absent: swelling - Neurological Neurological: Absent: dizziness, headache(s) - Psychiatric Psychiatric: Present: anxiety PFSH Patient Stated Medical History Peripheral Neuropathy Yes: takes Lyrica Dental Problems Yes Other HEENT Yes: voice dysfunction Hypertension Yes Chronic Obstructive Pulmonary Yes Disease (COPD) Pneumonia Yes Sleep Apnea "I might" Other Respiratory Yes: Emphysema Diabetes Mellitus Type 2 Yes: borderline Other Endocrine Yes: BORDERLINE Hx Renal Disease No Hx Urinary Tract Infection Yes: recent - 3 weeks ago Anemia Yes Osteoarthritis Yes: back MRSA Yes Sepsis Yes Chemotherapy Yes: MAY 2017 Depression Yes Clinic Medical History (Last Reviewed 07/07/17 @ 14:32 by Bethany Dennis Julienne) Pneumonia of both lower lobes (Acute Medical) Mental status change (Acute Medical) Tachypnea (Acute Medical) Sepsis (Acute Medical) Acute respiratory alkalosis (Acute Medical) Adenocarcinoma, lung (Chronic Medical) Anxiety and depression (Acute Medical) Hypertension (Acute Medical) Tobacco abuse (Acute Medical) Dehydration (Acute Medical) Lung cancer (Chronic Medical) Refer to Dr. Baig as soon as possible. Chronic low back pain (Acute Medical) Borderline diabetes (Chronic Medical) Hypertension (Chronic Medical) COPD (chronic obstructive pulmonary disease) (Inactive Medical) Chest wall pain (Inactive Medical) Chronic low back pain (Inactive Medical) Hold on previously scheduled low back surgery until cleared to do so by Dr. Baig. Pt. to f/u with me in 2 weeks. Sooner if needed. Drug-induced nausea and vomiting (Inactive Medical) Nausea & vomiting (Inactive Medical) Visit for wound care (Inactive Medical) Medical History Updates: Chronic obstructive pulmonary disease. Arthritis. Herniated disc in back. Adenocarcinoma of the lung. Depression Surgical History: Lung Biopsy, Chest Tube Insertion,. Left upper lobectomy 02/16. 04/02/17 Port-A-Cath insertion. Right eyelid surgery Family History: Family History (Last Reviewed 07/07/17 @ 14:32 by Bethany Dennis Julienne) Father Diabetes Hypertension Paternal Grandfather Hypertension Diabetes brother with melanoma. No other cancer history - Social History Smoking status: Former smoker Packs-years: 24 second hand exposure: No Time spent discussing smoking cessation with patient: 3 to 10 minutes Current occupational status: disabled Does patient use chewing tobacco?: No Current residence: Apartment/Private Home Medications Home Medications Medication Instructions Recorded Confirmed Type Ondansetron Odt [Zofran Po] 4 mg PO Q6HPRN PRN 04/16/17 07/07/17 History Pregabalin Cap [Lyrica] 75 mg PO TID 05/16/17 07/07/17 History Doxazosin Mesylate [Cardura] 2 mg PO HS 05/25/17 07/07/17 History albuterol sulfate HFA 90 2 - 3 puff INH Q6HPRN PRN 06/23/17 07/07/17 History mcg/actuation aerosol inhaler folic acid 1 mg tablet 1 mg PO DAILY tab 06/23/17 07/07/17 History Amlodipine [Norvasc] 10 mg PO DAILY 07/07/17 07/07/17 History Docusate Sodium [Colace] 200 mg PO BID 07/07/17 07/07/17 History LORazepam [Ativan] 3 mg PO TID PRN 07/07/17 07/07/17 History Allergies Allergy/AdvReac Type Severity Reaction Status Date / Time levofloxacin Allergy Mild Hives Verified 07/08/17 21:56 Sulfa (Sulfonamide Allergy Unknown Verified 07/07/17 14:35 Antibiotics) Exam Vital signs: Temperature 97.9 F 07/09/17 07:43 Pulse Rate 64 07/09/17 07:43 Respiratory Rate 16 07/09/17 10:07 Blood Pressure 135/68 07/09/17 07:43 Pulse Oximetry 96 07/09/17 10:07 - Constitutional no acute distress, well nourished, well developed - Routine HEENT Exam Head: Present: normocephalic, atraumatic Eye: Present: EOMI ENT: Present: mucous membranes moist (light, pale coating on tongue. No lesions) Throat: tonsillar erythema (mild. No exudate or lesions appreciated) - Routine Neck Exam Present: supple - Routine Respiratory Exam Present: rhonchi (right middle/lower lobe posterior. No wheezing appreciated) - Routine Cardiovascular Exam Present: RRR. Absent: no murmur - Routine Abdominal Exam Present: soft, non distended, non tender - Routine Extremities Exam Present: full ROM. Absent: no edema - Routine Skin Exam Present: intact, dry, rash (mild scattered macular rash chastity. forearms) - Routine Neurological Exam Present: alert, oriented X3, moving all extremities - Routine Psychiatric Exam Present: normal affect, normal thought process, cooperative Oncology Results - Labs CBC & Chem 7: 07/09/17 10:43 07/08/17 05:28 Labs: Short CBC 07/09/17 Range/Units 10:43 WBC 8.0 (4.5-11.0) T/MM3 Hgb 11.1 L (13.5-17.5) GM/DL Hct 35.4 L (41-53) % Plt Count 299 (130-400) T/MM3 - Impressions 1. 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 Received 1 cycle pemetrexed/cisplatin 04/12/17. Chemotherapy has been on hold secondary to recurrent hospitalizations with fevers of unknown origin. Recurrent hospitalization with recurrent infections. Symptoms resolve/ then recur. Has seen infectious disease previously. 2. Recurrent sepsis. Unclear source. Mild yeast stomatitis. 3. Recurrent laryngeal nerve injury. Seen by Dr. Patricio and s/p procedure on vocal cord. Patient states no f/u was scheduled. He will contact Dr. Patricio for f/u recommendations. 4. History tobacco addiction. Multiple Quit attempts. Quit smoking 07/04/17 and plans to stay Quit. 5. COPD 6. Chronic back pain with disability. Chronic pain management, well controlled with current meds, fentanyl patch and as needed Lortab or Tylenol. Assessment and Plan Assessment and Plan: Plan. Will add Nystatin. Discussed w/ Dr. Cabrera. We recommend f/u with Infectious Disease. Continue supportive care, antibiotics. Will see next week as scheduled with restaging CT scan. <Walt Cabrera - Last Filed: 07/09/17 13:15> Oncology HPI - Data of Consult Requesting Physician: Cristofer Mendoza MD Primary Care Provider: Cristofer Mendoza MD Family Provider: Cristofer Mendoza MD [facility] Patient Stated Medical History Peripheral Neuropathy Yes: takes Lyrica Dental Problems Yes Other HEENT Yes: voice dysfunction Hypertension Yes Chronic Obstructive Pulmonary Yes Disease (COPD) Pneumonia Yes Sleep Apnea "I might" Other Respiratory Yes: Emphysema Diabetes Mellitus Type 2 Yes: borderline Other Endocrine Yes: BORDERLINE Hx Renal Disease No Hx Urinary Tract Infection Yes: recent - 3 weeks ago Anemia Yes Osteoarthritis Yes: back MRSA Yes Sepsis Yes Chemotherapy Yes: MAY 2017 Depression Yes Clinic Medical History (Last Reviewed 07/07/17 @ 14:32 by Bethany Dennis [facility]) Pneumonia of both lower lobes (Acute Medical) Mental status change (Acute Medical) Tachypnea (Acute Medical) Sepsis (Acute Medical) Acute respiratory alkalosis (Acute Medical) Adenocarcinoma, lung (Chronic Medical) Anxiety and depression (Acute Medical) Hypertension (Acute Medical) Tobacco abuse (Acute Medical) Dehydration (Acute Medical) Lung cancer (Chronic Medical) Refer to Dr. Baig as soon as possible. Chronic low back pain (Acute Medical) Borderline diabetes (Chronic Medical) Hypertension (Chronic Medical) COPD (chronic obstructive pulmonary disease) (Inactive Medical) Chest wall pain (Inactive Medical) Chronic low back pain (Inactive Medical) Hold on previously scheduled low back surgery until cleared to do so by Dr. Baig. Pt. to f/u with me in 2 weeks. Sooner if needed. Drug-induced nausea and vomiting (Inactive Medical) Nausea & vomiting (Inactive Medical) Visit for wound care (Inactive Medical) Family History: Family History (Last Reviewed 07/07/17 @ 14:32 by Bethany Dennis Julienne) Father Diabetes Hypertension Paternal Grandfather Hypertension Diabetes Exam Vital signs: Temperature 97.9 F 07/09/17 07:43 Pulse Rate 64 07/09/17 07:43 Respiratory Rate 16 07/09/17 10:07 Blood Pressure 135/68 07/09/17 07:43 Pulse Oximetry 96 07/09/17 10:07 Oncology Results - Labs CBC & Chem 7: 07/09/17 10:43 07/08/17 05:28 Labs: Short CBC 07/09/17 Range/Units 10:43 WBC 8.0 (4.5-11.0) T/MM3 Hgb 11.1 L (13.5-17.5) GM/DL Hct 35.4 L (41-53) % Plt Count 299 (130-400) T/MM3 Assessment and Plan Assessment and Plan: Patient seen. Chart reviewed. I participated in the development of the plan of care of this patient. 1. 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 Received 1 cycle pemetrexed/cisplatin 04/12/17. Chemotherapy has been stopped secondary to recurrent hospitalizations with fevers of unknown origin. Recurrent hospitalization with recurrent infections. Symptoms resolve/ then recur. Has seen infectious disease previously. 2. Recurrent fever with leukocytosis. No bacterial source seen. WBC high and goes down with antibiotics. Was presumed aspiration but nothing in this event that suggest pulmonary symptoms. Upper GI findings with wbc of 27K and CRP of 127. Unclear source. Port but not accessed for several weeks. Curerntly improved. Will await ID input. Mild yeast stomatitis. 3. Recurrent laryngeal nerve injury. Seen by Dr. Patricio and s/p procedure on vocal cord. Patient states no f/u was scheduled. He will contact Dr. Patricio for f/u recommendations. 4. History tobacco addiction. Multiple Quit attempts. Quit smoking 07/04/17 and plans to stay Quit. 5. COPD 6. Chronic back pain with disability. Chronic pain management, well controlled with current meds, fentanyl patch and as needed Lortab or Tylenol. Laboratory Tests 03/19/17 04/26/1705/28/17 12:21 18:36 09:19 WBC C-Reactive Protein 22.7 H 9.9 H 35.7 H IgG Anti-Nuclear Antibody 06/04/17 06/04/17 07/01/17 08:55 08:56 08:51 WBC C-Reactive Protein 15.7 H 5.7 IgG 694.17 L Anti-Nuclear Antibody Negative 07/07/17 07/07/17 07/07/17 14:58 14:58 18:08 WBC 25.2 H* 27.8 H C-Reactive Protein 127.9 H D IgG Anti-Nuclear Antibody 07/08/17 05:28 WBC 12.7 H C-Reactive Protein IgG Anti-Nuclear Antibody Recommendations. Await ID input. Follow cultures.
[2017-07-09] MEDS: NYSTATIN 500,000 units/5 ml ORAL LIQUID PO SCH ×2 (13:26→17:38)
[2017-07-09] MEDS ORDERED: PNEUMOCOCCAL 13 VACCINE 0.5ml INJECTION IM ONE (13:30)
[2017-07-09 15:19] VITALS: BP 156/82; PULSE 82; RESP 18; TEMP 98.1; O2SAT 95
[2017-07-09] MEDS ORDERED: PNEUMOCOCCAL VAC ADMIN CHARGE INJ ONE (19:44)
--- NOTE | 2017-07-10 09:51 | Discharge Summary ---
FINAL DIAGNOSES 1. Sepsis of unknown etiology. 2. Acute dehydration. 3. Nausea and vomiting. 4. Recently diagnosed lung cancer, status post lobectomy and partial treatment with chemotherapeutic agent as per Dr. Cabrera. 5. Fever and chills. 6. Anxiety, chronic. 7. Depression, chronic. 8. Chronic low back and neck pain. REASON FOR ADMISSION The patient is a 56-year-old male who presented to the office to see my mid- level, Lacy Khan APRN, on 07/07/2017 with acute onset of fever and chills. White blood count was over 27,000. I was asked to see the patient for possible admission. The patient did have nausea and vomiting and maybe one episode of diarrhea as well. On physical examination temperature was 99.8 in the office. Pulse 80. At [facility] blood pressure was 129/81 with a pulse of 91. LABORATORY WBC over 27,000. UA did show evidence of 1+ bilirubin, 1+ bacteria, trace ketone, 1+ protein. HOSPITAL COURSE The patient was admitted to the medical floor under the care of Dr. Cristofer Mendoza on an inpatient basis. The patient was started on IV fluids, broad- spectrum IV antibiotics including Levaquin, vancomycin and meropenem. WBC actually improved to about 12,000 the following day. Blood culture is negative at over 36 hours at this time. The patient is doing well. He is ambulating and eating well. He does not have any complaints. His fever and chills have resolved. I have spoken with Dr. Cabrera, patient's oncologist, as well as Dr. Bree Fuentes, Infectious Disease physician. The patient can be dismissed to home with followup on blood culture. The patient has had recurrent episodes of fever, chills and sepsis over the last seven months post. We have done extensive studies and consultations and really have not been able to find the patient's source of fever or sepsis. The patient is medically stable to be dismissed to home today. VITAL SIGNS: Blood pressure 135/68, pulse 64, oxygen saturation 95%, respirations 18. He was ambulating and eating well. Urinating and normal bowel movements. No discomfort. No fever or chills. He was dismissed to home in stable medical condition. FOLLOWUP The patient will follow with Dr. Cabrera as scheduled. Follow with me in the office in one week. Will follow up on patient's blood culture. If it is positive we will have him come back to the infusion center. The kind of IV antibiotics depends on the culture report. DISCHARGE MEDICATIONS 1. Zofran 4 mg q.4-6h. p.r.n. 2. Protonix 40 mg one tablet daily. 3. Lyrica 75 mg one tablet in the morning, 150 mg one tablet at bedtime. 4. [place] 10/325 mg one tablet t.i.d. p.r.n. 5. Albuterol inhaler two puffs q.i.d. p.r.n. 6. Norvasc 5 mg p.o. b.i.d. 7. Dulcolax 5 mg p.o. scheduled. 8. Flexeril 10 mg one tablet daily. 9. Colace 100 mg b.i.d. 10. Cardura 2 mg p.o. q.h.s. 11. Duragesic patch 50 mcg/hr changed every three days. 12. Folic acid 1 mg one tablet daily. 13. Ativan 2 mg p.o. t.i.d. p.r.n. anxiety. 14. Remeron 15 mg p.o. q.h.s. DIET Regular diet. MTDD
--- NOTE | 2017-07-10 15:19 | Right on Track Program ---
Right on Track Program Date of Discharge: 07/09/17 Home Medications: Home Medications Medication Instructions Recorded Confirmed Ondansetron Odt [Zofran Po] 4 mg PO Q6HPRN PRN 04/16/17 07/12/17 Pregabalin Cap [Lyrica] 75 mg PO QAM 05/16/17 07/12/17 Doxazosin Mesylate [Cardura] 2 mg PO HS 05/25/17 07/12/17 Amlodipine [Norvasc] 10 mg PO DAILY 07/07/17 07/12/17 Docusate Sodium [Colace] 200 mg PO DAILY 07/07/17 07/12/17 LORazepam [Ativan] 1 mg PO TID PRN 07/07/17 07/12/17 Albuterol Sulfate [Proventil Hfa 2 puff INH Q4H PRN 07/11/17 07/12/17 90mcg] Bisacodyl EC TAB [Dulcolax] 10 mg PO DAILY 07/11/17 07/12/17 Cyclobenzaprine [Flexeril] 10 mg PO DAILY PRN 07/11/17 07/12/17 Folic Acid [Folate] 1 mg PO DAILY 07/11/17 07/12/17 Hydrocodone/APAP 10/325 [[place] 1 tab PO TID 07/11/17 07/12/17 10/325] Mirtazapine [Remeron] 15 mg PO HS 07/11/17 07/12/17 Pregabalin Cap [Lyrica] 150 mg PO HS 07/11/17 07/12/17 buPROPion HCl [Bupropion Xl] 150 mg PO DAILY 07/11/17 07/12/17 FentaNYL PATCH [Duragesic Patch] 1 patch TD Q72H 07/12/17 07/12/17 Previous Rx's Medication Instructions Recorded Albuterol Neb (0.083%) [Proventil 2.5 mg AEROSOL Q6HPRN #60 vial 07/11/17 Neb (0.083%)] Metoclopramide HCl [Reglan] 10 mg PO [id number] #120 tab 07/15/17 Sucralfate Oral Liq [Carafate 1 gm PO ACHS 30 Days #120 udc 07/15/17 Slurry] - Right on Track Program 24-hour phone call Date: 07/10/17 Right on Track Program: 24 Hour Follow-Up Discharge Summary Received: Yes Comments: I called Jose Miguel on 07/10/17, the day after discharge from [facility] for sepsis of uncertain etiology. He did not answer his phone, but I left a message asking him to return my call. He is supposed to f/u with Dr. Mendoza in 1 week. BC are negative after 2 days. He returned my call on 07/14/17, and informed me that he was readmitted to the hospital for additional workup. He was discharged again on 07/15/17. Additional ROTP notes may be found through that account. Recommendations For Follow-up: 1. Sepsis of unknown etiology. 2. Acute dehydration. Nausea and vomiting. 3. Mild yeast stomatitis. 4. Lung cancer, chemo per Dr. Cabrera. 6. Anxiety & Depression. 8. Chronic low back and neck pain.
== END 2017-07-09 19:45 | disposition home or self-care (01) | DRG 872 ==
LOC: MED 16:41
PROVIDERS: ADMIT Family Medicine; ATTEND Family Medicine

== ENCOUNTER 2017-07-12 09:00 | Inpatient (IN) ==
--- NOTE | 2017-07-12 09:21 | Emergency Department Report ---
General Adult HPI - General Chief complaint: Nausea/Vomiting/Diarrhea Stated complaint: dyspnea, n/v Time Seen by Provider: 07/12/17 09:21 Source: patient, EMS Mode of arrival: EMS Limitations: no limitations - History of Present Illness HPI narrative: Patient is a 56-year-old male, presents emergency department for evaluation of nausea and vomiting. Patient is lung cancer patient, was seen yesterday in the emergency department for feeling hot and cold, evaluated by ER physician. Laboratories were noncontributory, patient's symptoms improved while in the emergency department. Patient did have Zofran at home so patient was told to take Zofran as needed and follow with primary medical physician. Patient states he started having vomiting at 8 PM last night, Zofran was not helping unable to keep down any food or fluid. Patient finally called EMS this morning to be brought back to the ER for evaluation. Patient given 12.5 Phenergan in route, is still complaining of mild nausea. Onset (ago): hour(s) - Related Data Home Medications Medication Instructions Recorded Confirmed Ondansetron Odt [Zofran Po] 4 mg PO Q6HPRN PRN 04/16/17 07/12/17 Pregabalin Cap [Lyrica] 75 mg PO QAM 05/16/17 07/12/17 Docusate Sodium [Colace] 200 mg PO DAILY 07/07/17 07/12/17 Albuterol Sulfate [Proventil Hfa 2 puff INH Q4H PRN 07/11/17 07/12/17 90mcg] Bisacodyl EC TAB [Dulcolax] 10 mg PO DAILY 07/11/17 07/12/17 Cyclobenzaprine [Flexeril] 10 mg PO DAILY PRN 07/11/17 07/12/17 Folic Acid [Folate] 1 mg PO DAILY 07/11/17 07/12/17 Mirtazapine [Remeron] 15 mg PO HS 07/11/17 07/12/17 Pregabalin Cap [Lyrica] 150 mg PO HS 07/11/17 07/12/17 buPROPion HCl [Bupropion Xl] 150 mg PO DAILY 07/11/17 07/12/17 Previous Rx's Medication Instructions Recorded Albuterol Neb (0.083%) [Proventil 2.5 mg AEROSOL Q6HPRN #60 vial 07/11/17 Neb (0.083%)] Sucralfate Oral Liq [Carafate 1 gm PO ACHS 30 Days #120 udc 07/15/17 Slurry] Protonix (Pantoprazole)40 mg 40 mg PO BID #60 tab 07/16/17 tablet,delayed release metoclopramide 10 mg tablet 10 mg PO .COMPLEX #120 tab 07/21/17 Ativan (lorazepam) 1 mg tablet 1 mg PO TID PRN #90 tab 07/27/17 Cardura (doxazosin) 2 mg tablet 2 mg PO HS #30 tab 07/27/17 [place] 10 mg-acetaminophen 325 mg 1 tab PO TID #90 tab 07/27/17 tablet fentanyl 50 mcg/hr transdermal 1 patch TD Q72H #10 each 08/03/17 patch Norvasc (amlodipine) 5 mg tablet 10 mg PO DAILY #60 tab 08/05/17 Allergies Allergy/AdvReac Type Severity Reaction Status Date / Time levofloxacin Allergy Mild Hives Verified 07/27/17 09:58 Sulfa (Sulfonamide Allergy Unknown Verified 07/27/17 09:58 Antibiotics) [facility] Patient Stated Medical History Peripheral Neuropathy Yes: takes Lyrica Dental Problems Yes Other HEENT Yes: voice dysfunction Hypertension Yes Chronic Obstructive Pulmonary Yes Disease (COPD) Pneumonia Yes Sleep Apnea "I might" Other Respiratory Yes: Emphysema Diabetes Mellitus Type 2 Yes: borderline Other Endocrine Yes: BORDERLINE Other GI Yes: N/V FOR MONTHS Hx Renal Disease No Hx Urinary Tract Infection Yes: recent - 3 weeks ago Anemia Yes Osteoarthritis Yes: back MRSA Yes Sepsis Yes Chemotherapy Yes: MAY 2017 Depression Yes Clinic Medical History (Last Reviewed 07/07/17 @ 14:32 by BEA Latif) Chronic low back pain (Acute Medical) Borderline diabetes (Chronic Medical) Hypertension (Chronic Medical) Medical History Updates: Chronic obstructive pulmonary disease. Arthritis. Herniated disc in back. Adenocarcinoma of the lung. Depression Surgical History: Lung Biopsy, Chest Tube Insertion,. Left upper lobectomy 02/16. 04/02/17 Port-A-Cath insertion. Right eyelid surgery Family History: Family History (Last Reviewed 07/07/17 @ 14:32 by BEA Latif) Father Diabetes Hypertension Paternal Grandfather Hypertension Diabetes - Social History Smoking status: Former smoker Does patient use chewing tobacco?: No Current residence: Apartment/Private Home Course Vital Signs Temperature 98.2 F 07/12/17 09:03 Pulse Rate 86 07/12/17 09:03 Respiratory Rate 24 07/12/17 09:03 Blood Pressure 186/91 H 07/12/17 09:03 Pulse Oximetry 99 07/12/17 09:03 Temperature 97.1 F 07/15/17 15:44 Pulse Rate 78 07/15/17 15:44 Respiratory Rate 16 07/15/17 15:44 Blood Pressure 164/88 H 07/15/17 15:44 Pulse Oximetry 100 07/15/17 15:44 Medical Decision Making - Lab Data Result diagrams: 07/15/17 15:08 07/15/17 15:08 Lab Results 07/12/17 07/12/17 07/12/17 Range/Units 09:51 09:51 09:51 WBC 7.8 (4.5-11.0) T/MM3 RBC 4.15 L (4.50-5.90) M/MM3 Hgb 12.7 L (13.5-17.5) GM/DL Hct 37.8 L D (41-53) % MCV 91.1 (80-100) UM3 MCH 30.6 (26-34) UUG MCHC 33.6 (31-37) GM/DL RDW Std Deviation 44.1 (36.9-50.2) FL Plt Count 348 (130-400) T/MM3 MPV 8.6 L (9.4-12.4) UM3 Immature Gran % (Auto) 0.1 (0.0-0.5) % Neut % (Auto) 76.7 H (33-66) % Lymph % (Auto) 16.6 L (23-45) % [place] % (Auto) 6.1 (0-9.0) % Eos % (Auto) 0.4 (0-4) % Baso % (Auto) 0.1 (0-2) % Neut # (Auto) 6.0 (1.8-7.7) T/MM3 Lymph # (Auto) 1.3 (1-4.8) T/MM3 [place] # (Auto) 0.5 (0-0.8) T/MM3 Eos # (Auto) 0.0 (0-0.5) T/MM3 Baso # (Auto) 0.0 (0-0.2) T/MM3 Abs Immat Gran (auto) 0.01 (0.00-0.03) T/MM3 Turbidity < 20 (0-20) Sodium 137 (134-144) MEQ/L Potassium 3.8 (3.6-5) MEQ/L Chloride 97 L (98-107) MEQ/L Carbon Dioxide 25 (22-30) MEQ/L Anion Gap 15 (5-15) MEQ/L BUN 30.0 H (9-20) MG/DL Creatinine 0.9 (0.8-1.5) MG/DL GFR Calculation 88 BUN/Creatinine Ratio 33 H (6-26) RATIO Glucose 121 H (75-110) MG/DL Calculated Osmolality 271 (261-280) MOSM/KG Calcium 9.5 D (8.4-10.2) MG/DL Magnesium (1.6-2.3) MG/DL Icterus Index < 2 (0-7) Serum Amylase 55 (25-125) U/L Lipase (23-300) U/L Specimen Hemolysis < 15 (0-25) 07/12/17 Range/Units 09:51 WBC (4.5-11.0) T/MM3 RBC (4.50-5.90) M/MM3 Hgb (13.5-17.5) GM/DL Hct (41-53) % MCV (80-100) UM3 MCH (26-34) UUG MCHC (31-37) GM/DL RDW Std Deviation (36.9-50.2) FL Plt Count (130-400) T/MM3 MPV (9.4-12.4) UM3 Immature Gran % (Auto) (0.0-0.5) % Neut % (Auto) (33-66) % Lymph % (Auto) (23-45) % [place] % (Auto) (0-9.0) % Eos % (Auto) (0-4) % Baso % (Auto) (0-2) % Neut # (Auto) (1.8-7.7) T/MM3 Lymph # (Auto) (1-4.8) T/MM3 [place] # (Auto) (0-0.8) T/MM3 Eos # (Auto) (0-0.5) T/MM3 Baso # (Auto) (0-0.2) T/MM3 Abs Immat Gran (auto) (0.00-0.03) T/MM3 Turbidity (0-20) Sodium (134-144) MEQ/L Potassium (3.6-5) MEQ/L Chloride (98-107) MEQ/L Carbon Dioxide (22-30) MEQ/L Anion Gap (5-15) MEQ/L BUN (9-20) MG/DL Creatinine (0.8-1.5) MG/DL GFR Calculation BUN/Creatinine Ratio (6-26) RATIO Glucose (75-110) MG/DL Calculated Osmolality (261-280) MOSM/KG Calcium (8.4-10.2) MG/DL Magnesium 2.1 (1.6-2.3) MG/DL Icterus Index (0-7) Serum Amylase (25-125) U/L Lipase 28 (23-300) U/L Specimen Hemolysis (0-25) Disposition Clinical Impression: Intractable vomiting with nausea Disposition: 02 To OBS [facility] Condition: Stable - Seen By: physician
[2017-07-12] MEDS ORDERED: ALBUTEROL/IPRATROPIUM 2.5mg-0.5mg/3ml NEB AEROSOL ONE (09:38)
[2017-07-12] MEDS ORDERED: NS 1,000 ML IV ONE (09:38)
[2017-07-12] MEDS ORDERED: PROCHLORPERAZINE 10 MG/2 ML INJECTION IVP ONE (09:39)
[2017-07-12] MEDS ORDERED: GRANISETRON 1mg/ml INJECTION IVP ONE (10:38)
[2017-07-12] MEDS: SALINE FLUSH 10ml SYRINGE IVF PRN ×2 (10:48→21:39)
[2017-07-12 12:26] VITALS: BMI 20.9
[2017-07-12] MEDS ORDERED: GRANISETRON 1mg/ml INJECTION IVP PRN (12:31)
[2017-07-12] MEDS: D5-1/2NS with KCL 20mEq 1,000 ML IV SCH ×2 (13:18→20:16)
[2017-07-12] MEDS ORDERED: NS 100 ML ONE (19:27)
[2017-07-12] MEDS ORDERED: SALINE FLUSH 10ml SYRINGE ONE (19:27)
[2017-07-12] MEDS ORDERED: IOHEXOL 300mg/ml 100ml INJECTION ONE (19:27)
--- NOTE | 2017-07-12 20:21 | History and Physical ---
CHIEF COMPLAINT Persistent nausea and vomiting. HPI The patient is a 56-year-old male with known history of lung cancer. He presented to the [facility] ED today with chief complaint of persistent nausea and vomiting. In addition, the patient was having fever and chills. The patient was seen at [facility] ED yesterday with similar complaint. He was treated and felt better and went home. At about 8 p.m. last night he was beginning to have nausea and vomiting. He has taken his home medications including Zofran for nausea - that did not help. Finally, the patient came to the emergency room today. He wasn't able to hold liquids or solid food down. He was complaining of fever and chills - "hot and cold." In the emergency room the patient was treated with IV Phenergan and IV Kytril and Compazine as well. He continued to have nausea and vomiting and therefore the patient was admitted to [facility] at my request for further evaluation, recommendations and management. The patient was subsequently dismissed from [facility] on 07/09/2017 by myself after he was here for fever, chills, nausea and vomiting. His blood culture has been negative for at least four or five days now. The patient was supposed to see Dr. Bree Fuentes in the office tomorrow. PAST MEDICAL HISTORY 1. Lung cancer, status post upper left lobectomy. 2. Chronic back pain. 3. Insomnia. 4. Recurrent fever and chills. 5. Recurrent nausea and vomiting. 6. Recurrent sepsis. FAMILY HISTORY Not relevant to this admission. CURRENT MEDICATIONS 1. Zofran 4 mg p.o. q.6h. p.r.n. 2. Lyrica 75 mg one tablet q.a.m. 3. Cardura 2 mg one tablet at bedtime. 4. Amlodipine (Norvasc) 10 mg one tablet daily. 5. Colace 200 mg daily. 6. Ativan 1 mg p.o. t.i.d. p.r.n. 7. Albuterol inhaler two puffs q.4h. p.r.n. 8. Dulcolax 10 mg p.o. daily. 9. Flexeril 10 mg p.o. daily p.r.n. 10. Folic acid 1 mg tablet daily. 11. [place] one tablet p.o. t.i.d. 12. Remeron 15 mg p.o. q.h.s. 13. Protonix 40 mg one tablet daily. 14. Lyrica 150 mg at bedtime. 15. Bupropion XL 150 mg one tablet daily. 16. Fentanyl patch changed every 72 hours. ALLERGIES Levaquin. Sulfa. REVIEW OF SYSTEMS Denies chest pain, orthopnea, PND, leg-swelling, hematochezia, melena. Denies TIA or seizure symptoms. Remainder as per HPI above. PHYSICAL EXAM GENERAL: The patient was chilling in the room. VITAL SIGNS: Last blood pressure at 12:24 189/97, pulse 82-102, temperature 98.6 , respirations 18, oxygen saturation 100% on room air. NECK: Supple. CHEST: Lungs are clear. CARDIOVASCULAR: Regular rate and rhythm. ABDOMEN: Soft, nontender. EXTREMITIES: No cyanosis, clubbing or edema. NEUROLOGIC: Grossly intact. LABORATORY CBC unremarkable other than a hemoglobin of 12.7. ASSESSMENT 1. Intractable nausea and vomiting, etiology remains unclear. Probably multifactorial. 2. Recent sepsis - treated. Unknown organism with negative blood culture. 3. Fever and chills. 4. Lung cancer. The patient's chemotherapy is on hold at this time. 5. Mild dehydration. PLAN Admit patient to [facility] under the care of Dr. Cristofer Mendoza. The patient will be made n.p.o. IV fluids. Follow electrolytes closely. Consultation to Dr. Cabrera, patient's oncologist (patient is well known to him in light of recurrent chills) as well as Dr. Екатерина Fuentes. Will use two or three antiemetics to improve his nausea and vomiting. MTDD
[2017-07-12] MEDS: METOCLOPRAMIDE 10mg/2ml INJECTION IVP PRN (20:27)
[2017-07-12] MEDS: PANTOPRAZOLE 40 MG INJECTION IVP SCH (21:40)
[2017-07-13] MEDS: D5-1/2NS with KCL 20mEq 1,000 ML IV SCH ×4 (02:59→23:57)
--- NOTE | 2017-07-13 09:01 | CT Scan Report ---
EXAM: CT abdomen pelvis w con DATE: 07/12/2017 7:14 PM ENCOUNTER: Initial INDICATION: nausea, vomiting recurrent and persistent, left lower quadrant pain, history of lung cancer status post left lower lobectomy COMPARISON: 04/28/2017 TECHNIQUE: CT of the abdomen and pelvis with IV contrast. The patient received 89.1 mL of Omnipaque 300 without complication. Coronal and sagittal reformatted images were performed. The current CT scan was performed using radiation dose-reduction techniques. FINDINGS: Lower Chest: The visualized portions of the lower lungs are well aerated. No focal airspace disease. The heart is normal in size without pericardial effusion. Abdomen: No intraperitoneal free air. No intra-abdominal free fluid or fluid collections. No lymphadenopathy. Liver: The liver enhances homogeneously without focal masses. Gallbladder and biliary: The gallbladder appears normal. No biliary ductal dilatation. Spleen: The spleen appears normal. Pancreas: The pancreas demonstrates homogeneous attenuation. Adrenal glands: The adrenal glands are normal in size and attenuation. Kidneys/ureters: The kidneys appear normal. The ureters are normal in course and caliber. GI tract: Mild prominence of the wall of the stomach and small bowel. The colon appears grossly normal. No CT evidence of acute appendicitis. Vascular structures: The aorta is normal in course and caliber with aortoiliac atherosclerotic calcifications noted. The mesenteric arterial and venous structures appear patent. Pelvis: No pelvic free fluid. No pelvic lymphadenopathy. Bladder: The bladder is relatively distended but appears otherwise normal. Genital system: The prostate and seminal vesicles appear grossly normal. Skeletal structures and soft tissues: No acute osseous or soft tissue abnormality identified. Unchanged degenerative spondylosis of the lower lumbar spine and associated mild anterolisthesis of L4-L5. IMPRESSION: Mild prominence of the wall of the stomach and small bowel suggesting gastroenteritis. .
[2017-07-13] MEDS: PANTOPRAZOLE 40 MG INJECTION IVP SCH ×2 (09:19→20:22)
--- NOTE | 2017-07-13 14:22 | Consult Note ---
<Sherine Woods - Last Filed: 07/13/17 15:12> Oncology HPI - Data of Consult Patient: known to practice within the last 3 years Consult date: 07/13/17 Requesting Physician: Cristofer Mendoza MD Primary Care Provider: Cristofer Mendoza MD Family Provider: Cristofer Mendoza MD - Consult Narrative Reason for consult: non-small cell lung cancer History of present illness: Well known patient to Dr Cabrera and myself with NSCLC diagnosed November 2016, s/p lobectomy and one cycle of pemetrexed/cisplatin. His chemotherapy had been held secondary to recurrent hospitalizations with fever/ infections. Hospitalized last week with recurrent possible sepsis; subjectively had generalized aching, felt nauseated. Received IV antibiotics. Negative blood cultures. Was dismissed to home 07/09/17. Returned to [facility] emergency room Wednesday , 07/11/17 with nausea and vomiting. Was given IV fluids, nausea medications. Some improvement; went home, but symptoms persisted/ recurred and returned to [facility] yesterday with intractable nausea and vomiting. Note, recently seen by Dr. Patel, ENT on 05/31/17 and diagnosed with left vocal cord paralysis; patient had outpatient procedure with Dr. Patel and subjectively reported significant improvement in his swallowing, states did not feel like he was choking any more. At time of intake, alone in room. Denies fever, chills. Feels weak. Denies cough or shortness of air. No sore throat or earache. No nausea currently, states "but I haven't eaten since Wednesday. I'm feeling really hungry. My stomach hurts a little, but I think that's because I'm so hungry. " Denies headache, vision changes. He was scheduled to see Dr. Fuentes, infectious disease as outpatient today. She has been consulted and patient thinks he will see her today. History of present illness --Significant back problems resulting in disability. Unable to work 4 years. --12/17/16: Chest x-ray showed 3.8 cm mass in the left suprahilar region. --12/29/16: Biopsy left lung showed invasive carcinoma, grade 2, Adenocarcinoma --02/05/17: left parotid needle biopsy, low grade epithelial neoplasm. --02/16/17: Left upper lobe lobectomy with additional excision of left lower lobe margin. Specimen showed a 3.4 cm invasive adenocarcinoma, moderately differentiated there was no pleural or lymphatic invasion identified. Closest bronchial resection was 1 cm away. 9 lymph nodes were benign. Additional resection of left lower lobe showed benign tissue. --Postoperative hospitalization for fever at [facility], 2 hospitalizations at [facility]. --04/02/17: Port placement --04/12/17: Initiation of adjuvant therapy with pemetrexed and cisplatin. --04/19/17: [facility] visit with elevated BUN, dehydration, nausea and vomiting resulting in hospitalization. Hypokalemia. Renal insufficiency. CTA negative for pulmonary embolism. Dismissed on 04/23/17.Bacteremia from coagulase- negative Staph. --04/26/17: Readmission to [facility] with fever, chills and nausea/ vomiting. --05/16/17: Readmitted with N/V and leukocytosis. --06/01/17: Consultation with Dr. Patel for vocal cord paralysis Review of Systems - Constitutional Constitutional: Present: fatigue, increased appetite, weakness - EENT Eyes: Absent: change in vision Mouth/Throat: Absent: sore throat, painful swallowing - Cardiovascular Cardiovascular: Absent: chest pain, dyspnea on exertion - Respiratory Respiratory: Present: cough (infrequent, nonproductive.) - Gastrointestinal Gastrointestinal: Present: as per HPI (denies nausea currently). Absent: constipation, diarrhea - Genitourinary Genitourinary: Absent: hematuria, urinary frequency - Musculoskeletal Musculoskeletal: Present: muscle weakness - Neurological Neurological: Present: weakness. Absent: dizziness, headache(s) PFSH Patient Stated Medical History Peripheral Neuropathy Yes: takes Lyrica Dental Problems Yes Other HEENT Yes: voice dysfunction Hypertension Yes Chronic Obstructive Pulmonary Yes Disease (COPD) Pneumonia Yes Sleep Apnea "I might" Other Respiratory Yes: Emphysema Other GI Yes: N/V FOR MONTHS Hx Urinary Tract Infection Yes: recent - 3 weeks ago Anemia Yes Osteoarthritis Yes: back MRSA Yes Sepsis Yes Chemotherapy Yes: MAY 2017 Depression Yes Clinic Medical History (Last Reviewed 07/07/17 @ 14:32 by BEA Latif) Pneumonia of both lower lobes (Acute Medical) Mental status change (Acute Medical) Tachypnea (Acute Medical) Sepsis (Acute Medical) Acute respiratory alkalosis (Acute Medical) Adenocarcinoma, lung (Chronic Medical) Anxiety and depression (Acute Medical) Hypertension (Acute Medical) Tobacco abuse (Acute Medical) Dehydration (Acute Medical) Intractable vomiting with nausea (Acute Medical) Lung cancer (Chronic Medical) Refer to Dr. Baig as soon as possible. Chronic low back pain (Acute Medical) Borderline diabetes (Chronic Medical) Hypertension (Chronic Medical) Acute exacerbation of emphysema (Inactive Medical) COPD (chronic obstructive pulmonary disease) (Inactive Medical) Chest wall pain (Inactive Medical) Chronic low back pain (Inactive Medical) Hold on previously scheduled low back surgery until cleared to do so by Dr. Baig. Pt. to f/u with me in 2 weeks. Sooner if needed. Drug-induced nausea and vomiting (Inactive Medical) Nausea & vomiting (Inactive Medical) Visit for wound care (Inactive Medical) Medical History Updates: Chronic obstructive pulmonary disease. Arthritis. Herniated disc in back. Adenocarcinoma of the lung. Depression Surgical History: Lung Biopsy, Chest Tube Insertion,. Left upper lobectomy 02/16. 04/02/17 Port-A-Cath insertion. Right eyelid surgery Family History: Family History (Last Reviewed 07/07/17 @ 14:32 by Bethany Dennis Julienne) Father Diabetes Hypertension Paternal Grandfather Hypertension Diabetes Brother with melanoma. No other cancer history. - Social History Smoking status: Former smoker Current residence: Apartment/Private Home Medications Home Medications Medication Instructions Recorded Confirmed Type Ondansetron Odt [Zofran Po] 4 mg PO Q6HPRN PRN 04/16/17 07/12/17 History Pregabalin Cap [Lyrica] 75 mg PO QAM 05/16/17 07/12/17 History Doxazosin Mesylate [Cardura] 2 mg PO HS 05/25/17 07/12/17 History Amlodipine [Norvasc] 10 mg PO DAILY 07/07/17 07/12/17 History Docusate Sodium [Colace] 200 mg PO DAILY 07/07/17 07/12/17 History LORazepam [Ativan] 1 mg PO TID PRN 07/07/17 07/12/17 History Albuterol Sulfate [Proventil Hfa 2 puff INH Q4H PRN 07/11/17 07/12/17 History 90mcg] Bisacodyl EC TAB [Dulcolax] 10 mg PO DAILY 07/11/17 07/12/17 History Cyclobenzaprine [Flexeril] 10 mg PO DAILY PRN 07/11/17 07/12/17 History Folic Acid [Folate] 1 mg PO DAILY 07/11/17 07/12/17 History Hydrocodone/APAP 10/325 [[place] 1 tab PO TID 07/11/17 07/12/17 History 10/325] Mirtazapine [Remeron] 15 mg PO HS 07/11/17 07/12/17 History Pantoprazole Sodium [Protonix] 40 mg PO DAILY 07/11/17 07/12/17 History Pregabalin Cap [Lyrica] 150 mg PO HS 07/11/17 07/12/17 History buPROPion HCl [Bupropion Xl] 150 mg PO DAILY 07/11/17 07/12/17 History FentaNYL PATCH [Duragesic Patch] 1 patch TD Q72H 07/12/17 07/12/17 History Allergies Allergy/AdvReac Type Severity Reaction Status Date / Time levofloxacin Allergy Mild Hives Verified 07/12/17 09:23 Sulfa (Sulfonamide Allergy Unknown Verified 07/12/17 09:23 Antibiotics) Exam Vital signs: Temperature 97.5 F 07/13/17 07:50 Pulse Rate 88 07/13/17 07:50 Respiratory Rate 18 07/13/17 07:50 Blood Pressure 142/86 H 07/13/17 07:50 Pulse Oximetry 98 07/13/17 07:50 - Constitutional no acute distress, thin, cooperative - Routine HEENT Exam Head: Present: normocephalic Eye: Present: EOMI ENT: Present: mucous membranes moist (mild yellow coating on tongue. No other oral lesions) - Routine Neck Exam Present: supple. Absent: lymphadenopathy - Routine Respiratory Exam Present: decreased breath sounds, rhonchi (bibasilar. No wheezing appreciated) - Routine Cardiovascular Exam Present: RRR. Absent: no murmur - Routine Abdominal Exam Present: soft, normoactive bowel sounds, non distended, non tender - Routine Extremities Exam Absent: no edema - Routine Back/Spine/Pelvis Exam Back/Spine: Present: full ROM. Absent: vertebral tenderness - Routine Skin Exam Present: intact, dry - Routine Neurological Exam Present: alert, oriented X3, moving all extremities - Routine Psychiatric Exam Present: normal affect, normal thought process Oncology Results - Labs CBC & Chem 7: 07/12/17 09:51 07/12/17 09:51 Assessment and Plan Assessment and Plan: 1. Stage IIB adenocarcinoma left upper lobe, 12/29/16, status post lobectomy. Received one cycle pemetrexed/cisplatin 04/12/17. No further chemotherapy secondary to recurrent hospitalizations with fever of unknown origin, recurrent infections. Symptoms resolve, then recur. Has seen infectious disease previously. 2. Recurrent fever with leukocytosis. No bacterial source seen. Now with intractable nausea/vomiting. Possible gastritis. 3. Recurrent laryngeal nerve injury. Seen by Dr. patel and status post vocal cord procedure, subbjectively with significant improvement in symptoms. 4. COPD. 5. Chronic back pain with disability. Chronic pain management, well controlled with current meds, sentinel patch and as needed Lortab/Tylenol 6. History tobacco addiction. Multiple quit attempts. Quit smoking 07/04/17 and plans to stay Quit Plan. Continue supportive care, follow counts. Dr. Cabrera will see patient tomorrow. Await infectious disease recommendations. <Walt Cabrera - Last Filed: 07/14/17 08:17> Oncology HPI - Data of Consult Requesting Physician: Cristofer Mendoza MD Primary Care Provider: Cristofer Mendoza MD Family Provider: Cristofer Mendoza MD - Consult Narrative History of present illness: Patient presented 07/07 with significant leukocytosis and elevated CRP. Etiology was not determined. He was dismissed on 07/09. He had emergency room visit on 07/11. ER visit was associated with nausea and vomiting. No fever. Came in by ambulance on 07/12 because of significant weakness and decreased oral intake. [facility] Medical History (Last Reviewed 07/07/17 @ 14:32 by BEA Latif) Chronic low back pain (Acute Medical) Borderline diabetes (Chronic Medical) Hypertension (Chronic Medical) Family History: Family History (Last Reviewed 07/07/17 @ 14:32 by BEA Latif) Father Diabetes Hypertension Paternal Grandfather Hypertension Diabetes Exam Vital signs: Temperature 96.6 F L 07/14/17 07:33 Pulse Rate 93 07/14/17 07:33 Respiratory Rate 18 07/14/17 07:33 Blood Pressure 129/75 07/14/17 07:33 Pulse Oximetry 97 07/14/17 07:33 - Routine HEENT Exam Throat: other (Hoarse) - Routine Neurological Exam Present: CN II-XII intact Oncology Results - Labs CBC & Chem 7: 07/12/17 09:51 07/12/17 09:51 - Impressions Laboratory Tests 03/09/17 03/19/17 04/26/17 04:03 12:21 18:36 WBC Neut # (Auto) C-Reactive Protein < 5.0 22.7 H 9.9 H 05/28/17 06/04/17 06/10/17 09:19 08:55 07:40 WBC Neut # (Auto) C-Reactive Protein 35.7 H 15.7 H < 5.0 07/01/17 07/07/17 07/07/17 08:51 14:58 14:58 WBC 27.8 H Neut # (Auto) 22.0 H C-Reactive Protein 5.7 07/07/17 07/08/17 07/09/17 18:08 05:28 10:43 WBC 12.7 H 8.0 Neut # (Auto) 9.5 H 5.4 C-Reactive Protein 127.9 H D 07/11/17 07/12/17 14:24 09:51 WBC 10.6 7.8 Neut # (Auto) 6.6 6.0 C-Reactive Protein - Imaging and Cardiology CT scan - abdomen Additional comments: Type of Exam(s): CT abdomen pelvis w con Reason for Exam(s): nausea,vomiting recuurent and persistent EXAM: CT abdomen pelvis w con DATE: 07/12/2017 7:14 PM ENCOUNTER: Initial INDICATION: nausea, vomiting recurrent and persistent, left lower quadrant pain, history of lung cancer status post left lower lobectomy COMPARISON: 04/28/2017 TECHNIQUE: CT of the abdomen and pelvis with IV contrast. The patient received 89.1 mL of Omnipaque 300 without complication. Coronal and sagittal reformatted images were performed. The current CT scan was performed using radiation dose-reduction techniques. FINDINGS: Lower Chest: The visualized portions of the lower lungs are well aerated. No focal airspace disease. The heart is normal in size without pericardial effusion. Abdomen: No intraperitoneal free air. No intra-abdominal free fluid or fluid collections. No lymphadenopathy. Liver: The liver enhances homogeneously without focal masses. Gallbladder and biliary: The gallbladder appears normal. No biliary ductal dilatation. Spleen: The spleen appears normal. Pancreas: The pancreas demonstrates homogeneous attenuation. Adrenal glands: The adrenal glands are normal in size and attenuation. Kidneys/ureters: The kidneys appear normal. The ureters are normal in course and caliber. GI tract: Mild prominence of the wall of the stomach and small bowel. The colon appears grossly normal. No CT evidence of acute appendicitis. Vascular structures: The aorta is normal in course and caliber with aortoiliac atherosclerotic calcifications noted. The mesenteric arterial and venous structures appear patent. Pelvis: No pelvic free fluid. No pelvic lymphadenopathy. Bladder: The bladder is relatively distended but appears otherwise normal. Genital system: The prostate and seminal vesicles appear grossly normal. Skeletal structures and soft tissues: No acute osseous or soft tissue abnormality identified. Unchanged degenerative spondylosis of the lower lumbar spine and associated mild anterolisthesis of L4-L5. IMPRESSION: Mild prominence of the wall of the stomach and small bowel suggesting gastroenteritis. Assessment and Plan Assessment and Plan: Patient examined, chart reviewed, I participate in the development of the plan of care for this patient. Complex patient with recurrent admissions that have been associated with leukocytosis, waxing and waning pulmonary infiltrates suggestive of aspiration, initially presented with urinary tract infection symptoms, and almost all the symptoms were associated with leukocytosis and nausea and vomiting. Cultures have been negative. C-reactive protein was dramatically elevated at last hospitalization. It was up to 35 in May and it was 127 last hospitalization. CAT scan suggested gastroenteritis. He has had neutrophilia without significant elevation of his white count this hospitalization. Must consider brain metastasis although the patient had a negative MRI of the brain 05/05/17. He does not have headache or focal weakness or neurologic signs like he was having at that time. Will repeat CBC with manual differential, CRP this morning. Await input by Dr. Fuentes. Consider removal of Port-A-Cath. Vocal cord paralysis presumed traumatic from surgery but could be related to tumor status post surgical procedure by Dr. Patel. Lung cancer status post resection with no evidence of disease. Agree with documentation of Ivana Woods.
[2017-07-13] MEDS: METOCLOPRAMIDE 10mg/2ml INJECTION IVP PRN (15:47)
[2017-07-13] MEDS ORDERED: CYCLOBENZAPRINE 10 MG TABLET PO PRN (16:46)
[2017-07-13] MEDS ORDERED: ONDANSETRON ODT 4 MG TABLET PO PRN (16:46)
[2017-07-13] MEDS ORDERED: LORazepam 1 MG TABLET PO PRN (16:46)
[2017-07-13] MEDS ORDERED: ALBUTEROL 2.5mg/3ml (0.083%) NEB AEROSOL PRN (17:00)
[2017-07-13] MEDS: AMLODIPINE 10 MG TABLET PO SCH (18:19)
--- NOTE | 2017-07-13 19:18 | Progress Note ---
DATE 07/13/2017 CONSTANCE Gillespie is lying in bed. He tried to eat some supper elsa, broth. He could not really hold that down. He has nausea and vomiting. However, no diarrhea. CT abdomen is essentially normal other than a mild prominence of the wall of the stomach and small bowel suggestive of gastroenteritis. PHYSICAL EXAM GENERAL: The patient looks comfortable overall. NECK: Supple. CHEST: Lungs are clear. CARDIOVASCULAR: Regular rate and rhythm. ABDOMEN: Soft, nontender. Bowel sounds are normoactive. EXTREMITIES: No cyanosis, clubbing or edema. SKIN: No rash. ASSESSMENT 1. Acute gastroenteritis. 2. Nausea and vomiting. 3. Dehydration. 4. Lung cancer status post lobectomy. 5. Recurrent fever and chills. PLAN CT report as noted above. Dr. Cabrera will see patient tomorrow as well as Dr. Bree Fuentes. Continue IV fluids. Advance diet only as tolerated. Will keep him n.p.o. tonight and start clear liquids in the morning and advance as he tolerates that. MTDD
[2017-07-13] MEDS: MIRTAZAPINE 15 MG TABLET PO SCH (20:22)
[2017-07-13] MEDS: PREGABALIN 75 MG CAPSULE PO SCH (20:22)
[2017-07-13] MEDS: DOXAZOSIN 2 MG TABLET PO SCH (20:23)
[2017-07-13] MEDS: HYDROCODONE/APAP 10 MG/325 MG TABLET PO SCH (20:23)
[2017-07-14] MEDS: HYDROCODONE/APAP 10 MG/325 MG TABLET PO SCH ×4 (06:31→21:32)
[2017-07-14] MEDS: PANTOPRAZOLE 40 MG TABLET PO SCH (06:31)
[2017-07-14] MEDS: D5-1/2NS with KCL 20mEq 1,000 ML IV SCH ×3 (06:32→20:57)
[2017-07-14] MEDS: PREGABALIN 75 MG CAPSULE PO SCH ×2 (08:24→21:32)
[2017-07-14] MEDS: DOCUSATE SODIUM 100 MG CAPSULE PO SCH (08:24)
[2017-07-14] MEDS: PredniSONE 10 MG TABLET PO SCH (08:24)
[2017-07-14] MEDS: Bisacodyl EC TAB 5 MG TABLET PO SCH (08:24)
[2017-07-14] MEDS: AMLODIPINE 10 MG TABLET PO SCH (08:24)
[2017-07-14] MEDS: BuPROPion XL 150mg (24HR) TABLET PO SCH (08:24)
[2017-07-14] MEDS: FOLIC ACID 1 MG TABLET PO SCH (08:25)
--- NOTE | 2017-07-14 09:13 | Infectious Disease Consult ---
Infectious Disease Consult Date of Consultation: 07/14/17 Requesting Physician: Cristofer Menodza Reason for Consultation: antibiotic recs History of Present Illness: Mr. Pena is a 56 y/o man with a h/o adenocarcinoma of the lung, s/p resection in January 2017. He has received 1 round of chemo, but this was put on hold due to readmissions for fever. He was admitted 04/26/17 to [facility] with fever, chills and nausea/vomiting. He was also admitted 05/16/17 with N/V and leukocytosis, and admitted again 07/07. With his admission last week, he reports that he had fever and chills, and not so much N/V. His WBC was 25K. Blood cultures last week are negative. Procalcitonin last week was negative. UA and CXR were also negative. I spoke with Dr. Mendoza on the phone last Wednesday, 07/09, and patient was going to be discharged. I got him an appointment in my office on Wednesday (yesterday). He developed N/V Wednesday night. This worsened on Wednesday, and he says that he couldn't keep anything down, not even water. He was treated in the ED Wednesday with anti-emetics and steroids. He was re-admitted Wednesday evening. He denies recent fevers or chills, but reports that he had some abdominal pain initially with this admission, now it's better. He had CT of the abdomen which showed changes consistent with gastroenteritis. His WBC was 8K on Thursday 07/12, but today is 17K. He has not had documented fever. He is not on any antibiotics. I've been asked to help evaluate for source of leukocytosis and presumed infection. He does report that he's had difficulty swallowing due to vocal cord paralysis, and that Dr. Patricio gave him an injection in May which has helped this. He still acknowledges aspirating at times. Medications Home Medications Medication Instructions Recorded Confirmed Type Ondansetron Odt [Zofran Po] 4 mg PO Q6HPRN PRN 04/16/17 07/12/17 History Pregabalin Cap [Lyrica] 75 mg PO QAM 05/16/17 07/12/17 History Doxazosin Mesylate [Cardura] 2 mg PO HS 05/25/17 07/12/17 History Amlodipine [Norvasc] 10 mg PO DAILY 07/07/17 07/12/17 History Docusate Sodium [Colace] 200 mg PO DAILY 07/07/17 07/12/17 History LORazepam [Ativan] 1 mg PO TID PRN 07/07/17 07/12/17 History Albuterol Sulfate [Proventil Hfa 2 puff INH Q4H PRN 07/11/17 07/12/17 History 90mcg] Bisacodyl EC TAB [Dulcolax] 10 mg PO DAILY 07/11/17 07/12/17 History Cyclobenzaprine [Flexeril] 10 mg PO DAILY PRN 07/11/17 07/12/17 History Folic Acid [Folate] 1 mg PO DAILY 07/11/17 07/12/17 History Hydrocodone/APAP 10/325 [[place] 1 tab PO TID 07/11/17 07/12/17 History 10/325] Mirtazapine [Remeron] 15 mg PO HS 07/11/17 07/12/17 History Pantoprazole Sodium [Protonix] 40 mg PO DAILY 07/11/17 07/12/17 History Pregabalin Cap [Lyrica] 150 mg PO HS 07/11/17 07/12/17 History buPROPion HCl [Bupropion Xl] 150 mg PO DAILY 07/11/17 07/12/17 History FentaNYL PATCH [Duragesic Patch] 1 patch TD Q72H 07/12/17 07/12/17 History Allergies Allergy/AdvReac Type Severity Reaction Status Date / Time levofloxacin Allergy Mild Hives Verified 07/12/17 09:23 Sulfa (Sulfonamide Allergy Unknown Verified 07/12/17 09:23 Antibiotics) [facility] Clinic Medical History (Last Reviewed 07/07/17 @ 14:32 by BEA Latif) Chronic low back pain (Acute Medical) Borderline diabetes (Chronic Medical) Hypertension (Chronic Medical) Medical History Updates: Chronic obstructive pulmonary disease. Arthritis. Herniated disc in back. Adenocarcinoma of the lung. Depression Surgical History: Lung Biopsy, Chest Tube Insertion,. Left upper lobectomy 02/16. 04/02/17 Port-A-Cath insertion. Right eyelid surgery Family History: Family History (Last Reviewed 07/07/17 @ 14:32 by BEA Latif) Father Diabetes Hypertension Paternal Grandfather Hypertension Diabetes - Social History Smoking status: Former smoker Alcohol intake: former (22 years ago) Current residence: Apartment/Private Home Review of Systems All systems PM: 10-point ROS was reviewed, no additional remarkable complaints except - Constitutional Constitutional: Present: night sweats (since January). Absent: anorexia, chills, fever(s), headache(s) - EENMT Eyes: Absent: change in vision - Cardiovascular Cardiovascular: Absent: chest pain - Respiratory Respiratory: Absent: cough, dyspnea - Gastrointestinal Gastrointestinal: Present: abdominal pain (now resolved, L sided), dysphagia, nausea, vomiting. Absent: diarrhea, melena Gastrointestinal Comments: states he's hungry and tries to eat, then it comes back up - Genitourinary Genitourinary: Absent: difficulty urinating, dysuria, hematuria, urinary frequency - Musculoskeletal Musculoskeletal: Present: arthralgias (a few days ago). Absent: joint swelling - Integumentary/Breasts Integumentary: Absent: rash - Neurological Neurological: Absent: dizziness, headache(s) Exam Vital Signs: Temperature 96.6 F L 07/14/17 07:33 Pulse Rate 93 07/14/17 07:33 Respiratory Rate 18 07/14/17 07:33 Blood Pressure 129/75 07/14/17 07:33 Pulse Oximetry 97 07/14/17 07:33 Height/Weight/BMI: Weight 66.2 kg - Constitutional Present: no acute distress, well nourished, well developed - Routine HEENT Exam Head: Present: normocephalic, atraumatic Eye: Present: EOMI, PERRL ENT: Present: mucous membranes moist, oropharynx clear. Absent: sinus tenderness Comments: dentition fair, slight hoarseness - Routine Neck Exam Present: supple. Absent: lymphadenopathy - Routine Respiratory Exam Present: CTA bilaterally. Absent: accessory muscle use, wheezes - Routine Cardiovascular Exam Present: RRR. Absent: murmur - Routine Abdominal Exam Present: soft, normoactive bowel sounds, non distended, non tender. Absent: rebound, guarding - Routine Extremities Exam Absent: cyanosis, clubbing, edema - Routine Skin Exam Present: intact. Absent: rash - Routine Neurological Exam Present: alert, oriented X3, CN II-XII intact. Absent: motor deficit - Routine Psychiatric Exam Present: normal affect Results - Labs CBC & Chem 7: 07/14/17 08:12 07/14/17 08:12 Impression: Nausea and vomiting, intractable Night sweats since January Stage IIB adenocarcinoma left upper lobe, 12/29/16, status post lobectomy. Received one cycle pemetrexed/cisplatin 04/12/17. No further chemotherapy secondary to recurrent hospitalizations with fever of unknown origin. Followed by Dr. Cabrera. H/o fever and chills, resolved currently. Leukocytosis, s/p steroids 07/11. Recurrent laryngeal nerve injury. Seen by Dr. Patricio and status post vocal cord procedure, subjectively with significant improvement in symptoms. COPD. Chronic back pain with disability. Recommendation: Will check procalcitonin, CMV and EBV serology. I'm not sure that he has a bacterial infection causing his symptoms. For his h/o night sweats, will check fungal antigens and TB interferon. I have a low suspicion for TB. Consider EGD to further evaluate his nausea and vomiting.
[2017-07-14] MEDS: SALINE FLUSH 10ml SYRINGE IVF PRN ×2 (19:32→20:58)
--- NOTE | 2017-07-14 19:32 | Progress Note ---
DATE 07/14/2017 CONSTANCE Gillespie is lying in bed this evening. His daughter is at the bedside. He has had a regular diet without any vomiting or nausea. He doesn't have any new symptoms at this time. He was seen by Dr. Bree Fuentes, Infectious Disease physician, earlier today. She recommended EGD be done and additional tests have been ordered. PHYSICAL EXAM GENERAL: The patient looks comfortable. He is cheerful. VITAL SIGNS: Blood pressure 135/72, pulse 84, respirations 18, temperature 96.3. Oxygen saturation 96% on room air. NECK: Supple. CHEST: Lungs are course throughout this evening. CARDIOVASCULAR: Regular rate and rhythm. ABDOMEN: Soft. EXTREMITIES: No edema. NEUROLOGIC: Grossly intact. LABORATORY WBC 17,300. Hemoglobin 12.6, neutrophils 69. Sedimentation rate 10. Chemistry unremarkable. ASSESSMENT 1. Nausea and vomiting - improved. 2. Fever and chills. 3. Lung cancer. Patient is status post lobectomy. 4. Chronic back pain. PLAN EGD will be scheduled tomorrow. I have spoken with Dr. Lomeli, who will do that tomorrow. The patient will be made n.p.o. after midnight tonight. I reviewed patient's lab at the office from 03/19/2017. We did a QuantiFERON-TB was negative. We also did urine antigen for histoplasma which was negative as well. MTDD
[2017-07-14] MEDS: MIRTAZAPINE 15 MG TABLET PO SCH (21:32)
[2017-07-14] MEDS: DOXAZOSIN 2 MG TABLET PO SCH (21:32)
[2017-07-15] MEDS: D5-1/2NS with KCL 20mEq 1,000 ML IV SCH ×2 (03:49→12:28)
[2017-07-15] MEDS: HYDROCODONE/APAP 10 MG/325 MG TABLET PO SCH ×3 (06:03→15:19)
[2017-07-15] MEDS: PANTOPRAZOLE 40 MG TABLET PO SCH (06:03)
[2017-07-15] MEDS ORDERED: LR 1,000 ML IV SCH (08:15)
[2017-07-15] MEDS ORDERED: LIDOCAINE VISCOUS 2% ORAL LIQUID 15ml ONE (09:02)
--- NOTE | 2017-07-15 09:06 | General Surgery Consult Note ---
Consult date: 07/15/17 Attending Physician: Cristofer Mendoza MD Reason for consult: endoscopy [facility] Patient Stated Medical History Sleep Apnea No Clinic Medical History (Last Reviewed 07/07/17 @ 14:32 by BEA Latif) Chronic low back pain (Acute Medical) Borderline diabetes (Chronic Medical) Hypertension (Chronic Medical) Left lung cancer found on CT 11/2016 Medical History Updates: Chronic obstructive pulmonary disease. Arthritis. Herniated disc in back. Adenocarcinoma of the lung. Depression Surgical History: Lung Biopsy, Chest Tube Insertion,. Left upper lobectomy 02/16. 04/02/17 Port-A-Cath insertion. Right eyelid surgery. Vocal cord "scraped". 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 Antoine Family History: Family History (Last Reviewed 07/07/17 @ 14:32 by BEA Latif) Father Diabetes Hypertension COPD Paternal Grandfather Hypertension Diabetes Mother of sudden cardiac age 21, pt was about 2 year old Brother lymphoma Son Crohn's disease - Social History Smoking status: Former smoker (quit in January 2017 after lung cancer Dx) Alcohol intake: former (no alcohol for about 20 years) Household members: none ( about a year ago) Current occupational status: unemployed (due to back in [email or web address] day a few years ago) Current residence: Apartment/Private Home ([facility]) Medications Home Medications Medication Instructions Recorded Confirmed Type Ondansetron Odt [Zofran Po] 4 mg PO Q6HPRN PRN 04/16/17 07/12/17 History Pregabalin Cap [Lyrica] 75 mg PO QAM 05/16/17 07/12/17 History Doxazosin Mesylate [Cardura] 2 mg PO HS 05/25/17 07/12/17 History Amlodipine [Norvasc] 10 mg PO DAILY 07/07/17 07/12/17 History Docusate Sodium [Colace] 200 mg PO DAILY 07/07/17 07/12/17 History LORazepam [Ativan] 1 mg PO TID PRN 07/07/17 07/12/17 History Albuterol Sulfate [Proventil Hfa 2 puff INH Q4H PRN 07/11/17 07/12/17 History 90mcg] Bisacodyl EC TAB [Dulcolax] 10 mg PO DAILY 07/11/17 07/12/17 History Cyclobenzaprine [Flexeril] 10 mg PO DAILY PRN 07/11/17 07/12/17 History Folic Acid [Folate] 1 mg PO DAILY 07/11/17 07/12/17 History Hydrocodone/APAP 10/325 [Ingalls 1 tab PO TID 07/11/17 07/12/17 History 10/325] Mirtazapine [Remeron] 15 mg PO HS 07/11/17 07/12/17 History Pantoprazole Sodium [Protonix] 40 mg PO DAILY 07/11/17 07/12/17 History Pregabalin Cap [Lyrica] 150 mg PO HS 07/11/17 07/12/17 History buPROPion HCl [Bupropion Xl] 150 mg PO DAILY 07/11/17 07/12/17 History FentaNYL PATCH [Duragesic Patch] 1 patch TD Q72H 07/12/17 07/12/17 History Allergies Allergy/AdvReac Type Severity Reaction Status Date / Time levofloxacin Allergy Mild Hives Verified 07/12/17 09:23 Sulfa (Sulfonamide Allergy Unknown Verified 07/12/17 09:23 Antibiotics) Review of Systems 10-point ROS: negative except for HPI and the following: - Eyes/Ears/Nose/Throat Ear Nose Throat: Present: loose/chipped/cracked teeth - Gastrointestinal Gastrointestinal: Present: nausea, vomiting, other (trouble swallowing from paralysed left vocal cord until the right cord was "moved", and doing better with swallowing now) - Musculoskeletal Musculoskeletal: Present: back pain (was scheduled for back surgery until pre- op CXR found lung mass) - Psychiatric Psychiatric: Present: depression (mostly grief from 's a year ago) - Vital Signs Last Vital Signs Temp 98.5 F 07/15/17 08:22 Pulse 81 07/15/17 08:30 Resp 14 07/15/17 08:30 BP 147/80 H 07/15/17 08:30 Pulse Ox 93 07/15/17 08:30 - Laboratory Result Diagrams: 07/14/17 08:12 07/14/17 08:12 General Surgery Results - Results Labs: 07/14/17 08:12 07/14/17 08:12 Hospital Course Summary Disclaimer: The visit summary below is not to be considered part of the above Progress Note.
--- NOTE | 2017-07-15 09:07 | Anesthesia Preoperative Report ---
Anesthesia Preoperative Record - Date and Time Date: 07/15/17 Preoperative Diagnosis: Intractable nausea and vomiting Proposed Procedure: EGD Allergies/Adverse Reactions: Allergies Allergy/AdvReac Type Severity Reaction Status Date / Time levofloxacin Allergy Mild Hives Verified 07/12/17 09:23 Sulfa (Sulfonamide Allergy Unknown Verified 07/12/17 09:23 Antibiotics) - Vital Signs Vital Signs: Temperature 98.5 F 07/15/17 08:22 Pulse Rate 81 07/15/17 08:30 Respiratory Rate 14 07/15/17 08:30 Blood Pressure 147/80 H 07/15/17 08:30 Pulse Oximetry 93 07/15/17 08:30 Height and Weight: Weight 68.7 kg - Medications Inpatient Medications: Current Medications Hydrocodone Bitart/Acetaminophen (Mchenry 10/325) 1 tab PO TID [facility] Last Admin: 07/15/17 06:03 Dose: 1 tab Albuterol Sulfate (Proventil Neb (0.083%)) 2.5 mg AEROSOL Q6H PRN Albuterol Sulfate (Ventolin Hfa) 2 puff INH Q4H PRN PRN Reason: Shortness of air/wheezing Amlodipine Besylate (Norvasc) 10 mg PO DAILY [facility] Last Admin: 07/14/17 08:24 Dose: 10 mg Bisacodyl (Dulcolax) 10 mg PO DAILY [facility] Last Admin: 07/14/17 08:24 Dose: 10 mg Bupropion HCl (Wellbutrin Xl) 150 mg PO DAILY [facility] Last Admin: 07/14/17 08:24 Dose: 150 mg Cyclobenzaprine HCl (Flexeril) 10 mg PO DAILY PRN Docusate Sodium (Colace) 200 mg PO DAILY [facility] Last Admin: 07/14/17 08:24 Dose: 200 mg Doxazosin Mesylate (Cardura) 2 mg PO HS [facility] Last Admin: 07/14/17 21:32 Dose: 2 mg Fentanyl (Duragesic Patch) 50 mcg TD Q72H [facility] Last Admin: 07/13/17 18:27 Dose: 50 mcg Fentanyl Citrate (Duragesic Patch Removal) 1 removal TD Q3D [facility] Last Admin: 07/13/17 18:28 Dose: Not Given Folic Acid (Folate) 1 mg PO DAILY [facility] Last Admin: 07/14/17 08:25 Dose: 1 mg Granisetron HCl (Kytril) 1 mg IVP Q24H PRN Potassium Chloride/Dextrose/Sod Cl (D5-1/2ns With Kcl 20meq) 1,000 mls @ 150 mls/hr IV .Q6H40M [facility] Last Infusion: 07/15/17 08:16 Dose: 0 mls/hr Lactated Ringer's (Lactated Ringers) 1,000 mls @ 100 mls/hr IV .Q10H [facility] Last Admin: 07/15/17 08:21 Dose: 100 mls/hr Lorazepam (Ativan) 1 mg PO TID PRN PRN Reason: anxiety Metoclopramide HCl (Reglan) 10 mg IVP Q6H PRN Last Admin: 07/13/17 15:47 Dose: 10 mg Mirtazapine (Remeron) 15 mg PO HS [facility] Last Admin: 07/14/17 21:32 Dose: 15 mg Ondansetron HCl (Zofran Po) 4 mg PO Q6H PRN PRN Reason: Nausea Pantoprazole Sodium (Protonix Tab) 40 mg PO ACB [facility] Last Admin: 07/15/17 06:03 Dose: 40 mg Prednisone (Deltasone) 10 mg PO WB [facility] Last Admin: 07/14/17 08:24 Dose: 10 mg Pregabalin (Lyrica) 75 mg PO QAM [facility] Last Admin: 07/14/17 08:24 Dose: 75 mg Pregabalin (Lyrica) 150 mg PO HS [facility] Last Admin: 07/14/17 21:32 Dose: 150 mg Sodium Chloride (Iv Flush) 10 - 80 ml IVF PRN PRN PRN Reason: Flushing Last Admin: 07/14/17 20:58 Dose: 30 ml Home Medications: Home Medications Medication Instructions Recorded Confirmed Type Ondansetron Odt [Zofran Po] 4 mg PO Q6HPRN PRN 04/16/17 07/12/17 History Pregabalin Cap [Lyrica] 75 mg PO QAM 05/16/17 07/12/17 History Doxazosin Mesylate [Cardura] 2 mg PO HS 05/25/17 07/12/17 History Amlodipine [Norvasc] 10 mg PO DAILY 07/07/17 07/12/17 History Docusate Sodium [Colace] 200 mg PO DAILY 07/07/17 07/12/17 History LORazepam [Ativan] 1 mg PO TID PRN 07/07/17 07/12/17 History Albuterol Sulfate [Proventil Hfa 2 puff INH Q4H PRN 07/11/17 07/12/17 History 90mcg] Bisacodyl EC TAB [Dulcolax] 10 mg PO DAILY 07/11/17 07/12/17 History Cyclobenzaprine [Flexeril] 10 mg PO DAILY PRN 07/11/17 07/12/17 History Folic Acid [Folate] 1 mg PO DAILY 07/11/17 07/12/17 History Hydrocodone/APAP 10/325 [Mchenry 1 tab PO TID 07/11/17 07/12/17 History 10/325] Mirtazapine [Remeron] 15 mg PO HS 07/11/17 07/12/17 History Pantoprazole Sodium [Protonix] 40 mg PO DAILY 07/11/17 07/12/17 History Pregabalin Cap [Lyrica] 150 mg PO HS 07/11/17 07/12/17 History buPROPion HCl [Bupropion Xl] 150 mg PO DAILY 07/11/17 07/12/17 History FentaNYL PATCH [Duragesic Patch] 1 patch TD Q72H 07/12/17 07/12/17 History - Medical History Respiratory: Reports: Chronic Obstructive Pulmonary Disease (COPD), Orthopnea, Pneumonia, Upper Respiratory Infection, Other (Emphysema- left vocal cord paralysis after mediastinal mass removal) DENIES: Sleep Apnea Cardiovascular: Reports: Hypertension, Other (mediastinal mass. Left Lower lobectomy) Gastrointestional: Reports: Nausea or Vomiting Present, Gastroesophageal Reflux Disease (controlled with meds), Other (N/V FOR MONTHS) Neuro/Musculoskeletal: Reports: HX.MS.OSAR (back), Back Problems, Depression Renal/Endocrine: Reports: Diabetes Mellitus Type 2 (borderline) Other History: Reports: Chemotherapy (MAY 2017), Cancer (LUNG CANCER) - Surgical History HEENT Surgeries: Reports: Eye Surgery Comment Only: Other (surgery on vocal cords) Cardiac Surgeries/Treatments: DENIES: Pacemaker Respiratory Surgery/Treatments: Reports: Chest Surgery (partial lobectomy-left lower- JANUARY 2017) Endocrine Surgery/Treatments: Reports: Other (Biopsied neck lymph node) GI Surgery/Treatments: Reports: Colonoscopy Reproductive Surgery/Treatment: DENIES: Mastectomy Anesthesia Reactions: None Hx Family Anesthesia Reaction: No History of Motion Sickness: No - Social History Smoking Status: Former smoker (quit 2017) Pack-years: 24 Hx Chewing Tobacco Use: No Second Hand Exposure: No Quit Date: 02/05/17 Substance Use Type: does not use Alcohol Intake: former (22 years ago) Alcohol Intake Frequency: does not drink - Pertinent Findings Laboratory: CBC and BMP 07/14/17 08:12 07/14/17 08:12 EKG: Sinus Rhythm - Physical Exam Respiratory Exam: Present: rales, other (coarse bilat) Cardiovascular Exam: Present: regular rate and rhythm, no murmur - Airway Assessment Mallampati Score: I TMD: 3 Fingerbreadths Neck Extension: good Teeth: poor dentation (several loose) Overall Assessment: may be difficult mask vent (thick foote) - ASA ASA Score: 3, E - Plan Anesthesia: General TIVA - Discussion Discussion: Discussed risks/options/alternatives of anesthesia and questions answered. Patient consents. Nursing pain assessment noted. Present for Discussion: other (none) Attestation Statement: Prior to the delivery of any anesthetic medication, I examined the patient, developed the plan, obtained the patient's consent and discussed the risk and benefits of the procedure with the patient/guardian. - Additional Information Seen by Anesthesia: Yes
--- NOTE | 2017-07-15 10:02 | General Surgery Procedure Note ---
Date of Procedure: 07/15/17 Surgeon: Armani Postoperative Diagnosis: gastritis, esophagitis with ulcerations, Procedure: EGD Estimated Blood Loss: See Anesthesia Record.
[2017-07-15] MEDS: METOCLOPRAMIDE 10mg/2ml INJECTION IVP SCH ×2 (11:17→15:22)
--- NOTE | 2017-07-15 11:54 | Progress Note ---
<Sherine Woods - Last Filed: 07/15/17 11:50> Oncology Subjective Reclining in hospital bed, alone in room. Had EGD this morning, tolerated well. States is having a swallow procedure later today. Denies fever, chills. Positive night sweats, states have been present since his lung surgery. Continues with frequent, nonproductive cough. Denies shortness of air. Denies dysphasia. No further nausea or vomiting yesterday or today. Denies abdominal pain today. States had a normal stool yesterday. Normal voiding. General: No fever, chills. + Night sweats Eyes: No redness, no pain, no diplopia ENT: No mouth sores, no trouble swallowing Cardiac: No chest pain no palpitations Pulmonary: Positive frequent nonproductive cough. No shortness of air Abdomen: No pain, no nausea vomiting, no diarrhea or constipation : No urgency, frequency, dysuria, or hematuria Musculoskeletal: No arthritis, no myalgias Neurological: No headaches, no focal weakness Skin: No rash, no sores Psychiatric: No anxiety, no depression Exam Vital signs: Temperature 98.5 F 07/15/17 11:44 Pulse Rate 80 07/15/17 11:44 Respiratory Rate 14 07/15/17 10:26 Blood Pressure 116/72 07/15/17 11:44 Pulse Oximetry 95 07/15/17 11:44 - Constitutional no acute distress, well nourished, well developed - Routine HEENT Exam Head: Present: normocephalic Eye: Present: EOMI, conjunctivae pink ENT: Present: mucous membranes moist - Routine Neck Exam Present: supple. Absent: lymphadenopathy, tenderness - Routine Respiratory Exam Present: rhonchi. Absent: wheezes (bilateral posterior.) - Routine Cardiovascular Exam Present: RRR. Absent: no murmur - Routine Abdominal Exam Present: soft, non tender. Absent: organomegaly, mass - Routine Extremities Exam Present: full ROM. Absent: no edema - Routine Back/Spine/Pelvis Exam Back/Spine: Absent: vertebral tenderness - Routine Skin Exam Present: intact, dry. Absent: rash - Routine Neurological Exam Present: alert, oriented X3, moving all extremities - Routine Psychiatric Exam Present: normal affect, normal thought process Oncology Results - Labs CBC & Chem 7: 07/14/17 08:12 07/14/17 08:12 Assessment and Plan Assessment and Plan: 1. Stage IIB adenocarcinoma left upper lobe, 12/29/16, status post lobectomy. Received one cycle pemetrexed/cisplatin 04/12/17. No further chemotherapy secondary to recurrent hospitalizations with fever of unknown origin, recurrent infections. Symptoms resolve, then recur. Has seen infectious disease previously. 2. Recurrent fever with leukocytosis. No bacterial source seen. Now with intractable nausea/vomiting. Possible gastritis. Nausea/vomiting resolved currently. EGD performed by Dr. Lomeli this morning. 3. Recurrent laryngeal nerve injury. Seen by Dr. Patricio and status post vocal cord procedure, subbjectively with significant improvement in symptoms. 4. COPD. 5. Chronic back pain with disability. Chronic pain management, well controlled with current meds, sentinel patch and as needed Lortab/Tylenol 6. History tobacco addiction. Multiple quit attempts. Quit smoking 07/04/17 and plans to stay Quit Plan Continue supportive care. Await results of EGD and swallow study. Continue to follow. - Time Spent With Patient Total time spent is greater than 50% in coordination of care (as documented) at patient's floor/unit and/or counseling patient: less than 15 minutes <Walt Cabrera - Last Filed: 07/15/17 18:39> Exam Vital signs: Temperature 97.1 F 07/15/17 15:44 Pulse Rate 78 07/15/17 15:44 Respiratory Rate 16 07/15/17 15:44 Blood Pressure 164/88 H 07/15/17 15:44 Pulse Oximetry 100 07/15/17 15:44 Oncology Results - Labs CBC & Chem 7: 07/15/17 15:08 07/15/17 15:08 Labs: Short CBC 07/15/17 Range/Units 15:08 WBC 15.0 H (4.5-11.0) T/MM3 Hgb 12.7 L (13.5-17.5) GM/DL Hct 38.6 L (41-53) % Plt Count 337 (130-400) T/MM3 [facility] 07/15/17 15:08 Sodium 142 Potassium 4.0 Chloride 107 Carbon Dioxide 23 BUN 14.0 Creatinine 1.0 Glucose 91 Calcium 9.1 Liver Function 07/15/17 Range/Units 15:08 Total Bilirubin 0.30 (0.20-1.30) MG/DL AST 11 L (17-59) U/L ALT 19 L (21-72) U/L Alkaline Phosphatase 72 (38-126) U/L Albumin 3.8 (3.5-5.0) G/DL Assessment and Plan Assessment and Plan: Patient was in nuclear medicine I came around earlier today. Came back tonight to see the patient and he had just left the hospital. Agree documentation by Peggy. - Time Spent With Patient Total time spent is greater than 50% in coordination of care (as documented) at patient's floor/unit and/or counseling patient:
[2017-07-15 12:28] VITALS: RESP 16
[2017-07-15] MEDS: PredniSONE 10 MG TABLET PO SCH (15:18)
[2017-07-15] MEDS: PREGABALIN 75 MG CAPSULE PO SCH (15:18)
[2017-07-15] MEDS: BuPROPion XL 150mg (24HR) TABLET PO SCH (15:18)
[2017-07-15] MEDS: AMLODIPINE 10 MG TABLET PO SCH (15:18)
[2017-07-15] MEDS: FOLIC ACID 1 MG TABLET PO SCH (15:19)
[2017-07-15] MEDS: Bisacodyl EC TAB 5 MG TABLET PO SCH (15:19)
[2017-07-15] MEDS: DOCUSATE SODIUM 100 MG CAPSULE PO SCH (15:19)
[2017-07-15] MEDS: SUCRALFATE 1gm/10ml ORAL LIQUID PO SCH ×2 (15:20→17:28)
--- NOTE | 2017-07-15 15:22 | Nuclear Medicine Report ---
Indication: nausea/vomiting- poor gatric empty noted on EGD PROCEDURE: NM gastric emptying study: Encounter: Initial Comparison: None. Technique: The patient consumed a standard meal labeled with approximately 2.2 mCi of Tc-99m sulfur colloid. Anterior and posterior planar images were obtained and time/activity curves were calculated. Findings: The calculated T-1/2 gastric emptying time is normal at approximately 71 minutes (normal range 45-110 minutes). The percent gastric emptying at the 90 minute interval however is decreased measuring 43%. Impression: Decreased gastric emptying demonstrated at the 90 minute interval measuring 43%. Calculated T 1/2 gastric emptying is within normal limits measuring 71 minutes. .
[2017-07-15] MEDS: SALINE FLUSH 10ml SYRINGE IVF PRN (15:23)
[2017-07-15 15:46] VITALS: BP 164/88; PULSE 78; TEMP 97.1; O2SAT 100
--- NOTE | 2017-07-15 16:25 | Progress Note ---
DATE 07/15/2017 SUBJECTIVE Patient just came from Nuclear Medicine as per Dr. Lomeli. The patient did have EGD done earlier this morning. He is hungry, he wants to eat. He denies any fever or chills. No nausea or vomiting at this time. I spoke with Dr. Fuentes last evening. She thought patient could go home from an Infectious Disease perspective. Postoperative diagnosis is listed as gastritis, esophagitis and ulcerations. PHYSICAL EXAM GENERAL: The patient looks comfortable. He says he is actually hungry. VITAL SIGNS: Blood pressure 157/82. Pulse77. Respirations 16. This was the 12: 27 report. NECK: Supple. CHEST: Lungs are clear. CARDIOVASCULAR: Regular rate and rhythm. ABDOMEN: Soft. EXTREMITIES: No edema. NEUROLOGIC: Grossly intact. ASSESSMENT 1. Nausea and vomiting - much improved. Patient is eating well. 2. Recurrent fever and chills - etiology remains unclear. Extensive workup in the past has been negative including consultation to Dr. Fuentes and Dr. Cabrera, patient's oncologist. 3. Lung cancer. The patient is status post lobectomy. 4. Chronic back pain. PLAN Will send patient home today. I am waiting for Dr. Lomeli's recommendation. Final CBC and CMP just ordered for now. MTDD
--- NOTE | 2017-07-15 16:50 | Consultation ---
DATE OF CONSULTATION 07/15/2017 FINDINGS Mr. Dunlap 56-year-old gentleman whom I was asked to see as a new patient as a result of his history for intractable nausea and vomiting. Mr. Dunlap has somewhat of an unusual history. In January of this year he had the misfortune of being diagnosed with a lung cancer. This was discovered when he underwent a routine chest x-ray preoperatively for a back surgery. The patient subsequently underwent resection of his lung cancer in conjunction with a mediastinal mass. During the process of this dissection apparently the recurrent laryngeal nerve was transected. Patient states that an ENT physician has had to "inject material" into his vocal cords so that he could speak and swallow appropriately. The patient has initiated chemotherapy but unfortunately he has been developing intermittent fevers and chills of uncertain etiology. He has also had intractable nausea and vomiting. The patient was recently admitted to the facility as a result of his ongoing leukocytosis, fever, chills and nausea and vomiting. Consult was put forth to myself in regards to his nausea and vomiting. PAST MEDICAL HISTORY, PAST SURGICAL HISTORY, MEDICATIONS, ALLERGIES, SOCIAL HISTORY, FAMILY HISTORY, REVIEW OF SYSTEMS Performed by my nurse practitioner, Monroe Hayes APRN. PHYSICAL EXAM GENERAL: Mr. Dunlap is a 56-year-old gentleman who does appear slightly older than his stated age. VITAL SIGNS: Temperature 97.1, pulse 78, respirations 16, blood pressure 164/88 , SAO2 100% 2 L/nasal cannula. HEENT: Normocephalic. Pupils are equally round and react to light and accommodation. CHEST: Clear to auscultation bilaterally. HEART: Regular rate and rhythm. Normal S1 and S2 without gallops, murmurs or clicks. ABDOMEN: Palpation of the abdomen reveals it to be soft and nontender. I do not appreciate any evidence for hepatosplenomegaly nor abnormal masses. EXTREMITIES: Without clubbing, cyanosis, or edema. NEURO: Cranial nerves II-XII grossly intact. Patient is without focal motor or sensory deficits. LABORATORY/RADIOGRAPHIC EVALUATION The patient did have a white count of 7.8 on July 12. Yesterday his white count was 17.3. An Infectious Disease consult has been put forth for further evaluation of his leukocytosis. CMP was obtained today and found to be without marked abnormalities. CT scan of the abdomen and pelvis was obtained on July 12, 2017. CT scan reveals some mild prominence of the wall of the stomach and small bowel suggesting gastroenteritis. I reviewed Infectious Disease consult from July 14, 2017. ID had recommended that perhaps EGD would be beneficial as a result of the above circumstances. ASSESSMENT 56-year-old gentleman with personal history for lung cancer who has intermittent fevers, chills, leukocytosis as well as intractable nausea and vomiting. Abnormal CT scan revealing thickening of gastric wall suggestive of gastroenteritis. PLAN Esophagogastroduodenoscopy. It was my recommendation to the patient that today we proceed with an EGD for further evaluation. The patient understood and wished to proceed. Please refer to EGD note for detail. In summary, the patient was found to have a fair amount of bilious material within the stomach upon entering into the gastric lumen. He was found have a component of distal esophagitis. Additionally, there was a component of gastritis. Biopsies were obtained for SHANNON assay as well as for permanent pathology. As a result of the above circumstances it was my thought that perhaps his vagus nerve had also been injured at the time of his original surgery when the recurrent laryngeal nerve was also injured which could be resulting in a component of gastroparesis. I therefore obtained a nuclear gastric emptying study. This was obtained this afternoon and it did reveal decreased gastric emptying at the 90-minute interval measuring 43%. It is my recommendation that we go ahead and begin the patient on Reglan 10 mg p.o. q.6h. for his gastroparesis. Would also recommend sending the patient home on a proton-pump inhibitor and Carafate. The above recommendations were discussed with the patient. [facility]
--- NOTE | 2017-07-15 17:29 | Anesthesia Postoperative Note ---
- Date and Time Date: 07/15/17 Time: 17:29 - Status Patient Participated in Evaluation: Patient Participated in Person Vital Signs: Temperature 97.1 F 07/15/17 15:44 Pulse Rate 78 07/15/17 15:44 Respiratory Rate 16 07/15/17 15:44 Blood Pressure 164/88 H 07/15/17 15:44 Pulse Oximetry 100 07/15/17 15:44 Respiratory Function: Airway Patent Cardiovascular Function: Regular Pulse Mental Status: Alert and Oriented Pain Intensity: 0 Hydration: Taking PO Fluids Complications During Recover: None Apparent - Follow-Up Instructions Instructions: Per Surgeon
--- NOTE | 2017-07-15 19:35 | Operative Note ---
DATE OF SERVICE 07/15/2017 SURGEON Dhaval Lomeli MD PREOPERATIVE DIAGNOSES Personal history for nausea, vomiting of uncertain etiology. POSTOPERATIVE DIAGNOSES Personal history for nausea, vomiting of uncertain etiology. Distal esophagitis with associated ulceration, moderate antritis/gastritis. PROCEDURE Esophagogastroduodenoscopy with biopsies from antrum for permanent pathology as well as for SHANNON assay via cold biopsy technique. ANESTHESIA TIVA BRIEF HISTORY/INDICATIONS Mr. Dunlap is a 56-year-old gentleman who has had the misfortune of developing lung cancer as well as a mediastinal mass. Patient has undergone prior surgery and had initiated chemotherapy when he began to become quite ill. He has had intermittent fever and chills. He has had intermittent leukocytosis of uncertain etiology. He also has developed retractable nausea and vomiting. It was recommended that we proceed with esophagogastrostomy for further evaluation of his ongoing intractable nausea and vomiting. For completeness please refer to notes included in the patient's chart. FINDINGS Upon upper endoscopy one could see some prominent submucosal venous structures within the esophagus suggestive of a component of some esophageal varices. Distal esophagus was found to be quite edematous and erythematous in nature and there was some white plaque-like material overlying what appeared to be some prominent submucosal venous structures. Findings were indicative for marked distal esophagitis with associated ulcerations. Given the prominence of the submucosal venous structures, I elected not to biopsy the distal esophagus. Within the stomach the mucosa was found to be moderately erythematous and edematous in nature. No sheron ulcerations were noted. There was an unusual amount of bilious-like contents within the gastric lumen, indicative of a component of gastroparesis. Duodenum was without noted abnormalities. NARRATIVE OF PROCEDURE After informed consent was obtained the patient was brought to the endoscopy suite and placed in the left lateral decubitus position. Patient subsequently underwent total intravenous anesthesia by the nurse digital camera technician at my request. Formal timeout was then completed. Next, an Olympus gastroscope was inserted into the oral hypopharynx. Patient apparently had had a prior vocal cord injury during his mediastinal surgery. 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 Visibly the vocal cords were without marked abnormalities and appeared to be symmetric in nature. Scope was advanced directly into the esophagus and subsequently advanced through the esophagus, stomach, pylorus, duodenal bulb and into the second portion of the duodenum. Scope was slowly withdrawn. First and second portions of the duodenum were within normal limits. There was no evidence for duodenitis or ulcerations. Scope was drawn back to the prepyloric region and antrum. Initially advancing the gastroscope, upon entering near the stomach one could see a fair amount of bilious-like material. There were more bilious contents than one would typically see after being n.p.o. after midnight. Bilious contents were suctioned via the gastroscope to provide better visualization. The mucosa. In the antrum was moderately erythematous and edematous in nature consistent with a component of moderate gastritis. Biopsies were obtained from the antrum for permanent pathology as well as for SHANNON assay. A J-maneuver was performed. Cardia and fundus were within normal limits. Endoscopically there was no evidence for a significant hiatal hernia. Scope was allowed to straighten and was withdrawn. The remaining corpus of the stomach was well visualized and also found to be edematous and erythematous in nature consistent with a component of gastritis. Scope was drawn back to the level of the diaphragm. The squamocolumnar junction was not able to be visualized as a result of marked distal esophagitis. Mucosa was erythematous in nature and there was a white plaque- like material involving the distal esophagus consistent with ulcerations. One could also see what appeared to be consistent with that of prominent submucosal venous structures suggestive of varices. As the scope was being slowly withdrawn one could also see some long linear areas of submucosal prominence suggestive again of a component of esophageal varices. I therefore elected not to proceed with biopsies from the distal esophagus. These possible varices were not markedly enlarged and the finding was somewhat subtle. Gastroscope was continued to be slowly withdrawn and the remaining esophageal mucosa found to be within normal limits. The patient tolerated the procedure without difficulty and was sent back to the preop area in stable condition. Will await the biopsy results from today's stomach and proceed accordingly with further recommendations thereafter. 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 Will go ahead and change his Reglan from p.r.n. to scheduled. To further evaluate the possibility for gastroparesis will also go ahead and obtain a gastric emptying study. Will add Carafate to his medical regimen. Patient currently is on a PPI. This may need to be increased to a b.i.d. dosing. MTDD
--- NOTE | 2017-07-16 09:40 | Right on Track Program ---
Right on Track Program Date of Discharge: 07/15/17 Home Medications: Home Medications Medication Instructions Recorded Confirmed Ondansetron Odt [Zofran Po] 4 mg PO Q6HPRN PRN 04/16/17 07/12/17 Pregabalin Cap [Lyrica] 75 mg PO QAM 05/16/17 07/12/17 Doxazosin Mesylate [Cardura] 2 mg PO HS 05/25/17 07/12/17 Amlodipine [Norvasc] 10 mg PO DAILY 07/07/17 07/12/17 Docusate Sodium [Colace] 200 mg PO DAILY 07/07/17 07/12/17 LORazepam [Ativan] 1 mg PO TID PRN 07/07/17 07/12/17 Albuterol Sulfate [Proventil Hfa 2 puff INH Q4H PRN 07/11/17 07/12/17 90mcg] Bisacodyl EC TAB [Dulcolax] 10 mg PO DAILY 07/11/17 07/12/17 Cyclobenzaprine [Flexeril] 10 mg PO DAILY PRN 07/11/17 07/12/17 Folic Acid [Folate] 1 mg PO DAILY 07/11/17 07/12/17 Mirtazapine [Remeron] 15 mg PO HS 07/11/17 07/12/17 Pregabalin Cap [Lyrica] 150 mg PO HS 07/11/17 07/12/17 buPROPion HCl [Bupropion Xl] 150 mg PO DAILY 07/11/17 07/12/17 FentaNYL PATCH [Duragesic Patch] 1 patch TD Q72H 07/12/17 07/12/17 Previous Rx's Medication Instructions Recorded Albuterol Neb (0.083%) [Proventil 2.5 mg AEROSOL Q6HPRN #60 vial 07/11/17 Neb (0.083%)] Metoclopramide HCl [Reglan] 10 mg PO A1QAWWA #120 tab 07/15/17 Sucralfate Oral Liq [Carafate 1 gm PO ACHS 30 Days #120 udc 07/15/17 Slurry] Protonix (Pantoprazole)40 mg 40 mg PO BID #60 tab 07/16/17 tablet,delayed release [place] 10 mg-acetaminophen 325 mg 1 tab PO TID #20 tab 07/21/17 tablet - Right on Track Program 24 hour phone call Date: 07/16/17 Right on Track Program: 24 Hour Follow-Up Discharge Summary Received: No Care Plan Received: Yes Follow Up: Pending Tests Reviewed Education: Diagnosis Education Reviewed Referral: Primary Care Physician Comments: I spoke with [facility] on 07/16/17. He spent last night at his daughter's house and hasn't had a chance to fill his Rx. I informed him that we are still waiting on biopsy results. He states that he's feeling pretty good today - no SOA, fever/ chills, nausea, vomiting, abdominal pain. He plans to call Dr. Mendoza's office today to schedule an appt for next week. Recommendations For Follow-up: Problems: 1. Distal esophageal ulceration, moderate gastritis/antritis 2. Non-small cell lung cancer - chemo on hold 3. Recurrent fever and leukocytosis - uncertain etiology 4. Chronic back pain 5. Anxiety 6. COPD Plan: Home visit scheduled for 07/21/17. Ensure that Rx filled and he has not resumed smoking. F/U with PCP and onc. Follow results of gastric biopsy. Lydb-ea-wfxm visit Date: 07/21/17 Right on Track Program: 7-14 Day Ybin-oa-Qkrw Discharge Summary Received: Yes Care Plan Received: Yes Follow Up: Follow Up Appointment Scheduled (Dr. Mendoza on 07/27/[address] Cabrera on 08/06/17) Education: Diagnosis Education Reviewed Referral: Primary Care Physician Comments: I visited [facility] at his apartment in [place] on 07/21/17. He denies any abdominal pain, nausea, vomiting, reflux, choking, or dysphagia. He used to have problems swallowing but ever since his laryngoscopy with injection in June he hasn't had any problems with choking and he doesn't need to use the chin tuck technique. He denies feeling short of breath or having chest pain. He hasn't felt weak or dizzy. He denies any fevers, chills, or sweating -- but continues to have his typical "night sweats" that started after his lung cancer diagnosis. His depression is worsening, and he says some weeks he has more good days than bad days. He sometimes spends all day in his recliner, just crying and thinking about his , who about 13 months ago. He leaves the TV on 22/02 to try to distract his thoughts. He sleeps in the living room b/c he can't sleep in the bed they used to share, which is also where she . He denies any suicidal thoughts or plan. He will go outside for walks and to pray, which can be helpful to lift some of his depression. His back pain is also severe and limits his daily life and sleeping habits. His pain is rated at 8/10 but with his pain meds it can go down to as low as 4.5-5, which is tolerable. His pain stretches from his neck down to his coccyx, and radiates down both legs. He is still hopeful he will beat the cancer and have back surgery to eliminate his pain. At this time, he would rate is quality of life between "good " and "poor". As far as support goes, he feels like he has good family support. His daughter, Esthela, is his DPOA, and she knows his wishes which include no feeding tube placement and no long-term mechanical ventilation. He is considering moving in with his son in [place]. We reviewed his medications, and he was able to state indications for about 2/3 of them. He is taking his new Rx as directed; he's taking Reglan before meals and at bedtime (on Rx bottle it reads, "every 6 hours before and after meals"). Ativan is listed as TID PRN but he takes it TID routinely. He organizes his pills into a box. He is interested in having [facility] bubble pack his medication for him and gave me permission to call them and ask on his behalf. I asked him what he thinks his cancer prognosis is, and he believes that his upcoming CT scan on 07/27/17 will show that the cancer has been cured. I also asked him about smoking - he admits to smoking half a cigarette this morning but doesn't intend on doing that again. Exam: Gen: A&O x3, pleasant Neuro: no focal deficits, tremors noted to both hands ENT: No thrush but mild post pharynx injection with drainage Lungs: Clear with diminished air movement on the left CV: RRR Abd: soft, nontender with positive bowel sounds Ext: no edema Psych: tearful at times Recommendations For Follow-up: IMPRESSION Stage IIB adenocarcinoma left upper lobe Distal esophageal ulceration, mild gastritis Chronic back pain Recurrent fever PLAN 1. Depression screen was positive and symptoms seem to be worsening. Consider referral to psych - pt is open to seeing psychiatrist. 2. Chronic pain limits ADLs and sleep. Consider pain mgt referral. Not an ideal surgical candidate. 3. I contacted [facility] to inquire about bubble pack for medications - they will reach out to Lexx. 4. F/U with Dr. Mendoza and Dr. Cabrera as planned.
--- NOTE | 2017-07-16 12:06 | Discharge Summary ---
FINAL DIAGNOSES 1. Recurrent nausea and vomiting. 2. Brief episode of acute diarrhea. 3. Acute gastroenteritis. 4. Recurrent fever and chills. 5. Distal esophagitis, [id number] gastritis. 6. Gastroparesis. 7. Decreased gastric emptying at 90-minute interval measuring about 43%. 8. Lung cancer, status post left upper lobectomy. 9. Chronic back pain. CONSULTANTS 1. Dr. Lomeli. 2. Dr. Bree Fuentes. 3. Dr. Cabrera. REASON FOR ADMISSION The patient is a 56-year-old male with known history of lung cancer. The patient presented to [facility] ED on 07/13/2017 with chief complaint of persistent nausea and vomiting. In addition, he had some fever and chills. The patient was seen at [facility] ED the day before admission with similar complaints. He was treated and felt better and went home. At about 8 o'clock on the same night he had nausea and vomiting. He was taking his home medications including Zofran for nausea - that did not help. Finally, the patient decided to come to the emergency room on 07/13/2017 with a similar chief complaint. He said he was unable to hold any liquids or solid food down. He was complaining of fever and chills, "hot and cold." In the emergency room the patient was treated with IV Phenergan, IV Kytril and Compazine. He continued to have nausea and vomiting and therefore the patient was admitted to [facility] at my request for further evaluation, recommendations and management. ALLERGIES Levaquin, sulfa. PHYSICAL EXAM At the time I saw this patient he looked a little better but appeared to be having chills in the room. His blood pressure was 189/97, pulse 82-102, temperature 98.6, respirations 18, oxygen saturation 100% on room air. His exam was essentially clear including abdominal examination. Abdomen was soft and nontender. He was just having some chills. His CBC showed WBC was unremarkable. Hemoglobin was 12.7. HOSPITAL COURSE The patient was admitted to the general medical floor under the care of Dr. Cristofer Mendoza. The patient was made n.p.o. for several hours. He was not started on IV antibiotics because we didn't think he was having sepsis at this time. He had just been in the hospital about 10-14 days earlier with sepsis of unknown etiology. He was treated with antibiotics for about 48 hours, then discontinued due to negative blood culture. He was only treated at this time with IV antiemetics, IV fluids as well as pain medication. His nausea resolved about one day prior to dismissal today. Consultation was made to Dr. Bree Fuentes. She recommended testing for QuantiFERON-TB as well as urine antigen for histoplasma, CMV serology as well as EBV serology. The patient was a FULL CODE. Dr. Fuentes recommended EGD be done. Therefore, Dr. Lomeli was consulted. He did an EGD on 07/15/2017. The EGD showed poor gastric emptying as well as distal esophagitis and a moderate amount of gastritis. No ulceration was found. H. pylori testing was obtained. This was followed by a gastric emptying nuclear medicine study which did show some delay in gastric emptying with gastric emptying at the 90-minute interval decreased at 43% with normal range of 45%-49 % 10-minute test. Dr. Lomeli therefore recommended the addition of Reglan as well as Carafate and also increased patient's Protonix to [address] Cabrera was consulted as well. His recommendations were appreciated. It was agreed upon by myself, Dr. Bree Fuentes, Dr. Lomeli as well as Dr. Cabrera that patient may be dismissed to home today. He was actually eating all of his regular meals before dismissal. He desired to go home as well. He feels strong enough to go home. DISCHARGE MEDICATIONS 1. Lyrica 75 mg in the morning. 2. Lorazepam 1 mg p.o. t.i.d. p.r.n. 3. Colace 400 mg one tablet daily. 4. Folic acid one tablet daily. 5. Wellbutrin 150 mg p.o.q.d. 6. Flexeril 10 mg one tablet daily p.r.n. 7. Dulcolax 10 mg tablet daily. 8. Gabapentin 150 mg p.o. q.h.s. 9. Datto 10/325 mg one tablet t.i.d. 10. Proventil nebulizer q.6h. p.r.n. 11. Zofran 4 mg p.o. q.6h. p.r.n. 12. Cardura 2 mg p.o. q.h.s. 13. Amlodipine 10 mg one tablet daily. 14. Proventil 90 mcg two puffs q.4h. p.r.n. 15. Remeron 15 mg p.o. q.h.s. 16. Fentanyl patch 50 mcg/hr - change every 72 hours. 17. Sucralfate 1 g p.o. a.c. meals and q.h.s. 18. Reglan 10 mg a.c. meals t.i.d. plus at bedtime. 19. Increase Protonix to 40 mg one tablet p.o. b.i.d. FOLLOWUP Follow up with Dr. Lomeli as he recommends. Follow up with Dr. Cabrera as scheduled. Follow up with Dr. Bree Fuentes as scheduled. Follow up with Dr. Cristofer Mendoza in the office in 7-[address] Cabrera, Dr. Lomeli and Dr. Bree Fuentes input in taking care of this patient were quite appreciated. [facility]
== END 2017-07-15 18:35 | disposition home or self-care (01) | DRG 392 ==
LOC: MED 09:00 → ED 09:00 → MED 12:18
PROVIDERS: ADMIT Family Medicine; ATTEND Family Medicine
PROC: END.EGD (2017-07-15 09:20)

== ENCOUNTER 2017-11-11 11:08 | Observation (INO) ==
--- NOTE | 2017-11-11 13:36 | History & Physical Report ---
History of Present Illness Date: 11/11/17 Chief complaint: vomiting HPI: Jose Miguel Pena is a 57 y/o male with a hx of adenocarcinoma of the lung, s/p lobectomy in January,. He had 1 round of treatment but had recurrent hospitalizations over the next few months for fevers, infections, and nausea/ vomiting. Dr. Cabrera, his oncologist, does not plan on him resuming chemo because of his recurrent infections after that first round of chemo. Nonetheless , Jose Miguel reports that his lung cancer is "stable". Jose Miguel states that he began having nausea and vomiting Non 11/06/17 and he hasn' t been able to keep anything down since then. Lately, he couldn't even tolerate sips of water. He started to notice "a little bit" of dried bloody clots in his emesis. No abdominal cramping or diarrhea. No constipation or hematochezia. He c /o weakness, lightheadedness and dizziness. He has not had any syncopal events or falls. He denies trouble breathing, chest pain, palpitations, paresthesias. He denies sore throat, cough, congestion anymore than usual. He denies any new urinary symptoms. Recently broke out with a nonpruritic rash on both forearms a few days ago. He also fractured his left index finger back in September but it's healing well. He saw Dr. Mendoza today and recommended direct admission. Review of Systems All systems PM: 10-point ROS was reviewed, no additional remarkable complaints except - Constitutional Constitutional: Present: chills, fever(s) (99 deg.), weight loss (20 lbs). Absent: night sweats - EENMT Eyes: Absent: change in vision Nose: Absent: obstruction Mouth/Throat: Absent: sore throat - Cardiovascular Cardiovascular: Absent: chest pain Vascular: Absent: pedal edema - Respiratory Respiratory: Absent: cough, dyspnea - Gastrointestinal Gastrointestinal: Present: hematemesis, nausea, vomiting. Absent: abdominal pain, constipation, diarrhea, hematochezia - Genitourinary Genitourinary: Absent: dysuria - Musculoskeletal Musculoskeletal: Present: back pain - Integumentary/Breasts Integumentary: Present: rash - Neurological Neurological: Present: dizziness, weakness. Absent: focal weakness, frequent falls, numbness, paresthesias - Psychiatric Psychiatric: Present: anxiety, depression - Endocrine Endocrine: Absent: palpitations - Allergic/Immunologic Allergic/Immunologic: Absent: seasonal rhinorrhea Past Medical History Medical History: Medical History (Last Reviewed 11/11/17 @ 14:10 by Danii Nickerson APRN) Chronic low back pain Borderline diabetes Hypertension Medical History Updates: Chronic obstructive pulmonary disease. Arthritis. Herniated disc in back with chronic pain. Adenocarcinoma of the lung. Depression and anxiety Surgical History: Lung Biopsy, Chest Tube Insertion. Left upper lobectomy 02/16. 04/02/17 Port-A-Cath insertion. Right eyelid surgery. Vocal cord "scraped". 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 Antoine 2016. EGD 07/15/17 (Dr. Lomeli): distal esophagitis with ulceration, moderate antritis/gastritis. Bronchoscopy with biopsy 09/2017 (Dr. Calderon): normal Family History: Family History (Last Reviewed 07/07/17 @ 14:32 by Bethany Dennis [facility]) Father Diabetes High blood pressure Paternal Grandfather High blood pressure Diabetes Family History: As Above - Social History Smoking status: Current every day smoker (1 cigarrete daily currently. Had previously smoked heavily, then quit in 2017.) Substance use type: does not use Alcohol intake frequency: former alcohol drinker Current occupational status: disabled Current residence: Apartment/Private Home Medications Home Medications Medication Instructions Recorded Confirmed Type Albuterol Sulfate [Proventil Hfa 2 puff INH Q4H PRN 07/11/17 11/11/17 History 90mcg] Folic Acid [Folate] 1 mg PO DAILY 07/11/17 11/11/17 History Doxazosin [Cardura] 2 mg PO DAILY 08/16/17 11/11/17 History Ondansetron [Zofran Odt] 1 tab PO Q6HR PRN #10 tab 08/16/17 11/11/17 Rx Promethazine Supp [Phenergan Supp] 25 mg [place] Q6H PRN #12 suppositor 08/17/1707/19 Rx Wellbutrin XL (bupropion HCl XL) 150 mg PO DAILY #60 tab 08/30/17 11/11/17 Rx 150 mg 24 hr tablet Colace (Docusate sodium) 100 mg 200 mg PO DAILY #60 cap 09/07/17 11/11/17 Rx capsule cyclobenzaprine 10 mg tablet 10 mg PO DAILY #30 tab 09/07/17 11/11/17 Rx Remeron (mirtazapine) 15 mg tablet 15 mg PO HS #90 tab 09/16/17 11/11/17 Rx bisacodyl 5 mg tablet,delayed 10 mg PO DAILY #90 tab 09/16/17 11/11/17 Rx release Neurontin (gabapentin) 300 mg 300 mg PO .COMPLEX #120 cap 10/08/17 11/11/17 Rx capsule Claritin (Loratadine) 10 mg tablet 10 mg PO DAILY #30 tab 10/18/17 11/11/17 Rx sucralfate 100 mg/mL oral 1 g PO QID #420 ml 10/18/17 11/11/17 Rx suspension [place] 10 mg-acetaminophen 325 mg 1 tab PO TID PRN #90 tab 10/22/17 11/11/17 Rx tablet Protonix (Pantoprazole)40 mg 40 mg PO ACBID #60 tab 10/22/17 11/11/17 Rx tablet,delayed release metoclopramide 10 mg tablet 10 mg PO QID #120 tab 10/22/17 11/11/17 Rx Ativan (lorazepam) 1 mg tablet 1 mg PO TID PRN #90 tab 10/28/17 11/11/17 Rx Norvasc (amlodipine) 5 mg tablet 10 mg PO DAILY #60 tab 11/03/17 11/11/17 Rx fentanyl 50 mcg/hr transdermal 1 patch TD Q72H #10 each 11/04/17 11/11/17 Rx patch Albuterol Neb (0.083%) [Proventil 2.5 mg INH Q6HPRN 11/11/17 11/11/17 History Neb (0.083%)] Tens Unit Electrodes 1 .ROUTE .MEDSUPPLY PRN 11/11/17 History [Neurostimulation Electrodes] Allergies Allergy/AdvReac Type Severity Reaction Status Date / Time levofloxacin Allergy Mild Hives Verified 11/11/17 12:34 Sulfa (Sulfonamide Allergy Unknown Verified 11/11/17 12:34 Antibiotics) Exam Vital Signs: Temperature 98.3 F 11/11/17 12:19 Pulse Rate 95 11/11/17 12:19 Respiratory Rate 18 11/11/17 12:19 Blood Pressure 173/96 H 11/11/17 12:19 Pulse Oximetry 98 11/11/17 12:19 Height/Weight/BMI: Height 1.8 m Weight 69.4 kg Body Mass Index 21.3 - Constitutional Present: no acute distress, well nourished, well developed, thin - Routine HEENT Exam Head: Present: normocephalic Eye: Present: PERRL. Absent: conjunctival icterus, scleral injection ENT: Present: mucous membranes moist, oropharynx clear Comments: mild posterior pharyngeal erythema - Routine Neck Exam Present: supple. Absent: lymphadenopathy - Routine Respiratory Exam Present: CTA bilaterally Comments: well healed scars to left lower ribcage - Routine Cardiovascular Exam Present: RRR, S1, S2 - Routine Abdominal Exam Present: soft, normoactive bowel sounds, non distended, non tender - Routine Extremities Exam Present: no edema, pulses intact - Routine Skin Exam Present: intact, dry, warm, rash (faint macular slightly erythemic lesions <5 mm to both forearms) - Routine Neurological Exam Present: alert, oriented X3, CN II-XII intact, moving all extremities, vision grossly intact, hearing grossly intact, normal speech - Routine Psychiatric Exam Present: normal affect, normal thought process, cooperative Results - Labs CBC & Chem 7: 11/11/17 13:41 11/11/17 13:41 Assessment and Plan Assessment and Plan: IMPRESSION Nausea and vomiting with reported hematemesis Dehydration HTN Chronic obstructive pulmonary disease Arthritis Herniated disc in back with chronic pain Adenocarcinoma of the lung - no chemo Depression and anxiety PLAN Admit to observation status under the hospitalist service. PCP: Dr. Mendoza. Onc: Dr. Cabrera. Advanced directives DPOA: Daughter (Esthela Landrum) Code status: DNR N/V/Dehydration NS @ 150 mL/hr Labs ordered: CBC, CMP, mag, UA, prealbumin Sips & Chips diet; Zofran IV PRN; Phenergan supp. PRN Denies diarrhea to support C. difficile as differential diagnosis. Last had Amoxicillin in September for URI sx. Hematemesis per report Check H&H EGD 07/15/17 (Dr. Lomeli): distal esophagitis with ulceration, moderate antritis/gastritis Lung cancer Encourage smoking cessation Bronchoscopy with biopsy 09/2017 (Dr. Calderon): normal HTN, COPD, chronic pain, depression Resume home meds DVT Prophylaxis: SCD's GI Prophylaxis: Protonix Resuscitation Status: Do Not Resuscitate - Physician Narrative Physician: Jesenia Durbin MD Narrative: Date: 11/11/17 Time: 1710 I have independently evaluated and examined this patient. I reviewed the chart, the patient's history, and the CRIMINAL RESEARCH SPECIALIST/PA's documented findings as above. We discussed and formulated the assessment and plan as above with additions as below: Jose Miguel is well known from prior hospitalizations. He's done well over the past year and reports EGD demonstrated gastritis prompting initiation of Carafate suspension about a year ago. His had recurrent emesis associated with nausea for the past 5-6 days and during that time has lost about 10 pounds. This associated with lightheadedness but no falls, decreased urine output and dark urine. He denies diarrhea or abdominal pain. There is suggestion of some coffee- ground hematemesis however admission hemoglobin is above baseline at 16.7. NAD, alert Respirations nonlabored, decreased airflow throughout but clear Abdomen soft, minor tenderness in the right upper quadrant without guarding, hyperactive bowel sounds. Potassium 3.0, BUN 39, creatinine 1.2 compared to recent values of 15/1.1 on . Continue IV fluids changing to NS with KCl/K-Phos. Labs suggest significant hemoconcentration; unable to take oral medications for the past 5 days-convert PPI to IV administration. Clear liquids as patient is tolerating ice chips at time of my exam; advance diet as tolerated. At present I don't believe x-rays are needed but if ongoing vomiting --> obtain films in a.m. Discussed with Dr. Mendoza; old records reviewed. Hospital Course Summary Disclaimer: The visit summary below is not to be considered part of the above Progress Note. Hospital Course: 11/11/17 Admit to observation status under the hospitalist service. PCP: Dr. Mendoza. Onc: Dr. Cabrera. Advanced directives DPOA: Daughter (Esthela Landrum) Code status: DNR N/V/Dehydration NS @ 150 mL/hr Labs ordered: CBC, CMP, mag, UA, prealbumin Sips & Chips diet; Zofran IV PRN; Phenergan supp. PRN Denies diarrhea to support C. difficile as differential diagnosis. Last had Amoxicillin in September for URI sx. Hypokalemia Replace IV Hematemesis per report Check H&H EGD 07/15/17 (Dr. Lomeli): distal esophagitis with ulceration, moderate antritis/gastritis Lung cancer Encourage smoking cessation Bronchoscopy with biopsy 09/2017 (Dr. Calderon): normal HTN, COPD, chronic pain, depression Resume home meds
[2017-11-11] MEDS ORDERED: NS 1,000 ML IV SCH (13:45)
[2017-11-11] MEDS ORDERED: ONDANSETRON 4 MG/2 ML INJECTION IVP PRN (14:01)
[2017-11-11] MEDS ORDERED: PROMETHAZINE 25 MG SUPPOSITORY PR PRN (14:23)
[2017-11-11] MEDS ORDERED: LORazepam 1 MG TABLET PO PRN (14:23)
[2017-11-11] MEDS ORDERED: HYDROCODONE/APAP 10 MG/325 MG TABLET PO PRN (14:23)
[2017-11-11] MEDS ORDERED: ALBUTEROL 2.5mg/3ml (0.083%) NEB AEROSOL PRN (14:30)
[2017-11-11] MEDS: GABAPENTIN 300 MG CAPSULE PO SCH ×2 (15:05→22:31)
[2017-11-11] MEDS ORDERED: PANTOPRAZOLE 40 MG TABLET PO SCH (17:00)
[2017-11-11] MEDS: SUCRALFATE 1gm/10ml ORAL LIQUID PO SCH ×2 (17:15→22:30)
[2017-11-11] MEDS: POTASSIUM CHLORIDE INJ 20 MEQ, POTASSIUM PHOSPHATE (mEq) 20 MEQ in NS 1,000 ML IV SCH (20:33)
[2017-11-11] MEDS ORDERED: MIRTAZAPINE 15 MG TABLET PO SCH (21:00)
[2017-11-11] MEDS: PANTOPRAZOLE 40 MG INJECTION IVP SCH (22:32)
[2017-11-12 04:49] VITALS: TEMP 98.5
[2017-11-12] MEDS: SUCRALFATE 1gm/10ml ORAL LIQUID PO SCH ×2 (06:04→12:08)
[2017-11-12] MEDS ORDERED: LORATADINE 10 MG TABLET PO SCH (06:30)
[2017-11-12] MEDS: POTASSIUM CHLORIDE INJ 20 MEQ, POTASSIUM PHOSPHATE (mEq) 20 MEQ in NS 1,000 ML IV SCH ×2 (06:49→15:59)
[2017-11-12 07:28] VITALS: RESP 16
[2017-11-12 07:30] VITALS: PULSE 86; O2SAT 97
[2017-11-12 07:31] VITALS: BP 158/86
[2017-11-12] MEDS: PANTOPRAZOLE 40 MG INJECTION IVP SCH (08:37)
[2017-11-12] MEDS ORDERED: Bisacodyl EC TAB 5 MG TABLET PO SCH (09:00)
[2017-11-12] MEDS ORDERED: DOXAZOSIN 2 MG TABLET PO SCH (09:00)
[2017-11-12] MEDS ORDERED: CYCLOBENZAPRINE 10 MG TABLET PO SCH (09:00)
[2017-11-12] MEDS ORDERED: AMLODIPINE 10 MG TABLET PO SCH (09:00)
[2017-11-12] MEDS ORDERED: GABAPENTIN 600 MG TABLET PO SCH (09:00)
[2017-11-12] MEDS ORDERED: BuPROPion XL 150mg (24HR) TABLET PO SCH (09:00)
[2017-11-12] MEDS ORDERED: FOLIC ACID 1 MG TABLET PO SCH (09:00)
[2017-11-12] MEDS ORDERED: DOCUSATE SODIUM 100 MG CAPSULE PO SCH (09:00)
--- NOTE | 2017-11-12 11:22 | Progress Note ---
- Date 11/12/17 Subjective: Patient seen sitting in bed this morning. He reports he has had no vomiting since yesterday morning. He was able to keep applesauce down this morning and is excited he gets to advance his diet. He's been drinking plenty of fluids and continues on IV fluids. He is not having any pain. Objective Vital signs: Temperature 98.5 F 11/12/17 04:48 Pulse Rate 86 11/12/17 07:28 Respiratory Rate 16 11/12/17 07:27 Blood Pressure 158/86 H 11/12/17 07:30 Pulse Oximetry 97 11/12/17 07:28 Height/Weight/BMI: Height 1.8 m Weight 70.4 kg Body Mass Index 21.3 - Constitutional Present: no acute distress, well nourished, well developed - Routine HEENT Exam Head: Present: normocephalic, atraumatic - Routine Respiratory Exam Present: CTA bilaterally. Absent: wheezes Comments: L thoracotomy scar - Routine Cardiovascular Exam Present: RRR, no murmur - Routine Abdominal Exam Present: soft, normoactive bowel sounds, non distended, non tender - Routine Extremities Exam Present: no edema, normal capillary refill - Routine Skin Exam Present: dry, warm - Routine Neurological Exam Present: alert, oriented X3 - Routine Lymphatic Exam Lymphatic: Absent: adenopathy - Routine Psychiatric Exam Present: normal affect, cooperative Results - Labs CBC & Chem 7: 11/12/17 10:20 11/12/17 10:20 Assessment and Plan Assessment and Plan: IMPRESSION Nausea and vomiting with reported hematemesis Dehydration Leukocytosis-POA HTN Chronic obstructive pulmonary disease Arthritis Herniated disc in back with chronic pain Adenocarcinoma of the lung - no chemo Depression and anxiety PLAN Advancing to full diet at lunch. 40 mEq potassium 1 at lunchtime for potassium of 3.3 today. Leukocytosis worsening 16.6-->22. No clear etiology. Obtain chest x-ray. Urinalysis not indicative of infection on admission. Hemoglobin drop 16.7-->14.6. Likely dilutional given his significant dehydration on admission. If he continues to take p.o. well consider DC IVF's later today. - Physician Narrative Physician: Jesenia Durbin MD Narrative: Date: 11/12/17 Time: 1700 I have independently evaluated and examined this patient. I reviewed the chart, the patient's history, and the ACTUARIAL DIRECTOR/PA's documented findings as above. We discussed and formulated the assessment and plan as above with additions as below: Jose Miguel is doing well. He tolerated clear liquids without difficulty overnight and this morning and advanced to a regular diet at lunch with good tolerance. He is ambulating without difficulty and reports urine volume/color is normal. Abdomen is soft, nontender, bowel sounds are active. Stable for discharge. Hospital Course Summary Disclaimer: The visit summary below is not to be considered part of the above Progress Note. Hospital Course: 11/11/17 Admit to observation status under the hospitalist service. PCP: Dr. Mendoza. Onc: Dr. Cabrera. Advanced directives DPOA: Daughter (Esthela Landrum) Code status: DNR N/V/Dehydration NS @ 150 mL/hr Labs ordered: CBC, CMP, mag, UA, prealbumin Sips & Chips diet; Zofran IV PRN; Phenergan supp. PRN Denies diarrhea to support C. difficile as differential diagnosis. Last had Amoxicillin in September for URI sx. Hypokalemia Replace IV Hematemesis per report Check H&H EGD 07/15/17 (Dr. Lomeli): distal esophagitis with ulceration, moderate antritis/gastritis Lung cancer Encourage smoking cessation Bronchoscopy with biopsy 09/2017 (Dr. Calderon): normal HTN, COPD, chronic pain, depression Resume home meds 11/12/17 Advancing to full diet at lunch. 40 mEq potassium 1 at lunchtime for potassium of 3.3 today. Leukocytosis worsening 16.6-->22. No clear etiology. Obtain chest x-ray. Urinalysis not indicative of infection on admission. Hemoglobin drop 16.7-->14.6. Likely dilutional given his significant dehydration on admission. If he continues to take p.o. well consider DC IVF's later today.
[2017-11-12] MEDS: GABAPENTIN 300 MG CAPSULE PO SCH (12:08)
--- NOTE | 2017-11-12 14:06 | XRay Report ---
Indication: leukocytosis XR chest 2V: Comparison: 10/08/2017 Technique: PA and lateral chest Findings: Patient continues to show chronic changes with hyperaerated lungs similar to the previous study. Slightly more scarring is seen along the left hemidiaphragm. Patient shows normal heart size postoperative changes seen about the left hilar region. Patient has a port in place on the right side in good position and unchanged since prior exam. Impression: Overall change since previous examination with stable chronic lung changes and postop change on the left no superimposed new abnormality appreciated. .
--- NOTE | 2017-11-12 18:55 | Discharge Summary ---
Discharge Information Date of admission: 11/11/17 12:10 Anticipated date of discharge: 11/12/17 Attending Physician: Jesenia Durbin MD Primary care physician: Cristofer Mendoza MD Nausea and vomiting with reported hematemesis Dehydration Leukocytosis-POA HTN Chronic obstructive pulmonary disease Arthritis Herniated disc in back with chronic pain Adenocarcinoma of the lung - no chemo Depression and anxiety - Laboratory Labs: 11/12/17 10:20 11/12/17 10:20 - Radiology Radiology: Date of Exam: 11/12/17 Indication: leukocytosis XR chest 2V: Findings: Patient continues to show chronic changes with hyperaerated lungs similar to the previous study. Slightly more scarring is seen along the left hemidiaphragm. Patient shows normal heart size postoperative changes seen about the left hilar region. Patient has a port in place on the right side in good position and unchanged since prior exam. Impression: Overall change since previous examination with stable chronic lung changes and postop change on the left no superimposed new abnormality appreciated. History of Present Illness HPI: Jose Miguel Pena is a 57 y/o male with a hx of adenocarcinoma of the lung, s/p lobectomy in January,. He had 1 round of treatment but had recurrent hospitalizations over the next few months for fevers, infections, and nausea/ vomiting. Dr. Cabrera, his oncologist, does not plan on him resuming chemo because of his recurrent infections after that first round of chemo. Nonetheless , Jose Miguel reports that his lung cancer is "stable". Jose Miguel states that he began having nausea and vomiting Non 11/06/17 and he hasn' t been able to keep anything down since then. Lately, he couldn't even tolerate sips of water. He started to notice "a little bit" of dried bloody clots in his emesis. No abdominal cramping or diarrhea. No constipation or hematochezia. He c /o weakness, lightheadedness and dizziness. He has not had any syncopal events or falls. He denies trouble breathing, chest pain, palpitations, paresthesias. He denies sore throat, cough, congestion anymore than usual. He denies any new urinary symptoms. Recently broke out with a nonpruritic rash on both forearms a few days ago. He also fractured his left index finger back in September but it's healing well. He saw Dr. Mendoza today and recommended direct admission. Objective Vital signs: See progress note dated today for exam. Height/Weight/BMI: Height 1.8 m Weight 70.4 kg Body Mass Index 21.3 Hospital Course This is a general summary of the patient's hospital course. For more details refer to the complete medical record. Hospital course: 11/11/17 Admit to observation status under the hospitalist service. PCP: Dr. Mendoza. Onc: Dr. Cabrera. Patient presents with N/V/Dehydration and will be treated with IV fluids for hydration; clear liquids initiated and diet will be advanced as tolerated Initial labs reveal hypokalemia which will be replaced IV. Hemoglobin will be monitored due to suggested hematemesis. Past EGD revealed distal esophagitis and gastritis. Continue to encourage smoking cessation. HTN, COPD, chronic pain, depression-Resume home meds 11/12/17 Dismiss today. Able to tolerate full diet w/o n/v. Feeling much better. 40 mEq potassium 1 at lunchtime for potassium of 3.3 today. Leukocytosis worsening 16.6-->22. No clear etiology. Chest x-ray obtained and was negative. Urinalysis not indicative of infection on admission. Hemoglobin drop 16.7-->14.6. Likely dilutional given his significant dehydration on admission. Recommend follow-up with his PCP early next week. Time spent with patient: discharge greater than 30 minutes Resuscitation Status: Do Not Resuscitate Discharge Plan - Discharge Disposition Discharge Date: 11/12/17 Disposition: 01 Discharged Home, Self-Care *Condition: Stable Reason For Visit (Visit label in EMR): Nausea, Vomiting, and Dehydration - Discharge Medications *Discharge Medications: Continue Folic Acid [Folate] 1 mg PO DAILY Doxazosin [Cardura] 2 mg PO DAILY Ondansetron [Zofran Odt] 1 tab PO Q6HR PRN #10 tab PRN Reason: Nausea Albuterol Sulfate [Proventil Hfa 90mcg] 2 puff INH Q4H PRN PRN Reason: Shortness Of Air/Wheezing Promethazine Supp [Phenergan Supp] 25 mg [place] Q6H PRN #12 suppositor PRN Reason: Nausea Albuterol Neb (0.083%) [Proventil Neb (0.083%)] 2.5 mg INH Q6HPRN Tens Unit Electrodes [Neurostimulation Electrodes] 1 .ROUTE .MEDSUPPLY PRN PRN Reason: Pain Gabapentin [Neurontin] 300 mg PO .COMPLEX #120 cap Wellbutrin XL (bupropion HCl XL) 150 mg 24 hr tablet 150 mg PO DAILY #60 tab [place]ace (Docusate sodium) 100 mg capsule 200 mg PO DAILY #60 cap bisacodyl 5 mg tablet,delayed release 10 mg PO DAILY #90 tab Remeron (mirtazapine) 15 mg tablet 15 mg PO HS #90 tab sucralfate 100 mg/mL oral suspension 1 g PO QID #420 ml Claritin (Loratadine) 10 mg tablet 10 mg PO DAILY #30 tab Ativan (lorazepam) 1 mg tablet 1 mg PO TID PRN #90 tab PRN Reason: Anxiety Norvasc (amlodipine) 5 mg tablet 10 mg PO DAILY #60 tab fentanyl 50 mcg/hr transdermal patch 1 patch TD Q72H #10 each cyclobenzaprine 10 mg tablet 10 mg PO DAILY #30 tab [place] 10 mg-acetaminophen 325 mg tablet 1 tab PO TID PRN #90 tab PRN Reason: Pain Protonix (Pantoprazole)40 mg tablet,delayed release 40 mg PO ACBID #60 tab metoclopramide 10 mg tablet 10 mg PO QID #120 tab - Discharge Packet/Instructions *Diet: Regular *Activity: as tolerated *Pain Management/Treatment: per Dr. Gillette *Wound Care: n/a *Expected Signs/Symptoms: continued improvement *Notify Physician if: you develop fever or have recurrence of nausea and vomiting *During Business Hours Contact: Dr Gillette *After Business Hours Contact: [facility] *Pending Lab/Results: No Pending Lab - Referrals/Follow Up *Referrals/Follow Up: Cristofer Mendoza MD [Primary Care Provider] - 1 Week (APPOINTMENT WITH DR. MENDOZA ON 11/22/2017 AT 11:00 AM OFFICE [phone]) - Patient Handouts - Dismissal Complete Discharge Instructions are:: Complete Physician Narrative - Narrative Physician: Jesenia Durbin MD Attestation Narrative: Date: 11/12/17 Time: 2109 I have independently evaluated and examined this patient. I reviewed the chart, the patient's history, and the ENTRY SPECIALISTS/PA's documented findings as above. We discussed and formulated the assessment and plan as above with additions as below: Jose Miguel is doing well. He tolerated clear liquids without difficulty overnight and this morning and advanced to a regular diet at lunch with good tolerance. He is ambulating without difficulty and reports urine volume/color is normal. No stools or melena to suggest preceding blood loss. Mild drop in hemoglobin consistent with hydration. Hemoglobin remains above recent baseline of 13.4- 13.7 in September 2017. Abdomen is soft, nontender, bowel sounds are active. Stable for discharge.
[2017-11-12 19:00] VITALS: BMI 21.6
== END 2017-11-12 16:30 | disposition home or self-care (01) ==
LOC: MED
PROVIDERS: ADMIT Internal Medicine; ATTEND Internal Medicine

== ENCOUNTER 2017-12-08 10:02 | Inpatient (IN) ==
[2017-12-08] MEDS ORDERED: NS 1,000 ML IV ONE ×2 (10:17→12:20)
[2017-12-08] MEDS ORDERED: ACETAMINOPHEN 325 MG TABLET PO PRN (10:18)
[2017-12-08] MEDS ORDERED: PROMETHAZINE 25 MG SUPPOSITORY PR PRN (10:18)
[2017-12-08] MEDS ORDERED: PANTOPRAZOLE 40 MG INJECTION IVP SCH (10:30)
--- NOTE | 2017-12-08 11:16 | History & Physical Report ---
History of Present Illness Date: 12/08/17 Chief complaint: vomiting HPI: Jose Miguel is well known to the hospitalist services from previous admission. Jose Miguel has had history of recurrent nausea and vomiting. Unfortunately, this episode began last night was severe in nature, accompanied with fevers abdominal pain. He presented to see primary care provider, Dr. Mendoza in the clinic today. CBC was obtained did show leukocytosis with a white count of 20.6. Given persistent nausea and vomiting, the hospitalist services were contacted and accepted patient for direct admission. Outpatient observation for further evaluation and treatment. Jose Miguel is seen on arrival to [facility]. He is alert, oriented, with active emesis. Complains of having diffuse abdominal discomfort for the past 12 hours. Noted that he may have some blood in his emesis. Denies any diarrhea, constipation,melena or hematochezia. Review of Systems All systems PM: 10-point ROS was reviewed, no additional remarkable complaints except - Constitutional Constitutional: Present: fatigue - Gastrointestinal Gastrointestinal: Present: as per HPI, hematemesis, nausea, vomiting Past Medical History Medical History: Medical History (Last Reviewed 12/08/17 @ 11:18 by Jennifer Ashley, [employer]) Adenocarcinoma of left lung Anxiety COPD (chronic obstructive pulmonary disease) Chronic low back pain Depression Borderline diabetes Hypertension Surgical History: Lung Biopsy, Chest Tube Insertion. Left upper lobectomy 02/16. 04/02/17 Port-A-Cath insertion. Right eyelid surgery. Vocal cord "scraped". 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 Antoine 2016. EGD 07/15/17 (Dr. Lomeli): distal esophagitis with ulceration, moderate antritis/gastritis. Bronchoscopy with biopsy 09/2017 (Dr. Calderon): normal Family History: Family History Father Diabetes High blood pressure Paternal Grandfather High blood pressure Diabetes Family History: As Above - Social History Smoking status: Former smoker Substance use type: does not use Alcohol intake frequency: former alcohol drinker Current occupational status: disabled Current residence: Apartment/Private Home Social history: PCP Dr Mendoza Medications Home Medications Medication Instructions Recorded Confirmed Type Folic Acid [Folate] 1 mg PO DAILY 07/11/17 12/08/17 History Ondansetron [Zofran Odt] 1 tab PO Q6HR PRN #10 tab 08/16/17 12/08/17 Rx Colace (Docusate sodium) 100 mg 200 mg PO DAILY #60 cap 09/07/17 12/08/17 Rx capsule Remeron (mirtazapine) 15 mg tablet 15 mg PO HS #90 tab 09/16/17 12/08/17 Rx bisacodyl 5 mg tablet,delayed 10 mg PO DAILY #90 tab 09/16/17 12/08/17 Rx release Claritin (Loratadine) 10 mg tablet 10 mg PO DAILY #30 tab 10/18/17 12/08/17 Rx Protonix (Pantoprazole)40 mg 40 mg PO ACBID #60 tab 10/22/17 12/08/17 Rx tablet,delayed release Norvasc (amlodipine) 5 mg tablet 10 mg PO DAILY #60 tab 11/03/17 12/08/17 Rx Albuterol Neb (0.083%) [Proventil 2.5 mg INH Q6HPRN 11/11/17 12/08/17 History Neb (0.083%)] Tens Unit Electrodes 1 .ROUTE .MEDSUPPLY PRN 11/11/17 12/03/17 History [Neurostimulation Electrodes] Wellbutrin XL (bupropion HCl XL) 150 mg PO DAILY #60 tab 11/19/17 12/08/17 Rx 150 mg 24 hr tablet [place] 10 mg-acetaminophen 325 mg 1 tab PO TID PRN #90 tab 11/22/17 12/08/17 Rx tablet metoclopramide 10 mg tablet 10 mg PO Q6H PRN #30 tab 11/22/17 12/08/17 Rx sucralfate 100 mg/mL oral 1 g PO QID #420 ml 11/22/17 12/08/17 Rx suspension nicotine 21 mg/24 hr daily 1 patch TD DAILY #30 each 11/23/17 12/08/17 Rx transdermal patch Ativan (lorazepam) 1 mg tablet 1 mg PO TID PRN #90 tab 11/30/17 12/08/17 Rx fentanyl 50 mcg/hr transdermal 1 patch TD Q72H #10 each 12/03/17 12/08/17 Rx patch Cardura (doxazosin) 2 mg tablet 2 mg PO DAILY #30 tab 12/06/17 12/08/17 Rx Gabapentin [Neurontin] 300 mg PO QID 12/08/17 12/08/17 History Nicotine Polacrilex [Nicotine Gum] 2 mg BC Q2H PRN 12/08/17 12/08/17 History Allergies Allergy/AdvReac Type Severity Reaction Status Date / Time levofloxacin Allergy Mild Hives Verified 12/08/17 13:29 Sulfa (Sulfonamide Allergy Unknown Verified 12/08/17 13:29 Antibiotics) Exam - Constitutional Present: no acute distress, well nourished, well developed - Routine HEENT Exam Eye: Present: EOMI ENT: Present: mucous membranes moist, dentition normal - Routine Respiratory Exam Present: CTA bilaterally. Absent: wheezes - Routine Cardiovascular Exam Present: RRR, S1, S2. Absent: murmur - Routine Abdominal Exam Present: soft, tenderness (diffuse), non distended. Absent: normoactive bowel sounds (hypoactive) - Routine Extremities Exam Present: normal capillary refill - Routine Skin Exam Present: intact, dry, warm - Routine Neurological Exam Present: alert, oriented X3, CN II-XII intact - Routine Psychiatric Exam Present: normal affect, normal thought process, cooperative Results - Labs CBC & Chem 7: 12/08/17 11:08 12/08/17 11:08 Assessment and Plan (1) Vomiting Current visit: Yes Status: Acute Assessment and Plan: Impression Acute vomiting with reported hematemesis Leukocytosis (POA) Hypokalemia (POA) Elevated lactate - likely secondary to dehydration HTN Chronic obstructive pulmonary disease Arthritis Herniated disc in back with chronic pain Adenocarcinoma of the lung - no chemo Depression and anxiety Plan Admit patient to outpatient observation under the care of Dr. Méndez 13. The following laboratory studies on admission, CBC, CMP, venous lactate, magnesium, prealbumin, procalcitonin, viral respiratory panel, urinalysis, blood culture 2. Normal saline 1L/Hr initially for more aggressive hydration. Will likely slowdown fluid rate later today. Scheduled Protonix 40 milligrams IV twice a day for GI protection given reported hematemesis Phenergan, Compazine and Zofran available as needed for nausea At this point, will recommend a clear liquid diet only Obtain abdominal x-ray to rule out acute process. SCDs to bilateral lower extremity for DVT prophylaxis. Nicotine patch to encourage continued tobacco cessation Will need to review home medications. Patient does take multiple chronic mediations as well as topical fentanyl patch. He does wish to be a do not resuscitate and this orders written DVT Prophylaxis: SCD's GI Prophylaxis: Protonix Resuscitation Status: Do Not Resuscitate - Time spent with patient Time with patient PN: 50 minutes - Physician Narrative Physician: Joao Méndez MD Narrative: Date: 12/08/17 Time: 1450 Have independently interviewed & examined pt. Chart reviewed. Case discussed with PCP & my [employer]. Care plan developed with my supervision; agree with above. Presents to clinic secondary to intractable N/V onset overnight. Has had multiple episodes of emesis. Blood in emesis. Did have normal bowel movement today-stools regular in days preceding. Not having nausea or ab symptoms until now-in days to weeks before has been eating and drinking well. Adherent with Protonix and Carafate. No problems with food catching as he swallows. Breathing feels slightly short, minor cough without sputum. No chest pressure or heaviness. Urinating well. Did feel chilled with emesis. Presents to clinic for evaluation. BP elevated. WBC elevated. Made direct admit to [facility] to initiate care. Lungs: decreased, no distress CV: regular AB: soft flat, nd BS present EXT: thin, no edema MSE: awake alert appropriate Plan: OBS admission secondary to uncontrolled nausea and vomiting as well as leukocytosis. Lactate with elevation-likely due to dehydration. Do not see bacterial source for infection. IVF to help decrease nausea and restore volume status. IV Compazine, Zofran ODT, and Phenergan suppository prn nausea. Clear liquids as able. IV Protonix secondary to hx esophagitis. Monitor lab. DNR as per his requests. Care to return to Dr Mendoza at time of discharge from [facility]. Hospital Course Summary Disclaimer: The visit summary below is not to be considered part of the above Progress Note. Hospital Course: Impression Acute vomiting with reported hematemesis Leukocytosis- POA HTN Chronic obstructive pulmonary disease Arthritis Herniated disc in back with chronic pain Adenocarcinoma of the lung - no chemo Depression and anxiety Plan Admit patient to outpatient observation under the care of Dr. Méndez 13. The following laboratory studies on admission, CBC, CMP, venous lactate, magnesium, prealbumin, thyrocalcitonin, viral respiratory panel, urinalysis, blood culture 2. Normal saline 1L/Hr initially for more aggressive hydration. Will likely slowdown fluid rate later today. Scheduled Protonix 40 milligrams IV twice a day for GI protection given reported hematemesis Phenergan, Compazine and Zofran available as needed for nausea At this point, will recommend a clear liquid diet only Obtain abdominal x-ray to rule out acute process. SCDs to bilateral lower extremity for DVT prophylaxis. Nicotine patch to encourage continued tobacco cessation Will need to review home medications. Patient does take multiple chronic mediations as well as topical fentanyl patch. He does wish to be a do not resuscitate and this orders written
[2017-12-08] MEDS ORDERED: NICOTINE 14 MG PATCH TD SCH (11:28)
[2017-12-08] MEDS: PANTOPRAZOLE 40 MG INJECTION IVP SCH ×2 (11:30→20:49)
--- NOTE | 2017-12-08 12:16 | XRay Report ---
Indication: N/V PROCEDURE: XR abdomen 2V: Encounter: Initial Comparison: None Findings: The visualized lung bases show chronic areas of scarring and pleural thickening in the left base. There is no free air on the upright view. The bowel gas pattern is nonobstructive and nonspecific. Gas is seen in nondilated small and large bowel to the level of the rectum. The bony structures show mild degenerative change in the lower lumbar spine. Joint space narrowing in the right hip. Impression: Nonobstructive nonspecific bowel gas pattern. .
[2017-12-08] MEDS: ONDANSETRON ODT 4 MG TABLET PO PRN (12:17)
[2017-12-08 12:57] VITALS: BMI 21.2
[2017-12-08] MEDS: HYDROCODONE/APAP 10 MG/325 MG TABLET PO PRN ×3 (13:35→22:37)
--- NOTE | 2017-12-08 13:37 | XRay Report ---
Indication: Hx lung CA, leukocytosis PROCEDURE: XR chest 1V: Encounter: Initial Comparison: November 25, 2017 Findings: Lungs are stable in appearance with postoperative changes on the left and chronic pleural thickening or scarring in the left base. No acute consolidative pneumonia, gross pleural effusion or pneumothorax. Heart size and mediastinal contours are stable. Right IJ port catheter. Impression: Stable chest without focal pneumonia. .
[2017-12-08] MEDS ORDERED: LORazepam 1 MG TABLET PO PRN (14:30)
[2017-12-08] MEDS ORDERED: NICOTINE 21 MG PATCH TD SCH (14:30)
[2017-12-08] MEDS: NS with KCL 20 mEq 1,000 ML IV SCH ×2 (15:01→23:05)
[2017-12-09] MEDS: ONDANSETRON ODT 4 MG TABLET PO PRN (04:33)
[2017-12-09] MEDS: NS with KCL 20 mEq 1,000 ML IV SCH ×2 (07:36→20:42)
[2017-12-09] MEDS: PANTOPRAZOLE 40 MG INJECTION IVP SCH ×3 (07:43→20:35)
[2017-12-09] MEDS: PROCHLORPERAZINE 10 MG/2 ML INJECTION IVP PRN ×2 (07:47→20:35)
[2017-12-09] MEDS: LIDOCAINE 1% INJ 10 MG, POTASSIUM CHLORIDE INJ 10 MEQ in NS 100 ML IV SCH ×4 (08:22→13:24)
[2017-12-09] MEDS ORDERED: NICOTINE PATCH REMOVAL TD SCH (11:28)
[2017-12-09] MEDS: NICOTINE PATCH REMOVAL TD SCH (12:01)
[2017-12-09] MEDS: NICOTINE 21 MG PATCH TD SCH (12:01)
[2017-12-09] MEDS: BuPROPion XL 150mg (24HR) TABLET PO SCH (12:01)
[2017-12-09] MEDS: Bisacodyl EC TAB 5 MG TABLET PO SCH (12:05)
--- NOTE | 2017-12-09 14:46 | Progress Note ---
- Date 12/09/17 Subjective: F/U: Acute vomiting with reported hematemesis, Leukocytosis, Hypokalemia Little change. Still feels rough-persistent nausea. Episode of emesis this am. No desire to eat. Can only take small sips of liquids. Feeling sweaty and chilled. Urine output increasing with IVF; no pain or discomfort with urination. No diarrhea. Breathing stable; no increase cough or congestion. Denies pain with breathing. Very weak in general, not out of bed much. Objective Vital signs: Temperature 97.7 F 12/09/17 07:53 Pulse Rate 80 12/09/17 07:53 Respiratory Rate 22 12/09/17 07:53 Blood Pressure 162/90 H 12/09/17 07:53 Pulse Oximetry 94 12/09/17 07:53 Height/Weight/BMI: Height 1.8 m Weight 69.2 kg Body Mass Index 21.2 - Constitutional Present: mild distress, well nourished, well developed, cooperative - Routine HEENT Exam Head: Present: normocephalic, atraumatic Eye: Present: EOMI, PERRL ENT: Present: mucous membranes moist - Routine Respiratory Exam Present: decreased breath sounds. Absent: rales, respiratory distress, rhonchi , wheezes, crackles - Routine Cardiovascular Exam Present: RRR, no murmur - Routine Abdominal Exam Present: soft, non distended, non tender. Absent: normoactive bowel sounds ( decreased) - Routine Extremities Exam Present: no edema, pulses intact. Absent: cyanosis, clubbing - Routine Musculoskeletal Exam Musculoskeletal: Present: no clubbing or cyanosis - Routine Skin Exam Present: warm. Absent: dry (Moist/Sweaty) - Routine Neurological Exam Present: alert, oriented X3, CN II-XII intact, moving all extremities, vision grossly intact, hearing grossly intact, normal speech. Absent: motor deficit, altered mental status - Routine Psychiatric Exam Present: normal affect, normal thought process, cooperative Results - Labs CBC & Chem 7: 12/09/17 04:30 12/09/17 04:30 Microbiology Results: Microbiology 12/08/17 11:07 Port/Picc Blood Culture - Preliminary No Growth After 1 Day 12/08/17 11:17 Port/Picc Blood Culture - Preliminary No Growth After 1 Day Assessment and Plan (1) Vomiting Current visit: Yes Status: Acute Assessment and Plan: Impression Acute vomiting with reported hematemesis Leukocytosis (POA) Hypokalemia (POA) Elevated lactate - likely secondary to dehydration HTN Chronic obstructive pulmonary disease Arthritis Herniated disc in back with chronic pain Adenocarcinoma of the lung - no chemo Depression and anxiety Plan No improvement of symptoms - persistent nausea, no oral drive. WBC with increase. Potassium only increased to 3.3. With continue need for IVF to maintain hydration combined with persistent hypokalemia and increasing leukocytosis, will change admission status to inpatient. Care requirements exceeding scope of OBS. IV potassium bolus given for persistent hypokalemia. Rocephin for antimicrobial coverage, although not seeing obvious source of infection. Continue with IV antiemetics. Encourage oral intake as patient able. Recheck CBC in am due to leukocytosis. Will repeat BMP and Mg in am due to hypokalemia. Case discussed with CM and nursing. Time spent with patient care 25 minutes. Admit patient to outpatient observation under the care of Dr. Dev Larose. The following laboratory studies on admission, CBC, CMP, venous lactate, magnesium, prealbumin, procalcitonin, viral respiratory panel, urinalysis, blood culture 2. Normal saline 1L/Hr initially for more aggressive hydration. Will likely slowdown fluid rate later today. Scheduled Protonix 40 milligrams IV twice a day for GI protection given reported hematemesis Phenergan, Compazine and Zofran available as needed for nausea At this point, will recommend a clear liquid diet only Obtain abdominal x-ray to rule out acute process. SCDs to bilateral lower extremity for DVT prophylaxis. Nicotine patch to encourage continued tobacco cessation Will need to review home medications. Patient does take multiple chronic mediations as well as topical fentanyl patch. He does wish to be a do not resuscitate and this orders written DVT Prophylaxis: SCD's - Physician Narrative Narrative: Date: 12/09/17 Time: 1441 Hospital Course Summary Disclaimer: The visit summary below is not to be considered part of the above Progress Note. Hospital Course: 12/08/17 Admit patient to outpatient observation under the care of Dr. Dev Larose. The following laboratory studies on admission, CBC, CMP, venous lactate, magnesium, prealbumin, thyrocalcitonin, viral respiratory panel, urinalysis, blood culture 2. Normal saline 1L/Hr initially for more aggressive hydration. Will likely slowdown fluid rate later today. Scheduled Protonix 40 milligrams IV twice a day for GI protection given reported hematemesis. Phenergan, Compazine and Zofran available as needed for nausea. At this point, will recommend a clear liquid diet only. Obtain abdominal x-ray to rule out acute process. SCDs to bilateral lower extremity for DVT prophylaxis. Nicotine patch to encourage continued tobacco cessation. Will need to review home medications. Patient does take multiple chronic mediations as well as topical fentanyl patch. He does wish to be a do not resuscitate and this orders written. 12/09/17 No improvement of symptoms - persistent nausea, no oral drive. WBC with increase. Potassium only increased to 3.3. With continue need for IVF to maintain hydration combined with persistent hypokalemia and increasing leukocytosis, will change admission status to inpatient. Care requirements exceeding scope of OBS. IV potassium bolus given for persistent hypokalemia. Rocephin for antimicrobial coverage, although not seeing obvious source of infection. Continue with IV antiemetics. Encourage oral intake as patient able.
[2017-12-09] MEDS: CEFTRIAXONE 1 G in NS 100 ML IV SCH (16:48)
[2017-12-10] MEDS: NS with KCL 20 mEq 1,000 ML IV SCH ×6 (00:01→23:05)
[2017-12-10] MEDS: PROCHLORPERAZINE 10 MG/2 ML INJECTION IVP PRN (04:10)
[2017-12-10] MEDS: NICOTINE 21 MG PATCH TD SCH (08:55)
[2017-12-10] MEDS: BuPROPion XL 150mg (24HR) TABLET PO SCH (08:56)
[2017-12-10] MEDS: HYDROCODONE/APAP 10 MG/325 MG TABLET PO PRN ×2 (08:57→22:38)
[2017-12-10] MEDS: Bisacodyl EC TAB 5 MG TABLET PO SCH (08:58)
[2017-12-10] MEDS: PANTOPRAZOLE 40 MG INJECTION IVP SCH ×2 (08:58→20:19)
[2017-12-10] MEDS: NICOTINE PATCH REMOVAL TD SCH (08:58)
[2017-12-10] MEDS: ONDANSETRON ODT 4 MG TABLET PO PRN (09:06)
--- NOTE | 2017-12-10 10:44 | Progress Note ---
- Date 12/10/17 Subjective: F/U: Acute vomiting with reported hematemesis, Leukocytosis, Hypokalemia Still with significant nausea and no oral drive. Emesis this am. Can take some ice chip, but not able to take tea as increases nausea. Passing flatus, no stool. Has minor, diffuse ab pain-not worsening. Urinating well. Breathing stable-not feeling increased SOA or congestion with IVF use. Reports sweats at night. No leg cramps or muscle pain. Weak in general. Denies headache or sinus congestion. Objective Vital signs: Temperature 96.2 F L 12/10/17 07:00 Pulse Rate 86 12/10/17 07:00 Respiratory Rate 18 12/10/17 08:57 Blood Pressure 171/91 H 12/10/17 07:00 Pulse Oximetry 96 12/10/17 07:00 Height/Weight/BMI: Height 1.8 m Weight 69.2 kg Body Mass Index 21.2 - Constitutional Present: mild distress, well nourished, well developed, thin, cooperative, other (Appears tired and weak.) - Routine HEENT Exam Head: Present: normocephalic, atraumatic Eye: Present: EOMI, PERRL ENT: Present: mucous membranes moist - Routine Respiratory Exam Present: decreased breath sounds. Absent: rales, respiratory distress, rhonchi - Routine Cardiovascular Exam Present: RRR, no murmur - Routine Abdominal Exam Present: soft, normoactive bowel sounds, non distended, non tender. Absent: guarding - Routine Extremities Exam Present: no edema. Absent: cyanosis, clubbing Comments: SCD in place - Routine Musculoskeletal Exam Musculoskeletal: Absent: no clubbing or cyanosis - Routine Skin Exam Present: warm. Absent: dry (Moist) - Routine Neurological Exam Present: alert, oriented X3, CN II-XII intact, moving all extremities, vision grossly intact, hearing grossly intact, normal speech. Absent: motor deficit, altered mental status - Routine Psychiatric Exam Present: normal affect, normal thought process, cooperative, anxious (Slight). Absent: agitated Results - Labs CBC & Chem 7: 12/10/17 04:05 12/10/17 04:05 Microbiology Results: Microbiology 12/08/17 11:07 Port/Picc Blood Culture - Preliminary No Growth After 1 Day 12/08/17 11:17 Port/Picc Blood Culture - Preliminary No Growth After 1 Day Assessment and Plan (1) Vomiting Current visit: Yes Status: Acute Assessment and Plan: Impression Acute vomiting with reported hematemesis Leukocytosis (POA) Hypokalemia (POA) Elevated lactate - likely secondary to dehydration HTN Chronic obstructive pulmonary disease Arthritis Herniated disc in back with chronic pain Adenocarcinoma of the lung - no chemo Depression and anxiety Plan Little change-still with persistent nausea and decreased oral intake. Can take ice chips sparingly, but no oral drive. Potassium increased to 3.5 with WBC decreased to 16.4. Will continue with IVF for support. Continue IV antiemetics. Add Scopolamine patch to see if helps with nausea. Encourage increasing activities - walking in room and halls. Recheck BMP and Mg in am secondary to hypokalemia and IVF use. Recheck CBC due to leukocytosis. Case discussed with CM and nursing. Time spent with patient care 25 minutes. DVT Prophylaxis: SCD's GI Prophylaxis: Protonix Resuscitation Status: Do Not Resuscitate - Time spent with patient Time with patient PN: 25 minutes - Physician Narrative Physician: Joao Méndez MD Narrative: Date: 12/10/17 Time: 1039 Hospital Course Summary Disclaimer: The visit summary below is not to be considered part of the above Progress Note. Hospital Course: 12/08/17 Admit patient to outpatient observation under the care of Dr. Méndez. Obtain following laboratory studies on admission: CBC, CMP, lactate, Mg, prealbumin, thyrocalcitonin, viral respiratory panel, UA, BC2. Normal saline 1L/Hr initially for more aggressive hydration. Will likely slowdown fluid rate later today. Scheduled Protonix 40 milligrams IV twice a day for GI protection given reported hematemesis. Phenergan, Compazine and Zofran available as needed for nausea. At this point, will recommend a clear liquid diet only. Obtain abdominal x-ray to rule out acute process. SCDs to bilateral lower extremity for DVT prophylaxis. Nicotine patch to encourage continued tobacco cessation. Will need to review home medications. Patient does take multiple chronic mediations as well as topical fentanyl patch. He does wish to be a do not resuscitate and this orders written. 12/09/17 No improvement of symptoms - persistent nausea, no oral drive. WBC with increase. Potassium only increased to 3.3. With continue need for IVF to maintain hydration combined with persistent hypokalemia & increasing leukocytosis, will change admission status to inpatient. Care requirements exceeding scope of OBS. IV potassium bolus given for persistent hypokalemia. Rocephin for antimicrobial coverage, although not seeing obvious source of infection. Continue with IV antiemetics. Encourage oral intake as patient able. 12/10/17 Little change-still with persistent nausea and decreased oral intake. Can take ice chips sparingly, but no oral drive. Potassium increased to 3.5 with WBC decreased to 16.4. Will continue with IVF for support. Continue IV antiemetics. Add Scopolamine patch to see if helps with nausea. Encourage increasing activities - walking in room and halls.
[2017-12-10] MEDS ORDERED: SCOPOLAMINE 1mg/3 days PATCH (Eq. 1.5 Patch) TD SCH (11:00)
[2017-12-10] MEDS: AMLODIPINE 5 MG TABLET PO SCH (11:40)
[2017-12-10] MEDS: DOXAZOSIN 2 MG TABLET PO SCH (11:40)
[2017-12-10] MEDS: CEFTRIAXONE 1 G in NS 100 ML IV SCH (18:56)
[2017-12-10] MEDS: MIRTAZAPINE 15 MG TABLET PO SCH (20:19)
[2017-12-11] MEDS: ONDANSETRON ODT 4 MG TABLET PO PRN ×2 (02:42→17:04)
[2017-12-11] MEDS: PROCHLORPERAZINE 10 MG/2 ML INJECTION IVP PRN (05:43)
[2017-12-11] MEDS: NS with KCL 20 mEq 1,000 ML IV SCH ×5 (05:44→23:00)
[2017-12-11] MEDS: BuPROPion XL 150mg (24HR) TABLET PO SCH (08:14)
[2017-12-11] MEDS: AMLODIPINE 5 MG TABLET PO SCH (08:15)
[2017-12-11] MEDS: Bisacodyl EC TAB 5 MG TABLET PO SCH (08:15)
[2017-12-11] MEDS: DOXAZOSIN 2 MG TABLET PO SCH (08:15)
[2017-12-11] MEDS: NICOTINE 21 MG PATCH TD SCH (08:16)
[2017-12-11] MEDS: NICOTINE PATCH REMOVAL TD SCH (08:16)
[2017-12-11] MEDS: PANTOPRAZOLE 40 MG INJECTION IVP SCH ×2 (08:16→21:35)
--- NOTE | 2017-12-11 13:41 | Progress Note ---
- Date 12/11/17 Subjective: Still having some vomiting this morning, does not feel like he can really eat anything. Discussed symptoms, chronicity. Helped somewhat with phenergan and zofran. Denies diarrhea, abdominal pain, fevers. Feels weak, not getting OOB. Objective Vital signs: Temperature 97.7 F 12/11/17 07:55 Pulse Rate 95 12/11/17 07:55 Respiratory Rate 20 12/11/17 07:55 Blood Pressure 180/98 H 12/11/17 07:55 Pulse Oximetry 95 12/11/17 07:55 Height/Weight/BMI: Height 1.8 m Weight 69.2 kg Body Mass Index 21.2 - Constitutional Present: no acute distress - Routine HEENT Exam Head: Present: normocephalic ENT: Present: mucous membranes moist, oropharynx clear - Routine Respiratory Exam Present: CTA bilaterally. Absent: rales, rhonchi, wheezes - Routine Cardiovascular Exam Present: RRR. Absent: murmur - Routine Abdominal Exam Present: soft, non distended, non tender - Routine Extremities Exam Present: no edema, non tender - Routine Skin Exam Present: dry, warm. Absent: rash - Routine Neurological Exam Present: alert, oriented X3, vision grossly intact, hearing grossly intact, normal speech - Routine Psychiatric Exam Present: normal affect, normal thought process Results - Labs CBC & Chem 7: 12/11/17 04:01 12/11/17 04:01 Microbiology Results: Microbiology 12/08/17 11:17 Port/Picc Blood Culture - Preliminary No Growth After 3 Days 12/08/17 11:07 Port/Picc Blood Culture - Preliminary No Growth After 3 Days Assessment and Plan Assessment and Plan: Impression Acute vomiting with reported hematemesis Leukocytosis (POA) Hypokalemia (POA) Elevated lactate - likely secondary to dehydration HTN Chronic obstructive pulmonary disease Arthritis Herniated disc in back with chronic pain Adenocarcinoma of the lung - no chemo Depression and anxiety Plan Little change-still with persistent nausea and decreased oral intake. Continue IVF but will decrease to 75 cc/hour for maintenance rate. Continue scopalamine patch, prn phenergan/zofran. Encouraged him to get up OOB at least several times today, try walking in the halls. Repeat CBC, renal panel, MG in AM for surveillance with IVF. Continue rocephin for now; no fevers but WBC now improving. DVT Prophylaxis: Lovenox Resuscitation Status: Do Not Resuscitate - Physician Narrative Narrative: Date: 12/11/17 Time: 1336 Hospital Course Summary Disclaimer: The visit summary below is not to be considered part of the above Progress Note. Hospital Course: 12/08/17 Admit patient to outpatient observation under the care of Dr. Méndez. Obtain following laboratory studies on admission: CBC, CMP, lactate, Mg, prealbumin, thyrocalcitonin, viral respiratory panel, UA, BC2. Normal saline 1L/Hr initially for more aggressive hydration. Will likely slowdown fluid rate later today. Scheduled Protonix 40 milligrams IV twice a day for GI protection given reported hematemesis. Phenergan, Compazine and Zofran available as needed for nausea. At this point, will recommend a clear liquid diet only. Obtain abdominal x-ray to rule out acute process. SCDs to bilateral lower extremity for DVT prophylaxis. Nicotine patch to encourage continued tobacco cessation. Will need to review home medications. Patient does take multiple chronic mediations as well as topical fentanyl patch. He does wish to be a do not resuscitate and this orders written. 12/09/17 No improvement of symptoms - persistent nausea, no oral drive. WBC with increase. Potassium only increased to 3.3. With continue need for IVF to maintain hydration combined with persistent hypokalemia & increasing leukocytosis, will change admission status to inpatient. Care requirements exceeding scope of OBS. IV potassium bolus given for persistent hypokalemia. Rocephin for antimicrobial coverage, although not seeing obvious source of infection. Continue with IV antiemetics. Encourage oral intake as patient able. 12/10/17 Little change-still with persistent nausea and decreased oral intake. Can take ice chips sparingly, but no oral drive. Potassium increased to 3.5 with WBC decreased to 16.4. Will continue with IVF for support. Continue IV antiemetics. Add Scopolamine patch to see if helps with nausea. Encourage increasing activities - walking in room and halls. 12/11/17 Again little change-still with persistent nausea and decreased oral intake. Continue IVF but will decrease to 75 cc/hour for maintenance rate. Continue scopalamine patch, prn phenergan/zofran. Encouraged him to get up OOB at least several times today, try walking in the halls. Repeat CBC, renal panel, MG in AM for surveillance with IVF. Continue rocephin for now; no fevers but WBC now improving.
[2017-12-11] MEDS: CEFTRIAXONE 1 G in NS 100 ML IV SCH (17:04)
[2017-12-11] MEDS: HYDROCODONE/APAP 10 MG/325 MG TABLET PO PRN (21:35)
[2017-12-11] MEDS: MIRTAZAPINE 15 MG TABLET PO SCH (21:35)
[2017-12-12] MEDS: HYDROCODONE/APAP 10 MG/325 MG TABLET PO PRN ×2 (02:03→21:25)
[2017-12-12] MEDS: NS with KCL 20 mEq 1,000 ML IV SCH ×2 (03:50→14:32)
[2017-12-12] MEDS ORDERED: POTASSIUM PHOSPHATE IV SCH (10:00)
[2017-12-12] MEDS ORDERED: NS IV SCH (10:00)
[2017-12-12] MEDS: Bisacodyl EC TAB 5 MG TABLET PO SCH (10:37)
[2017-12-12] MEDS: NICOTINE 21 MG PATCH TD SCH (10:37)
[2017-12-12] MEDS: PANTOPRAZOLE 40 MG INJECTION IVP SCH ×2 (10:38→21:18)
[2017-12-12] MEDS: NICOTINE PATCH REMOVAL TD SCH (10:38)
[2017-12-12] MEDS: ONDANSETRON ODT 4 MG TABLET PO PRN (10:39)
[2017-12-12] MEDS: DOXAZOSIN 2 MG TABLET PO SCH (10:39)
[2017-12-12] MEDS: BuPROPion XL 150mg (24HR) TABLET PO SCH (10:39)
[2017-12-12] MEDS: AMLODIPINE 5 MG TABLET PO SCH (10:40)
--- NOTE | 2017-12-12 13:38 | Progress Note ---
- Date 12/12/17 Subjective: Initially feeling a little better this morning, tolerated breakfast but now feels like he is going to vomit again. Denies dyspnea, fevers, chills. Ongoing nausea and abdominal pain although no emesis since yesterday. Has not been out of bed. Objective Vital signs: Temperature 98.1 F 12/12/17 07:34 Pulse Rate 87 12/12/17 07:34 Respiratory Rate 18 12/12/17 07:34 Blood Pressure 162/89 H 12/12/17 07:34 Pulse Oximetry 96 12/12/17 07:34 Rhythm: Normal Sinus Rhythm Height/Weight/BMI: Height 1.8 m Weight 69.4 kg Body Mass Index 21.2 - Constitutional Present: no acute distress, cooperative - Routine HEENT Exam Head: Present: normocephalic, atraumatic Eye: Present: PERRL ENT: Present: mucous membranes moist, oropharynx clear - Routine Respiratory Exam Present: CTA bilaterally. Absent: rales, crackles - Routine Cardiovascular Exam Present: RRR - Routine Abdominal Exam Present: soft, non distended - Routine Extremities Exam Present: no edema, normal capillary refill - Routine Skin Exam Present: dry, warm. Absent: jaundice, rash - Routine Neurological Exam Present: alert, normal speech - Routine Psychiatric Exam Comments: flat affect Results - Labs CBC & Chem 7: 12/12/17 03:46 12/12/17 03:46 Microbiology Results: Microbiology 12/08/17 11:17 Port/Picc Blood Culture - Preliminary No Growth After 4 Days 12/08/17 11:07 Port/Picc Blood Culture - Preliminary No Growth After 4 Days Assessment and Plan Assessment and Plan: Impression Acute vomiting with reported hematemesis Leukocytosis (POA) Hypokalemia (POA) Hypophosphatemia Elevated lactate - likely secondary to dehydration HTN Chronic obstructive pulmonary disease Arthritis Herniated disc in back with chronic pain Adenocarcinoma of the lung - no chemo Depression and anxiety Plan Little change-still with persistent nausea although he did try to eat this morning, worsened symptoms Stop IVF and encourage po intake of fluids today Ambulate TID in the halls; he is not getting OOB at all on his own K phos IV 30 mmol x 1 today Recheck renal panel, Mg in AM for surveillance of electrolytes Continue scopalamine patch, prn phenergan/zofran. Stop rocephin and monitor off of antibiotics; cultures NGTD. If not requiring IV antibiotics or IVF, could potentially DC tomorrow with zofran ODT. Will try to ambulate today. DVT Prophylaxis: Lovenox Resuscitation Status: Do Not Resuscitate - Physician Narrative Narrative: Date: 12/12/17 Time: 1334 Hospital Course Summary Disclaimer: The visit summary below is not to be considered part of the above Progress Note. Hospital Course: 12/08/17 Admit patient to outpatient observation under the care of Dr. Méndez. Obtain following laboratory studies on admission: CBC, CMP, lactate, Mg, prealbumin, thyrocalcitonin, viral respiratory panel, UA, BC2. Normal saline 1L/Hr initially for more aggressive hydration. Will likely slowdown fluid rate later today. Scheduled Protonix 40 milligrams IV twice a day for GI protection given reported hematemesis. Phenergan, Compazine and Zofran available as needed for nausea. At this point, will recommend a clear liquid diet only. Obtain abdominal x-ray to rule out acute process. SCDs to bilateral lower extremity for DVT prophylaxis. Nicotine patch to encourage continued tobacco cessation. Will need to review home medications. Patient does take multiple chronic mediations as well as topical fentanyl patch. He does wish to be a do not resuscitate and this orders written. 12/09/17 No improvement of symptoms - persistent nausea, no oral drive. WBC with increase. Potassium only increased to 3.3. With continue need for IVF to maintain hydration combined with persistent hypokalemia & increasing leukocytosis, will change admission status to inpatient. Care requirements exceeding scope of OBS. IV potassium bolus given for persistent hypokalemia. Rocephin for antimicrobial coverage, although not seeing obvious source of infection. Continue with IV antiemetics. Encourage oral intake as patient able. 12/10/17 Little change-still with persistent nausea and decreased oral intake. Can take ice chips sparingly, but no oral drive. Potassium increased to 3.5 with WBC decreased to 16.4. Will continue with IVF for support. Continue IV antiemetics. Add Scopolamine patch to see if helps with nausea. Encourage increasing activities - walking in room and halls. 12/11/17 Again little change-still with persistent nausea and decreased oral intake. Continue IVF but will decrease to 75 cc/hour for maintenance rate. Continue scopalamine patch, prn phenergan/zofran. Encouraged him to get up OOB at least several times today, try walking in the halls. Repeat CBC, renal panel, MG in AM for surveillance with IVF. Continue rocephin for now; no fevers but WBC now improving. 12/12/17 Little change-still with persistent nausea although he did try to eat this morning, worsened symptoms Stop IVF and encourage po intake of fluids today Ambulate TID in the halls; he is not getting OOB at all on his own K phos IV 30 mmol x 1 today Recheck renal panel, Mg in AM for surveillance of electrolytes Continue scopalamine patch, prn phenergan/zofran. Stop rocephin and monitor off of antibiotics; cultures NGTD.
[2017-12-12] MEDS: MIRTAZAPINE 15 MG TABLET PO SCH (21:18)
[2017-12-13] MEDS: HYDROCODONE/APAP 10 MG/325 MG TABLET PO PRN ×2 (04:26→20:29)
[2017-12-13] MEDS ORDERED: SCOPOLAMINE PATCH REMOVAL TD SCH (11:00)
[2017-12-13] MEDS: ONDANSETRON ODT 4 MG TABLET PO PRN ×2 (11:01→19:54)
[2017-12-13] MEDS: NICOTINE 21 MG PATCH TD SCH (11:30)
[2017-12-13] MEDS: DOXAZOSIN 2 MG TABLET PO SCH (11:30)
[2017-12-13] MEDS: BuPROPion XL 150mg (24HR) TABLET PO SCH (11:30)
[2017-12-13] MEDS ORDERED: PANTOPRAZOLE 20 MG TABLET PO SCH (11:30)
[2017-12-13] MEDS: Bisacodyl EC TAB 5 MG TABLET PO SCH (11:30)
[2017-12-13] MEDS: NICOTINE PATCH REMOVAL TD SCH (11:32)
[2017-12-13] MEDS: AMLODIPINE 5 MG TABLET PO SCH (11:32)
[2017-12-13] MEDS: PANTOPRAZOLE 40 MG INJECTION IVP SCH (11:34)
--- NOTE | 2017-12-13 13:06 | Progress Note ---
- Date 12/13/17 Subjective: Jose Miguel is seen today in follow up. He is alert and orientated. He states that he has been doing good however had a sudden onset of vomiting x1 episode this morning. His nausea is now gone. Denies abdominal pain, diarrhea or other symptoms. Tolerating water and crackers currently. Objective Vital signs: Temperature 98.4 F 12/13/17 08:45 Pulse Rate 95 12/13/17 11:35 Respiratory Rate 16 12/13/17 08:45 Blood Pressure 151/93 H 12/13/17 11:35 Pulse Oximetry 97 12/13/17 08:45 Rhythm: Normal Sinus Rhythm Height/Weight/BMI: Height 1.8 m Weight 68.8 kg Body Mass Index 21.2 - Constitutional Present: no acute distress, well nourished, well developed - Routine HEENT Exam Eye: Present: EOMI ENT: Present: mucous membranes moist, dentition normal - Routine Respiratory Exam Present: CTA bilaterally. Absent: wheezes - Routine Cardiovascular Exam Present: RRR, S1, S2. Absent: murmur - Routine Abdominal Exam Present: soft, normoactive bowel sounds, non distended. Absent: tenderness - Routine Extremities Exam Present: no edema - Routine Back/Spine/Pelvis Exam Back/Spine: Present: full ROM - Routine Skin Exam Present: intact, dry, warm - Routine Neurological Exam Present: alert, oriented X3, CN II-XII intact, moving all extremities - Routine Lymphatic Exam Lymphatic: Absent: adenopathy - Routine Psychiatric Exam Present: normal affect, normal thought process, cooperative Results - Labs CBC & Chem 7: 12/12/17 03:46 12/13/17 04:21 Microbiology Results: Microbiology 12/08/17 11:17 Port/Picc Blood Culture - Final No Growth After 5 Days 12/08/17 11:07 Port/Picc Blood Culture - Final No Growth After 5 Days Assessment and Plan (1) Vomiting Current visit: Yes Status: Acute Assessment and Plan: Impression Acute vomiting with reported hematemesis Leukocytosis (POA) Hypokalemia (POA) Hypophosphatemia Elevated lactate - likely secondary to dehydration HTN Chronic obstructive pulmonary disease Arthritis Herniated disc in back with chronic pain Adenocarcinoma of the lung - no chemo Depression and anxiety Plan Will see how lunch does today. Re-evaluate later today. Oral potassium replaced. All antiemetics are PO + scop patch Encourage ambulation in the halls Hopeful for discharge later today 12/13/2017-8:30 PM-I examined the patient independently. I reviewed this chart, the patient history, and the CLINICAL RESOURCE MANAGER's/PA's documented findings as above. We discussed and formulated the assessment and plan as above with the additions below.-Dr. Ramos Still with some nausea after supper tonight. He was able to eat mashed potatoes. He is able to tolerate crackers. He denies any pain. On exam he is alert and in no acute distress. Chest is clear to auscultation. Cardiovascular reveals a regular rate and rhythm. Abdomen is soft and nontender. Impression and plan Recurrent nausea and vomiting, slowly improving. Likely discharge tomorrow. Repeat lab tomorrow. - Physician Narrative Narrative: Date: 12/13/17 Time: 1303 Hospital Course Summary Disclaimer: The visit summary below is not to be considered part of the above Progress Note. Hospital Course: 12/08/17 Admit patient to outpatient observation under the care of Dr. Méndez. Obtain following laboratory studies on admission: CBC, CMP, lactate, Mg, prealbumin, thyrocalcitonin, viral respiratory panel, UA, BC2. Normal saline 1L/Hr initially for more aggressive hydration. Will likely slowdown fluid rate later today. Scheduled Protonix 40 milligrams IV twice a day for GI protection given reported hematemesis. Phenergan, Compazine and Zofran available as needed for nausea. At this point, will recommend a clear liquid diet only. Obtain abdominal x-ray to rule out acute process. SCDs to bilateral lower extremity for DVT prophylaxis. Nicotine patch to encourage continued tobacco cessation. Will need to review home medications. Patient does take multiple chronic mediations as well as topical fentanyl patch. He does wish to be a do not resuscitate and this orders written. 12/09/17 No improvement of symptoms - persistent nausea, no oral drive. WBC with increase. Potassium only increased to 3.3. With continue need for IVF to maintain hydration combined with persistent hypokalemia & increasing leukocytosis, will change admission status to inpatient. Care requirements exceeding scope of OBS. IV potassium bolus given for persistent hypokalemia. Rocephin for antimicrobial coverage, although not seeing obvious source of infection. Continue with IV antiemetics. Encourage oral intake as patient able. 12/10/17 Little change-still with persistent nausea and decreased oral intake. Can take ice chips sparingly, but no oral drive. Potassium increased to 3.5 with WBC decreased to 16.4. Will continue with IVF for support. Continue IV antiemetics. Add Scopolamine patch to see if helps with nausea. Encourage increasing activities - walking in room and halls. 12/11/17 Again little change-still with persistent nausea and decreased oral intake. Continue IVF but will decrease to 75 cc/hour for maintenance rate. Continue scopalamine patch, prn phenergan/zofran. Encouraged him to get up OOB at least several times today, try walking in the halls. Repeat CBC, renal panel, MG in AM for surveillance with IVF. Continue rocephin for now; no fevers but WBC now improving. 12/12/17 Little change-still with persistent nausea although he did try to eat this morning, worsened symptoms Stop IVF and encourage po intake of fluids today Ambulate TID in the halls; he is not getting OOB at all on his own K phos IV 30 mmol x 1 today Recheck renal panel, Mg in AM for surveillance of electrolytes Continue scopalamine patch, prn phenergan/zofran. Stop rocephin and monitor off of antibiotics; cultures NGTD. 12/13/17 Will see how lunch does today. Re-evaluate later today. Oral potassium replaced. All antiemetics are PO + scop patch Encourage ambulation in the halls Hopeful for discharge later today
[2017-12-13] MEDS: MIRTAZAPINE 15 MG TABLET PO SCH (20:29)
[2017-12-14] MEDS: PROCHLORPERAZINE 10 MG/2 ML INJECTION IVP PRN (03:59)
[2017-12-14] MEDS ORDERED: PANTOPRAZOLE 20 MG TABLET PO SCH (06:30)
[2017-12-14] MEDS ORDERED: PANTOPRAZOLE 40 MG TABLET PO SCH (06:30)
[2017-12-14 09:29] VITALS: TEMP 97.3
[2017-12-14] MEDS: ONDANSETRON ODT 4 MG TABLET PO PRN ×2 (09:46→15:33)
[2017-12-14] MEDS: Bisacodyl EC TAB 5 MG TABLET PO SCH (11:34)
[2017-12-14] MEDS: AMLODIPINE 5 MG TABLET PO SCH (11:34)
[2017-12-14] MEDS: BuPROPion XL 150mg (24HR) TABLET PO SCH (11:35)
[2017-12-14] MEDS: DOXAZOSIN 2 MG TABLET PO SCH (11:35)
[2017-12-14] MEDS: NICOTINE PATCH REMOVAL TD SCH (11:36)
[2017-12-14] MEDS: NICOTINE 21 MG PATCH TD SCH (11:36)
[2017-12-14 11:48] VITALS: PULSE 89; RESP 18; O2SAT 98
--- NOTE | 2017-12-14 14:56 | Discharge Summary ---
Discharge Information Date of admission: 12/09/17 14:35 Anticipated date of discharge: 12/14/17 Attending Physician: Daisy Ramos MD Primary care physician: Cristofer Nugent MD - Discharge Diagnosis (1) Vomiting Status: Acute Acute vomiting with reported hematemesis Leukocytosis (POA) Hypokalemia (POA) Hypophosphatemia Elevated lactate - likely secondary to dehydration HTN Chronic obstructive pulmonary disease Arthritis Herniated disc in back with chronic pain Adenocarcinoma of the lung - no chemo Depression and anxiety - Procedures Procedures: None - Laboratory Labs: 12/12/17 03:46 12/14/17 04:35 - Microbiology Microbiology 12/08/17 11:17 Port/Picc Blood Culture - Final No Growth After 5 Days 12/08/17 11:07 Port/Picc Blood Culture - Final No Growth After 5 Days - Radiology Radiology: 12/08/17-abdominal [id number] nonspecific bowel gas pattern 12/08/17-chest [id number] without evidence of focal pneumonia - Pathology None History of Present Illness HPI: Jose Miguel is well known to the hospitalist services from previous admission. Jose Miguel has had history of recurrent nausea and vomiting. Unfortunately, this episode began last night was severe in nature, accompanied with fevers abdominal pain. He presented to see primary care provider, Dr. Nugent in the clinic today. CBC was obtained did show leukocytosis with a white count of 20.6. Given persistent nausea and vomiting, the hospitalist services were contacted and accepted patient for direct admission. Outpatient observation for further evaluation and treatment. Jose Miguel is seen on arrival to [facility]. He is alert, oriented, with active emesis. Complains of having diffuse abdominal discomfort for the past 12 hours. Noted that he may have some blood in his emesis. Denies any diarrhea, constipation,melena or hematochezia. Objective Vital signs: Temperature 97.3 F 12/14/17 11:47 Pulse Rate 89 12/14/17 11:47 Respiratory Rate 18 12/14/17 11:47 Blood Pressure 194/99 H 12/14/17 11:47 Pulse Oximetry 98 12/14/17 11:47 Rhythm: Normal Sinus Rhythm Height/Weight/BMI: Height 1.8 m Weight 69.1 kg Body Mass Index 21.2 - Constitutional Present: well nourished, well developed - Routine HEENT Exam Eye: Present: EOMI ENT: Present: mucous membranes moist, dentition normal - Routine Respiratory Exam Present: CTA bilaterally. Absent: wheezes - Routine Cardiovascular Exam Present: RRR, S1, S2. Absent: murmur - Routine Abdominal Exam Present: soft, normoactive bowel sounds, non distended. Absent: tenderness - Routine Extremities Exam Present: normal capillary refill - Routine Skin Exam Present: intact, dry, warm - Routine Neurological Exam Present: alert, oriented X3, CN II-XII intact, moving all extremities - Routine Lymphatic Exam Lymphatic: Absent: adenopathy - Routine Psychiatric Exam Present: normal affect, cooperative Hospital Course This is a general summary of the patient's hospital course. For more details refer to the complete medical record. Hospital course: 12/08/17 Admit patient to outpatient observation under the care of Dr. Méndez. Obtain following laboratory studies on admission: CBC, CMP, lactate, Mg, prealbumin, thyrocalcitonin, viral respiratory panel, UA, BC2. Normal saline 1L/Hr initially for more aggressive hydration. Will likely slowdown fluid rate later today. Scheduled Protonix 40 milligrams IV twice a day for GI protection given reported hematemesis. Phenergan, Compazine and Zofran available as needed for nausea. At this point, will recommend a clear liquid diet only. Obtain abdominal x-ray to rule out acute process. SCDs to bilateral lower extremity for DVT prophylaxis. Nicotine patch to encourage continued tobacco cessation. Will need to review home medications. Patient does take multiple chronic mediations as well as topical fentanyl patch. He does wish to be a do not resuscitate and this orders written. 12/09/17 No improvement of symptoms - persistent nausea, no oral drive. WBC with increase. Potassium only increased to 3.3. With continue need for IVF to maintain hydration combined with persistent hypokalemia & increasing leukocytosis, will change admission status to inpatient. Care requirements exceeding scope of OBS. IV potassium bolus given for persistent hypokalemia. Rocephin for antimicrobial coverage, although not seeing obvious source of infection. Continue with IV antiemetics. Encourage oral intake as patient able. 12/10/17 Little change-still with persistent nausea and decreased oral intake. Can take ice chips sparingly, but no oral drive. Potassium increased to 3.5 with WBC decreased to 16.4. Will continue with IVF for support. Continue IV antiemetics. Add Scopolamine patch to see if helps with nausea. Encourage increasing activities - walking in room and halls. 12/11/17 Again little change-still with persistent nausea and decreased oral intake. Continue IVF but will decrease to 75 cc/hour for maintenance rate. Continue scopalamine patch, prn phenergan/zofran. Encouraged him to get up OOB at least several times today, try walking in the halls. Repeat CBC, renal panel, MG in AM for surveillance with IVF. Continue rocephin for now; no fevers but WBC now improving. 12/12/17 Little change-still with persistent nausea although he did try to eat this morning, worsened symptoms Stop IVF and encourage po intake of fluids today Ambulate TID in the halls; he is not getting OOB at all on his own K phos IV 30 mmol x 1 today Recheck renal panel, Mg in AM for surveillance of electrolytes Continue scopalamine patch, prn phenergan/zofran. Stop rocephin and monitor off of antibiotics; cultures NGTD. 12/13/17 Will see how lunch does today. Re-evaluate later today. Oral potassium replaced. All antiemetics are PO + scop patch Encourage ambulation in the halls Hopeful for discharge later today 12/14/17- Discharge Patient seen and examined today. Prior to discharge. He did have one episode in which she had emesis 1, however, has been able to take in oral crackers, fluids and pills since that time. Did discuss discharge plan with patient's primary care provider, Dr. Nugent. We discussed discharge on anti-emetics as well as scopolamine patch to help control nausea. This does appear to be a chronic cycle of nausea and vomiting. Regarding hypertension, we will continue with Norvasc 10 milligrams daily and will have Spironolactone and 25 milligrams daily to help with better blood pressure control. Patient does have a follow-up appointment scheduled with Dr. Nugent of for Sunday 12/17 at which time he can have a basic metabolic lab checked at that time. Patient discharged in stable condition 12/14/2017-4:30 PM-I examined the patient independently. I reviewed this chart, the patient history, and the HAND MARKER's/PA's documented findings as above. We discussed and formulated the assessment and plan as above with the additions below.-Dr. Ramos The patient was seen this afternoon in his room. I did recheck his blood pressure and it is 116/77. He states he continues to have intermittent nausea but is able to drink fluids and eat bland foods such as crackers without difficulty. He request to have his Duragesic patch removed from his left shoulder because it is in a location that he cannot reach. He is due for a new patch today and states he will use his own prescription when he gets home. On exam he is alert and in no acute distress. Chest is clear to auscultation. Cardiovascular reveals a borderline tachycardic rate with a regular rhythm. Abdomen is soft and nontender. Extremities are free of edema. Impression and plan Cyclic nausea and vomiting-continue Reglan, Zofran and scopolamine patch. Encourage adequate fluid intake and bland diet. The patient plans to follow-up with his primary care provider on Wednesday for further evaluation and treatment of his nausea and vomiting Hypertension shows better control this afternoon after receiving his blood pressure medication. Time spent with patient: discharge greater than 30 minutes Resuscitation Status: Do Not Resuscitate Discharge Plan - Discharge Disposition Discharge Date: 12/14/17 Disposition: 01 Discharged Home, Self-Care *Condition: Stable Reason For Visit (Visit label in EMR): N/V, Leukocytosis - Discharge Medications *Discharge Medications: New Scopolamine Patch Removal [Transderm-Scop Patch Removal] 1 removal TD Q3D # 10 patch Spironolactone [Aldactone] 25 mg PO DAILY #30 tab Continue Folic Acid [Folate] 1 mg PO DAILY Nicotine Polacrilex [Nicotine Gum] 2 mg BC Q2H PRN PRN Reason: smoking cessation Metoclopramide [Reglan] 10 mg PO Q6H PRN #30 tab PRN Reason: nausea and vomiting Ondansetron [Zofran Odt] 1 tab PO Q6HR PRN #15 tab PRN Reason: Nausea Albuterol Neb (0.083%) [Proventil Neb (0.083%)] 2.5 mg INH Q6HPRN Tens Unit Electrodes [Neurostimulation Electrodes] 1 .ROUTE .MEDSUPPLY PRN PRN Reason: Pain Gabapentin [Neurontin] 300 mg PO QID Colace (Docusate sodium) 100 mg capsule 200 mg PO DAILY #60 cap bisacodyl 5 mg tablet,delayed release 10 mg PO DAILY #90 tab Remeron (mirtazapine) 15 mg tablet 15 mg PO HS #90 tab Claritin (Loratadine) 10 mg tablet 10 mg PO DAILY #30 tab Norvasc (amlodipine) 5 mg tablet 10 mg PO DAILY #60 tab [place] 10 mg-acetaminophen 325 mg tablet 1 tab PO TID PRN #90 tab PRN Reason: Pain Ativan (lorazepam) 1 mg tablet 1 mg PO TID PRN #90 tab PRN Reason: Anxiety Protonix (Pantoprazole)40 mg tablet,delayed release 40 mg PO ACBID #60 tab Wellbutrin XL (bupropion HCl XL) 150 mg 24 hr tablet 150 mg PO DAILY #60 tab sucralfate 100 mg/mL oral suspension 1 g PO QID #420 ml nicotine 21 mg/24 hr daily transdermal patch 1 patch TD DAILY #30 each fentanyl 50 mcg/hr transdermal patch 1 patch TD Q72H #10 each Cardura (doxazosin) 2 mg tablet 2 mg PO DAILY #30 tab - Discharge Packet/Instructions *Diet: [place] diet *Activity: as tolerated *Pain Management/Treatment: Tylenol as needed, chronic fentanyl patch *Wound Care: None Additional Instructions: Continue Norvasc 10 mg daily. Will add Spiralactone 25 mg daily to help with blood pressure control. Scopolamine patch as needed for nausea. Use Zofran and Reglan as needed for nausea. It is important that you follow up on Wednesday as instructed *Expected Signs/Symptoms: Continued improvement in nausea and vomiting *Notify Physician if: Abdominal pain, worsening nausea or vomiting or diarrhea *During Business Hours Contact: Contact Dr Nugent *After Business Hours Contact: Page Dr Nugent *Pending Lab/Results: No Pending Lab - Referrals/Follow Up *Referrals/Follow Up: Cristofer Nugent MD [Primary Care Provider] - 12/17/17 9:15 am (Follow up apt Wednesday12/17/17 at [address]am. APPOINTMENT WITH DR. NUGENT -OFFICE NUMBER [phone]) - Patient Handouts Patient Handouts: Leukocytosis (GEN) - Dismissal Complete Discharge Instructions are:: Complete Physician Narrative - Narrative Attestation Narrative: Date: 12/14/17 Time: 1458
[2017-12-14] MEDS ORDERED: SCOPOLAMINE 1mg/3 days PATCH (Eq. 1.5 Patch) TD SCH (16:45)
[2017-12-14 21:06] VITALS: BP 180/78
[2017-12-17] MEDS ORDERED: SCOPOLAMINE PATCH REMOVAL TD SCH (16:45)
== END 2017-12-14 17:30 | disposition home or self-care (01) | DRG 379 ==
LOC: MED → SUATTDRO 12-09 14:35
PROVIDERS: ADMIT Hospitalist; ATTEND Internal Medicine

== ENCOUNTER 2018-01-07 08:51 | Inpatient (IN) ==
[2018-01-07] MEDS ORDERED: NS 1,000 ML IV ONE (09:26)
[2018-01-07] MEDS ORDERED: METOCLOPRAMIDE 10mg/2ml INJECTION IVP ONE (09:26)
--- NOTE | 2018-01-07 10:03 | Emergency Department Report ---
Nausea/Vomiting/Diarrhea HPI - General Chief complaint: Abdominal Pain Stated complaint: vomiting blood - Related Data Home Medications Medication Instructions Recorded Confirmed Folic Acid [Folate] 1 mg PO DAILY 07/11/17 01/07/18 Gabapentin [Neurontin] 600 mg PO QAM 12/08/17 01/07/18 Albuterol Sulfate 2.5 mg AEROSOL TID PRN 12/15/17 01/07/18 Bisacodyl [Laxative] 10 mg PO DAILY 12/15/17 01/07/18 BuPROPion XL [Wellbutrin Xl] 150 mg PO DAILY 12/15/17 01/07/18 Doxazosin [Cardura] 2 mg PO HS 12/15/17 01/07/18 FentaNYL PATCH [Duragesic Patch] 50 mcg TD Q72H 12/15/17 01/07/18 LORazepam [Lorazepam] 1 mg PO TID PRN 12/15/17 01/07/18 Pantoprazole Sodium [Protonix] 40 mg PO BID 12/15/17 01/07/18 Sucralfate Oral Liq [Carafate 1 gm PO QID 12/15/17 01/07/18 Slurry] Amlodipine [Norvasc] 5 mg PO BID 01/07/18 01/07/18 Cyclobenzaprine [Flexeril] 1 tab PO TID PRN 01/07/18 01/07/18 Docusate Sodium [Colace] 200 mg PO DAILY 01/07/18 01/07/18 Gabapentin [Gabapentin] 300 mg PO 01/07/18 01/07/18 Gabapentin [Gabapentin] 300 mg PO 01/07/18 01/07/18 Hydrocodone/APAP 10/325 [[place] 1 tab PO TID PRN 01/07/18 01/07/18 10/325] Loratadine [Claritin] 10 mg PO DAILY 01/07/18 01/07/18 Metoclopramide [Reglan] 10 mg PO TID 01/07/18 01/07/18 Mirtazapine [Remeron] 15 mg PO 01/07/18 01/07/18 Nicotine Polacrilex [Nicorette] 2 mg BC PRN PRN 01/07/18 01/07/18 Ranitidine [Zantac] 150 mg PO 01/07/18 01/07/18 Scopolamine Patch [Transderm-Scop 1 patch TD Q3D 01/07/18 01/07/18 Patch] cefUROXime axetil [Cefuroxime] 500 mg PO Q12H 01/07/18 01/07/18 Previous Rx's Medication Instructions Recorded Spironolactone [Aldactone] 25 mg PO DAILY #30 tab 12/14/17 Allergies Allergy/AdvReac Type Severity Reaction Status Date / Time levofloxacin Allergy Mild Hives Verified 01/07/18 08:54 Sulfa (Sulfonamide Allergy Unknown Verified 01/07/18 08:54 Antibiotics) [facility] Patient Stated Medical History Peripheral Neuropathy Yes Dental Problems Yes Other HEENT Yes: voice dysfunction Hypertension Yes Other Cardiology Yes: mediastinal mass. 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 Diabetes Mellitus Type 2 Yes: borderline Other Endocrine Yes: BORDERLINE Gastroesophageal Reflux Yes: controlled with meds Disease Other GI Yes: N/V FOR MONTHS Hx Renal Disease No Hx Urinary Tract Infection Yes: past Anemia Yes Osteoarthritis Yes: back MRSA Yes Sepsis Yes: UTI 3-4MO AGO Chemotherapy Yes: MAY 2017 Depression Yes Clinic Medical History (Last Reviewed 12/08/17 @ 11:18 by Jennifer Ashley APRN) Adenocarcinoma of left lung (Acute Medical) Anxiety (Acute Medical) COPD (chronic obstructive pulmonary disease) (Acute Medical) Chronic low back pain (Acute Medical) Depression (Acute Medical) Borderline diabetes (Chronic Medical) Hypertension (Chronic Medical) Medical History Updates: Chronic obstructive pulmonary disease. Arthritis. Herniated disc in back with chronic pain. Adenocarcinoma of the lung. Depression and anxiety Surgical History: Lung Biopsy, Chest Tube Insertion. Left upper lobectomy 02/16. 04/02/17 Port-A-Cath insertion. Right eyelid surgery. Vocal cord "scraped". 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 Antoine 2016. EGD 07/15/17 (Dr. Lomeli): distal esophagitis with ulceration, moderate antritis/gastritis. Bronchoscopy with biopsy 09/2017 (Dr. Calderon): normal Family History: Family History (Last Reviewed 07/07/17 @ 14:32 by BEA Latif) Father Diabetes High blood pressure Paternal Grandfather High blood pressure Diabetes - Social History Smoking status: Former smoker Packs-years: 24 second hand exposure: No Quit date: 02/05/17 Substance use type: does not use Alcohol intake: former Alcohol intake frequency: former alcohol drinker Housing: house Household members: none Current occupational status: disabled Current occupation: Disabled Does patient use chewing tobacco?: No Current residence: Apartment/Private Home Course Vital Signs Temperature 98.1 F 01/07/18 08:53 Pulse Rate 91 01/07/18 08:53 Respiratory Rate 18 01/07/18 08:53 Blood Pressure 184/92 H 01/07/18 08:53 Pulse Oximetry 97 01/07/18 08:53 Temperature 98.1 F 01/07/18 08:53 Pulse Rate 95 01/07/18 09:14 Respiratory Rate 18 01/07/18 08:53 Blood Pressure 168/86 H 01/07/18 09:14 Pulse Oximetry 97 01/07/18 08:53 Nausea/Vomiting/Diarrhea - Lab Data Result diagrams: 01/07/18 09:59 01/07/18 09:59 Disposition Clinical Impression: Intractable nausea and vomiting Qualifiers: Vomiting type: unspecified Qualified Code(s): R11.2 - Nausea with vomiting, unspecified Disposition: 02 To OBS [facility] Condition: Stable Prescriptions: No Action Folic Acid [Folate] 1 mg PO DAILY Doxazosin [Cardura] 2 mg PO HS FentaNYL PATCH [Duragesic Patch] 50 mcg TD Q72H LORazepam [Lorazepam] 1 mg PO TID PRN PRN Reason: Anxiety Sucralfate Oral Liq [Carafate Slurry] 1 gm PO QID BuPROPion XL [Wellbutrin Xl] 150 mg PO DAILY Bisacodyl [Laxative] 10 mg PO DAILY Albuterol Sulfate 2.5 mg AEROSOL TID PRN PRN Reason: Shortness Of Air/Wheezing Loratadine [Claritin] 10 mg PO DAILY Metoclopramide [Reglan] 10 mg PO TID Docusate Sodium [Colace] 200 mg PO DAILY Mirtazapine [Remeron] 15 mg PO HS Cyclobenzaprine [Flexeril] 1 tab PO TID PRN PRN Reason: Muscle Spasm Hydrocodone/APAP 10/325 [[place] 10/325] 1 tab PO TID PRN PRN Reason: Pain Gabapentin [Gabapentin] 300 mg PO WS Gabapentin [Gabapentin] 300 mg PO HS Scopolamine Patch [Transderm-Scop Patch] 1 patch TD Q3D Gabapentin [Neurontin] 600 mg PO QAM Spironolactone [Aldactone] 25 mg PO DAILY #30 tab Pantoprazole Sodium [Protonix] 40 mg PO BID Ranitidine [Zantac] 150 mg PO HS Amlodipine [Norvasc] 5 mg PO BID Nicotine Polacrilex [Nicorette] 2 mg BC PRN PRN PRN Reason: Prn Orders cefUROXime axetil [Cefuroxime] 500 mg PO Q12H Referrals: Cristofer Mendoza MD [Primary Care Provider] - - Seen By: physician
--- NOTE | 2018-01-07 12:15 | History & Physical Report ---
History of Present Illness Date: 01/07/18 Chief complaint: Nausea, vomiting, abdominal pain HPI: Jose Miguel Pena is a 57 y/o male with a hx of recurrent n/v. He also has a hx of left lung adenocarcinoma for which he couldn't tolerate treatment. An EGD in Jul showed distal esophagitis with ulceration and moderate antritis/ gastritis. He's been on PPI, H2 elle, and carafate. He began having n/v 2 days ago. Coincidentally, this is about the same time he was started on cefuroxime for a "right lung infection" - he's had a minimal cough with this. His n/v progressed, and he developed severe epigastric pain. He hasn't been able to tolerate even water. He has felt like he's been running slight fevers. He's had sweats and has been so weak to the point he felt like he might pass out. His breathing feels labored. 1 day ago, he began having both bright red emesis and coffee-ground emesis. He's had 2 episodes of brown watery diarrhea. His urine is dark in color and he believes he's dehydrated. He hasn't been able to keep down his routine medications. His throat is sore from all the vomiting. He presented [place] [facility] Labs showed stable hgb and chemistries, but gastric occult blood was positive. In addition BP was elevated 170s/90s. Despite 1L of NS and Reglan 10 mg, his n/v persisted. The hospitalist dept was notified for admission. Review of Systems All systems PM: 10-point ROS was reviewed, no additional remarkable complaints except - Constitutional Constitutional: Present: fever(s) - EENMT Eyes: Absent: change in vision Nose: Absent: nosebleeds, obstruction Mouth/Throat: Present: sore throat, hoarseness (chronic) - Cardiovascular Cardiovascular: Absent: chest pain, palpitations Vascular: Absent: pedal edema - Respiratory Respiratory: Present: cough, dyspnea (labored) - Gastrointestinal Gastrointestinal: Present: abdominal pain, coffee ground emesis, diarrhea (x2), hematemesis, nausea, vomiting. Absent: hematochezia, melena - Genitourinary Genitourinary: Present: other (dark colored urine). Absent: dysuria - Musculoskeletal Musculoskeletal: Present: back pain (chronic) - Integumentary/Breasts Integumentary: Absent: wounds - Neurological Neurological: Present: weakness. Absent: abnormal gait, abnormal speech, frequent falls - Psychiatric Psychiatric: Present: anxiety - Endocrine Endocrine: Absent: palpitations - Hematologic/Lymphatic Hematologic/Lymphatic: Absent: lymphadenopathy Past Medical History Medical History: Medical History (Last Updated 01/07/18 @ 12:51 by Danii Nickerson APRN) Osteoarthritis Adenocarcinoma of left lung Anxiety COPD (chronic obstructive pulmonary disease) Chronic low back pain Depression Borderline diabetes Hypertension Medical History Updates: Herniated disc in back with chronic pain. Esophagitis/ gastritis Surgical History: Lung Biopsy, Chest Tube Insertion. Left upper lobectomy 02/16. 04/02/17 Port-A-Cath insertion. Right eyelid surgery. Vocal cord "scraped". 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 Antoine 2016. EGD 07/15/17 (Dr. Lomeli): distal esophagitis with ulceration, moderate antritis/gastritis. Bronchoscopy with biopsy 09/2017 (Dr. Calderon): normal Family History: Family History (Last Reviewed 07/07/17 @ 14:32 by Bethany Dnenis Julienne) Father Diabetes High blood pressure Paternal Grandfather High blood pressure Diabetes Family History: As Above - Social History Smoking status: Former smoker Substance use type: does not use Alcohol intake frequency: does not drink Housing: apartment Household members: none Does patient use chewing tobacco?: No Current residence: Apartment/Private Home Medications Home Medications Medication Instructions Recorded Confirmed Type Folic Acid [Folate] 1 mg PO DAILY 07/11/17 01/07/18 History Gabapentin [Neurontin] 600 mg PO QAM 12/08/17 01/07/18 History Spironolactone [Aldactone] 25 mg PO DAILY #30 tab 12/14/17 01/07/18 Rx Albuterol Sulfate 2.5 mg AEROSOL TID PRN 12/15/17 01/07/18 History Bisacodyl [Laxative] 10 mg PO DAILY 12/15/17 01/07/18 History BuPROPion XL [Wellbutrin Xl] 150 mg PO DAILY 12/15/17 01/07/18 History Doxazosin [Cardura] 2 mg PO HS 12/15/17 01/07/18 History FentaNYL PATCH [Duragesic Patch] 50 mcg TD Q72H 12/15/17 01/07/18 History LORazepam [Lorazepam] 1 mg PO TID PRN 12/15/17 01/07/18 History Pantoprazole Sodium [Protonix] 40 mg PO BID 12/15/17 01/07/18 History Sucralfate Oral Liq [Carafate 1 gm PO QID 12/15/17 01/07/18 History Slurry] Amlodipine [Norvasc] 5 mg PO BID 01/07/18 01/07/18 History Cyclobenzaprine [Flexeril] 1 tab PO TID PRN 01/07/18 01/07/18 History Docusate Sodium [Colace] 200 mg PO DAILY 01/07/18 01/07/18 History Gabapentin [Gabapentin] 300 mg PO HS 01/07/18 01/07/18 History Gabapentin [Gabapentin] 300 mg PO WS 01/07/18 01/07/18 History Hydrocodone/APAP 10/325 [[place] 1 tab PO TID PRN 01/07/18 01/07/18 History 10/325] Loratadine [Claritin] 10 mg PO DAILY 01/07/18 01/07/18 History Metoclopramide [Reglan] 10 mg PO TID 01/07/18 01/07/18 History Mirtazapine [Remeron] 15 mg PO HS 01/07/18 01/07/18 History Nicotine Polacrilex [Nicorette] 2 mg BC PRN PRN 01/07/18 01/07/18 History Ranitidine [Zantac] 150 mg PO HS 01/07/18 01/07/18 History Scopolamine Patch [Transderm-Scop 1 patch TD Q3D 01/07/18 01/07/18 History Patch] cefUROXime axetil [Cefuroxime] 500 mg PO Q12H 01/07/18 01/07/18 History Allergies Allergy/AdvReac Type Severity Reaction Status Date / Time levofloxacin Allergy Mild Hives Verified 01/07/18 08:54 Sulfa (Sulfonamide Allergy Unknown Verified 01/07/18 08:54 Antibiotics) Exam Vital Signs: Temperature 98.1 F 01/07/18 08:53 Pulse Rate 88 01/07/18 11:41 Respiratory Rate 20 01/07/18 11:41 Blood Pressure 174/92 H 01/07/18 11:41 Pulse Oximetry 96 01/07/18 11:41 - Constitutional Present: mild distress, well nourished, well developed, thin - Routine HEENT Exam Head: Present: normocephalic Eye: Present: PERRL. Absent: conjunctival icterus, scleral injection ENT: Present: mucous membranes moist, oropharynx clear - Routine Neck Exam Present: supple - Routine Respiratory Exam Present: CTA bilaterally - Routine Cardiovascular Exam Present: RRR, S1, S2 - Routine Abdominal Exam Present: soft, tenderness (epigastric). Absent: normoactive bowel sounds ( hypoactive) Comments: emesis in bag is bilious with dark colored specs - Routine Extremities Exam Present: no edema - Routine Skin Exam Present: intact, dry, warm - Routine Neurological Exam Present: alert, oriented X3, CN II-XII intact, moving all extremities, vision grossly intact, hearing grossly intact, normal speech. Absent: sensory deficit , motor deficit, altered mental status, facial asymmetry - Routine Psychiatric Exam Present: normal affect, normal thought process, cooperative Results - Labs CBC & Chem 7: 01/07/18 09:59 01/07/18 09:59 Assessment and Plan Assessment and Plan: Assessment Hematemesis/intractable n/v (last EGD 07/2017: distal esophagitis with ulceration and moderate antritis/gastritis) Adenocarcinoma left lung COPD HTN Depression Anxiety OA Plan Admit, obs status. Start NS with KCl at 100 mL/hr. Zofran, Reglan, scopolamine patch for n/v. Consult Dr. Lomeli. Monitor hgb, stable on admit. Clear liquid diet. Hydralazine PRN for SBP >180 or DBP >110 mm Hg. PO meds if able to tolerate; spironolactone on hold d/t n/v. Hold cefuroxime - CXR on 01/05/18 was neg for pneumonia and sx are minimal. D/w Dr. Tabor. DVT Prophylaxis: SCD's GI Prophylaxis: Protonix, Rantidine - Physician Narrative Narrative: Date: 01/07/18 Time: 1511 S: Pt reports n/v has improved with meds, denies any cp, sob. Pt hasn't been able to take his BP meds for the last couple of days d/t n/v. Reports typically his BPs are in 130s systolic. O: Gen: AAOx3, no acute distress Cards: RRR without mumurs Lungs: CTAB without wheezing A/P: Hematemesis-Consulted surgery, IV fluids, monitor H&H, PPI HTN-Likely from distress, also from missing meds, will do IV meds to bring it down and re-start home meds N/v-Possibly d/t esophagitis and gastritis Pt is stable, will cont. to monitor Hospital Course Summary Disclaimer: The visit summary below is not to be considered part of the above Progress Note. Hospital Course: 01/07/18 Admit, obs status. Start NS with KCl at 100 mL/hr. Zofran, Reglan, scopolamine patch for n/v. mConsosorio Lomeli. mMonitor hgb, stable on admit. Clear liquid diet. Hydralazine PRN for SBP >180 or DBP >110 mm Hg. PO meds if able to tolerate; spironolactone on hold d/t n/v. Hold cefuroxime - CXR on 01/05/18 was neg for pneumonia and sx are minimal. Addendum entered and electronically signed by Danii Nickerson APRN 01/07/18 15: 41: Discussed with Dr. Lomeli -- recommends ongoing treatment with PPI and Carafate. Jose Miguel is on the surgery schedule for repeat EGD on January 11 @ 0730. If he stays in the hospital over the weekend, it's possible they can work him in for EGD on January 10.
[2018-01-07] MEDS ORDERED: HYDRALAZINE 20 MG/ML INJECTION IVP PRN (12:18)
[2018-01-07] MEDS ORDERED: ONDANSETRON 4 MG/2 ML INJECTION IVP PRN (12:21)
[2018-01-07] MEDS ORDERED: LORazepam 1 MG TABLET PO PRN (12:23)
[2018-01-07] MEDS ORDERED: CYCLOBENZAPRINE 10 MG TABLET PO PRN (12:23)
[2018-01-07] MEDS ORDERED: SCOPOLAMINE 1mg/3 days PATCH (Eq. 1.5 Patch) TD SCH (12:30)
--- NOTE | 2018-01-07 13:18 | General Surgery Consult Note ---
Consult date: 01/07/18 Attending Physician: Diamond Tabor MD [facility] Medical History (Last Updated 01/07/18 @ 12:51 by Danii Nickerson APRN) Osteoarthritis (Acute Medical) Adenocarcinoma of left lung (Acute Medical) Anxiety (Acute Medical) COPD (chronic obstructive pulmonary disease) (Acute Medical) Chronic low back pain (Acute Medical) Depression (Acute Medical) Borderline diabetes (Chronic Medical) Hypertension (Chronic Medical) Medical History Updates: Herniated disc in back with chronic pain. Esophagitis/ gastritis Surgical History: Lung Biopsy, Chest Tube Insertion. Left upper lobectomy 02/16. 04/02/17 Port-A-Cath insertion. Right eyelid surgery. Vocal cord "scraped". 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 Antoine 2016. EGD 07/15/17 (Dr. Lomeli): distal esophagitis with ulceration, moderate antritis/gastritis. Bronchoscopy with biopsy 09/2017 (Dr. Calderon): normal Family History: Family History (Last Reviewed 07/07/17 @ 14:32 by Bethany Dennis [facility]) Father Diabetes High blood pressure Paternal Grandfather High blood pressure Diabetes - Social History Smoking status: Former smoker Packs-years: 24 second hand exposure: No Quit date: 02/05/17 Substance use type: does not use Alcohol intake: former Alcohol intake frequency: does not drink Housing: apartment Household members: none Current occupational status: disabled Current occupation: Disabled Does patient use chewing tobacco?: No Current residence: Apartment/Private Home Medications Home Medications Medication Instructions Recorded Confirmed Type Folic Acid [Folate] 1 mg PO DAILY 07/11/17 01/07/18 History Gabapentin [Neurontin] 600 mg PO QAM 12/08/17 01/07/18 History Spironolactone [Aldactone] 25 mg PO DAILY #30 tab 12/14/17 01/07/18 Rx Albuterol Sulfate 2.5 mg AEROSOL TID PRN 12/15/17 01/07/18 History Bisacodyl [Laxative] 10 mg PO DAILY 12/15/17 01/07/18 History BuPROPion XL [Wellbutrin Xl] 150 mg PO DAILY 12/15/17 01/07/18 History Doxazosin [Cardura] 2 mg PO HS 12/15/17 01/07/18 History FentaNYL PATCH [Duragesic Patch] 50 mcg TD Q72H 12/15/17 01/07/18 History LORazepam [Lorazepam] 1 mg PO TID PRN 12/15/17 01/07/18 History Pantoprazole Sodium [Protonix] 40 mg PO BID 12/15/17 01/07/18 History Sucralfate Oral Liq [Carafate 1 gm PO QID 12/15/17 01/07/18 History Slurry] Amlodipine [Norvasc] 5 mg PO BID 01/07/18 01/07/18 History Cyclobenzaprine [Flexeril] 1 tab PO TID PRN 01/07/18 01/07/18 History Docusate Sodium [Colace] 200 mg PO DAILY 01/07/18 01/07/18 History Gabapentin [Gabapentin] 300 mg PO HS 01/07/18 01/07/18 History Gabapentin [Gabapentin] 300 mg PO WS 01/07/18 01/07/18 History Hydrocodone/APAP 10/325 [[place] 1 tab PO TID PRN 01/07/18 01/07/18 History 10/325] Loratadine [Claritin] 10 mg PO DAILY 01/07/18 01/07/18 History Metoclopramide [Reglan] 10 mg PO TID 01/07/18 01/07/18 History Mirtazapine [Remeron] 15 mg PO HS 01/07/18 01/07/18 History Nicotine Polacrilex [Nicorette] 2 mg BC PRN PRN 01/07/18 01/07/18 History Ranitidine [Zantac] 150 mg PO HS 01/07/18 01/07/18 History Scopolamine Patch [Transderm-Scop 1 patch TD Q3D 01/07/18 01/07/18 History Patch] cefUROXime axetil [Cefuroxime] 500 mg PO Q12H 01/07/18 01/07/18 History Allergies Allergy/AdvReac Type Severity Reaction Status Date / Time levofloxacin Allergy Mild Hives Verified 01/07/18 08:54 Sulfa (Sulfonamide Allergy Unknown Verified 01/07/18 08:54 Antibiotics) Review of Systems 10-point ROS: negative except for HPI and the following: - General General: Present: night sweats, other (fatigue and weakness) - Respiratory Respiratory: Present: cough, other (labored breathing) - Gastrointestinal Gastrointestinal: Present: nausea, diarrhea, vomiting (coffee ground and red) - Psychiatric Psychiatric: Present: anxiety - Vital Signs Last Vital Signs Temp 98.1 F 01/07/18 08:53 Pulse 88 01/07/18 12:32 Resp 20 01/07/18 12:32 BP 174/92 H 01/07/18 11:41 Pulse Ox 96 01/07/18 12:32 - Laboratory Result Diagrams: 01/07/18 09:59 01/07/18 09:59
[2018-01-07] MEDS: PANTOPRAZOLE 40 MG INJECTION IVP SCH ×2 (13:42→21:19)
[2018-01-07] MEDS: NS with KCL 20 mEq 1,000 ML IV SCH (13:43)
[2018-01-07] MEDS: HYDROCODONE/APAP 10 MG/325 MG TABLET PO PRN (13:44)
[2018-01-07 14:00] VITALS: BMI 22.1
--- NOTE | 2018-01-07 17:08 | Consultation ---
DATE OF CONSULTATION 01/07/2018 FINDINGS Mr. Pena is a 57-year-old gentleman whom I was asked to see today as a result of his history for recurrent nausea, vomiting, and hematemesis. The patient is known to my surgical practice and I saw the patient back in July of last year for similar issues. Patient states that after being seen in July of last year for his nausea, vomiting and hematemesis, he was discharged to home. He states that he did well for a period of time but recently has developed recurrent nausea and vomiting as well as noticing "blood in his vomit". Patient states over last few days this has progressively became worse. He states that it has been difficult for him to "keep anything down". Patient states that when he swallows, it feels as if things are somewhat "catching" within his esophagus. He states that he has been vomiting a fair amount into the "stool". He states that he has noted that the vomit at times contains some coffee-ground material as well as at other times some bright red blood. Patient states that today he has been throwing up "bile-like stuff". He also states that he has been noticing a component of discomfort within his upper abdomen. The patient states that he was recently found to have pneumonia and placed on antibiotics. Patient states that he was feeling significantly more weak and therefore presented to our emergency room facility for further care. The [facility] as a result of the above circumstances for further evaluation and care. Upon entering the room this afternoon, he was resting comfortably. Patient states that he has been drinking some water since his admission. The patient has a known history in the past for adenocarcinoma involving the left lung with positive mediastinal nodes. He did undergo surgical intervention. The patient was undergoing adjuvant chemotherapy which was discontinued because he "couldn' t tolerated it". The patient has had a prior CT scan revealing hypermetabolism within the mediastinal nodes. PAST MEDICAL HISTORY Performed by my nurse practitioner, Monroe Hayes. PAST SURGICAL HISTORY Performed by my nurse practitioner, Monroe Hayes. MEDICATIONS Performed by my nurse practitionerMonroe. ALLERGIES Performed by my nurse practitionerMonroe. SOCIAL HISTORY Performed by my nurse practitionerMonroe. FAMILY HISTORY Performed by my nurse practitionerMonroe. REVIEW OF SYSTEMS Performed by my nurse practitionerMonroe. PHYSICAL EXAMINATION GENERAL: Mr. Pena is a 57-year-old gentleman who as stated above, this afternoon did not appear to be in acute distress. VITALS: Temperature 98.1, pulse 88, respirations 18, blood pressure was elevated this afternoon at 199/89, SaO2 96% on room air. HEENT: Normocephalic. Pupils are equally round and react to light and accommodation. CHEST: Auscultation of the chest revealed coarse breath sounds bilaterally with left greater than right. The patient was found to have a component of some rales and rhonchi. HEART: Regular rate and rhythm. Normal S1, S2, without gallops, murmurs or clicks. ABDOMEN: Palpation of the abdomen did reveal it to be somewhat tender within the epigastric region with a slight component of some voluntary guarding. There however was no evidence for involuntary guarding or rebound tenderness. I did not appreciate any evidence for hepatosplenomegaly or other abnormal masses. EXTREMITIES: Without clubbing, cyanosis, or edema. NEURO: Cranial nerves II-XII grossly intact. Patient without focal, motor, or sensory deficits. LABORATORY/RADIOGRAPHIC EVALUATION Patient had a CBC upon admission and his white count was 7.9. Hemoglobin, despite his history of reported hematemesis and coffee-ground emesis, was normal at 14.3. CMP was obtained and found to be essentially within normal limits. Chloride was slightly low at 95. The patient did undergo gastric occult with his emesis. This was positive in nature. ASSESSMENT 57-year-old gentleman with known history for metastatic adenocarcinoma involving left lung. Patient with onset of nausea, vomiting and hematemesis. PLAN I have reviewed the admission orders and agree with the current plan. The patient is being treated empirically for esophagitis/peptic ulcer disease and is on Protonix 40 mg IV b.i.d. in conjunction with Zantac 150 mg p.o. q.h.s. One may wish also to add Carafate 1 gram p.o. q.i.d. to his medical regimen. I did review his prior EGD report from July 15, 2017. The patient was found to have some prominent submucosal venous structures within his esophagus indicative of varices. Prior CT scans of his abdomen and pelvis, however, have not revealed any evidence for cirrhosis of the liver. The patient states that he used to "drink a bunch of alcohol" but has not had a drink in about 16 years. Additionally his prior EGD from July revealed marked distal esophagitis with ulcerations. I do not feel that emergent endoscopy is indicated at this time. His hemoglobin is normal and he has not had significant hematemesis since his admission. I do feel however that on an elective basis, he should undergo esophagogastroduodenoscopy for further evaluation of his hematemesis, nausea, vomiting, and component of dysphagia. If the patient is hospitalized over the course of the weekend, this can be carried out on Wednesday. If he is discharged to home, patient has been tentatively scheduled to undergo an EGD on Wednesday at 7:30. I did speak with the patient this afternoon about the proposed plan as well as the potential risks associated with esophagogastroduodenoscopy which included, but were not exclusive of, bleeding and/or perforation requiring surgery. The patient understood and agreed with the proposed plan as stated above. [facility]
[2018-01-07] MEDS: GABAPENTIN 300 MG CAPSULE PO SCH ×2 (19:40→21:19)
[2018-01-07] MEDS: METOCLOPRAMIDE 10mg/2ml INJECTION IVP SCH (19:40)
[2018-01-07] MEDS: MIRTAZAPINE 15 MG TABLET PO SCH (21:12)
[2018-01-07] MEDS: RANITIDINE 150 MG TABLET PO SCH (21:12)
[2018-01-07] MEDS: DOXAZOSIN 2 MG TABLET PO SCH (21:13)
[2018-01-07] MEDS: AMLODIPINE 5 MG TABLET PO SCH (21:18)
[2018-01-08] MEDS: METOCLOPRAMIDE 10mg/2ml INJECTION IVP SCH ×3 (00:13→10:53)
[2018-01-08] MEDS: NS with KCL 20 mEq 1,000 ML IV SCH ×3 (00:14→19:26)
[2018-01-08] MEDS: LORATADINE 10 MG TABLET PO SCH (09:18)
[2018-01-08] MEDS: GABAPENTIN 300 MG CAPSULE PO SCH ×3 (09:18→21:39)
[2018-01-08] MEDS: BuPROPion XL 150mg (24HR) TABLET PO SCH (09:18)
[2018-01-08] MEDS: Bisacodyl EC TAB 5 MG TABLET PO SCH (09:18)
[2018-01-08] MEDS: DOCUSATE SODIUM 100 MG CAPSULE PO SCH (09:19)
[2018-01-08] MEDS: AMLODIPINE 5 MG TABLET PO SCH ×2 (09:19→21:39)
[2018-01-08] MEDS: PANTOPRAZOLE 40 MG INJECTION IVP SCH ×2 (09:22→21:40)
[2018-01-08] MEDS: ALBUTEROL 2.5mg/3ml (0.083%) NEB AEROSOL PRN ×4 (11:13→20:57)
--- NOTE | 2018-01-08 11:13 | Progress Note ---
DATE 01/08/2018 FINDINGS Mr. Pena stated that he had a "good evening". He states he did not have any nausea or vomiting last evening. He still has a component of some soreness within his "throat". OBJECTIVE VITALS: Afebrile. Normotensive. Current vitals include temperature 98.0, pulse 77, respirations 16, blood pressure 135/84. HEENT: Normocephalic. Pupils are equally round and react to light and accommodation. CHEST: Clear to auscultation bilaterally. HEART: Regular rate and rhythm. Normal S1, S2, without gallops, murmurs or clicks. ABDOMEN: Palpation of the abdomen reveals it to be soft and nontender. I do not appreciate any evidence for hepatosplenomegaly nor abnormal masses. LABORATORY/RADIOGRAPHIC EVALUATION Patient had a CBC today and his hemoglobin has drifted down slightly to 12.5 which is likely dilutional in nature. White count stable at 9.0. BMP obtained and found to be without marked abnormalities. ASSESSMENT 57-year-old gentleman with known metastatic adenocarcinoma of the lung with history of positive mediastinal nodes. Patient unable to tolerate adjuvant therapy. Patient with presentation of nausea, vomiting, hematemesis and progressive weakness. The patient has made clinical improvement since admission. PLAN The patient informed me this morning he had been unable to take his Carafate and antacids for a period of time. I do believe this has likely contributed to his increasing esophagitis. The patient was found to have some prominent submucosal venous structures upon prior endoscopy indicative of portal hypertension. Prior CT scans however did not reveal any evidence for nodularity of the liver to suggest underlying cirrhosis. The patient has had a prolonged gastric emptying study which also likely contributes to his reflux. He has had prior endoscopy that revealed ulceration of the distal esophagus. It would be my recommendation that we continue with current care. If the patient is stable from a medical standpoint, he could be discharged to home and it is planned that on Wednesday of next week to proceed with esophagogastroduodenoscopy. If the patient requires ongoing hospitalization, we will proceed with EGD on Wednesday. I am not planning on seeing the patient tomorrow and if general surgical care is needed tomorrow, please contact Dr. Bingham who is on-call. If patient does stay the course of the weekend, please make n.p.o. after midnight on Wednesday. [facility]
--- NOTE | 2018-01-08 16:52 | Progress Note ---
- Date 01/08/18 Subjective: Jose Miguel was seen in his room this afternoon. He states he is feeling better. He tolerated full liquids for lunch and would like to try a regular diet for supper. He has not had any nausea or vomiting today. He has some mild upper abdominal pain which she thinks is from muscle soreness with frequent vomiting prior to admission. He is drinking liquids well and states that his urine is not as dark. He states his breathing is doing well with the breathing treatments. Objective Vital signs: Temperature 96.7 F L 01/08/18 15:25 Pulse Rate 76 01/08/18 15:25 Respiratory Rate 16 01/08/18 15:25 Blood Pressure 143/79 H 01/08/18 15:25 Pulse Oximetry 92 01/08/18 15:25 Height/Weight/BMI: Height 1.8 m Weight 74.1 kg Body Mass Index 22.1 Comments: Weight is up 3 kg since last admission Afebrile, vital signs stable today GEN-alert and oriented, no acute distress HEENT-sclera anicteric, oropharynx is moist NECK-supple CV-regular rate and rhythm CHEST-mild coarse breath sounds Abdomen -soft, nontender with positive bowel sounds -no Russell EXT-no edema NEURO-no focal deficits SKIN-warm and dry Results - Labs CBC & Chem 7: 01/08/18 15:44 01/08/18 04:30 Labs: Liver panel and lipase were normal yesterday. Calcium is 9.3 today. Hemoglobin has remained in the 12 range today. 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 Nausea and vomiting has resolved. Advancing diet as tolerated. We'll try a regular diet this evening. Change Reglan to by mouth instead of IV. DC IV fluids if taking by mouth well. Every 6 hours hemoglobin thus far today is stable. If the patient remains stable and tolerating by mouth well, may discharge tomorrow with plans for EGD on Wednesday. If the patient is not improved tomorrow and ready for discharge, will likely do EGD Wednesday morning. Respiratory status is currently doing well off of antibiotics. Chest x-ray 01/05 was negative for pneumonia. Continue breathing treatments. Discussed today with Dr. Lomeli. Chest with case management. DVT Prophylaxis: SCD's GI Prophylaxis: Protonix Resuscitation Status: Full Code - Physician Narrative Narrative: Date: 01/08/18 Time: 1646 Hospital Course Summary Disclaimer: The visit summary below is not to be considered part of the above Progress Note. Hospital Course: 01/07/18 Admit, obs status. Start NS with KCl at 100 mL/hr. Zofran, Reglan, scopolamine patch for n/v. mConsult Dr. Lomeli. mMonitor hgb, stable on admit. Clear liquid diet. Hydralazine PRN for SBP >180 or DBP >110 mm Hg. PO meds if able to tolerate; spironolactone on hold d/t n/v. Hold cefuroxime - CXR on 01/05/18 was neg for pneumonia and sx are minimal.
[2018-01-08] MEDS: SUCRALFATE 1gm/10ml ORAL LIQUID PO SCH ×2 (17:56→21:37)
[2018-01-08] MEDS: DOXAZOSIN 2 MG TABLET PO SCH (21:38)
[2018-01-08] MEDS: RANITIDINE 150 MG TABLET PO SCH (21:39)
[2018-01-08] MEDS: MIRTAZAPINE 15 MG TABLET PO SCH (21:40)
[2018-01-08] MEDS: SALINE FLUSH 10ml SYRINGE IVF PRN (21:45)
[2018-01-09] MEDS: SUCRALFATE 1gm/10ml ORAL LIQUID PO SCH ×2 (06:41→10:58)
[2018-01-09 07:48] VITALS: BP 138/80; PULSE 67; TEMP 97
[2018-01-09] MEDS: BuPROPion XL 150mg (24HR) TABLET PO SCH (08:25)
[2018-01-09] MEDS: LORATADINE 10 MG TABLET PO SCH (08:25)
[2018-01-09] MEDS: PANTOPRAZOLE 40 MG INJECTION IVP SCH (08:25)
[2018-01-09] MEDS: GABAPENTIN 300 MG CAPSULE PO SCH (08:26)
[2018-01-09] MEDS: Bisacodyl EC TAB 5 MG TABLET PO SCH (08:26)
[2018-01-09] MEDS: AMLODIPINE 5 MG TABLET PO SCH (08:26)
[2018-01-09] MEDS: DOCUSATE SODIUM 100 MG CAPSULE PO SCH (08:26)
[2018-01-09] MEDS: ALBUTEROL 2.5mg/3ml (0.083%) NEB AEROSOL PRN ×2 (09:35→13:36)
[2018-01-09] MEDS: HYDROCODONE/APAP 10 MG/325 MG TABLET PO PRN (10:58)
--- NOTE | 2018-01-09 11:41 | Discharge Summary ---
Discharge Information Date of admission: 01/08/18 18:05 Anticipated date of discharge: 01/09/18 Attending Physician: Daisy Ramos MD Primary care physician: Cristofer Mendoza MD Consults: Dr. 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 He also has a hx of left lung adenocarcinoma for which he couldn't tolerate treatment. An EGD in Jul showed distal esophagitis with ulceration and moderate antritis/ gastritis. He's been on PPI, H2 elle, and carafate. He began having n/v 2 days ago. Coincidentally, this is about the same time he was started on cefuroxime for a "right lung infection" - he's had a minimal cough with this. His n/v progressed, and he developed severe epigastric pain. He hasn't been able to tolerate even water. He has felt like he's been running slight fevers. He's had sweats and has been so weak to the point he felt like he might pass out. His breathing feels labored. 1 day ago, he began having both bright red emesis and coffee-ground emesis. He's had 2 episodes of brown watery diarrhea. His urine is dark in color and he believes he's dehydrated. He hasn't been able to keep down his routine medications. His throat is sore from all the vomiting. He presented to [facility] ED. Labs showed stable hgb and chemistries, but gastric occult blood was positive. In addition BP was elevated 170s/90s. Despite 1L of NS and Reglan 10 mg, his n/v persisted. The hospitalist dept was notified for admission. Objective Vital signs: Temperature 97.0 F 01/09/18 07:47 Pulse Rate 67 01/09/18 07:47 Respiratory Rate 20 01/09/18 09:35 Blood Pressure 138/80 01/09/18 07:47 Pulse Oximetry 97 01/09/18 09:35 Height/Weight/BMI: Weight 97 kg Hospital Course This is a general summary of the patient's hospital course. For more details refer to the complete medical record. Hospital course: 01/07/18 Admit, obs status. Start NS with KCl at 100 mL/hr. Zofran, Reglan, scopolamine patch for n/v. blossom Lomeli. mMonitor hgb, stable on admit. Clear liquid diet. Hydralazine PRN for SBP >180 or DBP >110 mm Hg. PO meds if able to tolerate; spironolactone on hold d/t n/v. Hold cefuroxime - CXR on 01/05/18 was neg for pneumonia and sx are minimal. 01/08/2018 Overall, the patient is feeling better on scopolamine patch, scheduled IV Reglan , and IV fluids. Nausea and vomiting has resolved. Advancing diet as tolerated. We'll try a regular diet this evening. Change Reglan to by mouth instead of IV. DC IV fluids if taking by mouth well. Every 6 hours hemoglobin thus far today is stable. If the patient remains stable and tolerating by mouth well, may discharge tomorrow with plans for EGD on Wednesday. If the patient is not improved tomorrow and ready for discharge, will likely do EGD Wednesday morning. Respiratory status is currently doing well off of antibiotics. Chest x-ray 01/05 was negative for pneumonia. Continue breathing treatments. Discussed today with Dr. Lomeli. Discussed with case management. 01/09/2018 The patient is feeling very well. He has no further nausea. He tolerated regular food for supper last night and for breakfast this morning. He is hungry for lunch. He denies any difficulty breathing. He has been up in the room without difficulty. Serial hemoglobins have been stable and hemoglobin today is 12.3. We'll dismiss to home with plans for outpatient EGD with Dr. Lomeli on 01/11/2018. He will need to be nothing by mouth after midnight prior to EGD. He will go home with scopolamine patch that he can take as needed for nausea. We will also have Reglan/metoclopramide to take 30 minutes before meals and at bedtime when necessary for nausea. He was notified that if he should have any unusual movements of his mouth, face or limbs while taking Reglan/metoclopramide , he should stop it immediately and notify his physician. Time spent with patient: discharge greater than 30 minutes Resuscitation Status: Full Code Discharge Plan - Discharge Disposition Disposition: Discharged Home, Self-Care *Condition: Stable Reason For Visit (Visit label in EMR): hemetamasis, anemia, nausea and vomiting - Discharge Medications Medication Comments: The patient can take Reglan/metoclopramide 10 mg before meals meals and daily at bedtime when necessary for nausea. He can also wear scopolamine patch when necessary for nausea. *Discharge Medications: Continue Folic Acid [Folate] 1 mg PO DAILY Doxazosin [Cardura] 2 mg PO HS FentaNYL PATCH [Duragesic Patch] 50 mcg TD Q72H LORazepam [Lorazepam] 1 mg PO TID PRN PRN Reason: Anxiety Sucralfate Oral Liq [Carafate Slurry] 1 gm PO QID BuPROPion XL [Wellbutrin Xl] 150 mg PO DAILY Bisacodyl [Laxative] 10 mg PO DAILY Albuterol Sulfate 2.5 mg AEROSOL TID PRN PRN Reason: Shortness Of Air/Wheezing Loratadine [Claritin] 10 mg PO DAILY Docusate Sodium [Colace] 200 mg PO DAILY Mirtazapine [Remeron] 15 mg PO HS Cyclobenzaprine [Flexeril] 1 tab PO TID PRN PRN Reason: Muscle Spasm Hydrocodone/APAP 10/325 [[place] 10/325] 1 tab PO TID PRN PRN Reason: Pain Gabapentin 300 mg PO WS Gabapentin 300 mg PO HS Gabapentin [Neurontin] 600 mg PO QAM Spironolactone [Aldactone] 25 mg PO DAILY #30 tab Pantoprazole Sodium [Protonix] 40 mg PO BID Ranitidine [Zantac] 150 mg PO HS Amlodipine [Norvasc] 5 mg PO BID Nicotine Polacrilex [Nicorette] 2 mg BC PRN PRN PRN Reason: Prn Orders Doxazosin [Cardura] 2 mg PO DAILY Changed Scopolamine Patch [Transderm-Scop Patch] 1 patch TD Q3D PRN #0 PRN Reason: Nausea Metoclopramide [Reglan] 10 mg PO AC30 #0 Discontinued cefUROXime axetil [Cefuroxime] 500 mg PO Q12H - Discharge Packet/Instructions *Diet: [place] diet as tolerated *Activity: Activity as tolerated *Pain Management/Treatment: [place] as needed for pain *Wound Care: Not applicable Additional Instructions: Nothing to eat or drink after midnight Wednesday night for your planned procedure Wednesday. Return to [facility] 01/11/2018 at ED registration at 5:30 in the morning for planned EGD. *Expected Signs/Symptoms: hopefully, nausea will continue to improve *Notify Physician if: Call your doctor or return to emergency room if you have recurrence of nausea and vomiting with inability to keep down her medications, or if you have recurrence of vomiting of blood. Seek medical attention if you develop shortness of breath, lightheadedness, fevers, chest pain or any other severe symptoms. *Pending Lab/Results: No Pending Lab - Referrals/Follow Up *Referrals/Follow Up: Dhaval Lomeli MD [Physician] - 01/11/18 6:00 am (Arrive at the Emergency/ Surgery registration at 6am January 11 for an EGD. Do NOT eat or drink anything after midnight Wednesday night.) - Patient Handouts - Dismissal Complete Discharge Instructions are:: Complete Physician Narrative - Narrative Attestation Narrative: Date: 01/09/18 Time: [id number]
[2018-01-09 13:44] VITALS: RESP 18; O2SAT 99
[2018-01-09] MEDS: SALINE FLUSH 10ml SYRINGE IVF PRN (13:53)
[2018-01-10] MEDS ORDERED: SCOPOLAMINE PATCH REMOVAL TD SCH (12:30)
== END 2018-01-09 13:55 | disposition home or self-care (01) | DRG 379 ==
LOC: ED 08:51 → EDHOLD 08:51 → SUATTDRO 11:43 → MED 12:10
PROVIDERS: ADMIT Internal Medicine; ATTEND Internal Medicine